=== PATIENT | male | born 1970 | race Caucasian/White ===

== ENCOUNTER 2021-01-24 10:33 | Inpatient (IN) ==
[2021-01-24] MEDS ORDERED: methylPREDNISolone SOD SUCC 125 MG/2 ML VIAL IV ONE (12:00)
[2021-01-24] MEDS ORDERED: 0.9 % SODIUM CHLORIDE 1,000 ML IV ONE (12:00)
[2021-01-24] MEDS ORDERED: cefTRIAXone 1 GM in DEXTROSE 5% IN WATER 50 ML IV SCH ×3 (12:00→17:30)
[2021-01-24] MEDS ORDERED: ALBUTEROL SULFATE 2.5 MG/3 ML NEBULIZER NEB ONE (12:00)
[2021-01-24] MEDS ORDERED: IPRATROPIUM/ALBUTEROL 3 ML AMPUL.NEB NEB ONE ×2 (12:00→18:42)
[2021-01-24] MEDS ORDERED: DOXYCYCLINE HYCLATE 100 MG TABLET.ORL PO ONE (12:02)
--- NOTE | 2021-01-24 12:23 | XRay Report ---
INDICATION: dyspnea TECHNIQUE: AP portable chest x-ray COMPARISON: Previous chest x-ray dated 01/18/2021 performed at [facility]. Prior examinations dated 12/24/2020, 12/23/2020, 04/12/2020, 04/06/2020, 03/07/2020, 12/11/2019. Previous CT scan dated 01/07/2020 FINDINGS: Lungs:Lungs are abnormal bilaterally. There are parenchymal infiltrates with bibasilar predominance, left worse than right. These infiltrates. Stable consistent with chronic scarring. There is tenting of left hemidiaphragm. No new focal pulmonary parenchymal infiltrate or mass Heart, vascular:No significant cardiomegaly. Pulmonary vascularity is normal. No pulmonary edema or pulmonary congestion Mediastinum, eduarda:No mediastinal widening. No hilar mass Pleura:There is blunting of the left and right costophrenic angles. Findings are chronic Skeletal:Negative. IMPRESSION: 1. Bilateral pulmonary parenchymal infiltrates consistent with chronic scarring 2. Blunting of both costophrenic angles, chronic 3. No acute abnormality Interpreted and Authenticated by: Kamron Dorado 01/24/21
[2021-01-24 12:57] LABS: Basophils # (Auto) 0.06 K/mcL (0.00-0.30); Basophils % (Auto) 0.5 % (0.0-2.0); Eosinophils # (Auto) 0.24 K/mcL (0.00-0.70); Eosinophils % (Auto) 1.9 % (0.0-7.0); Hemoglobin 15.1 g/dL (13.7-17.5); Lymphocytes # (Auto) 3.38 K/mcL (1.50-4.80); Lymphocytes % (Auto) 26.2 % (15.5-49.0); Mean Cell Volume 91.3 fL (80.0-100.0); Mean Corpuscular HGB Conc 35.1 g/dL (31.0-36.0); Mean Platelet Volume 8.8 fL (7.4-10.4); Monocytes # (Auto) 1.46 K/mcL (0.10-0.90); Monocytes % (Auto) 11.3 % (1.0-12.0); Neutrophils % (Auto) 60.1 % (38.0-78.0); Platelet Count 322 K/mcL (140-440); RBC 4.71 M/mcL (4.63-6.08); Red Cell Distribution Width 13.2 % (11.5-14.5); WBC 12.9 K/mcL (4.5-11.0)
[2021-01-24 13:16] LABS: ALT/SGPT 16 U/L (<40); AST/SGOT 23 U/L (<40); Albumin 3.8 gm/dL (3.2-5.2); Albumin/Globulin Ratio 1.4 (1.0-2.3); Alkaline Phosphatase 54 U/L (39-117); Bilirubin,Total 0.3 mg/dL (0.1-1.0); Blood Urea Nitrogen 11 mg/dL (6-20); Calcium 8.6 mg/dL (8.6-10.4); Carbon Dioxide 30 mmol/L (22-30); Chloride 86 mmol/L (96-108); Globulin 2.8 gm/dL (2.2-3.7); Glomerular Filtration Rate 105; Glucose 101 mg/dL (70-105)
--- NOTE | 2021-01-24 16:02 | Internal Med History&Physical ---
HPI History of Present Illness Patient information: Note initiated : 01/24/21 at 3:53 pm Service Date, if different from initiated Date: [] Patient: Tae Esquivel a 50 y/o M admitted on for PNA is worse & LLE swollen/red. Chief Complaint: [shortness of breath] History of present illness: Mr. Esquivel is a 50 year old M history of COPD, current smoker, seizure disorder, presenting with 1 and half week history of shortness of breath, productive cough, wheezing, chest pain/tightness, and chills. Over the 1/2-week, he is presenting of acute onset, gradually worsening shortness of breath, productive cough, wheezing, chest pain and chest tightness, and chills. He denies any fever or diaphoresis. He is producing brown sputum. He ran out of his medication for the past few days including inhalers. He is vaccinated against Covid pneumonia. He also have a history of left scherer wound secondary to a fall 2 weeks ago for which he is on and still taking oral antibiotics clindamycin. Today he presented to our ED due to worsening of his respiratory symptoms. He was initially placed on BiPAP and currently is on 2 L of oxygen's. He is saturating in the mid to high 90s with the current oxygen therapy. Rest of the vital signs within normal limits. Labs significant for leukocytosis with WBC 12.9. Serum lactic acid 0.5. Serum sodium level 125 with baseline 131. Chest x-ray showing bilateral lung parenchymal chronic scarring without any acute abnormalities. Covid screening test negative. Constitutional Constitutional: Present chills and weakness; Absent excessive sweating, fatigue and fever(s) EENT Eyes: Absent blurry vision, change in vision, loss of vision and other visual disturbances Ears: Absent decreased hearing and tinnitus Nose, mouth and throat: Absent abnormal hearing, dry mouth, headache(s), nasal congestion and sore throat Cardiovascular Cardiovascular: Present chest pain; Absent chest pain at rest, edema, irregular heart rhythm and palpatations Respiratory Respiratory: Present cough, dyspnea, wheezing and excessive phlegm production Gastrointestinal Gastrointestinal: Absent abdominal pain, constipation, diarrhea, nausea and vomiting Musculoskeletal Musculoskeletal: Absent back pain, deformity, limited range of motion, muscle cramps, muscle weakness and numbness Integumentary Integumentary: Present lesions and wounds; Absent rash Neurological Neurological: Absent focal weakness, headache(s) and numbness Psychiatric Psychiatric: Absent anxiety, depression and hallucinations PFSH PFSH All Active Problems (Updated 01/24/21 @ 15:58 by Severo Harrington MD) Hyponatremia (Acute) Current smoker (Acute) Acute and chronic respiratory failure with hypoxia (Acute) COPD exacerbation (Acute) Left leg cellulitis (Acute) Cellulitis (Acute) Laceration (Acute) Pneumonia (Acute) MEDS/ALLERGIES Home Medications and Allergies Home Medications Medication Instructions Recorded Confirmed Type ibuprofen 800 mg PO Q8H PRN #20 tab 01/11/21 Rx albuterol sulfate 2 puff INHALATION QID PRN #8.5 g 01/18/21 Rx amoxicillin-pot clavulanate 1 tab PO BID #20 tab 01/18/21 Rx [Augmentin] prednisone 40 mg PO QDAY #10 tab 01/18/21 Rx Allergies Allergy/AdvReac Type Severity Reaction Status Date / Time vancomycin Allergy Severe Anaphylaxis Verified 01/24/21 10:36 Sulfa (Sulfonamide Allergy Unknown Unknown Verified 01/24/21 10:36 Antibiotics) EXAM Constitutional Vitals: Temp Pulse Resp BP Pulse Ox 36.8 C 88 19 124/96 97 01/24/21 10:36 01/24/21 15:40 01/24/21 15:40 01/24/21 15:01 01/24/21 15:40 DATA Data Completed and Pending Labs: Labs from last 24 hours 01/24/21 01/24/21 01/24/21 12:30 12:07 12:07 WBC RBC Hgb Hct MCV MCH MCHC RDW Plt Count MPV Neut % (Auto) Lymph % (Auto) [place] % (Auto) Eos % (Auto) Baso % (Auto) Lymph # (Auto) [place] # (Auto) Eos # (Auto) Baso # (Auto) Absolute Neutrophils VBG Lactic Acid 0.5 Sodium 125 L Potassium 4.5 Chloride 86 L Carbon Dioxide 30 Anion Gap 9.0 BUN 11 Creatinine 0.8 GFR Calculation 105 Glucose 101 Calcium 8.6 Total Bilirubin 0.3 AST 23 ALT 16 Alkaline Phosphatase 54 Troponin T < 0.01 Total Protein 6.6 Albumin 3.8 Globulin 2.8 Albumin/Globulin Ratio 1.4 01/24/21 12:07 WBC 12.9 H RBC 4.71 Hgb 15.1 Hct 43.0 MCV 91.3 MCH 32.1 MCHC 35.1 RDW 13.2 Plt Count 322 MPV 8.8 Neut % (Auto) 60.1 Lymph % (Auto) 26.2 [place] % (Auto) 11.3 Eos % (Auto) 1.9 Baso % (Auto) 0.5 Lymph # (Auto) 3.38 [place] # (Auto) 1.46 H Eos # (Auto) 0.24 Baso # (Auto) 0.06 Absolute Neutrophils 7.74 VBG Lactic Acid Sodium Potassium Chloride Carbon Dioxide Anion Gap BUN Creatinine GFR Calculation Glucose Calcium Total Bilirubin AST ALT Alkaline Phosphatase Troponin T Total Protein Albumin Globulin Albumin/Globulin Ratio A/P Assessment and plan (1) Left leg cellulitis: Status: Acute (2) COPD exacerbation: Status: Acute (3) Acute and chronic respiratory failure with hypoxia: Status: Acute (4) Current smoker: Status: Acute (5) Hyponatremia: Status: Acute Narrative A/P Narrative: Assessment plan: 1. Acute on chronic respiratory failure with hypoxia secondary to COPD exacerbations: Inpatient MedSurg Supplemental oxygen therapy titrate to achieve SPO2 above or equal to 88% given COPD Covid PCR to rule out Covid infections DuoNeb nebulizer scheduled Prednisone Antibiotics therapy including Rocephin 2. Left leg cellulitis: MRSA screening Blood culture Wound culture Patient is allergic to vancomycin so we will do linezolid until MRSA screen is negative Rocephin Oxycodone as needed moderate pain Morphine IV as needed severe pain Tylenol as needed fever CBC with auto differential in the morning to trend WBC level 3. Hyponatremia: Differential diagnosis: Medication side effect suggest steroid prednisone versus endocrine etiology suggest SIADH Serum osmolality Urine osmolality and random urine sodium to rule out endocrine causes such as SIADH IV NS at 75 cc/h with BMP every 8 hours to trend serum sodium level with goal of correction 8-10 points in the first 24 hours to avoid neurologic consequences such as central pontine myelinolysis 4. Current cigarette smoker: Nicotine replacement therapy GI prophylaxis: Not currently indicated DVT prophylaxis: Lovenox CODE STATUS: Full code Process: Guarded Dispositions: Inpatient MedSurg Time Spent With Patient Time: Total time spent is greater than 50% in coordination of care (as documented) at patient's floor/unit and/or counseling patient: Total time spent with greater than 50% in coordination of care (as documented) at patient's floor/unit and/or counseling patient:: Greater than 35 minutes
--- NOTE | 2021-01-24 16:44 | Emergency Department Note ---
HPI General Chief complaint: Cold/Flu Symptoms Stated complaint: PNA is worse & LLE swollen/red Time Seen by Provider: 01/24/21 11:48 Source: patient and EMS Mode of arrival: ambulatory Limitations: no limitations History of Present Illness HPI Narrative: Narrative: 50-year-old male with history of COPD, currently smoking, multiple recent visits for left lower extremity wound with subsequent purulent infection and cellulitis, then subsequently COPD exacerbation and pneumonia presents for evaluation of significant shortness of breath, not responding well to every 4 nebulizer treatments. He denies definite fever or chills. He denies nausea or vomiting. He does have productive sputum. He is currently on p.o. steroids. He is also currently taking Augmentin. He reports that the leg is improved and no longer as drainage but there is significant redness around it. This is not been expanding for the past couple of days Related Data Home Medications Medication Instructions Recorded Confirmed albuterol sulfate 2 puff INHALATION PRN PRN 01/24/21 01/24/21 benzonatate 200 mg PO TID 01/24/21 01/24/21 budesonide-formoterol 2 puff INHALATION BID 01/24/21 01/24/21 citalopram 20 mg PO QDAY 01/24/21 01/24/21 cyclobenzaprine 10 mg PO PRN PRN 01/24/21 01/24/21 divalproex 2,000 mg PO QDAY 01/24/21 01/24/21 furosemide 40 mg PO QAM 01/24/21 01/24/21 gabapentin 300 mg PO TID 01/24/21 01/24/21 ipratropium-albuterol 3 ml INHALATION Q4H PRN 01/24/21 01/24/21 lisinopril 20 mg PO QDAY 01/24/21 01/24/21 lorazepam 1 mg PO TID PRN 01/24/21 01/24/21 mupirocin 1 applic TOPICAL TID 01/24/21 01/24/21 naltrexone 50 mg PO QDAY 01/24/21 01/24/21 prednisone 40 mg PO DAILY 01/24/21 01/24/21 quetiapine 50 mg PO PRN PRN 01/24/21 01/24/21 quetiapine 200 mg PO QHS 01/24/21 01/24/21 tramadol 50 mg PO Q6H PRN 01/24/21 01/24/21 trazodone 100 mg PO QHS 01/24/21 01/24/21 ziprasidone HCl 160 mg PO BID 01/24/21 01/24/21 Previous Rx's Medication Instructions Recorded ibuprofen 800 mg PO Q8H PRN #20 tab 01/11/21 amoxicillin-pot clavulanate 1 tab PO BID #20 tab 01/18/21 [Augmentin] Allergies Allergy/AdvReac Type Severity Reaction Status Date / Time vancomycin Allergy Severe Anaphylaxis Verified 01/24/21 10:36 Sulfa (Sulfonamide Allergy Unknown Unknown Verified 01/24/21 10:36 Antibiotics) Review of Systems ROS ROS Narrative: Narrative: All systems ED: reviewed and negative except as stated. PFSH Narrative Patient History Narrative: Narrative: Medical/Surgical/Family History All Active Problems (Updated 01/24/21 @ 16:47 by Kade Cutler DO) COPD exacerbation (Acute) Cellulitis (Acute) Pneumonia (Acute) Acute hyponatremia (Acute) Failure of outpatient treatment (Acute) Hyponatremia (Acute) Current smoker (Acute) Acute and chronic respiratory failure with hypoxia (Acute) COPD exacerbation (Acute) Left leg cellulitis (Acute) Cellulitis (Acute) Laceration (Acute) Pneumonia (Acute) Social History Smoking Status: Heavy tobacco smoker Exam Narrative Narrative: Narrative: General Limitations: no limitations General appearance: Present alert, anxious and in distress (Moderate to severe respiratory distress) Head Head: Present atraumatic and normocephalic Eye Eye: Present normal appearance and EOMI ENT ENT: Present normal exam and mucous membranes moist Neck Neck: Present normal inspection and full ROM Chest Chest: Present normal inspection and symmetric chest wall rise Respiratory Respiratory: Present respiratory distress, wheezes, accessory muscle use, prolonged expiratory phase, decreased breath sounds and other (Moderate severe respiratory distress with conversational dyspnea, supraclavicular muscle use, diffuse wheeze with scattered rhonchi) Cardiovascular Cardiovascular: Present regular rate and normal rhythm Adbominal Abdominal: Present soft; Absent tenderness Extremities Extremities: Present normal inspection and full ROM Neurological Neurological: Present alert, oriented X3 and normal gait Psychiatric Psychiatric: Present normal affect and normal mood Skin Skin: Present warm (WNL) and dry Course Vital Signs Vital signs: Vital Signs Temperature 98.2 F 01/24/21 10:36 Pulse Rate 90 01/24/21 10:36 Respiratory Rate 20 01/24/21 10:36 Blood Pressure 100/83 01/24/21 10:36 Pulse Oximetry (%) 94 01/24/21 10:36 Temperature 98.2 F 01/24/21 10:36 Pulse Rate 73 01/24/21 16:22 Respiratory Rate 20 01/24/21 16:22 Blood Pressure 123/87 01/24/21 16:16 Pulse Oximetry (%) 94 01/24/21 16:22 MDM MDM Narrative Medical decision making narrative: Narrative: Patient with moderate/severe respiratory distress on arrival. Placed on BiPAP, given continuous nebulizer, IV steroids. He had significant improvement with this, was trialed off BiPAP and did well. He was found to have significant hy ponatremia. He has been on oral Augmentin for pneumonia/cellulitis. With worsening symptoms, will broaden coverage to Rocephin/doxycycline. He will be admitted for further treatment. Area of cellulitis on the leg was outlined with slow progression I have low suspicion for necrotizing infection. Lab Data Result diagrams: 01/24/21 12:07 01/24/21 12:07 Labs: Lab Results 01/24/21 01/24/21 01/24/21 Range/Units 12:07 12:07 12:07 WBC 12.9 H (4.5-11.0) K/mcL RBC 4.71 (4.63-6.08) M/mcL Hgb 15.1 (13.7-17.5) g/dL Hct 43.0 (40.1-51.0) % MCV 91.3 (80.0-100.0) fL MCH 32.1 (26.0-34.0) pg MCHC 35.1 (31.0-36.0) g/dL RDW 13.2 (11.5-14.5) % Plt Count 322 (140-440) K/mcL MPV 8.8 (7.4-10.4) fL Neut % (Auto) 60.1 (38.0-78.0) % Lymph % (Auto) 26.2 (15.5-49.0) % [place] % (Auto) 11.3 (1.0-12.0) % Eos % (Auto) 1.9 (0.0-7.0) % Baso % (Auto) 0.5 (0.0-2.0) % Lymph # (Auto) 3.38 (1.50-4.80) K/mcL [place] # (Auto) 1.46 H (0.10-0.90) K/mcL Eos # (Auto) 0.24 (0.00-0.70) K/mcL Baso # (Auto) 0.06 (0.00-0.30) K/mcL Absolute Neutrophils 7.74 (1.80-8.00) K/mcL VBG Lactic Acid (0.5-2.0) mmol/L Sodium 125 L (133-145) mmol/L Potassium 4.5 (3.3-5.1) mmol/L Chloride 86 L (96-108) mmol/L Carbon Dioxide 30 (22-30) mmol/L Anion Gap 9.0 (8.0-16.0) BUN 11 (6-20) mg/dL Creatinine 0.8 (0.7-1.2) mg/dL GFR Calculation 105 Glucose 101 (70-105) mg/dL Calcium 8.6 (8.6-10.4) mg/dL Total Bilirubin 0.3 (0.1-1.0) mg/dL AST 23 (<40) U/L ALT 16 (<40) U/L Alkaline Phosphatase 54 (39-117) U/L Troponin T < 0.01 (<0.03) ng/mL Total Protein 6.6 (5.9-8.4) gm/dL Albumin 3.8 (3.2-5.2) gm/dL Globulin 2.8 (2.2-3.7) gm/dL Albumin/Globulin Ratio 1.4 (1.0-2.3) 01/24/21 Range/Units 12:30 WBC (4.5-11.0) K/mcL RBC (4.63-6.08) M/mcL Hgb (13.7-17.5) g/dL Hct (40.1-51.0) % MCV (80.0-100.0) fL MCH (26.0-34.0) pg MCHC (31.0-36.0) g/dL RDW (11.5-14.5) % Plt Count (140-440) K/mcL MPV (7.4-10.4) fL Neut % (Auto) (38.0-78.0) % Lymph % (Auto) (15.5-49.0) % [place] % (Auto) (1.0-12.0) % Eos % (Auto) (0.0-7.0) % Baso % (Auto) (0.0-2.0) % Lymph # (Auto) (1.50-4.80) K/mcL [place] # (Auto) (0.10-0.90) K/mcL Eos # (Auto) (0.00-0.70) K/mcL Baso # (Auto) (0.00-0.30) K/mcL Absolute Neutrophils (1.80-8.00) K/mcL VBG Lactic Acid 0.5 (0.5-2.0) mmol/L Sodium (133-145) mmol/L Potassium (3.3-5.1) mmol/L Chloride (96-108) mmol/L Carbon Dioxide (22-30) mmol/L Anion Gap (8.0-16.0) BUN (6-20) mg/dL Creatinine (0.7-1.2) mg/dL GFR Calculation Glucose (70-105) mg/dL Calcium (8.6-10.4) mg/dL Total Bilirubin (0.1-1.0) mg/dL AST (<40) U/L ALT (<40) U/L Alkaline Phosphatase (39-117) U/L Troponin T (<0.03) ng/mL Total Protein (5.9-8.4) gm/dL Albumin (3.2-5.2) gm/dL Globulin (2.2-3.7) gm/dL Albumin/Globulin Ratio (1.0-2.3) ED POC Tests ED POC Tests: TIESHA - Influenza A Negative TIESHA - Influenza B Negative TIESHA - SARS Antigen Negative EKG Data EKG #1: EKG attestation: Yes I reviewed and interpreted this EKG. EKG results narrative: Sinus rhythm at a rate of 96. Normal axis. QTC 460. Ventricular bigeminy. No acute appearing ST-T changes. Abnormal EKG. CC TIME Critical Care Time Critical Care Time: Yes Attestation: Approximately 30 minutes of critical care time was used in order to assess and manage the high probability of imminent or life threatening deterioration to COPD exacerbation with pneumonia requiring respiratory support with BiPAP and continuous nebulizer for reversal which required my highest level of preparedness and interventions with frequent patient assessments. This time is excluding time spent on separately billable procedures. Discharge Plan Patient/Caregiver Discharge Instructions Pt seen by SALES DEVELOPMENT CONSULTANT/PA only: No Clinical Impression: COPD exacerbation, Cellulitis, Pneumonia, Acute hyponatremia, Failure of outpatient treatment Patient Disposition: Xfer As Inpt ([facility]) Follow up with: No,PCP [Primary Care Provider] - Prescriptions: No Action ibuprofen 800 mg tablet 800 mg PO Q8H PRN (Reason: pain) Qty: 20 RF: 0 amoxicillin-pot clavulanate [Augmentin] 875-125 mg tablet 1 tab PO BID Qty: 20 RF: 0 cyclobenzaprine 10 mg Tablet 10 mg PO PRN PRN (Reason: Muscle Pain) RF: 0 ziprasidone HCl 80 mg Capsule 160 mg PO BID RF: 0 furosemide 40 mg Tablet 40 mg PO QAM RF: 0 ipratropium-albuterol 0.5 mg-3 mg(2.5 mg base)/3 mL Solution For Nebulization 3 ml INHALATION Q4H PRN (Reason: Shortness Of Breath Or Wheezing) RF: 0 benzonatate 200 mg Capsule 200 mg PO TID RF: 0 naltrexone 50 mg Tablet 50 mg PO QDAY RF: 0 lisinopril 20 mg Tablet 20 mg PO QDAY RF: 0 prednisone 20 mg Tablet 40 mg PO DAILY RF: 0 quetiapine 200 mg Tablet 200 mg PO QHS RF: 0 tramadol 50 mg Tablet 50 mg PO Q6H PRN (Reason: Pain) RF: 0 citalopram 20 mg Tablet 20 mg PO QDAY RF: 0 trazodone 100 mg Tablet 100 mg PO QHS RF: 0 divalproex 500 mg Tablet Extended Release 24 Hr 2,000 mg PO QDAY RF: 0 gabapentin 300 mg Capsule 300 mg PO TID RF: 0 mupirocin 2 % Ointment 1 applic TOPICAL TID RF: 0 lorazepam 1 mg Tablet 1 mg PO TID PRN (Reason: Anxiety) RF: 0 quetiapine 50 mg Tablet 50 mg PO PRN PRN (Reason: Anxiety) RF: 0 budesonide-formoterol 80-4.5 mcg/actuation Hfa Aerosol Inhaler 2 puff INHALATION BID RF: 0 albuterol sulfate 90 mcg/actuation HFA aerosol inhaler 2 puff inhalation PRN PRN (Reason: shortness of breath or wheezing) RF: 0
[2021-01-24] MEDS ORDERED: LINEZOLID 600 MG/300 ML BAG IV SCH (17:30)
[2021-01-24] MEDS ORDERED: ZOLPIDEM 5 MG TABLET PO PRN (17:30)
[2021-01-24] MEDS ORDERED: ONDANSETRON 4 MG/2 ML VIAL IV PRN (17:30)
[2021-01-24] MEDS ORDERED: morphine 4 MG/ML VIAL IV PRN (17:30)
[2021-01-24] MEDS ORDERED: ALBUTEROL SULFATE 200 PUFF INHALER INH PRN (17:30)
[2021-01-24] MEDS: 0.9 % SODIUM CHLORIDE 1,000 ML IV SCH (17:37)
[2021-01-24] MEDS ORDERED: FUROSEMIDE 40 MG/4 ML VIAL IV ONE ×2 (17:39→17:45)
[2021-01-24] MEDS: IPRATROPIUM/ALBUTEROL 3 ML AMPUL.NEB NEB SCH ×2 (18:42→22:40)
[2021-01-24 20:45] LABS: Blood Urea Nitrogen 14 mg/dL (6-20); Calcium 8.7 mg/dL (8.6-10.4); Carbon Dioxide 30 mmol/L (22-30); Chloride 88 mmol/L (96-108); Glomerular Filtration Rate 105; Glucose 135 mg/dL (70-105); Thyroid Stimulating Hormone 0.35 uIU/mL (0.27-5.01)
[2021-01-24] MEDS ORDERED: LINEZOLID 600 MG TABLET PO SCH (21:00)
[2021-01-24] MEDS ORDERED: NICOTINE 21 MG PATCH ONE (21:07)
[2021-01-24] MEDS ORDERED: NICOTINE 14 MG PATCH ONE (21:07)
[2021-01-24] MEDS: NICOTINE 21 MG PATCH TOPICAL SCH (21:08)
[2021-01-24] MEDS: BENZONATATE 100 MG CAPSULE PO PRN (21:25)
[2021-01-24] MEDS: SENNOSIDES 1 TABLET PO SCH (21:26)
[2021-01-24] MEDS: QUEtiapine 100 MG TABLET PO SCH (21:26)
[2021-01-24] MEDS: DOCUSATE SODIUM 100 MG CAPSULE PO SCH (21:26)
[2021-01-24] MEDS: traZODone HCL 100 MG TABLET PO SCH (21:27)
[2021-01-24] MEDS: GABAPENTIN 300 MG CAPSULE PO SCH (21:27)
[2021-01-24] MEDS: MUPIROCIN OINT 2% 22GM TOPICAL SCH ×2 (21:57→22:48)
[2021-01-24] MEDS: BUDESONIDE FORMOTEROL INH SCH (22:49)
[2021-01-24] MEDS: 0.9 % SODIUM CHLORIDE 10 ML SYRINGE IV SCH (22:52)
[2021-01-24] MEDS: LINEZOLID 600 MG TABLET PO SCH (22:52)
[2021-01-25] MEDS: LORazepam 1 MG TABLET PO PRN ×3 (02:00→18:11)
[2021-01-25] MEDS: IPRATROPIUM/ALBUTEROL 3 ML AMPUL.NEB NEB SCH ×6 (02:54→22:57)
[2021-01-25] MEDS: oxyCODONE HCL 5 MG TABLET PO PRN ×2 (02:56→10:13)
[2021-01-25 03:07] LABS: Sodium, Urine Random 48 mmol/L
[2021-01-25 03:10] LABS: Osmolality,Urine 295 mOSM/kg (80-1000)
[2021-01-25] MEDS: 0.9 % SODIUM CHLORIDE 10 ML SYRINGE IV SCH ×3 (05:55→22:34)
[2021-01-25] MEDS ORDERED: ALBUTEROL SULFATE 200 PUFF INHALER INH PRN (06:36)
[2021-01-25] MEDS: 0.9 % SODIUM CHLORIDE 1,000 ML IV SCH ×3 (06:57→22:33)
[2021-01-25] MEDS: BENZONATATE 100 MG CAPSULE PO PRN ×2 (06:58→21:32)
[2021-01-25] MEDS: IBUPROFEN 800 MG TABLET PO PRN ×2 (06:58→15:00)
[2021-01-25 07:16] LABS: Basophils # (Auto) 0.02 K/mcL (0.00-0.30); Basophils % (Auto) 0.2 % (0.0-2.0); Eosinophils # (Auto) 0.01 K/mcL (0.00-0.70); Eosinophils % (Auto) 0.1 % (0.0-7.0); Hematocrit 41.9 % (40.1-51.0); Hemoglobin 14.3 g/dL (13.7-17.5); Lymphocytes # (Auto) 1.92 K/mcL (1.50-4.80); Lymphocytes % (Auto) 16.6 % (15.5-49.0); Mean Cell Volume 92.1 fL (80.0-100.0); Mean Corpuscular HGB Conc 34.1 g/dL (31.0-36.0); Mean Platelet Volume 8.7 fL (7.4-10.4); Monocytes # (Auto) 1.35 K/mcL (0.10-0.90); Monocytes % (Auto) 11.6 % (1.0-12.0); Neutrophils % (Auto) 71.5 % (38.0-78.0); Platelet Count 320 K/mcL (140-440); RBC 4.55 M/mcL (4.63-6.08); Red Cell Distribution Width 12.9 % (11.5-14.5); WBC 11.6 K/mcL (4.5-11.0)
[2021-01-25 07:45] LABS: ALT/SGPT 13 U/L (<40); AST/SGOT 18 U/L (<40); Albumin 3.5 gm/dL (3.2-5.2); Albumin/Globulin Ratio 1.2 (1.0-2.3); Alkaline Phosphatase 49 U/L (39-117); Bilirubin,Total 0.3 mg/dL (0.1-1.0); Blood Urea Nitrogen 13 mg/dL (6-20); Calcium 8.5 mg/dL (8.6-10.4); Carbon Dioxide 26 mmol/L (22-30); Chloride 93 mmol/L (96-108); Glomerular Filtration Rate 118; Glucose 90 mg/dL (70-105)
[2021-01-25] MEDS ORDERED: MUPIROCIN OINT 2% 22GM TOPICAL SCH (09:00)
--- NOTE | 2021-01-25 09:09 | EKG ---
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
[2021-01-25] MEDS: predniSONE 20 MG TABLET PO SCH (10:13)
[2021-01-25] MEDS: CITALOPRAM 20 MG TABLET PO SCH (10:14)
[2021-01-25] MEDS: LISINOPRIL 20 MG TABLET PO SCH (10:14)
[2021-01-25] MEDS: GABAPENTIN 300 MG CAPSULE PO SCH ×3 (10:14→21:33)
[2021-01-25] MEDS: LINEZOLID 600 MG TABLET PO SCH ×2 (10:14→22:33)
[2021-01-25] MEDS: cefTRIAXone 1 GM VIAL IV SCH (10:15)
[2021-01-25] MEDS: NICOTINE 21 MG PATCH TOPICAL SCH (10:15)
[2021-01-25] MEDS: DOCUSATE SODIUM 100 MG CAPSULE PO SCH ×2 (10:16→21:32)
[2021-01-25] MEDS: ENOXAPARIN 40 MG/0.4 ML SYRINGE SQ SCH (10:17)
[2021-01-25] MEDS ORDERED: CYCLOBENZAPRINE 10 MG TABLET PO PRN (10:37)
[2021-01-25] MEDS ORDERED: QUEtiapine 25 MG TABLET PO PRN (10:38)
--- NOTE | 2021-01-25 11:39 | Internal Med Progress Note ---
SUBJECTIVE Subjective Patient information: Note initiated : 01/25/21 at 11:37 am Service Date, if different from initiated Date: [] Patient: Tae Esquivel 50 y/o M admitted on 01/24/21 for PNA is worse & LLE swollen/red. Chief Complaint: [COPD exacerbation] Interval history: History of present illness: Mr. Esquivel is a 50 year old M history of COPD, current smoker, seizure disorder, presenting with 1 and half week history of shortness of breath, productive cough, wheezing, chest pain/tightness, and chills. Over the 1/2-week, he is presenting of acute onset, gradually worsening shortness of breath, productive cough, wheezing, chest pain and chest tightness, and chills. He denies any fever or diaphoresis. He is producing brown sputum. He ran out of his medication for the past few days including inhalers. He is vaccinated against Covid pneumonia. He also have a history of left scherer wound secondary to a fall 2 weeks ago for which he is on and still taking oral antibiotics clindamycin. Today he presented to our ED due to worsening of his respiratory symptoms. He was initially placed on BiPAP and currently is on 2 L of oxygen's. He is saturating in the mid to high 90s with the current oxygen therapy. Rest of the vital signs within normal limits. Labs significant for leukocytosis with WBC 12.9. Serum lactic acid 0.5. Serum s odium level 125 with baseline 131. Chest x-ray showing bilateral lung parenchymal chronic scarring without any acute abnormalities. Covid screening test negative. 01/25: Been on supplemental oxygen 3L/min overnight and this morning. CoVID negative. Blood and urine cultures no growth to date. Serum sodium level 125-->128. c/o SOB. c/o productive cough with white sputum production. c/o wheezing. c/o chest pain. c/o moderate left leg burning and shooting pain. Denies fever, chills, or sweating. Constitutional Vitals: Vital Signs Temp Pulse Resp BP Pulse Ox 37.1 C 81 16 130/77 95 01/25/21 08:00 01/25/21 11:23 01/25/21 11:23 01/25/21 08:00 01/25/21 11:23 Period Temp Pulse Resp BP Sys/Banks Pulse Ox Last 24 Hr 36.4 C-37.1 C 43-93 16-32 122-170/59-96 89-99 Intake and Output 01/24/21 01/25/21 01/25/21 21:59 05:59 13:59 Intake Total 1000 2394 Output Total 1000 1500 400 Balance 0 894 -400 Weight 98.43 kg Intake & Output: Intake & Output 01/24/21 01/25/21 01/25/21 21:59 05:59 13:59 Intake Total 1000 2394 Output Total 1000 1500 400 Balance 0 894 -400 Weight 98.43 kg Intake: IV 1000 Sodium Chloride 0.9% 1,000 ml @ 1000 Wide Open IV .Q0M ONE Rx#: [id number] Oral 2394 Output: Void Amount 1000 1500 400 Other: Urine Appearance Clear Clear Urine Color Pale Pale Bright Yellow Urine Odor Normal Normal # Voids 1 General appearance: cooperative and moderate distress Head Head exam: Present atraumatic and normocephalic Eye Eye exam: Present EOMI and PERRL ENT ENT exam: Present mucous membranes moist, normal exam and normal external ear exam Additional comments: Nasal cannula in place Neck Neck exam: Present normal inspection; Absent lymphadenopathy, tenderness and thyromegaly Respiratory Respiratory exam: Present rhonchi and wheezes; Absent accessory muscle use and respiratory distress Additional comments: cough during examination Cardiovascular Cardiovascular exam: Present normal rate and rhythm; Absent JVD GI/Abdominal GI/Abdominal exam: Present normal bowel sounds and soft; Absent organomegaly and tenderness Rectal Rectal exam: Present deferred Extremities Exam Extremities exam: Present full ROM, normal capillary refill and normal i nspection; Absent tenderness Neurological Exam Neurological exam: Present alert, CN II-XII intact and oriented X3; Absent motor sensory deficit Psychiatric Psychiatric exam: Present normal affect and normal mood; Absent anxious and depressed Skin Skin exam: Present dry, erythema, rash and warm; Absent intact Additional comments: Left scherer covered with wound dressing OBJ DATA Labs CBC & Chem 7: 01/25/21 05:35 01/25/21 05:34 Labs: Abnormal Lab Results 01/25/21 01/25/21 01/24/21 05:35 05:34 19:40 WBC 11.6 H RBC 4.55 L [place] # (Auto) 1.35 H Absolute Neutrophils 8.30 H Sodium 128 L 127 L Chloride 93 L 88 L Creatinine 0.6 L Glucose 135 H Calcium 8.5 L 01/24/21 01/24/21 12:07 12:07 WBC 12.9 H RBC [place] # (Auto) 1.46 H Absolute Neutrophils Sodium 125 L Chloride 86 L Creatinine Glucose Calcium Meds: Medications Acetaminophen (Acetaminophen 325 Mg Tablet) 650 mg PO Q6HP PRN; Protocol PRN Reason: Per Pain Protocol/Fever > 101 Albuterol Sulfate (Albuterol Sulfate 200 Puff Inhaler) 2 puff INH Q6HP PRN PRN Reason: shortness of breath or wheezing Last Admin: 01/25/21 06:43 Dose: 2 puff Documented by: Albuterol/Ipratropium (Ipratropium/Albuterol 3 Ml Ampul.Neb) 3 ml NEB Q4HRT [facility] Last Admin: 01/25/21 11:13 Dose: 3 ml Documented by: Benzonatate (Benzonatate 100 Mg Capsule) 200 mg PO TIDP PRN PRN Reason: Cough Last Admin: 01/25/21 06:58 Dose: 200 mg Documented by: Ceftriaxone Sodium (Ceftriaxone 1 Gm Vial) 1 gm IV Q24H [facility] Last Admin: 01/25/21 10:15 Dose: 1 gm Documented by: Citalopram Hydrobromide (Citalopram 20 Mg Tablet) 20 mg PO QDAY [facility] Last Admin: 01/25/21 10:14 Dose: 20 mg Documented by: Cyclobenzaprine HCl (Cyclobenzaprine 10 Mg Tablet) 10 mg PO BIDP PRN PRN Reason: Muscle Spasm Divalproex Sodium (Divalproex Sodium 250 Mg Tablet) 2,000 mg PO HS [facility] Docusate Sodium (Docusate Sodium 100 Mg Capsule) 100 mg PO BID [facility] Last Admin: 01/25/21 10:16 Dose: Not Given Documented by: Enoxaparin Sodium (Enoxaparin 40 Mg/0.4 Ml Syringe) 40 mg SQ DAILY [facility] Last Admin: 01/25/21 10:17 Dose: 40 mg Documented by: Gabapentin (Gabapentin 300 Mg Capsule) 300 mg PO TID [facility] Last Admin: 01/25/21 10:14 Dose: 300 mg Documented by: Sodium Chloride (Sodium Chloride 0.9%) 1,000 mls @ 75 mls/hr IV .[id number] [facility] Last Admin: 01/25/21 06:57 Dose: Not Given Documented by: Ibuprofen (Ibuprofen 800 Mg Tablet) 800 mg PO Q8H PRN; Protocol PRN Reason: pain Last Admin: 01/25/21 06:58 Dose: 800 mg Documented by: Linezolid (Linezolid 600 Mg Tablet) 600 mg PO Q12 [facility]; Protocol Last Admin: 01/25/21 10:14 Dose: 600 mg Documented by: Lisinopril (Lisinopril 20 Mg Tablet) 20 mg PO QDAY [facility] Last Admin: 01/25/21 10:14 Dose: 20 mg Documented by: Lorazepam (Lorazepam 1 Mg Tablet) 1 mg PO TIDP PRN PRN Reason: Anxiety Last Admin: 01/25/21 10:28 Dose: 1 mg Documented by: Morphine Sulfate (Morphine 4 Mg/Ml Vial) 2 mg IV Q4HP PRN; Protocol PRN Reason: Per Pain Protocol Mupirocin (Mupirocin Oint 2% 22gm) 1 dose TOPICAL TID [facility] Last Admin: 01/25/21 10:16 Dose: Not Given Documented by: Naltrexone HCl (Naltrexone Hcl 50 Mg Tablet) 50 mg PO QDAY [facility] Nicotine (Nicotine 21 Mg Patch) 21 mg TOPICAL DAILY@1000 [facility] Last Admin: 01/25/21 10:15 Dose: 21 mg Documented by: Ondansetron HCl (Ondansetron 4 Mg/2 Ml Vial) 4 mg IV Q6HP PRN PRN Reason: Nausea And Vomiting Oxycodone HCl (Oxycodone Hcl 5 Mg Tablet) 5 mg PO Q4HP PRN; Protocol PRN Reason: Per Pain Protocol Last Admin: 01/25/21 10:13 Dose: 5 mg Documented by: Budesonide- Formoterol 80-4.5 Mcg/Actuation Inhaler 2 dose INH BID [facility] Last Admin: 01/24/21 22:49 Dose: Not Given Documented by: Ziprasidone Hcl 80 (Mg Capsule) 2 dose PO BID [facility] Last Admin: 01/25/21 10:15 Dose: Not Given Documented by: Prednisone (Prednisone 20 Mg Tablet) 40 mg PO DAILY [facility] Last Admin: 01/25/21 10:13 Dose: 40 mg Documented by: Quetiapine Fumarate (Quetiapine 100 Mg Tablet) 200 mg PO HS [facility] Last Admin: 01/24/21 21:26 Dose: 200 mg Documented by: Quetiapine Fumarate (Quetiapine 25 Mg Tablet) 50 mg PO TIDP PRN PRN Reason: Anxiety Senna (Sennosides 1 Tablet) 2 tab PO HS [facility] Last Admin: 01/24/21 21:26 Dose: 2 tab Documented by: Sodium Chloride (0.9 % Sodium Chloride 10 Ml Syringe) 10 ml IV Q8 [facility] Last Admin: 01/25/21 05:55 Dose: 10 ml Documented by: Tramadol HCl (Tramadol 50 Mg Tablet) 50 mg PO Q6H PRN; Protocol PRN Reason: Pain Trazodone HCl (Trazodone Hcl 100 Mg Tablet) 100 mg PO QHS [facility] Last Admin: 01/24/21 21:27 Dose: 100 mg Documented by: Zolpidem Tartrate (Zolpidem 5 Mg Tablet) 5 mg PO HSP PRN PRN Reason: Insomnia A/P Assessment and plan (1) Left leg cellulitis: Status: Acute (2) COPD exacerbation: Status: Acute (3) Acute and chronic respiratory failure with hypoxia: Status: Acute (4) Current smoker: Status: Acute (5) Hyponatremia: Status: Acute Narrative A/P Narrative: Assessment plan: 1. Acute on chronic respiratory failure with hypoxia secondary to COPD exacerbations: Inpatient MedSurg Supplemental oxygen therapy titrate to achieve SPO2 above or equal to 88% given COPD Covid PCR to rule out Covid infections DuoNeb nebulizer scheduled Prednisone Antibiotics therapy including Rocephin 2. Left leg cellulitis: MRSA screening Blood culture, no growth to date Wound culture, no growth to date Patient is allergic to vancomycin so we will do linezolid until MRSA screen is negative Rocephin Oxycodone as needed moderate pain Morphine IV as needed severe pain Tylenol as needed fever CBC with auto differential in the morning to trend WBC level 3. Hyponatremia: Differential diagnosis: Medication side effect suggest steroid prednisone versus endocrine etiology suggest SIADH Serum osmolality-->282, normal. Assess for hyperproteinuria or hperlipidemia by ordering urine protein and serum lipid panel Urine osmolality and random urine sodium to rule out endocrine causes such as SIADH IV NS at 75 cc/h with BMP every 8 hours to trend serum sodium level with goal of correction 8-10 points in the first 24 hours to avoid neurologic consequences such as central pontine myelinolysis 4. Current cigarette smoker: Nicotine replacement therapy GI prophylaxis: Not currently indicated DVT prophylaxis: Lovenox CODE STATUS: Full code Process: Guarded Dispositions: Inpatient MedSurg Time Spent With Patient Time: Total time spent is greater than 50% in coordination of care (as documented) at patient's floor/unit and/or counseling patient: QUALITY Stroke Symptom Onset Unknown: No VTE Deep Vein Thrombosis/Pulmonary Embolism Present on Admission: No
[2021-01-25 11:53] LABS: HDL Cholesterol 62 mg/dL (>40); LDL Cholesterol,Calculated 96 mg/dL (<100); Non-HDL Cholesterol 110 mg/dL (<130); Triglycerides 75 mg/dL (<150)
[2021-01-25] MEDS: NALTREXONE HCL 50 MG TABLET PO SCH (12:00)
[2021-01-25] MEDS: BUDESONIDE FORMOTEROL INH SCH ×2 (12:03→22:29)
[2021-01-25] MEDS: ACETAMINOPHEN 325 MG TABLET PO PRN ×2 (12:08→21:33)
[2021-01-25] MEDS ORDERED: guaiFENesin/DEXTROMETHORPHAN ORAL SOL PO PRN (14:21)
[2021-01-25 17:38] LABS: Blood Urea Nitrogen 14 mg/dL (6-20); Calcium 8.9 mg/dL (8.6-10.4); Carbon Dioxide 28 mmol/L (22-30); Chloride 91 mmol/L (96-108); Glomerular Filtration Rate 105; Glucose 114 mg/dL (70-105)
[2021-01-25] MEDS ORDERED: DIVALPROEX SODIUM 250 MG TABLET PO SCH (21:00)
[2021-01-25 21:02] LABS: Blood Urea Nitrogen 19 mg/dL (6-20); Calcium 8.6 mg/dL (8.6-10.4); Carbon Dioxide 25 mmol/L (22-30); Chloride 92 mmol/L (96-108); Glomerular Filtration Rate 111; Glucose 107 mg/dL (70-105)
[2021-01-25] MEDS: QUEtiapine 100 MG TABLET PO SCH (21:31)
[2021-01-25] MEDS: traZODone HCL 100 MG TABLET PO SCH (21:33)
[2021-01-25] MEDS: SENNOSIDES 1 TABLET PO SCH (21:33)
[2021-01-25] MEDS: traMADol 50 MG TABLET PO PRN (21:44)
[2021-01-25] MEDS ORDERED: DIVALPROEX SODIUM 250 MG TABLET PO ONE (21:59)
[2021-01-26] MEDS: LORazepam 1 MG TABLET PO PRN ×2 (01:10→09:17)
[2021-01-26] MEDS: IPRATROPIUM/ALBUTEROL 3 ML AMPUL.NEB NEB SCH ×3 (02:56→10:53)
[2021-01-26] MEDS: 0.9 % SODIUM CHLORIDE 10 ML SYRINGE IV SCH (06:08)
[2021-01-26 07:45] LABS: Basophils # (Auto) 0.04 K/mcL (0.00-0.30); Basophils % (Auto) 0.4 % (0.0-2.0); Eosinophils # (Auto) 0.12 K/mcL (0.00-0.70); Eosinophils % (Auto) 1.1 % (0.0-7.0); Hematocrit 40.1 % (40.1-51.0); Hemoglobin 13.2 g/dL (13.7-17.5); Lymphocytes # (Auto) 2.89 K/mcL (1.50-4.80); Lymphocytes % (Auto) 27.6 % (15.5-49.0); Mean Cell Volume 94.4 fL (80.0-100.0); Mean Corpuscular HGB Conc 32.9 g/dL (31.0-36.0); Mean Platelet Volume 8.9 fL (7.4-10.4); Monocytes # (Auto) 1.15 K/mcL (0.10-0.90); Neutrophils % (Auto) 59.9 % (38.0-78.0); Platelet Count 290 K/mcL (140-440); RBC 4.25 M/mcL (4.63-6.08); Red Cell Distribution Width 13.1 % (11.5-14.5); WBC 10.5 K/mcL (4.5-11.0)
[2021-01-26 08:17] LABS: ALT/SGPT 14 U/L (<40); AST/SGOT 16 U/L (<40); Albumin 3.1 gm/dL (3.2-5.2); Albumin/Globulin Ratio 1.1 (1.0-2.3); Alkaline Phosphatase 46 U/L (39-117); Bilirubin,Total < 0.2 mg/dL (0.1-1.0); Blood Urea Nitrogen 11 mg/dL (6-20); Calcium 8.2 mg/dL (8.6-10.4); Carbon Dioxide 24 mmol/L (22-30); Chloride 94 mmol/L (96-108); Globulin 2.7 gm/dL (2.2-3.7); Glomerular Filtration Rate 118; Glucose 90 mg/dL (70-105)
[2021-01-26] MEDS: CITALOPRAM 20 MG TABLET PO SCH (08:51)
[2021-01-26] MEDS: predniSONE 20 MG TABLET PO SCH (08:51)
[2021-01-26] MEDS: GABAPENTIN 300 MG CAPSULE PO SCH (08:52)
[2021-01-26] MEDS: LINEZOLID 600 MG TABLET PO SCH (08:52)
[2021-01-26] MEDS: LISINOPRIL 20 MG TABLET PO SCH (08:52)
[2021-01-26] MEDS: ENOXAPARIN 40 MG/0.4 ML SYRINGE SQ SCH (08:53)
[2021-01-26] MEDS: DOCUSATE SODIUM 100 MG CAPSULE PO SCH (08:53)
[2021-01-26] MEDS: NALTREXONE HCL 50 MG TABLET PO SCH (09:13)
[2021-01-26] MEDS: traMADol 50 MG TABLET PO PRN (09:15)
[2021-01-26] MEDS: NICOTINE 21 MG PATCH TOPICAL SCH (09:18)
[2021-01-26] MEDS: BUDESONIDE FORMOTEROL INH SCH (09:30)
[2021-01-26] MEDS: cefTRIAXone 1 GM VIAL IV SCH (10:39)
[2021-01-26] MEDS: 0.9 % SODIUM CHLORIDE 1,000 ML IV SCH (10:39)
--- NOTE | 2021-01-26 11:11 | Discharge Summary ---
Discharge Provider Provider Patient information: Note initiated : 01/26/21 at 11:03 am Service Date, if different from initiated Date: [] Patient: Tae Esquivel 50 y/o M admitted on 01/24/21 for PNA is worse & LLE swollen/red. Chief Complaint: [COPD exacerbation] History of present illness: Mr. Esquivel is a 50 year old M history of COPD, current smoker, seizure disorder, presenting with 1 and half week history of shortness of breath, productive cough, wheezing, chest pain/tightness, and chills. Over the 1/2-week, he is presenting of acute onset, gradually worsening shortness of breath, productive cough, wheezing, chest pain and chest tightness, and chills. He denies any fever or diaphoresis. He is producing brown sputum. He ran out of his medication for the past few days including inhalers. He is vaccinated against Covid pneumonia. He also have a history of left scherer wound secondary to a fall 2 weeks ago for which he is on and still taking oral antibiotics clindamycin. Today he presented to our ED due to worsening of his respiratory symptoms. He was initially placed on BiPAP and currently is on 2 L of oxygen's. He is saturating in the mid to high 90s with the current oxygen therapy. Rest of the vital signs within normal limits. Labs significant for leukocytosis with WBC 12.9. Serum lactic acid 0.5. Serum sodium level 125 with baseline 131. Chest x-ray showing bilateral lung parenchymal chronic scarring without any acute abnormalities. Covid screening test negative. Date of admission: 01/24/21 17:11 Discharge date: 01/26/21 Primary care physician: PCP No Consults: 01/24/21 Consult to Physician [CONS] Stat Comment: Consulting Provider: Severo Harrington Reason For Exam: Physician to Consult Discharge Meds Discharge Medications Home Medications ibuprofen 800 mg PO Q8H PRN #20 tab 01/11/21 [Rx Confirmed 01/24/21 Last Taken Unknown] amoxicillin-pot clavulanate [Augmentin] 1 tab PO BID #20 tab 01/18/21 [Rx Confirmed 01/24/21 Last Taken Unknown] albuterol sulfate 2 puff INHALATION PRN PRN 01/24/21 [History Confirmed 01/24/21 Last Taken Unknown] benzonatate 200 mg PO TID 01/24/21 [History Confirmed 01/24/21 Last Taken Unknown] budesonide-formoterol 2 puff INHALATION BID 01/24/21 [History Confirmed 01/24/21 Last Taken Unknown] cyclobenzaprine 10 mg PO BIDP PRN 01/24/21 [History Confirmed 01/25/21 Last Taken Unknown] divalproex 2,000 mg PO QDAY 01/24/21 [History Confirmed 01/24/21 Last Taken Unknown] gabapentin 300 mg PO TID 01/24/21 [History Confirmed 01/24/21 Last Taken Unknown] ipratropium-albuterol 3 ml INHALATION Q4H PRN 01/24/21 [History Confirmed 01/24/21 Last Taken Unknown] lisinopril 20 mg PO QDAY 01/24/21 [History Confirmed 01/24/21 Last Taken Unknown] lorazepam 1 mg PO TID PRN 01/24/21 [History Confirmed 01/24/21 Last Taken Unknown] mupirocin 1 applic TOPICAL TID 01/24/21 [History Confirmed 01/24/21 Last Taken Unknown] naltrexone 50 mg PO QDAY 01/24/21 [History Confirmed 01/24/21 Last Taken Unknown] prednisone 40 mg PO DAILY 01/24/21 [History Confirmed 01/24/21 Last Taken Unknown] quetiapine 50 mg PO TIDP PRN 01/24/21 [History Confirmed 01/25/21 Last Taken Unknown] quetiapine 200 mg PO QHS 01/24/21 [History Confirmed 01/24/21 Last Taken Unknown] tramadol 50 mg PO Q6H PRN 01/24/21 [History Confirmed 01/24/21 Last Taken Unknown] trazodone 100 mg PO QHS 01/24/21 [History Confirmed 01/24/21 Last Taken Unknown] ziprasidone HCl 160 mg PO BID 01/24/21 [History Confirmed 01/24/21 Last Taken Unknown] COURSE Hospital Course Hospital course: Patient was admitted on January 24, 2021 for COPD exacerbations as well as hyponatremia. For his COPD exacerbations, supplemental oxygen therapy, bronchodilators in terms of DuoNeb nebulizer, prednisone, and antibiotics in terms of Rocephin's were all provided. By day 3 hospitalizations, patient was able to tolerate room air. For hyponatremia, any diuretics suggest Lasix ssri such as Citalopram will being held. IV fluid replacement with normal saline will also provided together with closed monitoring of serum sodium level with BMP to make sure the rate of corrections of hyponatremia did not exceed 10 points in the first 24 hours. By day 3 hospitalizations, patient's sodium level normalized. Antibiotics with Zyvox and Rocephin were provided for cellulitis of the left leg. Wound and blood culture no growth to date. Patient's reached clinical stability on day 3 hospitalization and the decision was made to discharge the patient back to his nursing home. 2 weeks with PCP follow-up appointment made for the patient. All questions were answered prior to patient being physically discharged. Discharge diagnosis: COPD exacerbation Time Spent with Patient Time attestation: Total time spent providing and/or coordinating discharge services: Patient was admitted on January 24, 2021 for COPD exacerbations as well as hyponatremia. For his COPD exacerbations, supplemental oxygen therapy, bronchodilators in terms of DuoNeb nebulizer, prednisone, and antibiotics in terms of Rocephin's were all provided. By day 3 hospitalizations, patient was able to tolerate room air. For hyponatremia, any diuretics suggest Lasix ssri such as Citalopram will being held. IV fluid replacement with normal saline will also provided together with closed monitoring of serum sodium level with BMP to make sure the rate of corrections of hyponatremia did not exceed 10 points in the first 24 hours. By day 3 hospitalizations, patient's sodium level normalized. Antibiotics with Zyvox and Rocephin were provided for cellulitis of the left leg. Wound and blood culture no growth to date. Patient's reached clinical stability on day 3 hospitalization and the decision was made to discharge the patient back to his nursing home. 2 weeks with PCP follow-up appointment made for the patient. All questions were answered prior to patient being physically discharged. EXAM Constitutional Vitals: Temp Pulse Resp BP Pulse Ox 36.3 C 87 16 132/78 91 01/26/21 08:00 01/26/21 11:00 01/26/21 11:00 01/26/21 08:00 01/26/21 08:00 General appearance: cooperative and no acute distress Head Head exam: Present atraumatic and normocephalic Eye Eye exam: Present EOMI and PERRL ENT ENT exam: Present mucous membranes moist, normal exam and normal external ear exam Neck Neck exam: Present normal inspection; Absent lymphadenopathy, tenderness and thy romegaly Respiratory Respiratory exam: Absent accessory muscle use, respiratory distress and wheezes Cardiovascular Cardiovascular exam: Present normal rate and rhythm; Absent JVD GI/Abdominal GI/Abdominal exam: Present normal bowel sounds and soft; Absent organomegaly and tenderness Rectal Rectal exam: Present deferred Extremities Exam Extremities exam: Present full ROM, normal capillary refill and normal inspection; Absent tenderness Neurological Exam Neurological exam: Present alert, CN II-XII intact and oriented X3; Absent motor sensory deficit Psychiatric Psychiatric exam: Present normal affect and normal mood; Absent anxious and depressed Skin Skin exam: Present dry, erythema, rash and warm; Absent intact Discharge Data Data Completed and Pending Labs on day of discharge: Labs from last 24 hours 01/26/21 01/26/21 01/26/21 09:50 05:26 05:26 WBC 10.5 RBC 4.25 L Hgb 13.2 L Hct 40.1 MCV 94.4 MCH 31.1 MCHC 32.9 RDW 13.1 Plt Count 290 MPV 8.9 Neut % (Auto) 59.9 Lymph % (Auto) 27.6 [place] % (Auto) 11.0 Eos % (Auto) 1.1 Baso % (Auto) 0.4 Lymph # (Auto) 2.89 [place] # (Auto) 1.15 H Eos # (Auto) 0.12 Baso # (Auto) 0.04 Absolute Neutrophils 6.29 Sodium Pending 130 L Potassium Pending 4.1 Chloride Pending 94 L Carbon Dioxide Pending 24 Anion Gap Pending 12.0 BUN Pending 11 Creatinine Pending 0.6 L GFR Calculation Pending 118 BUN/Creatinine Ratio Glucose Pending 90 Calcium Pending 8.2 L Magnesium 2.0 Total Bilirubin < 0.2 AST 16 ALT 14 Alkaline Phosphatase 46 Total Protein 5.8 L Albumin 3.1 L Globulin 2.7 Albumin/Globulin Ratio 1.1 Triglycerides Cholesterol LDL Cholesterol, Calc Non-HDL Cholesterol HDL Cholesterol 01/26/21 01/25/21 01/25/21 05:26 19:12 10:00 WBC RBC Hgb Hct MCV MCH MCHC RDW Plt Count MPV Neut % (Auto) Lymph % (Auto) [place] % (Auto) Eos % (Auto) Baso % (Auto) Lymph # (Auto) [place] # (Auto) Eos # (Auto) Baso # (Auto) Absolute Neutrophils Sodium Cancelled 128 L Potassium Cancelled 4.8 Chloride Cancelled 92 L Carbon Dioxide Cancelled 25 Anion Gap Cancelled 11.0 BUN Cancelled 19 Creatinine Cancelled 0.7 GFR Calculation Cancelled 111 BUN/Creatinine Ratio Cancelled Glucose Cancelled 107 H Calcium Cancelled 8.6 Magnesium Total Bilirubin AST ALT Alkaline Phosphatase Total Protein Albumin Globulin Albumin/Globulin Ratio Triglycerides 75 Cholesterol 172 LDL Cholesterol, Calc 96 Non-HDL Cholesterol 110 HDL Cholesterol 62 01/25/21 09:50 WBC RBC Hgb Hct MCV MCH MCHC RDW Plt Count MPV Neut % (Auto) Lymph % (Auto) [place] % (Auto) Eos % (Auto) Baso % (Auto) Lymph # (Auto) [place] # (Auto) Eos # (Auto) Baso # (Auto) Absolute Neutrophils Sodium 130 L Potassium 4.0 Chloride 91 L Carbon Dioxide 28 Anion Gap 11.0 BUN 14 Creatinine 0.8 GFR Calculation 105 BUN/Creatinine Ratio Glucose 114 H Calcium 8.9 Magnesium Total Bilirubin AST ALT Alkaline Phosphatase Total Protein Albumin Globulin Albumin/Globulin Ratio Triglycerides Cholesterol LDL Cholesterol, Calc Non-HDL Cholesterol HDL Cholesterol Preliminary micro results at discharge 01/24/21 16:17 Gram Stain - Preliminary Leg - Lower Left Wound Culture - Preliminary 01/24/21 12:30 Blood Culture - Preliminary Blood 01/24/21 12:07 Blood Culture - Preliminary Blood Discharge Plan Patient/Caregiver Discharge Instructions Activity: increase activity as tolerated Diet: Regular Diet Prescriptions: Continued ibuprofen 800 mg tablet 800 mg PO Q8H PRN (Reason: pain) Qty: 20 RF: 0 amoxicillin-pot clavulanate [Augmentin] 875-125 mg tablet 1 tab PO BID Qty: 20 RF: 0 cyclobenzaprine 10 mg Tablet 10 mg PO BIDP PRN (Reason: Muscle Pain) RF: 0 ziprasidone HCl 80 mg Capsule 160 mg PO BID RF: 0 ipratropium-albuterol 0.5 mg-3 mg(2.5 mg base)/3 mL Solution For Nebulization 3 ml INHALATION Q4H PRN (Reason: Shortness Of Breath Or Wheezing) RF: 0 benzonatate 200 mg Capsule 200 mg PO TID RF: 0 naltrexone 50 mg Tablet 50 mg PO QDAY RF: 0 lisinopril 20 mg Tablet 20 mg PO QDAY RF: 0 prednisone 20 mg Tablet 40 mg PO DAILY RF: 0 quetiapine 200 mg Tablet 200 mg PO QHS RF: 0 tramadol 50 mg Tablet 50 mg PO Q6H PRN (Reason: Pain) RF: 0 trazodone 100 mg Tablet 100 mg PO QHS RF: 0 divalproex 500 mg Tablet Extended Release 24 Hr 2,000 mg PO QDAY RF: 0 gabapentin 300 mg Capsule 300 mg PO TID RF: 0 mupirocin 2 % Ointment 1 applic TOPICAL TID RF: 0 lorazepam 1 mg Tablet 1 mg PO TID PRN (Reason: Anxiety) RF: 0 quetiapine 50 mg Tablet 50 mg PO TIDP PRN (Reason: Anxiety) RF: 0 budesonide-formoterol 80-4.5 mcg/actuation Hfa Aerosol Inhaler 2 puff INHALATION BID RF: 0 albuterol sulfate 90 mcg/actuation HFA aerosol inhaler 2 puff inhalation PRN PRN (Reason: shortness of breath or wheezing) RF: 0 Discontinued furosemide 40 mg Tablet 40 mg PO QAM RF: 0 citalopram 20 mg Tablet 20 mg PO QDAY RF: 0 Follow Up Plan Follow up with: No,PCP [Primary Care Provider] - (Please make him a 2 week PCP follow up appointment ) Patient Disposition: Xfer Other Rehab Potential: Good I certify that the patient requires SNF services: No Overall status at discharge: patient is back to baseline Discharge Orders: Discharge Order (Routine); Ordered 01/26/21 Ordered By: Severo GALLARDO VTE Deep Vein Thrombosis/Pulmonary Embolism Present on Admission: No
[2021-01-26 12:32] LABS: Blood Urea Nitrogen 11 mg/dL (6-20); Calcium 8.4 mg/dL (8.6-10.4); Carbon Dioxide 28 mmol/L (22-30); Chloride 95 mmol/L (96-108); Glomerular Filtration Rate 111; Glucose 108 mg/dL (70-105)
== END 2021-01-26 12:05 | disposition other institution (70) | DRG 190 ==
LOC: ED 10:33 → MEDSUR 17:11
PROVIDERS: ADMIT Internal Medicine; ATTEND Internal Medicine

== ENCOUNTER 2021-07-22 21:46 | Observation (INO) ==
--- NOTE | 2021-07-22 23:12 | Emergency Department Note ---
HPI General Chief complaint: Cold/Flu Symptoms Stated complaint: cold/flu Time Seen by Provider: 07/22/21 23:12 Source: patient Mode of arrival: ambulatory Limitations: no limitations and other (Mental health may impair his ability to provide complete and accurate history.) History of Present Illness HPI Narrative: Narrative: 50-year-old male presents emergency department with a chief complaint that his lungs are full of stuff. States his symptoms been going on for 3 days. States he has a fever which has been as high as 103. He has been coughing with this. States he feels short of breath. States that he has tried to use his MDI as well as his nebulizer and they have helped a little but he has maxed out his allowed 24-hour therapy. Symptoms are constant. No radiation. Associated with other people in his care facility that he lives at who have also become ill. Patient has past medical history of severe COPD and asthma for which she takes multiple medicines. He uses a nebulizer as well as an MDI. He has maximized therapy on both of those today. Patient also has a history of seizures and men patel health. Review of his medications reveals that he is on an antischizophrenic medicine ziprasidone. Pt. states he has Schizoafffective disorder. Related Data Home Medications Medication Instructions Recorded Confirmed albuterol sulfate 90 mcg/actuation 2 puff INHALATION PRN PRN 01/24/21 07/23/21 aerosol inhaler budesonide-formoterol HFA 80 2 puff INHALATION BID 01/24/21 07/23/21 mcg-4.5 mcg/actuation aerosol inhaler cyclobenzaprine 10 mg tablet 10 mg PO BIDP PRN 01/24/21 07/23/21 divalproex 500 mg tablet,extended 2,000 mg PO QDAY 01/24/21 07/23/21 release 24 hr gabapentin 300 mg capsule 300 mg PO TID 01/24/21 07/23/21 ipratropium 0.5 mg-albuterol 3 mg 3 ml INHALATION Q4H PRN 01/24/21 07/23/21 (2.5 mg base)/3 mL nebulization soln lisinopril 20 mg tablet 20 mg PO QDAY 01/24/21 07/23/21 lorazepam 1 mg tablet 1 mg PO TID PRN 01/24/21 07/23/21 naltrexone 50 mg tablet 50 mg PO QDAY 01/24/21 07/23/21 trazodone 100 mg tablet 100 mg PO QHS 01/24/21 07/23/21 ziprasidone HCl 80 mg capsule 160 mg PO BID 01/24/21 07/23/21 citalopram 20 mg tablet 1 tab PO QDAY 07/23/21 07/23/21 furosemide 40 mg tablet 1 tab PO QDAY 07/23/21 07/23/21 zolpidem 10 mg tablet 1 tab PO HSP PRN 07/23/21 07/23/21 Previous Rx's Medication Instructions Recorded Aspirin Low Dose 81 mg 81 mg PO QDAY #14 tab NS 06/28/21 tablet,delayed release (aspirin) Allergies Allergy/AdvReac Type Severity Reaction Status Date / Time bee venom protein (honey bee) Allergy Severe Anaphylaxis Verified 07/23/21 10:18 beeswax Allergy Severe Anaphylaxis Verified 07/23/21 10:18 Sulfa (Sulfonamide Allergy Severe Wheezing Verified 07/23/21 10:18 Antibiotics) vancomycin Allergy Severe Anaphylaxis Verified 07/23/21 10:18 Review of Systems ROS ROS Narrative: Narrative: Constitutional: Reports fever Eyes: Denies eye discharge ENT ED: Denies throat pain Cardiovascular: Reports other (Dyspnea) Respiratory: Reports cough and wheezes Gastrointestinal: Denies abdominal pain, nausea or vomiting Genitourinary: Denies dysuria Musculoskeletal: Denies back pain Integumentary: Denies rash Neurological: Denies headache Psychiatric: Reports auditory hallucinations Hematological/Lymphatic: Denies easy bleeding Allergic/Immunologic: Denies facial swelling PFSH Narrative Patient History Narrative: Narrative: Medical/Surgical/Family History All Active Problems (Updated 07/23/21 @ 10:19 by Jaquan Byrd MD) COPD exacerbation (Acute) Cellulitis (Acute) Pneumonia (Acute) Acute hyponatremia (Acute) Failure of outpatient treatment (Acute) Claudication in peripheral vascular disease (Acute) Peripheral artery disease (Acute) Bilateral pneumonia (Acute) Acute hyponatremia (Acute) Acute bronchospasm (Acute) Schizoaffective disorder (Acute) Hyponatremia (Acute) Current smoker (Acute) Acute and chronic respiratory failure with hypoxia (Acute) COPD exacerbation (Acute) Left leg cellulitis (Acute) Cellulitis (Acute) Laceration (Acute) Pneumonia (Acute) Social History Smoking Status: Former smoker Exam Narrative Narrative: Narrative: General Limitations: no limitations and other (Mental health may impair his ability to provide complete and accurate history.) General appearance: Present alert and in distress Head Head: Present atraumatic and normocephalic Eye Eye: Present normal appearance and EOMI ENT ENT: Present mucous membranes moist Neck Neck: Present normal inspection, full ROM and trachea midline Respiratory Respiratory: Present respiratory distress and wheezes (diffuse left and right, ant. and post.); Absent normal lung sounds bilaterally Cardiovascular Cardiovascular: Present regular rate and normal rhythm Adbominal Abdominal: Present soft; Absent tenderness Extremities Extremities: Present normal inspection; Absent tenderness Back Back: Present normal inspection; Absent CVA tenderness (R) Neurological Neurological: Present alert and oriented X3 Psychiatric Psychiatric: Present serious, polite and pleasant; Absent flat affect, manic or tearful Skin Skin: Present warm (WNL) and dry Course Vital Signs Vital signs: Vital Signs Temperature 100.3 F H 07/22/21 21:47 Pulse Rate 63 07/22/21 21:47 Respiratory Rate 18 07/22/21 21:47 Blood Pressure 139/70 07/22/21 21:47 Pulse Oximetry (%) 91 07/22/21 21:47 Temperature 98.7 F 07/23/21 08:02 Pulse Rate 69 07/23/21 09:22 Respiratory Rate 16 07/23/21 09:22 Blood Pressure 133/78 07/23/21 10:01 Pulse Oximetry (%) 95 07/23/21 10:02 [facility] MDM Narrative Medical decision making narrative: Narrative: Middle-age male presents emergency department with difficulty breathing and high fever and concern that he has a lung infection. Differential diagnosis includes pneumonia, Covid infection, viral versus bacterial lung infection, congestive heart failure, empyema, other White count was elevated at 14.2. His hemoglobin was normal at 14.4 and platelets were normal at 171,000. Electrolytes revealed a low sodium although he has had this before. Sodium was 126. BUN and creatinine were normal and glucose was 116. Only minimally elevated. Chest x-ray is pending radiologist review. To my interpretation, there is bilateral pneumonia. COVID And Influensa A & B all negative. Patient's oxygenation level was 88% on room air. It went into the low 90s on 2 L. Patient will need to be hospitalized because of his pneumonia and hypoxia. In the emerge department patient was given 500 mg of azithromycin p.o. Patient was given ceftriaxone 1 g IV. Blood cultures were obtained. Lactic acid level is normal at 0.6. At 0050 I requested to speak with the housekeeping laundry worker regarding admission of this patient. The patient is on an antischizophrenic medicine. He lives in a care or living [facility]. Patient states he has mental illness. I discussed with Dr. Jackson the Hospitalist who accepted the pt. for admission. Lab Data Result diagrams: 07/23/21 08:04 07/23/21 08:04 Labs: Lab Results 07/22/21 07/22/21 07/22/21 Range/Units 23:40 23:40 23:40 WBC 14.2 H (4.5-11.0) K/mcL RBC 4.61 L (4.63-6.08) M/mcL Hgb 14.4 (13.7-17.5) g/dL Hct 41.4 (40.1-51.0) % MCV 89.8 (80.0-100.0) fL MCH 31.2 (26.0-34.0) pg MCHC 34.8 (31.0-36.0) g/dL RDW 13.8 (11.5-14.5) % Plt Count 171 (140-440) K/mcL MPV 9.8 (7.4-10.4) fL Neut % (Auto) 75.7 (38.0-78.0) % Lymph % (Auto) 9.9 L (15.5-49.0) % Imperial % (Auto) 13.7 H (1.0-12.0) % Eos % (Auto) 0.3 (0.0-7.0) % Baso % (Auto) 0.4 (0.0-2.0) % Lymph # (Auto) 1.41 L (1.50-4.80) K/mcL Imperial # (Auto) 1.95 H (0.10-0.90) K/mcL Eos # (Auto) 0.04 (0.00-0.70) K/mcL Baso # (Auto) 0.06 (0.00-0.30) K/mcL Absolute Neutrophils 10.77 H (1.80-8.00) K/mcL VBG Lactic Acid 0.6 (0.5-2.0) mmol/L Sodium 126 L (133-145) mmol/L Potassium 4.1 (3.3-5.1) mmol/L Chloride 92 L (96-108) mmol/L Carbon Dioxide 24 (22-30) mmol/L Anion Gap 10.0 (8.0-16.0) BUN 14 (6-20) mg/dL Creatinine 0.8 (0.7-1.2) mg/dL GFR Calculation 105 Glucose 116 H (70-105) mg/dL Calcium 8.2 L (8.6-10.4) mg/dL Total Bilirubin 0.4 (0.1-1.0) mg/dL AST 21 (<40) U/L ALT 11 (<40) U/L Alkaline Phosphatase 69 (39-117) U/L Total Protein 7.0 (5.9-8.4) gm/dL Albumin 4.0 (3.2-5.2) gm/dL Globulin 3.0 (2.2-3.7) gm/dL Albumin/Globulin Ratio 1.3 (1.0-2.3) ED POC Tests ED POC Tests: TIESHA - Influenza A Negative TIESHA - Influenza B Negative TIESHA - SARS Antigen Negative Discharge Plan Patient/Caregiver Discharge Instructions Pt seen by TILE SHADER/PA only: No Clinical Impression: Acute hyponatremia, Acute bronchospasm Bilateral pneumonia Qualifiers: Pneumonia type: due to unspecified organism Lung location: unspecified part of lung Qualified Code(s): J18.9 - Pneumonia, unspecified organism Schizoaffective disorder Qualifiers: Schizoaffective disorder type: unspecified Qualified Code(s): F25.9 - Schizoaffective disorder, unspecified Patient Disposition: Xfer As Inpt ([facility]) Condition: Fair Discharge Date/Time: 07/23/21 02:10
[2021-07-22] MEDS ORDERED: AZITHROMYCIN 250 MG TABLET PO ONE (23:20)
[2021-07-22] MEDS ORDERED: ALBUTEROL SULFATE 5 MG/ML NEB SOLUTION BOTTLE NEB ONE (23:20)
[2021-07-22] MEDS ORDERED: cefTRIAXone 1 GM VIAL IV ONE (23:20)
[2021-07-23 00:26] LABS: Basophils # (Auto) 0.06 K/mcL (0.00-0.30); Basophils % (Auto) 0.4 % (0.0-2.0); Eosinophils # (Auto) 0.04 K/mcL (0.00-0.70); Eosinophils % (Auto) 0.3 % (0.0-7.0); Hematocrit 41.4 % (40.1-51.0); Hemoglobin 14.4 g/dL (13.7-17.5); Lymphocytes # (Auto) 1.41 K/mcL (1.50-4.80); Lymphocytes % (Auto) 9.9 % (15.5-49.0); Mean Cell Volume 89.8 fL (80.0-100.0); Mean Corpuscular HGB Conc 34.8 g/dL (31.0-36.0); Mean Platelet Volume 9.8 fL (7.4-10.4); Monocytes # (Auto) 1.95 K/mcL (0.10-0.90); Monocytes % (Auto) 13.7 % (1.0-12.0); Neutrophils % (Auto) 75.7 % (38.0-78.0); Platelet Count 171 K/mcL (140-440); RBC 4.61 M/mcL (4.63-6.08); Red Cell Distribution Width 13.8 % (11.5-14.5); WBC 14.2 K/mcL (4.5-11.0)
[2021-07-23 00:43] LABS: ALT/SGPT 11 U/L (<40); AST/SGOT 21 U/L (<40); Albumin/Globulin Ratio 1.3 (1.0-2.3); Alkaline Phosphatase 69 U/L (39-117); Bilirubin,Total 0.4 mg/dL (0.1-1.0); Blood Urea Nitrogen 14 mg/dL (6-20); Calcium 8.2 mg/dL (8.6-10.4); Carbon Dioxide 24 mmol/L (22-30); Chloride 92 mmol/L (96-108); Glomerular Filtration Rate 105; Glucose 116 mg/dL (70-105)
[2021-07-23] MEDS ORDERED: ACETAMINOPHEN 325 MG TABLET PO PRN (01:48)
[2021-07-23] MEDS ORDERED: 0.9 % SODIUM CHLORIDE 1,000 ML IV SCH (02:00)
[2021-07-23] MEDS ORDERED: IPRATROPIUM/ALBUTEROL 3 ML AMPUL.NEB NEB ONE (02:49)
[2021-07-23] MEDS: BENZONATATE 100 MG CAPSULE PO PRN ×2 (04:15→16:46)
--- NOTE | 2021-07-23 06:36 | XRay Report ---
INDICATION: shortness of breath TECHNIQUE: PA and lateral upright chest x-ray COMPARISON: Previous chest x-rays dated 02/14/2021, 01/24/2021, 01/18/2021. Previous chest CT scan dated 01/07/2020 FINDINGS: Lungs: Parenchymal scarring at both lung bases, left worse than right. There are bilateral pulmonary parenchymal infiltrates. These are predominantly interstitial. No focal consolidation or mass. Findings are consistent with pneumonia. Atypical pneumonia including covid are possible. Interstitial edema is considered less likely. Clinical correlation and follow-up radiographs recommended. Heart, vascular: No significant cardiomegaly. Pulmonary vascularity is normal. No pulmonary edema or pulmonary congestion Mediastinum, eduarda: No mediastinal widening. No hilar mass Pleura:Blunting of the left costophrenic angle appears chronic. Small effusion is possible Thoracic spine, ribs: No thoracic compression fracture. Ribs are negative. No fracture. No lytic lesion IMPRESSION: 1. Chronic pulmonary parenchymal abnormality with bibasilar predominance 2. Diffuse infiltrates are new since 02/14/2021. Findings are consistent with pneumonia. Atypical pneumonias including covid should be considered. Follow-up radiographs recommended Interpreted and Authenticated by: Kamron Dorado 07/23/21
[2021-07-23] MEDS: guaiFENesin/CODEINE 10 ML UDC PO PRN ×3 (08:54→21:12)
[2021-07-23] MEDS ORDERED: ALBUTEROL SULFATE 2.5 MG/3 ML NEBULIZER NEB PRN (09:05)
[2021-07-23] MEDS ORDERED: IPRATROPIUM/ALBUTEROL 3 ML AMPUL.NEB NEB SCH ×2 (09:10→09:15)
[2021-07-23 09:45] LABS: Basophils # (Auto) 0.04 K/mcL (0.00-0.30); Basophils % (Auto) 0.3 % (0.0-2.0); Eosinophils # (Auto) 0.05 K/mcL (0.00-0.70); Eosinophils % (Auto) 0.4 % (0.0-7.0); Hematocrit 40.8 % (40.1-51.0); Hemoglobin 13.8 g/dL (13.7-17.5); Lymphocytes # (Auto) 1.03 K/mcL (1.50-4.80); Lymphocytes % (Auto) 8.2 % (15.5-49.0); Mean Cell Volume 91.1 fL (80.0-100.0); Mean Corpuscular HGB Conc 33.8 g/dL (31.0-36.0); Mean Platelet Volume 9.8 fL (7.4-10.4); Monocytes # (Auto) 1.87 K/mcL (0.10-0.90); Neutrophils % (Auto) 76.1 % (38.0-78.0); Platelet Count 151 K/mcL (140-440); RBC 4.48 M/mcL (4.63-6.08); Red Cell Distribution Width 13.6 % (11.5-14.5); WBC 12.5 K/mcL (4.5-11.0)
[2021-07-23] MEDS: methylPREDNISolone SOD SUCC 40 MG/ML VIAL IV SCH ×2 (09:45→21:13)
[2021-07-23 10:00] LABS: ALT/SGPT 10 U/L (<40); AST/SGOT 20 U/L (<40); Albumin 3.6 gm/dL (3.2-5.2); Albumin/Globulin Ratio 1.2 (1.0-2.3); Alkaline Phosphatase 104 U/L (39-117); Bilirubin,Direct < 0.2 mg/dL (0-0.3); Bilirubin,Total 0.4 mg/dL (0.1-1.0); Blood Urea Nitrogen 10 mg/dL (6-20); Calcium 8.2 mg/dL (8.6-10.4); Carbon Dioxide 23 mmol/L (22-30); Chloride 88 mmol/L (96-108); Globulin 3.1 gm/dL (2.2-3.7); Glomerular Filtration Rate 118; Glucose 136 mg/dL (70-105); Lactate Dehydrogenase 237 U/L (135-225); Phosphorous 2.8 mg/dL (2.5-4.5); Triglycerides 50 mg/dL (<150)
[2021-07-23] MEDS ORDERED: DILTIAZEM 25 MG/5 ML VIAL IV ONE (10:57)
[2021-07-23] MEDS ORDERED: DILTIAZEM 125 MG in DEXTROSE 5% IN WATER 100 ML IV SCH (11:00)
[2021-07-23] MEDS: DILTIAZEM 125 MG in DEXTROSE 5% IN WATER 100 ML IV SCH (11:22)
[2021-07-23] MEDS: 0.9 % SODIUM CHLORIDE 250 ML IV SCH ×2 (11:45→23:18)
--- NOTE | 2021-07-23 11:55 | Internal Med History&Physical ---
HPI History of Present Illness Patient information: Note initiated : 07/23/21 at 11:47 am Service Date, if different from initiated Date: [] Patient: Tae Esquivel 50 y/o M admitted on 07/23/21 for cold/flu. Chief Complaint: [] History of present illness: Mr. Esquivel is a 50-year-old male with a history of asthma and COPD, schizophrenia who presented to the emergency department with a chief complaint of shortness of breath. The patient symptoms began approximately 3 days prior to admission, he said that he had a fever as high as 103. The patient has been having a mostly nonproductive cough and wheezing. He has not been able to get over his illness with his albuterol inhaler and nebulizer treatments. In the emergency department, the patient was found to have leukocytosis and a chest x- ray showing bilateral pneumonia. The patient was admitted for a COPD/asthma exacerbation and community-acquired pneumonia. Soon after admission the patient developed atrial flutter with rapid ventricular response. Review of systems Constitutional: Positive for fever, fatigue Eyes: no vision changes or pain Cardiovascular: no chest pain, no palpitations Respiratory: Positive for cough and dyspnea Gastrointestinal: no abdominal pain, no nausea, vomiting, or diarrhea Genitourinary: no dysuria or difficulty voiding Musculoskeletal: no arthralgia or myalgia Integumentary: no skin lesion or wound Neurological: no focal weakness or numbness Psychiatric: no anxiety or depression Physical exam Head: Atraumatic, normal inspection. Eyes: normal appearance, no scleral icterus. Neck: full ROM Respiratory: Tachypnea, diffuse bilateral wheezing. Cardiovascular: Regular tachycardia. GI/Abdominal: soft, nontender, no guarding. Extremities: full range of motion, nontender. Neurological: CN II-XII intact, intact motor, intact sensation. Psychiatric: normal mood. Skin: warm, normal color PFSH PFSH All Active Problems (Updated 07/23/21 @ 10:19 by Jaquan Byrd MD) COPD exacerbation (Acute) Cellulitis (Acute) Pneumonia (Acute) Acute hyponatremia (Acute) Failure of outpatient treatment (Acute) Claudication in peripheral vascular disease (Acute) Peripheral artery disease (Acute) Bilateral pneumonia (Acute) Acute hyponatremia (Acute) Acute bronchospasm (Acute) Schizoaffective disorder (Acute) Hyponatremia (Acute) Current smoker (Acute) Acute and chronic respiratory failure with hypoxia (Acute) COPD exacerbation (Acute) Left leg cellulitis (Acute) Cellulitis (Acute) Laceration (Acute) Pneumonia (Acute) MEDS/ALLERGIES Home Medications and Allergies Home Medications Medication Instructions Recorded Confirmed Type albuterol sulfate 90 mcg/actuation 2 puff INHALATION PRN PRN 01/24/21 07/23/21 History aerosol inhaler budesonide-formoterol HFA 80 2 puff INHALATION BID 01/24/21 07/23/21 History mcg-4.5 mcg/actuation aerosol inhaler cyclobenzaprine 10 mg tablet 10 mg PO BIDP PRN 01/24/21 07/23/21 History divalproex 500 mg tablet,extended 2,000 mg PO QDAY 01/24/21 07/23/21 History release 24 hr gabapentin 300 mg capsule 300 mg PO TID 01/24/21 07/23/21 History ipratropium 0.5 mg-albuterol 3 mg 3 ml INHALATION Q4H PRN 01/24/21 07/23/21 History (2.5 mg base)/3 mL nebulization soln lisinopril 20 mg tablet 20 mg PO QDAY 01/24/21 07/23/21 History lorazepam 1 mg tablet 1 mg PO TID PRN 01/24/21 07/23/21 History naltrexone 50 mg tablet 50 mg PO QDAY 01/24/21 07/23/21 History trazodone 100 mg tablet 100 mg PO QHS 01/24/21 07/23/21 History ziprasidone HCl 80 mg capsule 160 mg PO BID 01/24/21 07/23/21 History Aspirin Low Dose 81 mg 81 mg PO QDAY #14 tab NS 06/28/21 07/23/21 Rx tablet,delayed release (aspirin) citalopram 20 mg tablet 1 tab PO QDAY 07/23/21 07/23/21 History furosemide 40 mg tablet 1 tab PO QDAY 07/23/21 07/23/21 History zolpidem 10 mg tablet 1 tab PO HSP PRN 07/23/21 07/23/21 History Allergies Allergy/AdvReac Type Severity Reaction Status Date / Time bee venom protein (honey bee) Allergy Severe Anaphylaxis Verified 07/23/21 10:54 beeswax Allergy Severe Anaphylaxis Verified 07/23/21 10:18 vancomycin Allergy Severe Anaphylaxis Verified 07/23/21 10:18 Sulfa (Sulfonamide AdvReac Intermediate Wheezing Verified 07/23/21 10:54 Antibiotics) EXAM Constitutional Vitals: Temp Pulse Resp BP Pulse Ox 98.7 F 69 16 133/78 95 07/23/21 08:02 07/23/21 09:22 07/23/21 09:22 07/23/21 10:01 07/23/21 10:02 DATA Data Completed and Pending Labs: Labs from last 24 hours 07/23/21 07/23/21 07/22/21 08:04 08:04 23:40 WBC 12.5 H RBC 4.48 L Hgb 13.8 Hct 40.8 MCV 91.1 MCH 30.8 MCHC 33.8 RDW 13.6 Plt Count 151 MPV 9.8 Neut % (Auto) 76.1 Lymph % (Auto) 8.2 L Murray % (Auto) 15.0 H Eos % (Auto) 0.4 Baso % (Auto) 0.3 Lymph # (Auto) 1.03 L Murray # (Auto) 1.87 H Eos # (Auto) 0.05 Baso # (Auto) 0.04 Absolute Neutrophils 9.50 H VBG Lactic Acid 0.6 Sodium 123 L Potassium 4.0 Chloride 88 L Carbon Dioxide 23 Anion Gap 12.0 BUN 10 Creatinine 0.6 L GFR Calculation 118 Glucose 136 H Uric Acid 6.0 Calcium 8.2 L Phosphorus 2.8 Magnesium 1.9 Total Bilirubin 0.4 Direct Bilirubin < 0.2 GGT 10 AST 20 ALT 10 Alkaline Phosphatase 104 Lactate Dehydrogenase 237 H Total Protein 6.7 Albumin 3.6 Globulin 3.1 Albumin/Globulin Ratio 1.2 Triglycerides 50 07/22/21 07/22/21 23:40 23:40 WBC 14.2 H RBC 4.61 L Hgb 14.4 Hct 41.4 MCV 89.8 MCH 31.2 MCHC 34.8 RDW 13.8 Plt Count 171 MPV 9.8 Neut % (Auto) 75.7 Lymph % (Auto) 9.9 L Murray % (Auto) 13.7 H Eos % (Auto) 0.3 Baso % (Auto) 0.4 Lymph # (Auto) 1.41 L Murray # (Auto) 1.95 H Eos # (Auto) 0.04 Baso # (Auto) 0.06 Absolute Neutrophils 10.77 H VBG Lactic Acid Sodium 126 L Potassium 4.1 Chloride 92 L Carbon Dioxide 24 Anion Gap 10.0 BUN 14 Creatinine 0.8 GFR Calculation 105 Glucose 116 H Uric Acid Calcium 8.2 L Phosphorus Magnesium Total Bilirubin 0.4 Direct Bilirubin GGT AST 21 ALT 11 Alkaline Phosphatase 69 Lactate Dehydrogenase Total Protein 7.0 Albumin 4.0 Globulin 3.0 Albumin/Globulin Ratio 1.3 Triglycerides A/P Narrative A/P Narrative: Assessment: 50-year-old male with a history of asthma and COPD, schizophrenia admitted for a COPD/asthma exacerbation and community-acquired pneumonia. Soon after admission the patient developed atrial flutter with rapid ventricular response. #Community-acquired pneumonia, atypical #COPD/asthma exacerbation #Atrial flutter with RVR #Schizophrenia #Essential hypertension #Peripheral artery disease #Insomnia #Tobacco use disorder Plan -Solu-Medrol IV twice daily. -Scheduled Xopenex and ipratropium nebs. -Ceftriaxone and azithromycin for CAP. -Monitor respiratory status. -Cardizem infusion for a flutter with RVR rate control. -Waterproof PCR pending. -If panther PCR negative then expand work-up with respiratory panel, mycoplasma, Legionella work-up. -Consider CT chest with the patient does not begin to clinically improve soon. -Resume home aspirin, divalproex, Lasix, gabapentin, ziprasidone,, Ativan as needed. -Trazodone at bedtime as needed, holding home zolpidem for now. -Holding home lisinopril due to Cardizem infusion. -Regular diet. -pvc monitor. -DVT prophylaxis: Lovenox SQ -CODE STATUS: Full -Disposition: Home when stable. Time Spent With Patient Time: Total time spent is greater than 50% in coordination of care (as documented) at patient's floor/unit and/or counseling patient:
[2021-07-23] MEDS: IPRATROPIUM 2.5 ML AMPUL.NEB NEB SCH ×4 (12:04→22:33)
[2021-07-23] MEDS ORDERED: METOPROLOL TARTRATE 5 MG/5 ML VIAL IV ONE (12:24)
[2021-07-23] MEDS ORDERED: LEVALBUTEROL 1.25 MG/3 ML AMPUL.NEB NEB SCH (13:00)
[2021-07-23] MEDS: CITALOPRAM 20 MG TABLET PO SCH (13:31)
[2021-07-23] MEDS: ENOXAPARIN 40 MG/0.4 ML SYRINGE SQ SCH (13:31)
[2021-07-23] MEDS: FUROSEMIDE 40 MG TABLET PO SCH ×2 (13:32→15:45)
[2021-07-23] MEDS: LORazepam 1 MG TABLET PO PRN ×2 (13:32→22:55)
[2021-07-23] MEDS: GABAPENTIN 300 MG CAPSULE PO SCH ×2 (13:33→21:13)
[2021-07-23] MEDS: NICOTINE 21 MG PATCH TOPICAL SCH (13:34)
[2021-07-23] MEDS: LEVALBUTEROL 1.25 MG/3 ML AMPUL.NEB NEB SCH ×3 (15:35→22:34)
[2021-07-23] MEDS ORDERED: cefTRIAXone 1 GM VIAL IV SCH (16:00)
[2021-07-23] MEDS ORDERED: AZITHROMYCIN 500 MG in DEXTROSE 5% IN WATER 250 ML IV SCH (16:00)
[2021-07-23] MEDS: GEODON 80 MG PO SCH (21:04)
[2021-07-23] MEDS: DIVALPROEX SODIUM 250 MG TABLET PO SCH (21:13)
[2021-07-23] MEDS: traZODone HCL 100 MG TABLET PO SCH (21:13)
[2021-07-23] MEDS: ZOLPIDEM 5 MG TABLET PO PRN (22:57)
[2021-07-23] MEDS ORDERED: ZOLPIDEM 5 MG TABLET ONE (23:00)
[2021-07-24] MEDS: IPRATROPIUM 2.5 ML AMPUL.NEB NEB SCH ×6 (03:02→22:37)
[2021-07-24] MEDS: LEVALBUTEROL 1.25 MG/3 ML AMPUL.NEB NEB SCH ×6 (03:03→22:37)
[2021-07-24] MEDS: BENZONATATE 100 MG CAPSULE PO PRN (06:58)
[2021-07-24] MEDS: guaiFENesin/CODEINE 10 ML UDC PO PRN (06:58)
[2021-07-24] MEDS: GABAPENTIN 300 MG CAPSULE PO SCH ×3 (08:38→21:38)
[2021-07-24] MEDS: LORazepam 1 MG TABLET PO PRN ×3 (08:38→21:37)
[2021-07-24] MEDS: CITALOPRAM 20 MG TABLET PO SCH (08:38)
[2021-07-24] MEDS: ASPIRIN 81 MG TAB.CHEW PO SCH (08:38)
[2021-07-24] MEDS: FUROSEMIDE 40 MG TABLET PO SCH (08:38)
[2021-07-24] MEDS: methylPREDNISolone SOD SUCC 40 MG/ML VIAL IV SCH ×2 (08:39→21:37)
[2021-07-24] MEDS: ENOXAPARIN 40 MG/0.4 ML SYRINGE SQ SCH (08:39)
[2021-07-24] MEDS: cefTRIAXone 1 GM VIAL IV SCH (08:39)
[2021-07-24] MEDS: GEODON 80 MG PO SCH (08:39)
[2021-07-24] MEDS ORDERED: AZITHROMYCIN 500 MG in DEXTROSE 5% IN WATER 250 ML IV SCH (09:00)
[2021-07-24] MEDS: NICOTINE 21 MG PATCH TOPICAL SCH (10:29)
[2021-07-24] MEDS: DILTIAZEM 125 MG in DEXTROSE 5% IN WATER 100 ML IV SCH (11:07)
[2021-07-24] MEDS: 0.9 % SODIUM CHLORIDE 250 ML IV SCH (11:08)
--- NOTE | 2021-07-24 13:32 | Internal Med Progress Note ---
SUBJECTIVE Subjective Patient information: Note initiated : 07/24/21 at 1:32 pm Service Date, if different from initiated Date: [] Patient: Tae Esquivel 50 y/o M admitted on 07/23/21 for cold/flu. Chief Complaint: [] Interval history: Mr. Esquivel is a 50-year-old male with a history of asthma and COPD, schizophrenia who presented to the emergency department with a chief complaint of shortness of breath. The patient symptoms began approximately 3 days prior to admission, he said that he had a fever as high as 103. The patient has been having a mostly nonproductive cough and wheezing. He has not been able to get over his illness with his albuterol inhaler and nebulizer treatments. In the emergency department, the patient was found to have leukocytosis and a chest x- ray showing bilateral pneumonia. The patient was admitted for a COPD/asthma exacerbation and community-acquired pneumonia. Soon after admission the patient developed atrial flutter with rapid ventricular response. 07/24 Feels better today, converted back to normal sinus rhythm. Discontinued Cardizem infusion. ECHO ordered for atrial flutter workup. PANTHER PCR and respiratory viral panel PCR were negative. Sodium 123 this morning, started fluid restricted diet, recheck sodium this afternoon. Continues on antibiotics, Solumedrol IV, scheduled Xopenex and ipratropium. Physical exam Head: Atraumatic, normal inspection. Eyes: normal appearance, no scleral icterus. Neck: full ROM Respiratory: Tachypnea, diffuse bilateral wheezing. Cardiovascular: normal rate and rhythm. . GI/Abdominal: soft, nontender, no guarding. Extremities: full range of motion, nontender. Neurological: CN II-XII intact, intact motor, intact sensation. Psychiatric: normal mood. Skin: warm, normal color Constitutional Vitals: Vital Signs Temp Pulse Resp BP Pulse Ox 98.2 F 69 20 130/81 93 07/24/21 12:00 07/24/21 11:08 07/24/21 12:00 07/24/21 12:00 07/24/21 12:00 Period Temp Pulse Resp BP Sys/Banks Pulse Ox Last 24 Hr 97.2 F-98.5 F 56-75 16-20 114-154/53-81 90-98 Intake and Output 04/08/22 04/09/22 04/09/22 21:59 05:59 13:59 Intake Total 319 850 Output Total 100 375 Balance 219 475 Weight 100.561 kg Intake & Output: Intake & Output 07/23/21 07/24/21 07/24/21 21:59 05:59 13:59 Intake Total 319 850 Output Total 100 375 Balance 219 475 Weight 100.561 kg Intake: IV 319 250 Sodium Chloride 0.9% 1,000 ml @ 0 75 mls/hr IV .[id number] [facility] Rx#: [id number] Sodium Chloride 0.9% 250 ml @ 62 0 20 mls/hr IV .[id number] [facility] Rx#: [id number] Zithromax 500 mg In Dextrose 5% 250 250 in Water 250 ml @ 250 mls/hr IV Q24H [facility] Rx#:[id number] Cardizem 125 mg In Dextrose 5% 7 0 in Water 100 ml @ 5 MG/HR 5 mls /hr IV Q24H [facility] Rx#:[id number] Oral 600 Output: Void Amount 100 375 Other: Urine Appearance Clear Clear Urine Color Light Belinda Bright Yellow Urine Odor Normal # Voids 1 OBJ DATA Labs CBC & Chem 7: 07/23/21 08:04 07/23/21 08:04 Labs: Abnormal Lab Results 07/23/21 07/23/21 07/22/21 08:04 08:04 23:40 WBC 12.5 H RBC 4.48 L Lymph % (Auto) 8.2 L Phelps % (Auto) 15.0 H Lymph # (Auto) 1.03 L [place] # (Auto) 1.87 H Absolute Neutrophils 9.50 H Sodium 123 L 126 L Chloride 88 L 92 L Creatinine 0.6 L Glucose 136 H 116 H Calcium 8.2 L 8.2 L Lactate Dehydrogenase 237 H 07/22/21 23:40 WBC 14.2 H RBC 4.61 L Lymph % (Auto) 9.9 L Phelps % (Auto) 13.7 H Lymph # (Auto) 1.41 L [place]helps # (Auto) 1.95 H Absolute Neutrophils 10.77 H Sodium Chloride Creatinine Glucose Calcium Lactate Dehydrogenase Meds: Medications Acetaminophen (Acetaminophen 325 Mg Tablet) 650 mg PO Q6HP PRN; Protocol PRN Reason: Per Pain Protocol/Fever > 101 Aspirin (Aspirin 81 Mg Tab.Chew) 81 mg PO QDAY [facility] Last Admin: 07/24/21 08:38 Dose: 81 mg Documented by: Benzonatate (Benzonatate 100 Mg Capsule) 200 mg PO TIDP PRN PRN Reason: Cough Last Admin: 07/24/21 06:58 Dose: 200 mg Documented by: Ceftriaxone Sodium (Ceftriaxone 1 Gm Vial) 1 gm IV Q24H [facility] Last Admin: 07/24/21 08:39 Dose: 1 gm Documented by: Citalopram Hydrobromide (Citalopram 20 Mg Tablet) 20 mg PO QDAY [facility] Last Admin: 07/24/21 08:38 Dose: 20 mg Documented by: Divalproex Sodium (Divalproex Sodium 250 Mg Tablet) 2,000 mg PO HS [facility] Last Admin: 07/23/21 21:13 Dose: 2,000 mg Documented by: Enoxaparin Sodium (Enoxaparin 40 Mg/0.4 Ml Syringe) 40 mg SQ DAILY [facility] Last Admin: 07/24/21 08:39 Dose: 40 mg Documented by: Furosemide (Furosemide 40 Mg Tablet) 40 mg PO QDAY [facility] Last Admin: 07/24/21 08:38 Dose: 40 mg Documented by: Gabapentin (Gabapentin 300 Mg Capsule) 300 mg PO TID [facility] Last Admin: 07/24/21 08:38 Dose: 300 mg Documented by: Guaifenesin/Codeine Phosphate (Guaifenesin/Codeine 10 Ml Udc) 10 ml PO Q4HP PRN PRN Reason: Cough Last Admin: 07/24/21 06:58 Dose: 10 ml Documented by: Diltiazem HCl 125 mg/ Dextrose 125 mls @ 5 mls/hr IV Q24H [facility]; Protocol Last Titration: 07/24/21 12:08 Dose: Infused Documented by: Azithromycin 500 mg/ Dextrose 250 mls @ 250 mls/hr IV Q24H [facility] Stop: 07/24/21 14:00 Last Infusion: 07/24/21 12:08 Dose: Infused Documented by: Sodium Chloride (Sodium Chloride 0.9%) 250 mls @ 20 mls/hr IV .[id number] [facility] Last Infusion: 07/24/21 12:09 Dose: Infused Documented by: Ipratropium [place] (Ipratropium 2.5 Ml Ampul.Neb) 2.5 ml NEB Q4HRT [facility] Last Admin: 07/24/21 11:07 Dose: 2.5 ml Documented by: Levalbuterol HCl (Levalbuterol 1.25 Mg/3 Ml Ampul.Neb) 1.25 mg NEB Q4HRT [facility] Last Admin: 07/24/21 11:07 Dose: 1.25 mg Documented by: Lorazepam (Lorazepam 1 Mg Tablet) 1 mg PO TIDP PRN PRN Reason: Anxiety Last Admin: 07/24/21 08:38 Dose: 1 mg Documented by: Methylprednisolone Sodium Succinate (Methylprednisolone Sod Succ 40 Mg/Ml Vial) 40 mg IV BID [facility] Last Admin: 07/24/21 08:39 Dose: 40 mg Documented by: Nicotine (Nicotine 21 Mg Patch) 21 mg TOPICAL DAILY@1000 [facility] Last Admin: 07/24/21 10:29 Dose: 21 mg Documented by: Geodon 80mg 160 dose PO BID [facility] Last Admin: 07/24/21 08:39 Dose: Not Given Documented by: Trazodone HCl (Trazodone Hcl 100 Mg Tablet) 100 mg PO QHS [facility] Last Admin: 07/23/21 21:13 Dose: 100 mg Documented by: Zolpidem Tartrate (Zolpidem 5 Mg Tablet) 5 mg PO HSP PRN PRN Reason: Insomnia Last Admin: 07/23/21 22:57 Dose: 5 mg Documented by: A/P Narrative A/P Narrative: Assessment: 50-year-old male with a history of asthma and COPD, schizophrenia admitted for a COPD/asthma exacerbation and community-acquired pneumonia. Soon after admission the patient developed atrial flutter with rapid ventricular r esponse. #Community-acquired pneumonia, atypical #COPD/asthma exacerbation #Hyponatremia #Resolved atrial flutter #Schizophrenia #Essential hypertension #Peripheral artery disease #Insomnia #Tobacco use disorder Plan -Transfer to med/surg. -Solu-Medrol IV twice daily. -Scheduled Xopenex and ipratropium nebs. -Ceftriaxone and azithromycin for CAP. -Monitor respiratory status. -TTE ordered. -Discontinue Cardizem drip. -Follow up pending mycoplasma IgM and IgG -Monitor sodium level. -Continue home aspirin, divalproex, Lasix, gabapentin, ziprasidone, Ativan as needed. -Home Trazodone HS, reduced dose Ambien prn. -Holding home lisinopril due to normal BP off meds. -Regular diet, fluid restriction. 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 -DVT prophylaxis: Lovenox SQ -CODE STATUS: Full -Disposition: Home when stable, possibly tomorrow. Time Spent With Patient Time: Total time spent is greater than 50% in coordination of care (as documented) at patient's floor/unit and/or counseling patient:
[2021-07-24] MEDS ORDERED: GEODON 80 MG PO SCH (18:00)
[2021-07-24] MEDS: ZOLPIDEM 5 MG TABLET PO PRN (21:37)
[2021-07-24] MEDS: DIVALPROEX SODIUM 250 MG TABLET PO SCH (21:37)
[2021-07-24] MEDS: traZODone HCL 100 MG TABLET PO SCH (21:50)
[2021-07-25] MEDS: 0.9 % SODIUM CHLORIDE 250 ML IV SCH ×2 (01:09→13:23)
[2021-07-25] MEDS: IPRATROPIUM 2.5 ML AMPUL.NEB NEB SCH ×3 (03:22→11:27)
[2021-07-25] MEDS: LEVALBUTEROL 1.25 MG/3 ML AMPUL.NEB NEB SCH ×3 (03:23→11:27)
[2021-07-25] MEDS: guaiFENesin/CODEINE 10 ML UDC PO PRN ×2 (05:18→08:34)
--- NOTE | 2021-07-25 07:26 | Discharge Summary ---
Discharge Provider Provider Patient information: Note initiated : 07/25/21 at 7:25 am Service Date, if different from initiated Date: [] Patient: Tae Esquivel 50 y/o M admitted on 07/23/21 for cold/flu. Chief Complaint: [] Date of admission: 07/23/21 02:08 Discharge date: 07/25/21 Primary care physician: PCP No Consults: 07/23/21 Consult to Physician [CONS] Stat Comment: Consulting Provider: Ty Contreras Reason For Exam: Physician to Consult Discharge Meds Discharge Medications Home Medications albuterol sulfate 90 mcg/actuation aerosol inhaler 2 puff INHALATION PRN PRN 01/24/21 [History Confirmed 07/23/21 Last Taken 02/07/21] budesonide-formoterol HFA 80 mcg-4.5 mcg/actuation aerosol inhaler 2 puff INHALATION BID 01/24/21 [History Confirmed 07/23/21 Last Taken 02/13/21] cyclobenzaprine 10 mg tablet 10 mg PO BIDP PRN 01/24/21 [History Confirmed 07/23/21 Last Taken 02/13/21] divalproex 500 mg tablet,extended release 24 hr 2,000 mg PO QDAY 01/24/21 [History Confirmed 07/23/21 Last Taken 02/13/21] gabapentin 300 mg capsule 300 mg PO TID 01/24/21 [History Confirmed 07/23/21 Last Taken 02/13/21] ipratropium 0.5 mg-albuterol 3 mg (2.5 mg base)/3 mL nebulization soln 3 ml INHALATION Q4H PRN 01/24/21 [History Confirmed 07/23/21 Last Taken 02/13/21] lisinopril 20 mg tablet 20 mg PO QDAY 01/24/21 [History Confirmed 07/23/21 Last Taken 02/13/21] lorazepam 1 mg tablet 1 mg PO TID PRN 01/24/21 [History Confirmed 07/23/21 Last Taken 02/13/21] naltrexone 50 mg tablet 50 mg PO QDAY 01/24/21 [History Confirmed 07/23/21 Last Taken 02/13/21] trazodone 100 mg tablet 100 mg PO QHS 01/24/21 [History Confirmed 07/23/21 Last Taken 02/13/21] ziprasidone HCl 80 mg capsule 160 mg PO HS 01/24/21 [History Confirmed 07/24/21 Last Taken 02/13/21] Aspirin Low Dose 81 mg tablet,delayed release (aspirin) 81 mg PO QDAY #14 tab NS 06/28/21 [Rx Confirmed 07/23/21 Last Taken Unknown] citalopram 20 mg tablet 1 tab PO QDAY 07/23/21 [History Confirmed 07/23/21 Last Taken Unknown] furosemide 40 mg tablet 1 tab PO QDAY 07/23/21 [History Confirmed 07/23/21 Last Taken Unknown] zolpidem 10 mg tablet 1 tab PO HSP PRN 07/23/21 [History Confirmed 07/23/21 Last Taken Unknown] cefuroxime axetil 500 mg tablet 500 mg PO BID 3 Days #6 tab 07/25/21 [Rx Last Taken Unknown] hfckqrrhveiil-BP-yrfywhtbnmw 2.5 mg-5 mg-50 mg/5 mL oral liquid (Robitussin Cough and Cold CF) 15 ml PO Q4H PRN #118 ml 07/25/21 [Rx Last Taken Unknown] prednisone 20 mg tablet 40 mg PO QDAY 3 Days #6 tab 07/25/21 [Rx Last Taken Unknown] COURSE Hospital Course Hospital course: Mr. Esquivel is a 50-year-old male with a history of asthma and COPD, schizophrenia who presented to the emergency department with a chief complaint of shortness of breath. The patient symptoms began approximately 3 days prior to admission, he said that he had a fever as high as 103. The patient has been having a mostly nonproductive cough and wheezing. He has not been able to get over his illness with his albuterol inhaler and nebulizer treatments. In the emergency department, the patient was found to have leukocytosis and a chest x- ray showing bilateral pneumonia. The patient was admitted for a COPD/asthma exacerbation and community-acquired pneumonia. Soon after admission the patient developed atrial flutter with rapid ventricular response. 07/24 Feels better today, converted back to normal sinus rhythm. Discontinued Cardizem infusion. ECHO ordered for atrial flutter workup. PANTHER PCR and respiratory viral panel PCR were negative. Sodium 123 this morning, started fluid restricted diet, recheck sodium this afternoon. Continues on antibiotics, Solumedrol IV, scheduled Xopenex and ipratropium. 4/10 Wants to go home, discharged to home to complete treatment with prednisone, cefuroxime, robitussin prn. Physical exam Head: Atraumatic, normal inspection. Eyes: normal appearance, no scleral icterus. Neck: full ROM Respiratory: Mild bilateral wheezing. Cardiovascular: normal rate and rhythm. . GI/Abdominal: soft, nontender, no guarding. Extremities: full range of motion, nontender. Neurological: CN II-XII intact, intact motor, intact sensation. Psychiatric: normal mood. Skin: warm, normal color Discharge diagnosis: Community acquired pneumonia Secondary discharge diagnosis: COPD exacerbation Time Spent with Patient Time attestation: Total time spent providing and/or coordinating discharge services: EXAM Constitutional Vitals: Temp Pulse Resp BP Pulse Ox 98.2 F 67 20 133/80 95 07/25/21 04:01 07/25/21 07:09 07/25/21 07:09 07/25/21 04:01 07/25/21 07:09 Discharge Data Data Completed and Pending Labs on day of discharge: Labs from last 24 hours 07/24/21 14:05 Sodium 131 L Preliminary micro results at discharge 07/22/21 23:45 Blood Culture - Preliminary Blood 07/22/21 23:40 Blood Culture - Preliminary Blood 07/23/21 09:35 Gram Stain - Preliminary Sputum source - Induced Sputum Culture - Preliminary Discharge Plan Patient/Caregiver Discharge Instructions Activity: increase activity as tolerated Diet: Regular Diet Prescriptions: New cefuroxime axetil 500 mg tablet 500 mg PO BID 3 Days Qty: 6 0RF prednisone 20 mg tablet 40 mg PO QDAY 3 Days Qty: 6 0RF Robitussin Cough and Cold CF 2.5-5-50 mg/5 mL liquid 15 ml PO Q4H PRN (Reason: cough) Qty: 118 0RF Continued cyclobenzaprine 10 mg Tablet 10 mg PO BIDP PRN (Reason: Muscle Pain) 0RF ziprasidone HCl 80 mg Capsule 160 mg PO HS 0RF ipratropium-albuterol 0.5 mg-3 mg(2.5 mg base)/3 mL Solution For Nebulization 3 ml INHALATION Q4H PRN (Reason: Shortness Of Breath Or Wheezing) 0RF naltrexone 50 mg Tablet 50 mg PO QDAY 0RF lisinopril 20 mg Tablet 20 mg PO QDAY 0RF trazodone 100 mg Tablet 100 mg PO QHS 0RF divalproex 500 mg Tablet Extended Release 24 Hr 2,000 mg PO QDAY 0RF gabapentin 300 mg Capsule 300 mg PO TID 0RF lorazepam 1 mg Tablet 1 mg PO TID PRN (Reason: Anxiety) 0RF budesonide-formoterol 80-4.5 mcg/actuation Hfa Aerosol Inhaler 2 puff INHALATION BID 0RF albuterol sulfate 90 mcg/actuation HFA aerosol inhaler 2 puff inhalation PRN PRN (Reason: shortness of breath or wheezing) 0RF aspirin [Aspirin Low Dose] 81 mg tablet,delayed release (DR/EC) 81 mg PO QDAY Qty: 14 0RF citalopram 20 mg tablet 1 tab PO QDAY 0RF zolpidem 10 mg tablet 1 tab PO HSP PRN (Reason: Insomnia) 0RF furosemide 40 mg tablet 1 tab PO QDAY 0RF Follow Up Plan Follow up with: No,PCP [Primary Care Provider] - Patient Disposition: Home, Self-Care Prognosis: Fair Overall status at discharge: patient is progressing back to baseline Discharge Orders: Discharge Order (Routine); Ordered 07/25/21 Ordered By: Ty Contreras
[2021-07-25] MEDS: ASPIRIN 81 MG TAB.CHEW PO SCH (08:24)
[2021-07-25] MEDS: ENOXAPARIN 40 MG/0.4 ML SYRINGE SQ SCH (08:24)
[2021-07-25] MEDS: FUROSEMIDE 40 MG TABLET PO SCH (08:24)
[2021-07-25] MEDS: CITALOPRAM 20 MG TABLET PO SCH (08:24)
[2021-07-25] MEDS: GABAPENTIN 300 MG CAPSULE PO SCH (08:24)
[2021-07-25] MEDS: cefTRIAXone 1 GM VIAL IV SCH (08:24)
[2021-07-25] MEDS: methylPREDNISolone SOD SUCC 40 MG/ML VIAL IV SCH (08:25)
[2021-07-25] MEDS: BENZONATATE 100 MG CAPSULE PO PRN (11:24)
[2021-07-25] MEDS: NICOTINE 21 MG PATCH TOPICAL SCH (13:23)
--- NOTE | 2021-07-26 13:35 | EKG ---
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
--- NOTE | 2021-07-26 13:37 | EKG ---
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
[2021-07-28 20:02] LABS: M. Pneumoniae IGG 2.73
== END 2021-07-25 14:00 | disposition home or self-care (01) ==
LOC: ED 21:46 → INTOOBSV 07-23 02:08 → MEDSUR 07-23 02:10
PROVIDERS: ADMIT Internal Medicine; ATTEND Internal Medicine

== ENCOUNTER 2021-08-19 14:11 | Inpatient (IN) ==
[2021-08-19 14:41] LABS: POC Calcium, Ionized 1.1 (1.16-1.32); POC Creatinine 0.9 (0.6-1.2); POC Potassium 4.3 (3.3-5.1)
--- NOTE | 2021-08-19 15:06 | XRay Report ---
CLINICAL INFORMATION: Dyspnea COMPARISON: None. TECHNIQUE: Portable FINDINGS: The heart size, mediastinum and pulmonary vessels are unremarkable. COPD with bibasilar airspace disease in the mid and lower lungs has progressed. This may represent edema or infiltrate. Small bilateral pleural effusions noted.. The bones and soft tissues are within normal limits. IMPRESSION: COPD with vague airspace disease in both lungs showing slight progression. This may represent edema or infiltrate. Interpreted and Authenticated by: Kamron Carrillo 08/19/21
[2021-08-19 15:29] LABS: Hematocrit 48.2 % (40.1-51.0); Hemoglobin 16.5 g/dL (13.7-17.5); Mean Cell Volume 90.8 fL (80.0-100.0); Mean Corpuscular HGB Conc 34.2 g/dL (31.0-36.0); Mean Platelet Volume 8.7 fL (7.4-10.4); Platelet Count 321 K/mcL (140-440); RBC 5.31 M/mcL (4.63-6.08); Red Cell Distribution Width 14.3 % (11.5-14.5); WBC 8.1 K/mcL (4.5-11.0)
[2021-08-19] MEDS ORDERED: methylPREDNISolone SOD SUCC 125 MG/2 ML VIAL IV ONE (16:16)
--- NOTE | 2021-08-19 16:20 | Emergency Department Note ---
SOB HPI General Chief Complaint: Shortness of Breath/Dyspnea Stated Complaint: SOB Time Seen by Provider: 08/19/21 14:22 Source: patient Mode of arrival: EMS Limitations: no limitations History of Present Illness HPI Narrative: 51-year-old male with schizophrenia and chronic COPD with recent admission for community-acquired pneumonia and acute COPD exacerbation in early July presents for shortness of breath and oxygen saturations in the mid 80s on room air. During his admission in early July he was started on a steroid taper and finished his last dose today. He continues to have significant paroxysmal cough that is keeping him up at night. He continues to smoke marijuana and cigarettes. He denies chest pain. Denies F/C/S. Related Data Home Medications Medication Instructions Recorded Confirmed albuterol sulfate 90 mcg/actuation 2 puff INHALATION PRN PRN 01/24/21 08/19/21 aerosol inhaler budesonide-formoterol HFA 80 2 puff INHALATION BID 01/24/21 08/19/21 mcg-4.5 mcg/actuation aerosol inhaler cyclobenzaprine 10 mg tablet 10 mg PO BIDP PRN 01/24/21 08/19/21 divalproex 500 mg tablet,extended 2,000 mg PO QDAY 01/24/21 08/19/21 release 24 hr gabapentin 300 mg capsule 300 mg PO TID 01/24/21 08/19/21 ipratropium 0.5 mg-albuterol 3 mg 3 ml INHALATION Q4H PRN 01/24/21 08/19/21 (2.5 mg base)/3 mL nebulization soln lisinopril 20 mg tablet 20 mg PO QDAY 01/24/21 08/19/21 lorazepam 1 mg tablet 1 mg PO TID PRN 01/24/21 08/19/21 naltrexone 50 mg tablet 50 mg PO QDAY 01/24/21 08/19/21 trazodone 100 mg tablet 100 mg PO QHS 01/24/21 08/19/21 ziprasidone HCl 80 mg capsule 160 mg PO HS 01/24/21 08/19/21 citalopram 20 mg tablet 1 tab PO QDAY 07/23/21 08/19/21 furosemide 40 mg tablet 1 tab PO QDAY 07/23/21 08/19/21 zolpidem 10 mg tablet 1 tab PO HSP PRN 07/23/21 08/19/21 epinephrine 0.3 mg/0.3 mL 0.3 ml IM PRN 08/19/21 injection, auto-injector (EpiPen) folic acid 1 mg tablet 1 tab PO QDAY 08/19/21 08/19/21 hydrocodone 5 mg-acetaminophen 325 1 tab PO TIDP PRN 08/19/21 08/19/21 mg tablet Previous Rx's Medication Instructions Recorded Aspirin Low Dose 81 mg 81 mg PO QDAY #14 tab NS 06/28/21 tablet,delayed release (aspirin) [id number] 2.5 15 ml PO Q4H PRN #118 ml 07/25/21 mg-5 mg-50 mg/5 mL oral liquid (Robitussin Cough and Cold CF) albuterol sulfate 2.5 mg (3 mL) INHALATION Q4H PRN 08/06/21 #75 ml Allergies Allergy/AdvReac Type Severity Reaction Status Date / Time bee venom protein (honey bee) Allergy Severe Anaphylaxis Verified 08/03/21 19:51 beeswax Allergy Severe Anaphylaxis Verified 08/03/21 19:51 vancomycin Allergy Severe Anaphylaxis Verified 08/03/21 19:51 albuterol AdvReac Intermediate Other Verified 08/03/21 19:51 Sulfa (Sulfonamide AdvReac Intermediate Wheezing Verified 08/03/21 19:51 Antibiotics) Review of Systems ROS ROS Narrative: Narrative: All systems ED: reviewed and negative except as stated. [facility] Narrative Patient History Narrative: Narrative: Medical/Surgical/Family History All Active Problems (Updated 08/19/21 @ 19:42 by Cathryn Owen PA-C) COPD exacerbation (Acute) Cellulitis (Acute) Pneumonia (Acute) Acute hyponatremia (Acute) Failure of outpatient treatment (Acute) Claudication in peripheral vascular disease (Acute) Peripheral artery disease (Acute) Bilateral pneumonia (Acute) Acute hyponatremia (Acute) Acute bronchospasm (Acute) Schizoaffective disorder (Acute) Peripheral neuropathy (Acute) Acute dyspnea (Acute) Acute exacerbation of chronic obstructive pulmonary disease (Acute) Hypoxia (Acute) Hyponatremia (Acute) Current smoker (Acute) Acute and chronic respiratory failure with hypoxia (Acute) COPD exacerbation (Acute) Left leg cellulitis (Acute) Cellulitis (Acute) Laceration (Acute) Pneumonia (Acute) Social History Smoking Status: Current every day smoker Exam Narrative Narrative: General: AOx3, NAD, ill appearing. Somnolent, but following commands and answering questions appropriately HEENT: PERRL, EOMI, normocephalic. Moist mucous membranes. Normal facies and normal dentition. Chest: Symmetric, no pain to palpation Respiratory: Bilateral expiratory wheezes with significant rhonchi throughout all lung elaine. He is in mild respiratory distress. Labored breathing. Heart: Tachycardic rate 111 bpm and rhythm, no murmurs/clicks/rubs. Abdomen: Non-tender, Non distended Extremities: Warm and well perfused. No edema. DP 2+ bilaterally. Chronic venous stasis. Neuro: No focal deficits. Cranial nerves II-XII grossly normal. Moves all 4 sp ontaneously. Skin: Warm dry, no rashes or lesions, no cyanosis. Psych: Normal mood and affect Heme/Lymph: No abnormal bruising General Limitations: no limitations Course Course Course Narrative: 51-year-old male with history of chronic COPD and ongoing tobacco use with recent admission for COPD exacerbation and community-acquired pneumonia presents for hypoxia Reevaluation(s) Reevaluation #1: Obtain labs, chest x-ray Establish IV give IV fluids DuoNebs for wheezing Recheck oxygen requirements Reevaluation #2: Patient's oxygen requirements are 2 to 3 L nasal cannula. He is 86% on room air. Chest x-ray shows small bilateral pleural effusions and bibasilar infiltrates versus edema Patient's lab work is essentially unremarkable with a normal white blood cell count. I have obtained a procalcitonin to query for true bacterial infection. Patient is empirically started on azithromycin and ceftriaxone for community-acquired pneumonia. He has been given a DuoNeb treatment to see if his expiratory wheezes improved. He will need to be admitted given his ongoing oxygen requirement and I've reached out to the hospitalist for admission. Vital Signs Vital signs: Vital Signs Temperature 98.6 F 08/19/21 14:11 Pulse Rate 111 H 08/19/21 14:11 Respiratory Rate 22 08/19/21 14:11 Blood Pressure 136/79 08/19/21 14:11 Pulse Oximetry (%) 86 L 08/19/21 14:11 Temperature 99.3 F H 08/19/21 19:06 Pulse Rate 87 08/19/21 19:06 Respiratory Rate 17 08/19/21 19:06 Blood Pressure 150/94 08/19/21 19:06 Pulse Oximetry (%) 93 08/19/21 19:06 MDM MDM Narrative Medical decision making narrative: Hypoxia Acute COPD exacerbation Possible pneumonia Mild hyponatremia Patient has findings of bilateral pleural effusions on his chest x-ray with bibasilar infiltrates. Unclear if this is ongoing from his infection in July. I did give him 62.5 mg of IV methylprednisolone and a DuoNeb treatment. I started IV ceftriaxone and oral azithromycin for commune acquired pneumonia empirically; however, procalcitonin was not elevated. The patient has been accepted for admission by Dr. Contreras. Lab Data Result diagrams: 08/19/21 14:37 08/19/21 16:00 Labs: Lab Results 08/19/21 08/19/21 08/19/21 Range/Units 14:37 14:37 14:37 WBC 8.1 (4.5-11.0) K/mcL RBC 5.31 (4.63-6.08) M/mcL Hgb 16.5 (13.7-17.5) g/dL Hct 48.2 (40.1-51.0) % POC Hct (41-55) MCV 90.8 (80.0-100.0) fL MCH 31.1 (26.0-34.0) pg MCHC 34.2 (31.0-36.0) g/dL RDW 14.3 (11.5-14.5) % Plt Count 321 (140-440) K/mcL MPV 8.7 (7.4-10.4) fL Seg Neutrophils % 83 H (38-78) % Band Neutrophils % 5 (0-10) % Lymphocytes % 11 L (15-49) % Monocytes % (Manual) 1 (1-12) % Platelet Estimate Normal (Normal) RBC Morphology Normal (Normal) D-Dimer < 0.27 L (0.27-0.5) ug/mL POC Sodium (133-145) POC Potassium (3.3-5.1) POC Chloride (96-108) POC Total CO2 (22-30) POC BUN (6-20) POC Creatinine (0.6-1.2) POC Glucose (70-105) POC WB Ioniz Calcium (1.16-1.32) Troponin T < 0.01 (<0.03) ng/mL Procalcitonin (<0.10) ng/mL 08/19/21 08/19/21 Range/Units 14:37 14:38 WBC (4.5-11.0) K/mcL RBC (4.63-6.08) M/mcL Hgb (13.7-17.5) g/dL Hct (40.1-51.0) % POC Hct 48.0 (41-55) MCV (80.0-100.0) fL MCH (26.0-34.0) pg MCHC (31.0-36.0) g/dL RDW (11.5-14.5) % Plt Count (140-440) K/mcL MPV (7.4-10.4) fL Seg Neutrophils % (38-78) % Band Neutrophils % (0-10) % Lymphocytes % (15-49) % Monocytes % (Manual) (1-12) % Platelet Estimate (Normal) RBC Morphology (Normal) D-Dimer (0.27-0.5) ug/mL POC Sodium 131 L (133-145) POC Potassium 4.3 (3.3-5.1) POC Chloride 87 L (96-108) POC Total CO2 36.0 H (22-30) POC BUN 10 (6-20) POC Creatinine 0.9 (0.6-1.2) POC Glucose 127 H (70-105) POC WB Ioniz Calcium 1.10 L (1.16-1.32) Troponin T (<0.03) ng/mL Procalcitonin 0.03 (<0.10) ng/mL ED POC Tests ED POC Tests: TIESHA - SARS Antigen Negative Discharge Plan Patient/Caregiver Discharge Instructions Pt seen by RN NEONATAL/PA only: Yes Clinical Impression: Pneumonia, Acute exacerbation of chronic obstructive pulmonary disease, Hypoxia Patient Disposition: Xfer As Inpt ([facility]) Discharge Date/Time: 08/19/21 18:59
[2021-08-19 16:27] LABS: Band Neutrophils % 5 % (0-10); Lymphocytes % 11 % (15-49); Monocytes % (Manual) 1 % (1-12); Platelet Estimate NORMAL (Normal); RBC Morphology NORMAL (Normal); Segmented Neutrophils % 83 % (38-78)
[2021-08-19] MEDS ORDERED: cefTRIAXone 1 GM VIAL IV ONE (17:11)
[2021-08-19] MEDS ORDERED: AZITHROMYCIN 250 MG TABLET PO ONE (17:16)
[2021-08-19] MEDS ORDERED: IPRATROPIUM/ALBUTEROL 3 ML AMPUL.NEB NEB ONE (17:17)
--- NOTE | 2021-08-19 18:23 | Internal Med History&Physical ---
HPI History of Present Illness Patient information: Note initiated : 08/19/21 at 6:19 pm Service Date, if different from initiated Date: [] Patient: Tae Esquivel 51 y/o M admitted on for Shortness of breath. Chief Complaint: [] History of present illness: Mr. Esquivel is a 51 year old male with a history of COPD, hypertension, peripheral artery disease, schizoaffective disorder, insomnia, tobacco use disorder who presented for shortness of breath and was found to be hypoxic in the ED. Patient was placed on 2 L nasal cannula in the emergency department. Work-up included routine lab work with CBC and chemistry panel which was remarkable for mild hyponatremia, notably there was no leukocytosis or anemia. Procalcitonin and D-dimer were in the normal ranges. A chest x-ray showed vague airspace disease bilaterally, slightly progressed since the prior chest x-ray on 08/07/2021. Due to hypoxia and multiple recent ED visits for shortness of breath, hospital medicine was consulted for admission. Review of the patient's recent medical records indicate that he was hospitalized in July 2021 for pneumonia felt to be atypical and a COPD exacerbation. The patient was discharged home on antibiotics and a prednisone taper on 07/25/2021. According to the patient, his coughing and respiratory symptoms never completely resolved. The patient was seen in the ED on 08/06/2021 and 08/07/2021 for chief complaints of shortness of breath. He was discharged to home on both occasions. The patient continues to smoke cigarettes as well as marijuana. Review of systems Constitutional: no fever, fatigue, or weight loss Eyes: no vision changes or pain Cardiovascular: no chest pain, no palpitations Respiratory: positive for cough and shortness of breath Gastrointestinal: no abdominal pain, no nausea, vomiting, or diarrhea Genitourinary: no dysuria or difficulty voiding Musculoskeletal: no arthralgia or myalgia Integumentary: no skin lesion or wound Neurological: no focal weakness or numbness Psychiatric: no anxiety or depression Physical exam Head: Atraumatic, normal inspection. Eyes: normal appearance, no scleral icterus. Neck: full ROM Respiratory: Bilateral diffuse wheezing, no respiratory distress. Cardiovascular: normal rate and rhythm, S1, S2. GI/Abdominal: soft, nontender, no guarding. Extremities: full range of motion, nontender. Neurological: CN II-XII intact, intact motor, intact sensation. Psychiatric: normal mood. Skin: warm, normal color PFSH PFSH All Active Problems (Updated 08/19/21 @ 19:42 by Cathryn Owen PA-C) COPD exacerbation (Acute) Cellulitis (Acute) Pneumonia (Acute) Acute hyponatremia (Acute) Failure of outpatient treatment (Acute) Claudication in peripheral vascular disease (Acute) Peripheral artery disease (Acute) Bilateral pneumonia (Acute) Acute hyponatremia (Acute) Acute bronchospasm (Acute) Schizoaffective disorder (Acute) Peripheral neuropathy (Acute) Acute dyspnea (Acute) Acute exacerbation of chronic obstructive pulmonary disease (Acute) Hypoxia (Acute) Hyponatremia (Acute) Current smoker (Acute) Acute and chronic respiratory failure with hypoxia (Acute) COPD exacerbation (Acute) Left leg cellulitis (Acute) Cellulitis (Acute) Laceration (Acute) Pneumonia (Acute) MEDS/ALLERGIES Home Medications and Allergies Home Medications Medication Instructions Recorded Confirmed Type albuterol sulfate 90 mcg/actuation 2 puff INHALATION PRN PRN 01/24/21 08/19/21 History aerosol inhaler budesonide-formoterol HFA 80 2 puff INHALATION BID 01/24/21 08/19/21 History mcg-4.5 mcg/actuation aerosol inhaler cyclobenzaprine 10 mg tablet 10 mg PO BIDP PRN 01/24/21 08/19/21 History divalproex 500 mg tablet,extended 2,000 mg PO QDAY 01/24/21 08/19/21 History release 24 hr gabapentin 300 mg capsule 300 mg PO TID 01/24/21 08/19/21 History ipratropium 0.5 mg-albuterol 3 mg 3 ml INHALATION Q4H PRN 01/24/21 08/19/21 History (2.5 mg base)/3 mL nebulization soln lisinopril 20 mg tablet 20 mg PO QDAY 01/24/21 08/19/21 History lorazepam 1 mg tablet 1 mg PO TID PRN 01/24/21 08/19/21 History naltrexone 50 mg tablet 50 mg PO QDAY 01/24/21 08/19/21 History trazodone 100 mg tablet 100 mg PO QHS 01/24/21 08/19/21 History ziprasidone HCl 80 mg capsule 160 mg PO HS 01/24/21 08/19/21 History Aspirin Low Dose 81 mg 81 mg PO QDAY #14 tab NS 06/28/21 08/19/21 Rx tablet,delayed release (aspirin) citalopram 20 mg tablet 1 tab PO QDAY 07/23/21 08/19/21 History furosemide 40 mg tablet 1 tab PO QDAY 07/23/21 08/19/21 History zolpidem 10 mg tablet 1 tab PO HSP PRN 07/23/21 08/19/21 History euwkqltilahfv-SM-eylmlzkkpdf 2.5 15 ml PO Q4H PRN #118 ml 07/25/21 08/19/21 Rx mg-5 mg-50 mg/5 mL oral liquid (Robitussin Cough and Cold CF) albuterol sulfate 2.5 mg (3 mL) INHALATION Q4H PRN 08/06/21 08/19/21 Rx #75 ml epinephrine 0.3 mg/0.3 mL 0.3 ml IM PRN PRN 08/19/21 08/20/21 History injection, auto-injector (EpiPen) folic acid 1 mg tablet 1 tab PO QDAY 08/19/21 08/19/21 History hydrocodone 5 mg-acetaminophen 325 1 tab PO TIDP PRN 08/19/21 08/19/21 History mg tablet Allergies Allergy/AdvReac Type Severity Reaction Status Date / Time bee venom protein (honey bee) Allergy Severe Anaphylaxis Verified 08/03/21 19:51 beeswax Allergy Severe Anaphylaxis Verified 08/03/21 19:51 vancomycin Allergy Severe Anaphylaxis Verified 08/03/21 19:51 albuterol AdvReac Intermediate Other Verified 08/03/21 19:51 Sulfa (Sulfonamide AdvReac Intermediate Wheezing Verified 08/03/21 19:51 Antibiotics) EXAM Constitutional Vitals: Temp Pulse Resp BP Pulse Ox 98.6 F 84 25 H 142/91 94 08/19/21 14:11 08/19/21 18:00 08/19/21 18:00 08/19/21 18:00 08/19/21 18:00 DATA Data Completed and Pending Labs: Labs from last 24 hours 08/19/21 08/19/21 08/19/21 14:38 14:37 14:37 WBC RBC Hgb Hct POC Hct 48.0 MCV MCH MCHC RDW Plt Count MPV Seg Neutrophils % Band Neutrophils % Lymphocytes % Monocytes % (Manual) Platelet Estimate RBC Morphology D-Dimer POC Sodium 131 L POC Potassium 4.3 POC Chloride 87 L POC Total CO2 36.0 H POC BUN 10 POC Creatinine 0.9 POC Glucose 127 H POC WB Ioniz Calcium 1.10 L Troponin T < 0.01 Procalcitonin 0.03 08/19/21 08/19/21 14:37 14:37 WBC 8.1 RBC 5.31 Hgb 16.5 Hct 48.2 POC Hct MCV 90.8 MCH 31.1 MCHC 34.2 RDW 14.3 Plt Count 321 MPV 8.7 Seg Neutrophils % 83 H Band Neutrophils % 5 Lymphocytes % 11 L Monocytes % (Manual) 1 Platelet Estimate Normal RBC Morphology Normal D-Dimer < 0.27 L POC Sodium POC Potassium POC Chloride POC Total CO2 POC BUN POC Creatinine POC Glucose POC WB Ioniz Calcium Troponin T Procalcitonin A/P Narrative A/P Narrative: Assessment: 51 year old male with a history of Schizoaffective disorder, COPD, tobacco use disorder admitted for acute hypoxic respiratory failure and a COPD exacerbation. D-dimer was not elevated, procalcitonin was normal. The patient was hospitalized for community acquired pneumonia and a COPD exacerbation about one month ago. #Acute hypoxic respiratory failure #COPD exacerbation #Mild hyponatremia #Hypertension #Peripheral artery disease #Insomnia #Tobacco use disorder #Schizoaffective disorder #Insomnia Plan -Oxygen supplementation, wean as able. -Solumedrol IV BID. -Scheduled Duonebs and prn Albuterol nebs. -Consider antibiotics depending on CT chest results. -CT chest without contrast. -Check VBG, BNP, respiratory panel, follow TIESHA, if negative consider PANTHER. -Urine drug screen. -Home medication reconciliation, resume important meds. -If on LANI-I consider switching to ARB. -Consider pulmonary medicine consult. -Regular diet. 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 -DVT ppx: Lovenox -Code status: Full -Disposition: Home when stable, pulmonology clinic referral. Time Spent With Patient Time: Total time spent is greater than 50% in coordination of care (as documented) at patient's floor/unit and/or counseling patient:
[2021-08-19] MEDS ORDERED: NICOTINE POLACRILEX 2 MG GUM CHEW/PARK PRN (19:01)
[2021-08-19] MEDS ORDERED: SENNOSIDES 1 TABLET PO PRN (19:01)
[2021-08-19] MEDS ORDERED: LACTULOSE 20 GM/30 ML ORAL.SOL PO PRN (19:01)
[2021-08-19] MEDS ORDERED: ONDANSETRON 4 MG/2 ML VIAL IV PRN (19:01)
[2021-08-19] MEDS ORDERED: ALBUTEROL SULFATE 2.5 MG/3 ML NEBULIZER NEB PRN (19:01)
[2021-08-19] MEDS: IPRATROPIUM/ALBUTEROL 3 ML AMPUL.NEB NEB SCH ×2 (19:09→22:01)
[2021-08-19 19:45] LABS: proBNP 173.7 pg/mL (<125.0)
[2021-08-19 19:49] LABS: ALT/SGPT 16 U/L (<40); AST/SGOT 26 U/L (<40); Albumin 4.1 gm/dL (3.2-5.2); Albumin/Globulin Ratio 1.7 (1.0-2.3); Alkaline Phosphatase 53 U/L (39-117); Bilirubin,Direct < 0.2 mg/dL (0-0.3); Bilirubin,Total 0.3 mg/dL (0.1-1.0); Blood Urea Nitrogen 9 mg/dL (6-20); Calcium 8.9 mg/dL (8.6-10.4); Carbon Dioxide 34 mmol/L (22-30); Chloride 88 mmol/L (96-108); Globulin 2.4 gm/dL (2.2-3.7); Glomerular Filtration Rate 118; Glucose 115 mg/dL (70-105); Lactate Dehydrogenase 262 U/L (135-225); Phosphorous 4.8 mg/dL (2.5-4.5); Triglycerides 79 mg/dL (<150); Uric Acid 5.7 mg/dL (2.5-8.0)
[2021-08-19 21:07] LABS: ABG Methemoglobin 0.3 % (0.4-1.5); Total Hemoglobin 17.7 gm/Dl (13.5-16.5); VBG Base Excess 10 (-2-3); VBG HCO3 36.8 mmol/L (24.0-28.0); VBG Oxygen Saturation 86.2 % (40.0-70.0); VBG PCO2 58.3 mmHg (41.0-51.0); VBG PH 7.42 U (7.32-7.42); VBG Total CO2 38.6 mmol/L (25.0-29.0)
[2021-08-19] MEDS: methylPREDNISolone SOD SUCC 125 MG/2 ML VIAL IV SCH (21:37)
[2021-08-20 00:49] LABS: ABG Methemoglobin 0.3 % (0.4-1.5); Total Hemoglobin 17.9 gm/Dl (13.5-16.5); VBG Base Excess 5 (-2-3); VBG HCO3 30.5 mmol/L (24.0-28.0); VBG Oxygen Saturation 90.2 % (40.0-70.0); VBG PCO2 48.3 mmHg (41.0-51.0); VBG PH 7.42 U (7.32-7.42); VBG PO2 142.5 mmHg (25.0-40.0)
[2021-08-20] MEDS: DOCUSATE SODIUM 100 MG CAPSULE PO SCH ×3 (00:59→21:18)
[2021-08-20] MEDS: 0.9 % SODIUM CHLORIDE 10 ML SYRINGE IV SCH ×4 (01:17→21:22)
[2021-08-20] MEDS: guaiFENesin/CODEINE 10 ML UDC PO PRN ×3 (01:17→11:57)
[2021-08-20] MEDS: IPRATROPIUM/ALBUTEROL 3 ML AMPUL.NEB NEB SCH ×6 (03:53→22:25)
[2021-08-20] MEDS: NICOTINE 21 MG PATCH TOPICAL SCH ×3 (04:24→14:59)
[2021-08-20 06:40] LABS: Hematocrit 47.1 % (40.1-51.0); Hemoglobin 15.4 g/dL (13.7-17.5); Mean Cell Volume 91.3 fL (80.0-100.0); Mean Corpuscular HGB Conc 32.7 g/dL (31.0-36.0); Mean Platelet Volume 8.9 fL (7.4-10.4); Platelet Count 294 K/mcL (140-440); RBC 5.16 M/mcL (4.63-6.08); Red Cell Distribution Width 14.2 % (11.5-14.5); WBC 8.6 K/mcL (4.5-11.0)
[2021-08-20 07:08] LABS: ALT/SGPT 14 U/L (<40); AST/SGOT 21 U/L (<40); Albumin 3.5 gm/dL (3.2-5.2); Albumin/Globulin Ratio 1.3 (1.0-2.3); Alkaline Phosphatase 44 U/L (39-117); Bilirubin,Direct < 0.2 mg/dL (0-0.3); Bilirubin,Total 0.2 mg/dL (0.1-1.0); Blood Urea Nitrogen 13 mg/dL (6-20); Calcium 8.9 mg/dL (8.6-10.4); Carbon Dioxide 29 mmol/L (22-30); Chloride 93 mmol/L (96-108); Globulin 2.8 gm/dL (2.2-3.7); Glomerular Filtration Rate 118; Glucose 104 mg/dL (70-105); Lactate Dehydrogenase 217 U/L (135-225); Phosphorous 4.2 mg/dL (2.5-4.5); Triglycerides 60 mg/dL (<150); Uric Acid 5.6 mg/dL (2.5-8.0)
[2021-08-20] MEDS ORDERED: CYCLOBENZAPRINE 10 MG TABLET PO PRN (07:52)
[2021-08-20] MEDS: ASPIRIN 81 MG TAB.CHEW PO SCH (08:02)
[2021-08-20] MEDS: GABAPENTIN 300 MG CAPSULE PO SCH ×4 (08:02→21:20)
[2021-08-20] MEDS: FOLIC ACID 1 MG TABLET PO SCH (08:02)
[2021-08-20] MEDS: methylPREDNISolone SOD SUCC 125 MG/2 ML VIAL IV SCH ×2 (08:02→21:17)
[2021-08-20] MEDS: LORazepam 1 MG TABLET PO PRN ×3 (08:02→21:18)
[2021-08-20] MEDS: ENOXAPARIN 40 MG/0.4 ML SYRINGE SQ SCH (08:02)
[2021-08-20] MEDS: HYDROcodone/APAP 5/325MG TABLET PO PRN ×2 (08:06→21:18)
[2021-08-20] MEDS: FUROSEMIDE 40 MG TABLET PO SCH (08:07)
[2021-08-20] MEDS: DIVALPROEX SODIUM 250 MG TABLET PO SCH (08:10)
[2021-08-20] MEDS: NALTREXONE HCL 50 MG TABLET PO SCH (10:22)
[2021-08-20] MEDS: BENZONATATE 100 MG CAPSULE PO PRN (10:24)
[2021-08-20 10:34] LABS: Lymphocytes % 19 % (15-49); Monocytes % (Manual) 13 % (1-12); Platelet Estimate NORMAL (Normal); RBC Morphology NORMAL (Normal); Reactive Lymphocytes 2 % (0-2); Segmented Neutrophils % 66 % (38-78)
[2021-08-20 12:46] LABS: Amphetamine Screen,Urine None detected; Barbiturate Screen,Urine None detected; Benzodiazepines Screen,Urine None detected; Cannabinoid Screen,Urine Suspect Positive; Cocaine Screen,Urine None detected; Opiate Screen,Urine Suspect Positive; Oxycodone, Urine Screen None detected; Phencyclidine Screen,Urine None detected
--- NOTE | 2021-08-20 13:57 | Cat Scan Report ---
CLINICAL INFORMATION: Hypoxia. History of COPD. COMPARISON: Compared most recently with chest radiograph [address] chest to December 2019. TECHNIQUE: Axial CT chest. No contrast. Reformatted imaging included. FINDINGS: There is chronic subpleural thickening in the left lower lobe with atelectasis/parenchymal scarring dating back to at least December 2019. Disseminated reticulonodular infiltrates are seen throughout the pulmonary parenchyma bilaterally these are predominantly peripheral in location. Within the limitations of a lack of contrast media there appears to be bilateral perihilar adenopathy. Asymmetric enlargement right lobe of the thyroid with an ill-defined nodule in the upper pole the borders blend in with the adjacent vascular structures. A dedicated thyroid ultrasound would be helpful. The upper abdominal viscera is unchanged. Osseous structures benign IMPRESSION: Abnormal appearance of the pulmonary parenchyma with some chronic features dating back to December 2019. Disseminated reticulonodular infiltrates are seen throughout both lungs in a peripheral distribution with what I suspect to be perihilar adenopathy. Pulmonology consultation is recommended. Interpreted and Authenticated by: Adelso Mcguire M.D. 08/20/21
[2021-08-20] MEDS: LEVOFLOXACIN 750 MG/150 ML BAG IV SCH (14:50)
--- NOTE | 2021-08-20 15:42 | Internal Med Progress Note ---
SUBJECTIVE Subjective Patient information: Note initiated : 08/20/21 at 3:42 pm Service Date, if different from initiated Date: [] Patient: Tae Esquivel 51 y/o M admitted on 08/19/21 for Shortness of breath. Chief Complaint: [] Interval history: Mr. Esquivel is a 51 year old male with a history of COPD, hypertension, peripheral artery disease, schizoaffective disorder, insomnia, tobacco use disorder who presented for shortness of breath and was found to be hypoxic in the ED. Patient was placed on 2 L nasal cannula in the emergency department. Work-up included routine lab work with CBC and chemistry panel which was remarkable for mild hyponatremia, notably there was no leukocytosis or anemia. Procalcitonin and D-dimer were in the normal ranges. A chest x-ray showed vague airspace disease bilaterally, slightly progressed since the prior chest x-ray on 08/07/2021. Due to hypoxia and multiple recent ED visits for shortness of breath, hospital medicine was consulted for admission. Review of the patient's recent medical records indicate that he was hospitalized in July 2021 for pneumonia felt to be atypical and a COPD exacerbation. The patient was discharged home on antibiotics and a prednisone taper on 07/25/2021. According to the patient, his coughing and respiratory symptoms never completely resolved. The patient was seen in the ED on 08/06/2021 and 08/07/2021 for chief complaints of shortness of breath. He was discharged to home on both occasions. The patient continues to smoke cigarettes as well as marijuana. 5/6 Afebrile overnight, continues on 2 L/min nasal canula oxygen. CT chest showed disseminated reticulonodular infiltrates throughout both lungs and perihilar adenopathy. On levofloxacin and solumedrol IV, consulted pulmonology. Physical exam Head: Atraumatic, normal inspection. Eyes: normal appearance, no scleral icterus. Neck: full ROM Respiratory: Bilateral diffuse wheezing, no respiratory distress. Cardiovascular: normal rate and rhythm, S1, S2. GI/Abdominal: soft, nontender, no guarding. Extremities: full range of motion, nontender. Neurological: CN II-XII intact, intact motor, intact sensation. Psychiatric: normal mood. Skin: warm, normal color Constitutional Vitals: Vital Signs Temp Pulse Resp BP Pulse Ox 97.8 F 91 H 22 123/76 96 08/20/21 14:28 08/20/21 15:29 08/20/21 15:29 08/20/21 14:00 08/20/21 15:29 Period Temp Pulse Resp BP Sys/Banks Pulse Ox Last 24 Hr 97.5 F-99.3 F 64-98 17-29 115-162/61-100 89-99 Intake and Output 08/20/21 08/20/21 08/20/21 05:59 13:59 21:59 Intake Total 1000 1440 360 Output Total 600 125 Balance 1000 840 235 Intake & Output: Intake & Output 08/20/21 08/20/21 08/20/21 05:59 13:59 21:59 Intake Total 1000 1440 360 Output Total 600 125 Balance 1000 840 235 Intake: Oral 1000 1440 360 Output: Void Amount 600 125 Other: Meal Breakfast Percent of Meal Consumed 75% Feeding Ability Independent Independent Nourishment/Supplement name 2 sandwiches Urine Appearance Clear Urine Color Bright Yellow Urine Odor Normal # Voids 2 OBJ DATA Labs CBC & Chem 7: 08/20/21 05:40 08/20/21 05:40 Labs: Abnormal Lab Results 08/20/21 08/20/21 08/20/21 05:40 05:40 00:25 Seg Neutrophils % Lymphocytes % Monocytes % (Manual) 13 H D-Dimer ABG Methemoglobin 0.3 L VBG pCO2 VBG pO2 142.5 H VBG HCO3 30.5 H VBG Total CO2 32.0 H VBG O2 Saturation 90.2 H VBG Base Excess 5 H Carboxyhemoglobin 8.3 H Total Hemoglobin 17.9 H POC Sodium Sodium 132 L POC Chloride Chloride 93 L Carbon Dioxide POC Total CO2 Creatinine 0.6 L Glucose POC Glucose POC WB Ioniz Calcium Phosphorus GGT Lactate Dehydrogenase NT-Pro-B Natriuret Pep Urine Opiates Screen U Marijuana (THC) Screen 08/19/21 08/19/21 08/19/21 20:45 20:26 16:00 Seg Neutrophils % Lymphocytes % Monocytes % (Manual) D-Dimer ABG Methemoglobin 0.3 L VBG pCO2 58.3 H VBG pO2 84.0 H VBG HCO3 36.8 H VBG Total CO2 38.6 H VBG O2 Saturation 86.2 H VBG Base Excess 10 H Carboxyhemoglobin 10.6 H Total Hemoglobin 17.7 H POC Sodium Sodium 132 L POC Chloride Chloride 88 L Carbon Dioxide 34 H POC Total CO2 Creatinine 0.6 L Glucose 115 H POC Glucose POC WB Ioniz Calcium Phosphorus 4.8 H GGT 7 L Lactate Dehydrogenase 262 H NT-Pro-B Natriuret Pep 173.7 H Urine Opiates Screen Suspect positive A U Marijuana (THC) Screen Suspect positive A 08/19/21 08/19/21 08/19/21 14:38 14:37 14:37 Seg Neutrophils % 83 H Lymphocytes % 11 L Monocytes % (Manual) D-Dimer < 0.27 L ABG Methemoglobin VBG pCO2 VBG pO2 VBG HCO3 VBG Total CO2 VBG O2 Saturation VBG Base Excess Carboxyhemoglobin Total Hemoglobin POC Sodium 131 L Sodium POC Chloride 87 L Chloride Carbon Dioxide POC Total CO2 36.0 H Creatinine Glucose POC Glucose 127 H POC WB Ioniz Calcium 1.10 L Phosphorus GGT Lactate Dehydrogenase NT-Pro-B Natriuret Pep Urine Opiates Screen U Marijuana (THC) Screen Meds: Medications Acetaminophen (Acetaminophen 325 Mg Tablet) 650 mg PO Q6HP PRN; Protocol PRN Reason: Per Pain Protocol/Fever > 101 Hydrocodone Bitart/Acetaminophen (Hydrocodone/Apap 5/325mg Tablet) 1 tab PO TIDP PRN PRN Reason: pain Last Admin: 08/20/21 08:06 Dose: 1 tab Documented by: Albuterol Sulfate (Albuterol Sulfate 2.5 Mg/3 Ml Nebulizer) 2.5 mg NEB Q2HP PRN PRN Reason: Shortness Of Breath Last Admin: 08/20/21 09:11 Dose: 2.5 mg Documented by: Albuterol/Ipratropium (Ipratropium/Albuterol 3 Ml Ampul.Neb) 3 ml NEB Q4HRT [facility] Last Admin: 08/20/21 15:28 Dose: 3 ml Documented by: Aspirin (Aspirin 81 Mg Tab.Chew) 81 mg PO QDAY [facility] Last Admin: 08/20/21 08:02 Dose: 81 mg Documented by: Benzonatate (Benzonatate 100 Mg Capsule) 200 mg PO TIDP PRN PRN Reason: Cough Last Admin: 08/20/21 10:24 Dose: 200 mg Documented by: Cyclobenzaprine HCl (Cyclobenzaprine 10 Mg Tablet) 10 mg PO BIDP PRN PRN Reason: Muscle Pain Divalproex Sodium (Divalproex Sodium 250 Mg Tablet) 2,000 mg PO QDAY [facility] Last Admin: 08/20/21 08:10 Dose: 2,000 mg Documented by: Docusate Sodium (Docusate Sodium 100 Mg Capsule) 100 mg PO BID [facility] Last Admin: 08/20/21 08:02 Dose: Not Given Documented by: Enoxaparin Sodium (Enoxaparin 40 Mg/0.4 Ml Syringe) 40 mg SQ DAILY [facility] Last Admin: 08/20/21 08:02 Dose: 40 mg Documented by: Folic Acid (Folic Acid 1 Mg Tablet) 1 mg PO QDAY [facility] Last Admin: 08/20/21 08:02 Dose: 1 mg Documented by: Furosemide (Furosemide 40 Mg Tablet) 40 mg PO QDAY [facility] Last Admin: 08/20/21 08:07 Dose: 40 mg Documented by: Gabapentin (Gabapentin 300 Mg Capsule) 300 mg PO TID [facility] Last Admin: 08/20/21 15:00 Dose: Not Given Documented by: Guaifenesin/Codeine Phosphate (Guaifenesin/Codeine 10 Ml Udc) 10 ml PO Q4HP PRN PRN Reason: Cough Last Admin: 08/20/21 11:57 Dose: 10 ml Documented by: Levofloxacin (Levaquin) 750 mg in 150 mls @ 100 mls/hr IV Q24H [facility] Last Admin: 08/20/21 14:50 Dose: 100 mls/hr Documented by: Lactulose (Lactulose 20 Gm/30 Ml Oral.Erika) 10 gm PO DAILYP PRN PRN Reason: Constipation Lorazepam (Lorazepam 1 Mg Tablet) 1 mg PO TIDP PRN PRN Reason: Anxiety Last Admin: 08/20/21 12:19 Dose: 1 mg Documented by: Methylprednisolone Sodium Succinate (Methylprednisolone Sod Succ 125 Mg/2 Ml Vial) 62.5 mg IV Q12 [facility] Last Admin: 08/20/21 08:02 Dose: 62.5 mg Documented by: Naltrexone HCl (Naltrexone Hcl 50 Mg Tablet) 50 mg PO QDAY [facility] Last Admin: 08/20/21 10:22 Dose: 50 mg Documented by: Nicotine (Nicotine 21 Mg Patch) 21 mg TOPICAL DAILY@1000 [facility] Last Admin: 08/20/21 14:59 Dose: 21 mg Documented by: Nicotine Polacrilex (Nicotine Polacrilex 2 Mg Gum) 2 mg CHEW/PARK Q4HP PRN PRN Reason: nicotine withdrawal Ondansetron HCl (Ondansetron 4 Mg/2 Ml Vial) 4 mg IV Q4HP PRN; Protocol PRN Reason: Nausea And Vomiting Ziprasidone Hcl 80 (Mg Capsule) 2 dose PO HS [facility] Senna (Sennosides 1 Tablet) 2 tab PO HSP PRN PRN Reason: Constipation Sodium Chloride (0.9 % Sodium Chloride 10 Ml Syringe) 10 ml IV Q8 [facility] Last Admin: 08/20/21 14:59 Dose: 10 ml Documented by: Trazodone HCl (Trazodone Hcl 100 Mg Tablet) 100 mg PO QHS [facility] ABG Interpretation ABG results: 08/19/21 08/20/21 20:45 00:25 ABG Methemoglobin 0.3 L 0.3 L VBG pH 7.42 7.42 VBG pCO2 58.3 H 48.3 VBG pO2 84.0 H 142.5 H VBG HCO3 36.8 H 30.5 H VBG Total CO2 38.6 H 32.0 H VBG O2 Saturation 86.2 H 90.2 H VBG Base Excess 10 H 5 H A/P Narrative A/P Narrative: Assessment: 51 year old male with a history of Schizoaffective disorder, COPD, tobacco use disorder admitted for acute hypoxic respiratory failure and a COPD exacerbation. D-dimer was not elevated, procalcitonin was normal. The patient was hospitalized for community acquired pneumonia and a COPD exacerbation about one month ago. #Acute hypoxic respiratory failure #Disseminated bilateral reticulonodular infiltrates of uncertain etiology #Possible atypical pneumonia #COPD exacerbation #right thyroid nodule #Mild hyponatremia #Essential hypertension #Peripheral artery disease #Insomnia #Tobacco use disorder #Schizoaffective disorder #Insomnia Plan -Oxygen supplementation, wean as able. -Solumedrol IV BID. -Scheduled Duonebs and prn Albuterol nebs. -Empiric levofloxacin. -Pulmonology consult. -Thyroid ultrasound and TSH. -Home Aspirin, Citalopram, Flexeril, Depakote, Lasix, Lorazepam, Naltrexone, Trazodone, Ziprasidone. -Regular diet. -monitoring specialist. . -Speech therapy consult -DVT ppx: Lovenox -Code status: Full -Disposition: Home when stable, pulmonology follow up. Time Spent With Patient Time: Total time spent is greater than 50% in coordination of care (as documented) at patient's floor/unit and/or counseling patient: QUALITY VTE Deep Vein Thrombosis/Pulmonary Embolism Present on Admission: No
[2021-08-20] MEDS: traZODone HCL 100 MG TABLET PO SCH (21:24)
[2021-08-21] MEDS: IPRATROPIUM/ALBUTEROL 3 ML AMPUL.NEB NEB SCH ×7 (02:05→23:01)
[2021-08-21] MEDS: LORazepam 1 MG TABLET PO PRN ×3 (05:34→20:17)
[2021-08-21] MEDS: HYDROcodone/APAP 5/325MG TABLET PO PRN ×3 (05:34→20:17)
[2021-08-21] MEDS: guaiFENesin/CODEINE 10 ML UDC PO PRN ×4 (05:35→20:16)
[2021-08-21 06:10] LABS: Hematocrit 49.9 % (40.1-51.0); Hemoglobin 16.4 g/dL (13.7-17.5); Mean Cell Volume 91.9 fL (80.0-100.0); Mean Corpuscular HGB Conc 32.9 g/dL (31.0-36.0); Mean Platelet Volume 8.8 fL (7.4-10.4); Platelet Count 299 K/mcL (140-440); RBC 5.43 M/mcL (4.63-6.08); Red Cell Distribution Width 14.1 % (11.5-14.5)
--- NOTE | 2021-08-21 06:23 | Ultrasound Report ---
CLINICAL INFORMATION: Right lobe thyroid nodule seen on CT COMPARISON: Chest CT 01/07/2020 and 08/19/2021. FINDINGS: The thyroid is normal in size: The right lobe is 5.3 x 3 cm and the left lobe is 5 x 1.8 cm. There is a 3.6 cm mixed solid/ cystic, hyperechoic nodule in the mid and lower right thyroid lobe. It demonstrates moderate vascularity on color Doppler. The nodule borders are smooth, no calcifications and it is wider than tall: TR 2 benign IMPRESSION: 3.6 cm solid nodule in the mid inferior right thyroid lobe. Note: This nodule was very carefully compared to a chest CT approximately 1.5 years ago 01/07/2020. On the prior CT, coronal images, the nodule measured 3.6 x 2 cm. Using identical points for measurement, the most recent CT dimensions were 4.6 x 2.5 cm. Although the sonographic features are predominantly benign, given the interval growth, suggest percutaneous ultrasound-guided biopsy Interpreted and Authenticated by: Kamron Carrillo 08/21/21
[2021-08-21] MEDS: BENZONATATE 100 MG CAPSULE PO PRN ×2 (06:25→12:29)
[2021-08-21 06:37] LABS: ALT/SGPT 13 U/L (<40); AST/SGOT 18 U/L (<40); Albumin 3.6 gm/dL (3.2-5.2); Albumin/Globulin Ratio 1.2 (1.0-2.3); Alkaline Phosphatase 44 U/L (39-117); Bilirubin,Direct < 0.2 mg/dL (0-0.3); Bilirubin,Total 0.2 mg/dL (0.1-1.0); Blood Urea Nitrogen 14 mg/dL (6-20); Calcium 8.7 mg/dL (8.6-10.4); Carbon Dioxide 29 mmol/L (22-30); Chloride 95 mmol/L (96-108); Globulin 2.9 gm/dL (2.2-3.7); Glomerular Filtration Rate 111; Glucose 117 mg/dL (70-105); Lactate Dehydrogenase 171 U/L (135-225); Phosphorous 4.5 mg/dL (2.5-4.5); Triglycerides 101 mg/dL (<150); Uric Acid 5.9 mg/dL (2.5-8.0)
[2021-08-21 07:03] LABS: Lymphocytes % 8 % (15-49); Monocytes % (Manual) 7 % (1-12); Platelet Estimate NORMAL (Normal); RBC Morphology NORMAL (Normal); Reactive Lymphocytes 3 % (0-2); Segmented Neutrophils % 82 % (38-78)
[2021-08-21] MEDS: ASPIRIN 81 MG TAB.CHEW PO SCH (09:47)
[2021-08-21] MEDS: DOCUSATE SODIUM 100 MG CAPSULE PO SCH ×2 (09:47→20:17)
[2021-08-21] MEDS: 0.9 % SODIUM CHLORIDE 10 ML SYRINGE IV SCH ×3 (09:47→20:20)
[2021-08-21] MEDS: GABAPENTIN 300 MG CAPSULE PO SCH ×3 (09:48→20:17)
[2021-08-21] MEDS: FOLIC ACID 1 MG TABLET PO SCH (09:48)
[2021-08-21] MEDS: FUROSEMIDE 40 MG TABLET PO SCH (09:48)
[2021-08-21] MEDS: ENOXAPARIN 40 MG/0.4 ML SYRINGE SQ SCH (09:48)
[2021-08-21] MEDS: methylPREDNISolone SOD SUCC 125 MG/2 ML VIAL IV SCH ×2 (09:49→20:17)
[2021-08-21] MEDS: NICOTINE 21 MG PATCH TOPICAL SCH (09:49)
[2021-08-21] MEDS: ACETAMINOPHEN 325 MG TABLET PO PRN ×2 (09:50→17:58)
[2021-08-21] MEDS: DIVALPROEX SODIUM 250 MG TABLET PO SCH (10:19)
[2021-08-21] MEDS: NALTREXONE HCL 50 MG TABLET PO SCH (10:19)
[2021-08-21] MEDS: buPROPion 150 MG TAB.SR.12H PO SCH (10:20)
[2021-08-21] MEDS: LEVOFLOXACIN 750 MG/150 ML BAG IV SCH (10:44)
[2021-08-21] MEDS: NICOTINE POLACRILEX 2 MG GUM CHEW/PARK PRN (12:33)
--- NOTE | 2021-08-21 15:34 | Internal Med Progress Note ---
SUBJECTIVE Subjective Patient information: Note initiated : 08/21/21 at 3:30 pm Service Date, if different from initiated Date: [] Patient: Tae Esquivel 51 y/o M admitted on 08/19/21 for Shortness of breath. Chief Complaint: [] Interval history: Mr. Esquivel is a 51 year old male with a history of COPD, hypertension, peripheral artery disease, schizoaffective disorder, insomnia, tobacco use disorder who presented for shortness of breath and was found to be hypoxic in the ED. Patient was placed on 2 L nasal cannula in the emergency department. Work-up included routine lab work with CBC and chemistry panel which was remarkable for mild hyponatremia, notably there was no leukocytosis or anemia. Procalcitonin and D-dimer were in the normal ranges. A chest x-ray showed vague airspace disease bilaterally, slightly progressed since the prior chest x-ray on 08/07/2021. Due to hypoxia and multiple recent ED visits for shortness of breath, hospital medicine was consulted for admission. Review of the patient's recent medical records indicate that he was hospitalized in July 2021 for pneumonia felt to be atypical and a COPD exacerbation. The patient was discharged home on antibiotics and a prednisone taper on 07/25/2021. According to the patient, his coughing and respiratory symptoms never completely resolved. The patient was seen in the ED on 08/06/2021 and 08/07/2021 for chief complaints of shortness of breath. He was discharged to home on both occasions. The patient continues to smoke cigarettes as well as marijuana. 08/20 Afebrile overnight, continues on 2 L/min nasal canula oxygen. CT chest showed disseminated reticulonodular infiltrates throughout both lungs and perihilar adenopathy. On levofloxacin and solumedrol IV, consulted pulmonology. 08/21 ESR and CRP normal for age, discontinued levofloxacin. Started Bupropion for tobacco use disorder. The patient is feeling better overall. Pulmonology feels the patient's presentation is probably due to cigarette smoking. Physical exam Head: Atraumatic, normal inspection. Eyes: normal appearance, no scleral icterus. Neck: full ROM Respiratory: Bilateral diffuse wheezing, no respiratory distress. Cardiovascular: normal rate and rhythm, S1, S2. GI/Abdominal: soft, nontender, no guarding. Extremities: full range of motion, nontender. Neurological: CN II-XII intact, intact motor, intact sensation. Psychiatric: normal mood. Skin: warm, normal color Constitutional Vitals: Vital Signs Temp Pulse Resp BP Pulse Ox 97.4 F 88 20 130/79 94 08/21/21 12:43 08/21/21 15:05 08/21/21 15:05 08/21/21 12:43 08/21/21 15:05 Period Temp Pulse Resp BP Sys/Banks Pulse Ox Last 24 Hr 97.2 F-97.8 F 54-96 16-24 116-144/63-85 92-98 Intake and Output 08/21/21 08/21/21 08/21/21 05:59 13:59 21:59 Intake Total 700 1480 480 Output Total 500 Balance 200 1480 480 Intake & Output: Intake & Output 08/21/21 08/21/21 08/21/21 05:59 13:59 21:59 Intake Total 700 1480 480 Output Total 500 Balance 200 1480 480 Intake: Oral 700 1480 480 Output: Void Amount 500 Other: Meal Lunch Percent of Meal Consumed 100% 100% Feeding Ability Independent Independent Nourishment/Supplement name sandwich and ice cream # Voids 2 OBJ DATA Labs CBC & Chem 7: 08/21/21 05:34 08/21/21 05:34 Labs: Abnormal Lab Results 08/21/21 08/21/21 08/20/21 05:34 05:34 17:26 Seg Neutrophils % 82 H Lymphocytes % 8 L Monocytes % (Manual) Reactive Lymphocytes 3 H ESR 21 H D-Dimer ABG Methemoglobin VBG pCO2 VBG pO2 VBG HCO3 VBG Total CO2 VBG O2 Saturation VBG Base Excess Carboxyhemoglobin Total Hemoglobin POC Sodium Sodium 131 L POC Chloride Chloride 95 L Carbon Dioxide POC Total CO2 Anion Gap 7.0 L Creatinine Glucose 117 H POC Glucose POC WB Ioniz Calcium Phosphorus GGT 7 L Lactate Dehydrogenase NT-Pro-B Natriuret Pep Urine Opiates Screen U Marijuana (THC) Screen 08/20/21 08/20/21 08/20/21 05:40 05:40 00:25 Seg Neutrophils % Lymphocytes % Monocytes % (Manual) 13 H Reactive Lymphocytes ESR D-Dimer ABG Methemoglobin 0.3 L VBG pCO2 VBG pO2 142.5 H VBG HCO3 30.5 H VBG Total CO2 32.0 H VBG O2 Saturation 90.2 H VBG Base Excess 5 H Carboxyhemoglobin 8.3 H Total Hemoglobin 17.9 H POC Sodium Sodium 132 L POC Chloride Chloride 93 L Carbon Dioxide POC Total CO2 Anion Gap Creatinine 0.6 L Glucose POC Glucose POC WB Ioniz Calcium Phosphorus GGT Lactate Dehydrogenase NT-Pro-B Natriuret Pep Urine Opiates Screen U Marijuana (THC) Screen 08/19/21 08/19/21 08/19/21 20:45 20:26 16:00 Seg Neutrophils % Lymphocytes % Monocytes % (Manual) Reactive Lymphocytes ESR D-Dimer ABG Methemoglobin 0.3 L VBG pCO2 58.3 H VBG pO2 84.0 H VBG HCO3 36.8 H VBG Total CO2 38.6 H VBG O2 Saturation 86.2 H VBG Base Excess 10 H Carboxyhemoglobin 10.6 H Total Hemoglobin 17.7 H POC Sodium Sodium 132 L POC Chloride Chloride 88 L Carbon Dioxide 34 H POC Total CO2 Anion Gap Creatinine 0.6 L Glucose 115 H POC Glucose POC WB Ioniz Calcium Phosphorus 4.8 H GGT 7 L Lactate Dehydrogenase 262 H NT-Pro-B Natriuret Pep 173.7 H Urine Opiates Screen Suspect positive A U Marijuana (THC) Screen Suspect positive A 08/19/21 08/19/21 08/19/21 14:38 14:37 14:37 Seg Neutrophils % 83 H Lymphocytes % 11 L Monocytes % (Manual) Reactive Lymphocytes ESR D-Dimer < 0.27 L ABG Methemoglobin VBG pCO2 VBG pO2 VBG HCO3 VBG Total CO2 VBG O2 Saturation VBG Base Excess Carboxyhemoglobin Total Hemoglobin POC Sodium 131 L Sodium POC Chloride 87 L Chloride Carbon Dioxide POC Total CO2 36.0 H Anion Gap Creatinine Glucose POC Glucose 127 H POC WB Ioniz Calcium 1.10 L Phosphorus GGT Lactate Dehydrogenase NT-Pro-B Natriuret Pep Urine Opiates Screen U Marijuana (THC) Screen Meds: Medications Acetaminophen (Acetaminophen 325 Mg Tablet) 650 mg PO Q6HP PRN; Protocol PRN Reason: Per Pain Protocol/Fever > 101 Last Admin: 08/21/21 09:50 Dose: 650 mg Documented by: Hydrocodone Bitart/Acetaminophen (Hydrocodone/Apap 5/325mg Tablet) 1 tab PO TIDP PRN PRN Reason: pain Last Admin: 08/21/21 15:01 Dose: 1 tab Documented by: Albuterol Sulfate (Albuterol Sulfate 2.5 Mg/3 Ml Nebulizer) 2.5 mg NEB Q2HP PRN PRN Reason: Shortness Of Breath Last Admin: 08/20/21 09:11 Dose: 2.5 mg Documented by: Albuterol/Ipratropium (Ipratropium/Albuterol 3 Ml Ampul.Neb) 3 ml NEB Q4HRT [facility] Last Admin: 08/21/21 15:06 Dose: 3 ml Documented by: Aspirin (Aspirin 81 Mg Tab.Chew) 81 mg PO QDAY [facility] Last Admin: 08/21/21 09:47 Dose: 81 mg Documented by: Benzonatate (Benzonatate 100 Mg Capsule) 200 mg PO TIDP PRN PRN Reason: Cough Last Admin: 08/21/21 12:29 Dose: 200 mg Documented by: Bupropion HCl (Bupropion 150 Mg Tab.Sr.12h) 150 mg PO DAILY [facility] Last Admin: 08/21/21 10:20 Dose: 150 mg Documented by: Cyclobenzaprine HCl (Cyclobenzaprine 10 Mg Tablet) 10 mg PO BIDP PRN PRN Reason: Muscle Pain Divalproex Sodium (Divalproex Sodium 250 Mg Tablet) 2,000 mg PO QDAY [facility] Last Admin: 08/21/21 10:19 Dose: 2,000 mg Documented by: Docusate Sodium (Docusate Sodium 100 Mg Capsule) 100 mg PO BID [facility] Last Admin: 08/21/21 09:47 Dose: 100 mg Documented by: Enoxaparin Sodium (Enoxaparin 40 Mg/0.4 Ml Syringe) 40 mg SQ DAILY [facility] Last Admin: 08/21/21 09:48 Dose: 40 mg Documented by: Folic Acid (Folic Acid 1 Mg Tablet) 1 mg PO QDAY [facility] Last Admin: 08/21/21 09:48 Dose: 1 mg Documented by: Furosemide (Furosemide 40 Mg Tablet) 40 mg PO QDAY [facility] Last Admin: 08/21/21 09:48 Dose: 40 mg Documented by: Gabapentin (Gabapentin 300 Mg Capsule) 300 mg PO TID [facility] Last Admin: 08/21/21 14:35 Dose: 300 mg Documented by: Guaifenesin/Codeine Phosphate (Guaifenesin/Codeine 10 Ml Udc) 10 ml PO Q4HP PRN PRN Reason: Cough Last Admin: 08/21/21 14:35 Dose: 10 ml Documented by: Lactulose (Lactulose 20 Gm/30 Ml Oral.Erika) 10 gm PO DAILYP PRN PRN Reason: Constipation Lorazepam (Lorazepam 1 Mg Tablet) 1 mg PO TIDP PRN PRN Reason: Anxiety Last Admin: 08/21/21 12:29 Dose: 1 mg Documented by: Methylprednisolone Sodium Succinate (Methylprednisolone Sod Succ 125 Mg/2 Ml Vial) 62.5 mg IV Q12 [facility] Last Admin: 08/21/21 09:49 Dose: 62.5 mg Documented by: Naltrexone HCl (Naltrexone Hcl 50 Mg Tablet) 50 mg PO QDAY [facility] Last Admin: 08/21/21 10:19 Dose: 50 mg Documented by: Nicotine (Nicotine 21 Mg Patch) 21 mg TOPICAL DAILY@1000 [facility] Last Admin: 08/21/21 09:49 Dose: 21 mg Documented by: Nicotine Polacrilex (Nicotine Polacrilex 2 Mg Gum) 2 mg CHEW/PARK Q4HP PRN PRN Reason: Withdrawl Symptoms Last Admin: 08/21/21 12:33 Dose: 2 mg Documented by: Ondansetron HCl (Ondansetron 4 Mg/2 Ml Vial) 4 mg IV Q4HP PRN; Protocol PRN Reason: Nausea And Vomiting Ziprasidone Hcl 80 (Mg Capsule) 2 dose PO HS [facility] Last Admin: 08/20/21 21:18 Dose: 2 dose Documented by: Senna (Sennosides 1 Tablet) 2 tab PO HSP PRN PRN Reason: Constipation Last Admin: 08/21/21 06:28 Dose: 2 tab Documented by: Sodium Chloride (0.9 % Sodium Chloride 10 Ml Syringe) 10 ml IV Q8 [facility] Last Admin: 08/21/21 14:35 Dose: 10 ml Documented by: Trazodone HCl (Trazodone Hcl 100 Mg Tablet) 100 mg PO QHS [facility] Last Admin: 08/20/21 21:24 Dose: 100 mg Documented by: ABG Interpretation ABG results: 08/19/21 08/20/21 20:45 00:25 ABG Methemoglobin 0.3 L 0.3 L VBG pH 7.42 7.42 VBG pCO2 58.3 H 48.3 VBG pO2 84.0 H 142.5 H VBG HCO3 36.8 H 30.5 H VBG Total CO2 38.6 H 32.0 H VBG O2 Saturation 86.2 H 90.2 H VBG Base Excess 10 H 5 H A/P Narrative A/P Narrative: Assessment: 51 year old male with a history of Schizoaffective disorder, COPD, t obacco use disorder admitted for acute hypoxic respiratory failure and a COPD exacerbation. D-dimer was not elevated, procalcitonin was normal. The patient was hospitalized for community acquired pneumonia and a COPD exacerbation about one month ago. #Acute hypoxic respiratory failure #Disseminated bilateral reticulonodular infiltrates of uncertain etiology #COPD exacerbation #Right thyroid nodule #Mild hyponatremia #Essential hypertension #Peripheral artery disease #Insomnia #Tobacco use disorder #Schizoaffective disorder #Insomnia Plan -Oxygen supplementation, wean as able. -Solumedrol IV BID. -Scheduled Duonebs and prn Albuterol nebs. -Discontinue Levofloxacin. -Start Bupropion for tobacco use disorder. -Continue Nicotine patch and gum. -Pulmonology was consulted. -Home Aspirin, Citalopram, Flexeril, Depakote, Lasix, Lorazepam, Naltrexone, Trazodone, Ziprasidone. -Regular diet. -patient monitor. . -Speech therapy consult. -DVT ppx: Lovenox -Code status: Full -Disposition: Home when stable, pulmonology follow up. Outpatient thyroid biopsy. Time Spent With Patient Time: Total time spent is greater than 50% in coordination of care (as documented) at patient's floor/unit and/or counseling patient: QUALITY VTE Deep Vein Thrombosis/Pulmonary Embolism Present on Admission: No
[2021-08-21] MEDS: traZODone HCL 100 MG TABLET PO SCH (20:17)
[2021-08-22] MEDS: IPRATROPIUM/ALBUTEROL 3 ML AMPUL.NEB NEB SCH ×4 (02:37→15:23)
[2021-08-22] MEDS: guaiFENesin/CODEINE 10 ML UDC PO PRN ×3 (02:45→11:00)
[2021-08-22] MEDS: HYDROcodone/APAP 5/325MG TABLET PO PRN ×2 (06:23→15:03)
[2021-08-22] MEDS: LORazepam 1 MG TABLET PO PRN ×2 (06:24→11:54)
[2021-08-22 07:22] LABS: Hematocrit 46.6 % (40.1-51.0); Hemoglobin 15.7 g/dL (13.7-17.5); Mean Cell Volume 90.7 fL (80.0-100.0); Mean Corpuscular HGB Conc 33.7 g/dL (31.0-36.0); Platelet Count 290 K/mcL (140-440); RBC 5.14 M/mcL (4.63-6.08); WBC 8.5 K/mcL (4.5-11.0)
[2021-08-22 07:29] LABS: ALT/SGPT 12 U/L (<40); AST/SGOT 14 U/L (<40); Albumin 3.6 gm/dL (3.2-5.2); Albumin/Globulin Ratio 1.6 (1.0-2.3); Alkaline Phosphatase 40 U/L (39-117); Bilirubin,Direct < 0.2 mg/dL (0-0.3); Bilirubin,Total 0.3 mg/dL (0.1-1.0); Blood Urea Nitrogen 11 mg/dL (6-20); Calcium 8.3 mg/dL (8.6-10.4); Carbon Dioxide 29 mmol/L (22-30); Chloride 95 mmol/L (96-108); Globulin 2.2 gm/dL (2.2-3.7); Glomerular Filtration Rate 127; Glucose 113 mg/dL (70-105); Lactate Dehydrogenase 153 U/L (135-225); Phosphorous 3.3 mg/dL (2.5-4.5); Triglycerides 76 mg/dL (<150); Uric Acid 5.3 mg/dL (2.5-8.0)
[2021-08-22 08:03] LABS: Lymphocytes % 17 % (15-49); Monocytes % (Manual) 9 % (1-12); Platelet Estimate NORMAL (Normal); RBC Morphology NORMAL (Normal); Segmented Neutrophils % 74 % (38-78)
[2021-08-22] MEDS: BENZONATATE 100 MG CAPSULE PO PRN (09:15)
[2021-08-22] MEDS: GABAPENTIN 300 MG CAPSULE PO SCH ×2 (09:16→15:10)
[2021-08-22] MEDS: ENOXAPARIN 40 MG/0.4 ML SYRINGE SQ SCH (09:16)
[2021-08-22] MEDS: DIVALPROEX SODIUM 250 MG TABLET PO SCH (09:16)
[2021-08-22] MEDS: DOCUSATE SODIUM 100 MG CAPSULE PO SCH (09:16)
[2021-08-22] MEDS: ASPIRIN 81 MG TAB.CHEW PO SCH (09:16)
[2021-08-22] MEDS: FOLIC ACID 1 MG TABLET PO SCH (09:16)
[2021-08-22] MEDS: buPROPion 150 MG TAB.SR.12H PO SCH (09:16)
[2021-08-22] MEDS: FUROSEMIDE 40 MG TABLET PO SCH (09:16)
[2021-08-22] MEDS: methylPREDNISolone SOD SUCC 125 MG/2 ML VIAL IV SCH (09:17)
[2021-08-22] MEDS: NICOTINE 21 MG PATCH TOPICAL SCH (09:17)
[2021-08-22] MEDS: 0.9 % SODIUM CHLORIDE 10 ML SYRINGE IV SCH (09:17)
[2021-08-22] MEDS: NALTREXONE HCL 50 MG TABLET PO SCH (09:20)
[2021-08-22] MEDS: NICOTINE POLACRILEX 2 MG GUM CHEW/PARK PRN ×2 (09:21→15:46)
[2021-08-22 12:51] LABS: Hematocrit 46.7 % (40.1-51.0); Hemoglobin 15.8 g/dL (13.7-17.5)
--- NOTE | 2021-08-22 14:55 | Discharge Summary ---
Discharge Provider Provider Patient information: Note initiated : 08/22/21 at 2:51 pm Service Date, if different from initiated Date: [] Patient: Tae Esquivel 51 y/o M admitted on 08/19/21 for Shortness of breath. Chief Complaint: [] Date of admission: 08/19/21 18:59 Discharge date: 08/22/21 Primary care physician: Rachel Stark PA-C Consults: 08/19/21 Consult to Physician [CONS] Stat Comment: Consulting Provider: Ty Contreras Reason For Exam: Physician to Consult 08/20/21 13:21 Consult to Physician [CONS] Routine Comment: Consulting Provider: Claudio Owens Reason For Exam: Physician to Consult Discharge Meds Discharge Medications Home Medications albuterol sulfate 90 mcg/actuation aerosol inhaler 2 puff INHALATION PRN PRN 01/24/21 [History Confirmed 08/19/21 Last Taken 02/07/21] budesonide-formoterol HFA 80 mcg-4.5 mcg/actuation aerosol inhaler 2 puff INHALATION BID 01/24/21 [History Confirmed 08/19/21 Last Taken 02/13/21] cyclobenzaprine 10 mg tablet 10 mg PO BIDP PRN 01/24/21 [History Confirmed 08/19/21 Last Taken 02/13/21] divalproex 500 mg tablet,extended release 24 hr 2,000 mg PO QDAY 01/24/21 [History Confirmed 08/19/21 Last Taken 02/13/21] gabapentin 300 mg capsule 300 mg PO TID 01/24/21 [History Confirmed 08/19/21 Last Taken 02/13/21] ipratropium 0.5 mg-albuterol 3 mg (2.5 mg base)/3 mL nebulization soln 3 ml INHALATION Q4H PRN 01/24/21 [History Confirmed 08/19/21 Last Taken 02/13/21] lisinopril 20 mg tablet 20 mg PO QDAY 01/24/21 [History Confirmed 08/19/21 Last Taken 02/13/21] lorazepam 1 mg tablet 1 mg PO TID PRN 01/24/21 [History Confirmed 08/19/21 Last Taken 02/13/21] naltrexone 50 mg tablet 50 mg PO QDAY 01/24/21 [History Confirmed 08/19/21 Last Taken 02/13/21] trazodone 100 mg tablet 100 mg PO QHS 01/24/21 [History Confirmed 08/19/21 Last Taken 02/13/21] ziprasidone HCl 80 mg capsule 160 mg PO HS 01/24/21 [History Confirmed 08/19/21 Last Taken 02/13/21] Aspirin Low Dose 81 mg tablet,delayed release (aspirin) 81 mg PO QDAY #14 tab NS 06/28/21 [Rx Confirmed 08/19/21 Last Taken Unknown] citalopram 20 mg tablet 1 tab PO QDAY 07/23/21 [History Confirmed 08/19/21 Last Taken Unknown] furosemide 40 mg tablet 1 tab PO QDAY 07/23/21 [History Confirmed 08/19/21 Last Taken Unknown] zolpidem 10 mg tablet 1 tab PO HSP PRN 07/23/21 [History Confirmed 08/19/21 Last Taken Unknown] bvyrvzaarpbeo-ZB-sqiqirltbkh 2.5 mg-5 mg-50 mg/5 mL oral liquid (Robitussin C ough and Cold CF) 15 ml PO Q4H PRN #118 ml 07/25/21 [Rx Confirmed 08/19/21 Last Taken Unknown] albuterol sulfate 2.5 mg (3 mL) INHALATION Q4H PRN #75 ml 08/06/21 [Rx Confirmed 08/19/21 Last Taken Unknown] epinephrine 0.3 mg/0.3 mL injection, auto-injector (EpiPen) 0.3 ml IM PRN PRN 08/19/21 [History Confirmed 08/20/21 Last Taken Unknown] folic acid 1 mg tablet 1 tab PO QDAY 08/19/21 [History Confirmed 08/19/21 Last Taken Unknown] hydrocodone 5 mg-acetaminophen 325 mg tablet 1 tab PO TIDP PRN 08/19/21 [History Confirmed 08/19/21 Last Taken Unknown] benzonatate 100 mg capsule 100 mg PO TIDP PRN #30 cap 08/22/21 [Rx Last Taken Unknown] bupropion HCl 150 mg tablet,12 hr sustained-release 150 mg PO DAILY #30 ea 08/22/21 [Rx Last Taken Unknown] nicotine (polacrilex) 2 mg gum 2 mg BUCCAL Q4HP PRN #100 ea 08/22/21 [Rx Last Taken Unknown] nicotine 21 mg/24 hr daily transdermal patch 21 mg TOPICAL DAILY@1000 #28 ea 08/22/21 [Rx Last Taken Unknown] prednisone 20 mg tablet 40 mg PO QDAY 4 Days #8 tab 08/22/21 [Rx Last Taken Unknown] COURSE Hospital Course Hospital course: Mr. Esquivel is a 51 year old male with a history of COPD, hypertension, peripheral artery disease, schizoaffective disorder, insomnia, tobacco use disorder who presented for shortness of breath and was found to be hypoxic in the ED. Aaron mendez was placed on 2 L nasal cannula in the emergency department. Work-up included routine lab work with CBC and chemistry panel which was remarkable for mild hyponatremia, notably there was no leukocytosis or anemia. Procalcitonin and D-dimer were in the normal ranges. A chest x-ray showed vague airspace disease bilaterally, slightly progressed since the prior chest x-ray on 08/07/2021. Due to hypoxia and multiple recent ED visits for shortness of breath, hospital medicine was consulted for admission. Review of the patient's recent medical records indicate that he was hospitalized in July 2021 for pneumonia felt to be atypical and a COPD exacerbation. The patient was discharged home on antibiotics and a prednisone taper on 07/25/2021. According to the patient, his coughing and respiratory symptoms never completely resolved. The patient was seen in the ED on 08/06/2021 and 08/07/2021 for chief complaints of shortness of breath. He was discharged to home on both occasions. The patient continues to smoke cigarettes as well as marijuana. 08/20 Afebrile overnight, continues on 2 L/min nasal canula oxygen. CT chest showed disseminated reticulonodular infiltrates throughout both lungs and perihilar adenopathy. On levofloxacin and solumedrol IV, consulted pulmonology. 08/21 ESR and CRP normal for age, discontinued levofloxacin. Started Bupropion for tobacco use disorder. The patient is feeling better overall. Pulmonology feels the patient's presentation is probably due to cigarette smoking. 08/22 Weaned off oxygen, wants to go home. Discharged to home with 4 more days of pred nisone 40 mg daily for COPD exacerbation. Also discharged on Bupropion for smoking cessation, Nicotine patch, and Nicotine gum as needed for smoking cessation therapy. The dose of Bupropion may be increased in 7 days if it is well tolerated. Physical exam Head: Atraumatic, normal inspection. Eyes: normal appearance, no scleral icterus. Neck: full ROM Respiratory: Bilateral diffuse wheezing, no respiratory distress. Cardiovascular: normal rate and rhythm, S1, S2. GI/Abdominal: soft, nontender, no guarding. Extremities: full range of motion, nontender. Neurological: CN II-XII intact, intact motor, intact sensation. Psychiatric: normal mood. Skin: warm, normal color Discharge diagnosis: COPD exacerbation Time Spent with Patient Time attestation: Total time spent providing and/or coordinating discharge services: EXAM Constitutional Vitals: Temp Pulse Resp BP Pulse Ox 97.8 F 88 20 122/81 93 08/22/21 11:51 08/22/21 11:19 08/22/21 11:51 08/22/21 11:51 08/22/21 11:51 Discharge Data Data Completed and Pending Labs on day of discharge: Labs from last 24 hours 08/22/21 08/22/21 08/22/21 19:01 12:01 06:14 WBC 8.5 RBC 5.14 Hgb 15.8 15.7 Hct 46.7 46.6 MCV 90.7 MCH 30.5 MCHC 33.7 RDW 14.0 Plt Count 290 MPV 9.0 Seg Neutrophils % 74 Lymphocytes % 17 Monocytes % (Manual) 9 Platelet Estimate Normal RBC Morphology Normal Sodium 132 L Potassium 4.2 Chloride 95 L Carbon Dioxide 29 Anion Gap 8.0 BUN 11 Creatinine 0.5 L GFR Calculation 127 Glucose 113 H Uric Acid 5.3 Calcium 8.3 L Phosphorus 3.3 Magnesium 2.0 Total Bilirubin 0.3 Direct Bilirubin < 0.2 GGT 9 AST 14 ALT 12 Alkaline Phosphatase 40 Lactate Dehydrogenase 153 Total Protein 5.8 L Albumin 3.6 Globulin 2.2 Albumin/Globulin Ratio 1.6 Triglycerides 76 Discharge Plan Patient/Caregiver Discharge Instructions Activity: increase activity as tolerated Diet: Regular Diet Prescriptions: New benzonatate 100 mg Capsule 100 mg PO TIDP PRN (Reason: Cough) Qty: 30 0RF bupropion HCl 150 mg Tablet Sustained-Release 12 Hr 150 mg PO DAILY Qty: 30 3RF nicotine 21 mg/24 hr Patch 24 Hour 21 mg topical DAILY@1000 Qty: 28 3RF nicotine (polacrilex) 2 mg Gum 2 mg buccal Q4HP PRN (Reason: Withdrawl Symptoms) Qty: 100 6RF prednisone 20 mg tablet 40 mg PO QDAY 4 Days Qty: 8 0RF Continued cyclobenzaprine 10 mg Tablet 10 mg PO BIDP PRN (Reason: Muscle Pain) 0RF ziprasidone HCl 80 mg Capsule 160 mg PO HS 0RF ipratropium-albuterol 0.5 mg-3 mg(2.5 mg base)/3 mL Solution For Nebulization 3 ml INHALATION Q4H PRN (Reason: Shortness Of Breath Or Wheezing) 0RF naltrexone 50 mg Tablet 50 mg PO QDAY 0RF lisinopril 20 mg Tablet 20 mg PO QDAY 0RF trazodone 100 mg Tablet 100 mg PO QHS 0RF divalproex 500 mg Tablet Extended Release 24 Hr 2,000 mg PO QDAY 0RF gabapentin 300 mg Capsule 300 mg PO TID 0RF lorazepam 1 mg Tablet 1 mg PO TID PRN (Reason: Anxiety) 0RF budesonide-formoterol 80-4.5 mcg/actuation Hfa Aerosol Inhaler 2 puff INHALATION BID 0RF albuterol sulfate 90 mcg/actuation HFA aerosol inhaler 2 puff inhalation PRN PRN (Reason: shortness of breath or wheezing) 0RF aspirin [Aspirin Low Dose] 81 mg tablet,delayed release (DR/EC) 81 mg PO QDAY Qty: 14 0RF citalopram 20 mg tablet 1 tab PO QDAY 0RF zolpidem 10 mg tablet 1 tab PO HSP PRN (Reason: Insomnia) 0RF furosemide 40 mg tablet 1 tab PO QDAY 0RF Robitussin Cough and Cold CF 2.5-5-50 mg/5 mL liquid 15 ml PO Q4H PRN (Reason: cough) Qty: 118 0RF albuterol sulfate 2.5 mg /3 mL (0.083 %) solution for nebulization 2.5 mg inhalation Q4H PRN (Reason: shortness of breath or wheezing) Qty: 75 0RF hydrocodone-acetaminophen 5-325 mg tablet 1 tab PO TIDP PRN (Reason: pain) 0RF folic acid 1 mg tablet 1 tab PO QDAY 0RF epinephrine [EpiPen] 0.3 mg/0.3 mL auto-injector 0.3 ml IM PRN PRN (Reason: Allergic Reaction) 0RF Follow Up Plan Follow up with: Rachel Stark PA-C [Primary Care Provider] - Patient Disposition: Home, Self-Care Overall status at discharge: patient is progressing back to baseline Discharge Orders: Discharge Order (Routine); Ordered 08/22/21 Ordered By: Ty GALLARDO VTE Deep Vein Thrombosis/Pulmonary Embolism Present on Admission: No
--- NOTE | 2021-08-23 08:33 | Consultation ---
DATE OF CONSULTATION: 08/20/2021 HISTORY OF PRESENT ILLNESS: The patient is a pleasant 51-year-old gentleman admitted to the hospital on 08/19/2021. He presented to the Emergency Room with increased radiographic infiltrates, hypoxemia and distress. The patient had been admitted 07/22/2021 with a similar presentation. The patient had an elevated mycoplasma IgG at that time and was treated with antibiotics and a prednisone burst and taper. At presentation there was no elevation of white blood count on 08/19/2021; he did not have an eosinophil count, but he was on steroids recently. An echocardiogram had been performed at his previous hospitalization showing an ejection fraction at 60% and severe left atrial dysfunction/dilation indicating more left ventricular issues that might have been made immediately apparent. The patient did have pulmonary hypertension with a right ventricular systolic pressure estimated to be 36 mmHg. The patient has been living in an assisted living facility due to his mental health issues. He reports he got better with his previous hospitalization, but did not fully recover. Unfortunately, the patient reports smoking 2 packs of cigarettes a day as well as marijuana continuously. He states he does smoke outside. His carboxyhemoglobin level at the time of presentation was noted to be 10.3% down to 8% today. The patient is in a controlled environment without unusual exposures otherwise. He denies fevers, sweats or chills. Given his white blood cell count of essentially 8, infection seems less probable. His procalcitonin was normal and ESR and CRP are pending at this time. He does not provide a history of arthritic syndrome or collagen vascular disease. He denies a history of atherosclerotic heart disease. He denies symptomatic gastroesophageal reflux disease and has had a speech evaluation without apparent difficulties identified. Reviewing of his radiography going back 2 years suggest waxing and waning pulmonary infiltrates as well as a dense left lower lateral pleural density and pulmonary infiltrate of a more chronic nature. There are other diffuse interstitial thickened airways and infiltrates. Some of these changes go back 2 years. There is enough airway thickening to suggest more bronchiectasis. The pattern of infiltration would suggest more of a posterolateral insult consistent with the possibility of intermittent reflux and aspiration and chemical pneumonitis. The patient is encouraged to consider elevation of head of bed and empty stomach at bedtime and through the night to avoid issues related to possible reflux and aspiration. He verbalizes understanding and hopefully, that can be accomplished with his care setting. Again, the patient apparently has mental health issues since an early age and has not had dust or industrial occupations or exposures. He indicates he was screened for tuberculosis on entry into the facility, which was negative. He indicates that he did have substance abuse issues to approximately 4 years ago and has been dry/recovering since that time with the exception of marijuana. Urine sample from his 040 admission suggests something with opiates, but I am not aware of his medical regimen at that time. Given the patient's carboxyhemoglobin level, he is hypoxemic on the basis of carbon monoxide poisoning on presentation. The patient is counseled to consider trying to reduce his inhalation of products of combustion. Examination of his oxygenation at his home altitude with blood testing in light of his carbon monoxide level as well as oximetry and sleep oximetry would appear to be prudent in light of his pulmonary hypertension. The patient's lungs are significantly impaired and likely requiring 24/7 oxygen at this time. That would help avoid hypoxemic stress and possibly worsening pulmonary hypertension secondary to pulmonary hypoxemia. REVIEW OF SYSTEMS: Negative to elucidate any additional findings. PHYSICAL EXAMINATION: GENERAL: Conversational gentleman, coughing through the course of the history and physical examination, sounding to be minimally productive. He is in no acute distress. HEAD: Atraumatic and normocephalic. NECK: Supple. Carotids are equal without bruits. LUNGS: Moderately decreased breath sounds in all lung elaine with breath sounds shallow and tight sounding with sonorous airway rhonchi and some scattered wheeze throughout. There are a few interstitial crackles in the bases. HEART: Regular, S1, S2. There appears to be accentuated S2, possibly pulmonary hypertension. There is no jugular venous distention or dependent edema at this time. The patient did indicate that he was on chronic diuretic therapy, suggesting perhaps more right heart failure than manifest today. ABDOMEN: Soft. Bowel sounds are present. Liver and spleen are not palpable, although there is some vague right upper quadrant tenderness without focal tenderness or rebound tenderness. BONES, JOINTS AND EXTREMITIES: Intact. There is a scar on the top of the right foot, old. NEUROLOGIC: Exam is nonfocal. LABORATORY DATA: Essentially discussed above. IMPRESSION: Pulmonary infiltrates, not precisely defined. I would be concerned about reflux and aspiration, dysphagia and aspiration. We did not find clear evidence for more a specific other pulmonary syndrome at this time. RECOMMENDATIONS/PLAN: I would recommend expectant watching in that regard to lung function and repeat studies with pulmonary function study test or CT scans at appropriate interval would be appropriate. I would be happy to see the patient back in the clinic in that regard. Showing adequate oxygenation, especially in light of carboxyhemoglobinemia will be important in the patient's long-term health and wellbeing; careful care regarding fire hazard, of course. Thank you for the opportunity to participate in the care of this seriously ill gentleman. KJP:[id number] Job ID: [id number] Doc ID: [id number] Claudio Owens MD
== END 2021-08-22 16:25 | disposition home or self-care (01) | DRG 190 ==
LOC: ED 14:11 → ICU 18:59
PROVIDERS: ADMIT Internal Medicine; ATTEND Internal Medicine

== ENCOUNTER 2021-08-30 10:38 | Inpatient (IN) ==
[2021-08-30] MEDS ORDERED: IOPAMIDOL 100 ML BOTTLE IV ONE (10:39)
[2021-08-30] MEDS ORDERED: IPRATROPIUM/ALBUTEROL 3 ML AMPUL.NEB NEB ONE (11:07)
[2021-08-30] MEDS ORDERED: FUROSEMIDE 40 MG/4 ML VIAL IV ONE (11:34)
[2021-08-30] MEDS ORDERED: ALBUTEROL SULFATE 5 MG/ML NEB SOLUTION BOTTLE NEB ONE (11:34)
--- NOTE | 2021-08-30 11:45 | Emergency Department Note ---
HPI General Chief complaint: Cold/Flu Symptoms Stated complaint: swelling, hypoxia Time Seen by Provider: 08/30/21 10:47 Source: patient and EMS Mode of arrival: EMS Limitations: no limitations History of Present Illness HPI Narrative: 51yo M with PMH of COPD, CHF, HTN, and schizoaffective disorder p/w SOB and leg swelling. He was admitted to the hospital 1-1/2 weeks ago for presumed pneumonia/CHF and COPD exacerbation. Not currently on antibiotics. States he has been compliant with his furosemide but his bilateral leg swelling has worsened. Not on home O2. He has been checking his O2 saturations at home and they have been as low as 84%. Not on anticoagulation. Denies sick contacts. Related Data Home Medications Medication Instructions Recorded Confirmed albuterol sulfate 90 mcg/actuation 2 puff INHALATION PRN PRN 01/24/21 08/30/21 aerosol inhaler budesonide-formoterol HFA 80 2 puff INHALATION BID 01/24/21 08/30/21 mcg-4.5 mcg/actuation aerosol inhaler cyclobenzaprine 10 mg tablet 10 mg PO BIDP PRN 01/24/21 08/30/21 divalproex 500 mg tablet,extended 2,000 mg PO QDAY 01/24/21 08/30/21 release 24 hr gabapentin 300 mg capsule 300 mg PO TID 01/24/21 08/30/21 ipratropium 0.5 mg-albuterol 3 mg 3 ml INHALATION Q4H PRN 01/24/21 08/30/21 (2.5 mg base)/3 mL nebulization soln lisinopril 20 mg tablet 20 mg PO QDAY 01/24/21 08/30/21 lorazepam 1 mg tablet 1 mg PO TID PRN 01/24/21 08/30/21 trazodone 100 mg tablet 100 mg PO QHS 01/24/21 08/30/21 ziprasidone HCl 80 mg capsule 160 mg PO HS 01/24/21 08/30/21 citalopram 20 mg tablet 1 tab PO QDAY 07/23/21 08/30/21 furosemide 40 mg tablet 1 tab PO QDAY 07/23/21 08/30/21 zolpidem 10 mg tablet 1 tab PO HS 07/23/21 08/30/21 epinephrine 0.3 mg/0.3 mL 0.3 ml IM PRN PRN 08/19/21 08/30/21 injection, auto-injector (EpiPen) folic acid 1 mg tablet 1 tab PO QDAY 08/19/21 08/30/21 budesonide-formoterol HFA 80 2 puff INHALATION BID 08/30/21 08/30/21 mcg-4.5 mcg/actuation aerosol inhaler (Symbicort) buprenorphine 8 mg-naloxone 2 mg 2 tab SUBLINGUAL QDAY 08/30/21 08/30/21 sublingual tablet bupropion HCl 150 mg tablet,12 hr 150 mg PO QDAY 08/30/21 08/30/21 sustained-release cilostazol 100 mg tablet 100 mg PO BID 08/30/21 08/30/21 ibuprofen 800 mg tablet 800 mg PO Q8H PRN 08/30/21 08/30/21 olanzapine 5 mg tablet 5 mg PO QHS 08/30/21 08/30/21 tiotropium bromide 18 mcg capsule 1 cap INHALATION QDAY 08/30/21 08/30/21 with inhalation device (Spiriva with HandiHaler) Previous Rx's Medication Instructions Recorded albuterol sulfate 2.5 mg (3 mL) INHALATION Q4H PRN 08/06/21 #75 ml benzonatate 100 mg capsule 100 mg PO TIDP PRN #30 cap 08/22/21 nicotine 21 mg/24 hr daily 21 mg TOPICAL DAILY@1000 #28 ea 08/22/21 transdermal patch Allergies Allergy/AdvReac Type Severity Reaction Status Date / Time bee venom protein (honey bee) Allergy Severe Anaphylaxis Verified 08/03/21 19:51 beeswax Allergy Severe Anaphylaxis Verified 08/03/21 19:51 vancomycin Allergy Severe Anaphylaxis Verified 08/03/21 19:51 Sulfa (Sulfonamide AdvReac Intermediate Wheezing Verified 08/03/21 19:51 Antibiotics) Review of Systems ROS ROS Narrative: Narrative: Constitutional: Denies fever or chills Eyes: Denies vision change ENT ED: Reports ear pain; Denies throat pain Cardiovascular: Denies chest pain or palpitations Respiratory: Reports shortness of breath and cough Gastrointestinal: Denies abdominal pain, nausea or vomiting Genitourinary: Denies dysuria or frequency Musculoskeletal: Denies back pain Integumentary: Denies rash Neurological: Denies headache or weakness Psychiatric: Denies anxiety Endocrine: Denies fatigue Hematological/Lymphatic: Denies easy bruising PFSH Narrative Patient History Narrative: Narrative: Medical/Surgical/Family History All Active Problems (Updated 08/30/21 @ 14:59 by Levi Granado MD) COPD exacerbation (Acute) Cellulitis (Acute) Pneumonia (Acute) Acute hyponatremia (Acute) Failure of outpatient treatment (Acute) Claudication in peripheral vascular disease (Acute) Peripheral artery disease (Acute) Bilateral pneumonia (Acute) Acute hyponatremia (Acute) Acute bronchospasm (Acute) Schizoaffective disorder (Acute) Peripheral neuropathy (Acute) Acute dyspnea (Acute) Acute exacerbation of chronic obstructive pulmonary disease (Acute) Hypoxia (Acute) Pneumonia (Acute) CHF exacerbation (Acute) Hyponatremia (Acute) Current smoker (Acute) Acute and chronic respiratory failure with hypoxia (Acute) COPD exacerbation (Acute) Left leg cellulitis (Acute) Cellulitis (Acute) Laceration (Acute) Pneumonia (Acute) Social History Smoking Status: Former smoker Exam Narrative Narrative: Narrative: General Limitations: no limitations General appearance: Present alert and in no apparent distress Eye Eye: Present normal appearance, PERRL and EOMI; Absent scleral icterus or conjunctival injection ENT ENT: Present normal oropharynx and mucous membranes moist Neck Neck: Present normal inspection, full ROM and trachea midline; Absent tenderness or meningismus Chest Chest: Present symmetric chest wall rise Respiratory Respiratory: Present other (coarse BS bilaterally); Absent respiratory distress, wheezes, stridor, accessory muscle use or prolonged expiratory phase Cardiovascular Cardiovascular: Present regular rate and normal rhythm; Absent systolic murmur or diastolic murmur Adbominal Abdominal: Present soft; Absent distention, tenderness, guarding, rebound, rigidity, organomegaly or mass Extremities Extremities: Present other (2+ bilateral LE edema to the knees) Back Back: Present normal inspection; Absent CVA tenderness (R), CVA tenderness (L) or spinous process tenderness Neurological Neurological: Present alert, oriented X3 and CN II-XII intact; Absent motor sensory deficit Psychiatric Psychiatric: Present normal affect and normal mood Skin Skin: Present warm (WNL) and dry Course Vital Signs Vital signs: Vital Signs Temperature 98.6 F 08/30/21 10:43 Pulse Rate 88 08/30/21 10:43 Respiratory Rate 18 08/30/21 10:43 Blood Pressure 128/73 08/30/21 10:43 Pulse Oximetry (%) 86 L 08/30/21 10:43 Temperature 97.3 F 08/30/21 16:55 Pulse Rate 70 08/30/21 20:19 Respiratory Rate 20 08/30/21 20:19 Blood Pressure 120/76 08/30/21 16:55 Pulse Oximetry (%) 92 08/30/21 20:19 MDM MDM Narrative Medical decision making narrative: 51yo M p/w dyspnea and increased leg swelling. Hypoxic to 87% on RA in the ED, p laced on NC. Labs notable for a BnP of 931, hyponatremia to 130 (appears to be baseline), and a bicarb of 35. 40mg IV lasix given. EKG with no ischemic changes, initial troponin is normal. CXR shows bilateral infiltrates with a small R effusion. IV zosyn given, patient reports and allergy to vancomycin. COVID and influenza swabs are negative. CT chest shows no evidence of PE. Given his hypoxia and imaging findings, will admit for likely PNA and CHF exacerbation. Patient endorsed to Dr. Jeong for admission. Lab Data Lab results reviewed: Yes I reviewed the patient's lab results. Result diagrams: 08/30/21 11:51 08/30/21 11:51 Labs: Lab Results 08/30/21 08/30/21 08/30/21 Range/Units 11:51 11:51 11:51 WBC 11.1 H (4.5-11.0) K/mcL RBC 4.53 L (4.63-6.08) M/mcL Hgb 14.1 (13.7-17.5) g/dL Hct 41.2 (40.1-51.0) % MCV 90.9 (80.0-100.0) fL MCH 31.1 (26.0-34.0) pg MCHC 34.2 (31.0-36.0) g/dL RDW 14.5 (11.5-14.5) % Plt Count 228 (140-440) K/mcL MPV 8.4 (7.4-10.4) fL Neut % (Auto) 65.8 (38.0-78.0) % Lymph % (Auto) 24.1 (15.5-49.0) % Dickinson % (Auto) 9.4 (1.0-12.0) % Eos % (Auto) 0.1 (0.0-7.0) % Baso % (Auto) 0.6 (0.0-2.0) % Lymph # (Auto) 2.68 (1.50-4.80) K/mcL Dickinson # (Auto) 1.04 H (0.10-0.90) K/mcL Eos # (Auto) 0.01 (0.00-0.70) K/mcL Baso # (Auto) 0.07 (0.00-0.30) K/mcL Absolute Neutrophils 7.32 (1.80-8.00) K/mcL Sodium 130 L (133-145) mmol/L Potassium 4.0 (3.3-5.1) mmol/L Chloride 87 L (96-108) mmol/L Carbon Dioxide 35 H (22-30) mmol/L Anion Gap 8.0 (8.0-16.0) BUN 11 (6-20) mg/dL Creatinine 0.7 (0.7-1.2) mg/dL GFR Calculation 111 Glucose 100 (70-105) mg/dL Calcium 8.2 L (8.6-10.4) mg/dL Total Bilirubin 0.3 (0.1-1.0) mg/dL AST 53 H (<40) U/L ALT 32 (<40) U/L Alkaline Phosphatase 43 (39-117) U/L Troponin T 0.02 (<0.03) ng/mL NT-Pro-B Natriuret Pep 931.3 H (<125.0) pg/mL Total Protein 5.8 L (5.9-8.4) gm/dL Albumin 3.3 (3.2-5.2) gm/dL Globulin 2.5 (2.2-3.7) gm/dL Albumin/Globulin Ratio 1.3 (1.0-2.3) ED POC Tests ED POC Tests: TIESHA - Influenza A Negative TIESHA - Influenza B Negative TIESHA - SARS Antigen Negative Radiology Data Radiology results reviewed: Yes I reviewed the patient's radiology results. Radiology results narrative: Ordering Physician:Levi Granado M.D. Date of Service:08/30/21 Procedure(s):XR chest 1V portable CLINICAL INFORMATION: Hypoxia COMPARISON: 08/19/2021 TECHNIQUE: Portable FINDINGS: The heart size, mediastinum and pulmonary vessels are unremarkable. Elevated lung volumes are compatible with bronchitis. Moderate patchy infiltrate in the left mid lung and base with smaller patchy infiltrate in the right base shows slight progression versus small bilateral pleural effusions noted. IMPRESSION: Moderate left mid lung/base and smaller right base infiltrate with small effusion progressing. Interpreted and Authenticated by: Kamron Carrillo 08/30/21 EKG Data EKG #1: EKG attestation: Yes I reviewed and interpreted this EKG. and Yes There are no EKG findings of acute coronary syndrome EKG results narrative: Sinus rhythm at [address] elevation or depression. PVC noted. Interpretation: no acute changes Discharge Plan Patient/Caregiver Discharge Instructions Pt seen by [employer]/PA only: No Clinical Impression: Pneumonia, CHF exacerbation Patient Disposition: Xfer As Inpt ([facility]) Condition: Fair Discharge Date/Time: 08/30/21 16:53
--- NOTE | 2021-08-30 12:06 | XRay Report ---
CLINICAL INFORMATION: Hypoxia COMPARISON: 08/19/2021 TECHNIQUE: Portable FINDINGS: The heart size, mediastinum and pulmonary vessels are unremarkable. Elevated lung volumes are compatible with bronchitis. Moderate patchy infiltrate in the left mid lung and base with smaller patchy infiltrate in the right base shows slight progression versus small bilateral pleural effusions noted. IMPRESSION: Moderate left mid lung/base and smaller right base infiltrate with small effusion progressing. Interpreted and Authenticated by: Kamron aCrrillo 08/30/21
[2021-08-30] MEDS ORDERED: PIPERACILLIN SODIUM/TAZOBACTAM 3.375 GM in DEXTROSE 5% IN WATER 50 ML IV ONE (12:30)
[2021-08-30] MEDS ORDERED: HYDROcodone/APAP 5/325MG TABLET PO ONE (12:34)
[2021-08-30 12:38] LABS: Basophils # (Auto) 0.07 K/mcL (0.00-0.30); Basophils % (Auto) 0.6 % (0.0-2.0); Eosinophils # (Auto) 0.01 K/mcL (0.00-0.70); Eosinophils % (Auto) 0.1 % (0.0-7.0); Hematocrit 41.2 % (40.1-51.0); Hemoglobin 14.1 g/dL (13.7-17.5); Lymphocytes # (Auto) 2.68 K/mcL (1.50-4.80); Lymphocytes % (Auto) 24.1 % (15.5-49.0); Mean Cell Volume 90.9 fL (80.0-100.0); Mean Corpuscular HGB Conc 34.2 g/dL (31.0-36.0); Mean Platelet Volume 8.4 fL (7.4-10.4); Monocytes # (Auto) 1.04 K/mcL (0.10-0.90); Monocytes % (Auto) 9.4 % (1.0-12.0); Neutrophils % (Auto) 65.8 % (38.0-78.0); Platelet Count 228 K/mcL (140-440); RBC 4.53 M/mcL (4.63-6.08); Red Cell Distribution Width 14.5 % (11.5-14.5); WBC 11.1 K/mcL (4.5-11.0)
[2021-08-30 12:58] LABS: proBNP 931.3 pg/mL (<125.0)
[2021-08-30 13:01] LABS: ALT/SGPT 32 U/L (<40); AST/SGOT 53 U/L (<40); Albumin 3.3 gm/dL (3.2-5.2); Albumin/Globulin Ratio 1.3 (1.0-2.3); Alkaline Phosphatase 43 U/L (39-117); Bilirubin,Total 0.3 mg/dL (0.1-1.0); Blood Urea Nitrogen 11 mg/dL (6-20); Calcium 8.2 mg/dL (8.6-10.4); Carbon Dioxide 35 mmol/L (22-30); Chloride 87 mmol/L (96-108); Globulin 2.5 gm/dL (2.2-3.7); Glomerular Filtration Rate 111; Glucose 100 mg/dL (70-105)
--- NOTE | 2021-08-30 15:28 | Internal Med History&Physical ---
HPI History of Present Illness Patient information: Note initiated : 08/30/21 at 3:21 pm Service Date, if different from initiated Date: [as above] Patient: Tae Esquivel a 51 y/o M admitted on for swelling, hypoxia. Chief Complaint: [SOB] Chief complaint: Shortness of breath, wheezing History of present illness: Mr. Esquivel is a 51 year old M with a past medical history significant for chronic hypoxemic respiratory failure due to COPD, current smoker, schizoaffective disorder, and suspected congestive heart failure on Lasix who presents to the hospital with progressive dyspnea and malaise. The patient was recently dis charged from the hospital and was treated for acute exacerbation of COPD and community-acquired pneumonia. He has a similar presentation today. The patient was discharged with Wellbutrin, nicotine gum and nicotine patch in hopes of smoking cessation however he continues to smoke and is down to 6 cigarettes a day. He thought that he was doing well however I emphasized that he is unable to smoke as he is severely damaging and scarring in his lungs. He was resting comfortably in bed and able to speak in full sentences however did have a productive cough. He states that he has been in and out of the hospital for the last year and is sick and tired of being sick and tired. He understands that smoking is the root cause of his issues and he is hopeful to stop altogether. The hospital service will admit the patient for acute on chronic hypoxemic respiratory failure in the setting of COPD exacerbation Review of Systems All systems: reviewed and no additional remarkable complaints except as stated Constitutional Constitutional: Present as per HPI EENT Eyes: Present as per HPI; Absent blurry vision Cardiovascular Cardiovascular: Present as per HPI; Absent chest pain, dyspnea, dyspnea on exertion, leg edema or palpatations Respiratory Respiratory: Present as per HPI, cough, dyspnea, dyspnea on exertion and wheezing; Absent stridor Gastrointestinal Gastrointestinal: Present as per HPI; Absent abdominal pain, diarrhea, dysphagia, hematemesis, melena, nausea or vomiting Musculoskeletal Musculoskeletal: Present as per HPI; Absent joint swelling, limited range of motion, muscle cramps, muscle weakness or myalgias Integumentary Integumentary: Present as per HPI; Absent erythema, new lesions, rash or wounds Neurological Neurological: Present as per HPI; Absent abnormal gait, behavioral changes, focal weakness, headache(s), loss of vision, numbness, sensory deficit or syncope Endocrine Endocrine: Absent change in body appearance, fatigue or heat intolerance Hematologic/Lymphatic Hematologic/Lymphatic: Present as per HPI PFSH PFSH All Active Problems (Updated 08/30/21 @ 14:59 by Levi Granado MD) COPD exacerbation (Acute) Cellulitis (Acute) Pneumonia (Acute) Acute hyponatremia (Acute) Failure of outpatient treatment (Acute) Claudication in peripheral vascular disease (Acute) Peripheral artery disease (Acute) Bilateral pneumonia (Acute) Acute hyponatremia (Acute) Acute bronchospasm (Acute) Schizoaffective disorder (Acute) Peripheral neuropathy (Acute) Acute dyspnea (Acute) Acute exacerbation of chronic obstructive pulmonary disease (Acute) Hypoxia (Acute) Pneumonia (Acute) CHF exacerbation (Acute) Hyponatremia (Acute) Current smoker (Acute) Acute and chronic respiratory failure with hypoxia (Acute) COPD exacerbation (Acute) Left leg cellulitis (Acute) Cellulitis (Acute) Laceration (Acute) Pneumonia (Acute) MEDS/ALLERGIES Home Medications and Allergies Home Medications Medication Instructions Recorded Confirmed Type albuterol sulfate 90 mcg/actuation 2 puff INHALATION PRN PRN 01/24/21 08/30/21 History aerosol inhaler budesonide-formoterol HFA 80 2 puff INHALATION BID 01/24/21 08/19/21 History mcg-4.5 mcg/actuation aerosol inhaler cyclobenzaprine 10 mg tablet 10 mg PO BIDP PRN 01/24/21 08/30/21 History divalproex 500 mg tablet,extended 2,000 mg PO QDAY 01/24/21 08/30/21 History release 24 hr gabapentin 300 mg capsule 300 mg PO TID 01/24/21 08/30/21 History ipratropium 0.5 mg-albuterol 3 mg 3 ml INHALATION Q4H PRN 01/24/21 08/19/21 History (2.5 mg base)/3 mL nebulization soln lisinopril 20 mg tablet 20 mg PO QDAY 01/24/21 08/30/21 History lorazepam 1 mg tablet 1 mg PO TID PRN 01/24/21 08/30/21 History naltrexone 50 mg tablet 50 mg PO QDAY 01/24/21 08/19/21 History trazodone 100 mg tablet 100 mg PO QHS 01/24/21 08/30/21 History ziprasidone HCl 80 mg capsule 160 mg PO HS 01/24/21 08/30/21 History Aspirin Low Dose 81 mg 81 mg PO QDAY #14 tab NS 06/28/21 08/19/21 Rx tablet,delayed release (aspirin) citalopram 20 mg tablet 1 tab PO QDAY 07/23/21 08/30/21 History furosemide 40 mg tablet 1 tab PO QDAY 07/23/21 08/30/21 History zolpidem 10 mg tablet 1 tab PO HSP PRN 07/23/21 08/30/21 History hhirmjeojndyc-OR-fwoapqzbvas 2.5 15 ml PO Q4H PRN #118 ml 07/25/21 08/19/21 Rx mg-5 mg-50 mg/5 mL oral liquid (Robitussin Cough and Cold CF) albuterol sulfate 2.5 mg (3 mL) INHALATION Q4H PRN 08/06/21 08/30/21 Rx #75 ml epinephrine 0.3 mg/0.3 mL 0.3 ml IM PRN PRN 08/19/21 08/30/21 History injection, auto-injector (EpiPen) folic acid 1 mg tablet 1 tab PO QDAY 08/19/21 08/30/21 History hydrocodone 5 mg-acetaminophen 325 1 tab PO TIDP PRN 08/19/21 08/19/21 History mg tablet benzonatate 100 mg capsule 100 mg PO TIDP PRN #30 cap 08/22/21 08/30/21 Rx bupropion HCl 150 mg tablet,12 hr 150 mg PO DAILY #30 ea 08/22/21 08/30/21 Rx sustained-release nicotine (polacrilex) 2 mg gum 2 mg BUCCAL Q4HP PRN #100 ea 08/22/21 Rx nicotine 21 mg/24 hr daily 21 mg TOPICAL DAILY@1000 #28 ea 08/22/21 08/30/21 Rx transdermal patch budesonide-formoterol HFA 80 2 puff INHALATION BID 08/30/21 08/30/21 History mcg-4.5 mcg/actuation aerosol inhaler (Symbicort) cilostazol 100 mg tablet 100 mg PO BID 08/30/21 08/30/21 History olanzapine 5 mg tablet 5 mg PO QHS 08/30/21 08/30/21 History prednisone 20 mg tablet 40 mg PO QDAY 08/30/21 08/30/21 History tiotropium bromide 18 mcg capsule 1 cap INHALATION QDAY 08/30/21 08/30/21 History with inhalation device (Spiriva with HandiHaler) Allergies Allergy/AdvReac Type Severity Reaction Status Date / Time bee venom protein (honey bee) Allergy Severe Anaphylaxis Verified 08/03/21 19:51 beeswax Allergy Severe Anaphylaxis Verified 08/03/21 19:51 vancomycin Allergy Severe Anaphylaxis Verified 08/03/21 19:51 albuterol AdvReac Intermediate Other Verified 08/03/21 19:51 Sulfa (Sulfonamide AdvReac Intermediate Wheezing Verified 08/03/21 19:51 Antibiotics) EXAM Constitutional Vitals: Temp Pulse Resp BP Pulse Ox 98.6 F 74 7 L 159/142 95 08/30/21 10:43 08/30/21 15:09 08/30/21 15:16 08/30/21 15:16 08/30/21 15:09 General appearance: average body habitus Head Head exam: Present atraumatic, normal inspection and normocephalic Eye Eye exam: Present EOMI, normal appearance and PERRL; Absent conjunctival injection ENT ENT exam: Present normal exam; Absent mucous membranes dry Neck Neck exam: Present full ROM; Absent lymphadenopathy Respiratory Respiratory exam: Present decreased breath sounds, prolonged expiratory phase, rhonchi and wheezes; Absent respiratory distress Cardiovascular Cardiovascular exam: Present normal rate and rhythm and RRR; Absent JVD GI/Abdominal GI/Abdominal exam: Present normal bowel sounds and soft; Absent diminished bowel sounds, distended, guarding, mass, rebound or tenderness Neurological Exam Neurological exam: Present alert, CN II-XII intact and oriented X3 Psychiatric Psychiatric exam: Present normal affect and normal mood Skin Skin exam: Present intact and warm; Absent erythema, pallor, petechiae or rash DATA Data Completed and Pending Labs: Labs from last 24 hours 08/30/21 08/30/21 08/30/21 11:51 11:51 11:51 WBC 11.1 H RBC 4.53 L Hgb 14.1 Hct 41.2 MCV 90.9 MCH 31.1 MCHC 34.2 RDW 14.5 Plt Count 228 MPV 8.4 Neut % (Auto) 65.8 Lymph % (Auto) 24.1 Mccormick % (Auto) 9.4 Eos % (Auto) 0.1 Baso % (Auto) 0.6 Lymph # (Auto) 2.68 Mccormick # (Auto) 1.04 H Eos # (Auto) 0.01 Baso # (Auto) 0.07 Absolute Neutrophils 7.32 Sodium 130 L Potassium 4.0 Chloride 87 L Carbon Dioxide 35 H Anion Gap 8.0 BUN 11 Creatinine 0.7 GFR Calculation 111 Glucose 100 Calcium 8.2 L Total Bilirubin 0.3 AST 53 H ALT 32 Alkaline Phosphatase 43 Troponin T 0.02 NT-Pro-B Natriuret Pep 931.3 H Total Protein 5.8 L Albumin 3.3 Globulin 2.5 Albumin/Globulin Ratio 1.3 A/P Assessment and plan (1) Pneumonia: Status: Acute (2) Failure of outpatient treatment: Status: Acute (3) Schizoaffective disorder: Status: Acute Qualifiers: Schizoaffective disorder type: unspecified Qualified Code(s): F25.9 - Schizoaffective disorder, unspecified (4) Acute exacerbation of chronic obstructive pulmonary disease: Status: Acute (5) Current smoker: Status: Acute Narrative A/P Narrative: The patient continues to be rehospitalized as he has not quit smoking cigarettes or marijuana. He has severe underlying parenchymal lung disease. He was found to be hypoxemic on presentation and his chest x-ray is concerning for bilateral patchy infiltrates. CTA pulmonary is pending to better visualize anatomy and rule out PE. He will be started on duo nebs, Pulmicort, Solu-Medrol 125 mg IV x1, ceftriaxone/Zithromax and pulmonary toileting. We will wean supplemental O2 for sat goal greater than 92%. Smoking cessation counseling was provided. Of note, the patient's lower extremities are quite edematous. He would benefit from a cardiology follow-up to better work-up the nature of his heart failure. It is unclear if he has nonischemic cardiomyopathy. Medication reconciliation is pending, and the patient's neuropsychiatric medications will be resumed. In terms of disposition he will likely be in the hospital 2 to 3 days. Time Spent With Patient Time: Total time spent is greater than 50% in coordination of care (as documented) at patient's floor/unit and/or counseling patient: Total time spent with greater than 50% in coordination of care (as documented) at patient's floor/unit and/or counseling patient:: 50 - 70 minutes
--- NOTE | 2021-08-30 15:46 | Cat Scan Report ---
CLINICAL INFORMATION: Dyspnea COMPARISON: CT pulmonary angiogram 04/17/2017, 12/11/2019 and 08/19/2021 TECHNIQUE: 80ml of Isovue-370 were injected intravenously. Using SmartPrep to maximize pulmonary artery opacification, .625mm helical slices were obtained from the lung apices through the lung bases. Following reconstruction, 2.5 mm sagittal, coronal, and axial reformations were processed. The exam was reviewed at mediastinal, lung, and bone windows. The exam was performed using radiation dose optimization techniques including, but not limited to, automated exposure control, adjustment of the mA and/or kV according to patient size and use of iterative reconstruction technique. FINDINGS: Pulmonary parenchymal windows show underlying chronic bronchitis featuring elevated lung volumes and wall thickening/dilatation of the bronchi. Moderate chronic fibrosis within the right middle lobe and the peripheral left lower lobe again seen. Thin band of linear fibrosis along the periphery of the right lower lobe and right middle lobe also noted. Moderate tree-in-bud infiltrates throughout the periphery of the right upper, mid and lower lobes are unchanged from the most recent CT less than two weeks ago. Similar, yet more extensive, infiltrates were noted on the remote CT 2018 CT. Small left pleural effusion noted. Mediastinal windows show the central pulmonary arteries are mildly enlarged diameters: The main pulmonary artery diameter is 3.1 cm. The pulmonary arteries are [id number] evidence of embolus. Thoracic aorta is normal. The heart is normal in size with scattered calcific plaque in the coronary arteries. Mildly enlarged lymph nodes in the hilum and lower mediastinum are chronic. A 3.3 cm nodule in the mid right thyroid lobe is stable since 2018 should be considered a benign adenoma. Bone windows show no osseous abnormality. IMPRESSION: 1. No evidence of pulmonary embolus. 2. Scattered tree-in-bud infiltrates in the periphery of the right upper, middle and lower lobes with relative sparing of the left lung. This is a chronic or recurrent finding which is unchanged from the most recent CT 11 days prior.. Similar, although more extensive tree-in-bud infiltrates, were noted on the 2018 CT. Typically, tree-in-bud infiltrates indicates atypical infection such as mycobacterium avium, atypical bacteria and fungal disease. It may also indicate allergic bronchopulmonary aspergillosis. Consider pulmonary consultation. 3. Small left pleural effusion. 4. Underlying chronic bronchitis with mild pulmonary hypertension Interpreted and Authenticated by: Kamron Carrillo 08/30/21
[2021-08-30] MEDS ORDERED: cefTRIAXone 1 GM in DEXTROSE 5% IN WATER 50 ML IV SCH (17:15)
[2021-08-30] MEDS ORDERED: methylPREDNISolone SOD SUCC 125 MG/2 ML VIAL IV ONE (17:15)
[2021-08-30] MEDS ORDERED: ONDANSETRON 4 MG/2 ML VIAL IV PRN (17:15)
[2021-08-30] MEDS: cefTRIAXone 1 GM VIAL IV SCH (17:40)
[2021-08-30] MEDS: AZITHROMYCIN 500 MG in DEXTROSE 5% IN WATER 250 ML IV SCH (17:41)
[2021-08-30] MEDS: BUDESONIDE 0.5 MG/2 ML AMPUL.NEB NEB SCH (18:49)
[2021-08-30] MEDS: IPRATROPIUM/ALBUTEROL 3 ML AMPUL.NEB NEB SCH (18:49)
[2021-08-30] MEDS: traZODone HCL 100 MG TABLET PO SCH (21:30)
[2021-08-30] MEDS: DOCUSATE SODIUM 100 MG CAPSULE PO SCH (21:30)
[2021-08-30] MEDS: ACETAMINOPHEN 325 MG TABLET PO PRN (21:31)
[2021-08-30] MEDS: SENNOSIDES 1 TABLET PO SCH (21:31)
[2021-08-30] MEDS: OLANZapine 5 MG TABLET PO SCH (21:31)
[2021-08-30] MEDS: 0.9 % SODIUM CHLORIDE 10 ML SYRINGE IV SCH (22:00)
[2021-08-31] MEDS: IPRATROPIUM/ALBUTEROL 3 ML AMPUL.NEB NEB SCH ×5 (00:15→19:57)
[2021-08-31] MEDS: NICOTINE POLACRILEX 2 MG GUM CHEW/PARK PRN (02:21)
[2021-08-31] MEDS: 0.9 % SODIUM CHLORIDE 10 ML SYRINGE IV SCH ×3 (06:11→22:00)
[2021-08-31 06:36] LABS: Basophils # (Auto) 0 K/mcL (0.00-0.30); Basophils % (Auto) 0 % (0.0-2.0); Eosinophils # (Auto) 0 K/mcL (0.00-0.70); Eosinophils % (Auto) 0 % (0.0-7.0); Hematocrit 43.8 % (40.1-51.0); Hemoglobin 14.9 g/dL (13.7-17.5); Lymphocytes % (Auto) 10.3 % (15.5-49.0); Mean Cell Volume 89.6 fL (80.0-100.0); Mean Platelet Volume 8.7 fL (7.4-10.4); Monocytes # (Auto) 0.18 K/mcL (0.10-0.90); Monocytes % (Auto) 3.7 % (1.0-12.0); Platelet Count 243 K/mcL (140-440); RBC 4.89 M/mcL (4.63-6.08); WBC 4.9 K/mcL (4.5-11.0)
--- NOTE | 2021-08-31 06:36 | Internal Med Progress Note ---
SUBJECTIVE Subjective Patient information: Note initiated : 08/31/21 at 6:34 am Service Date, if different from initiated Date: [as above] Patient: Tae Esquivel 51 y/o M admitted on 08/30/21 for swelling, hypoxia. Chief Complaint: [SOB, wheezing] Principal diagnosis: Acute hypoxemia, wheezing Interval history: The patient is resting comfortably in bed. His breathing has improved, however his convalescence will be slow. Constitutional Vitals: Vital Signs Temp Pulse Resp BP Pulse Ox 97.8 F 66 14 123/76 96 08/31/21 04:32 08/31/21 04:32 08/31/21 04:32 08/31/21 04:32 08/31/21 04:32 Period Temp Pulse Resp BP Sys/Banks Pulse Ox Last 24 Hr 96.4 F-98.6 F 54-92 7-24 100-160/60-142 86-97 Intake and Output 08/30/21 08/31/21 08/31/21 21:59 05:59 13:59 Intake Total 250 2790 Balance 250 2790 Weight 100.108 kg Intake & Output: Intake & Output 08/30/21 08/31/21 08/31/21 21:59 05:59 13:59 Intake Total 250 2790 Balance 250 2790 Weight 100.108 kg Intake: IV 250 Zithromax 500 mg In Dextrose 5% 250 in Water 250 ml @ 250 mls/hr IV DAILY@1100 [facility] Rx#:[id number] Oral 2790 Other: # Voids 1 1 Head Head exam: Present atraumatic and normal inspection Eye Eye exam: Present normal appearance ENT ENT exam: Present mucous membranes moist, normal exam and normal external ear exam Neck Neck exam: Present normal inspection Respiratory Respiratory exam: Present decreased breath sounds, rhonchi and wheezes; Absent respiratory distress Cardiovascular Cardiovascular exam: Present normal rate and rhythm GI/Abdominal GI/Abdominal exam: Present normal bowel sounds Back Exam Back exam: Present normal inspection Neurological Exam Neurological exam: Present alert and oriented X3 Skin Skin exam: Present intact and warm OBJ DATA Labs CBC & Chem 7: 08/30/21 11:51 08/30/21 11:51 Labs: Abnormal Lab Results 08/30/21 08/30/21 11:51 11:51 WBC 11.1 H RBC 4.53 L [place] # (Auto) 1.04 H Sodium 130 L Chloride 87 L Carbon Dioxide 35 H Calcium 8.2 L AST 53 H NT-Pro-B Natriuret Pep 931.3 H Total Protein 5.8 L Meds: Medications Acetaminophen (Acetaminophen 325 Mg Tablet) 650 mg PO Q6HP PRN; Protocol PRN Reason: Per Pain Protocol/Fever > 101 Last Admin: 08/30/21 21:31 Dose: 650 mg Documented by: Albuterol/Ipratropium (Ipratropium/Albuterol 3 Ml Ampul.Neb) 3 ml NEB Q6HRT [facility] Last Admin: 08/31/21 00:15 Dose: 3 ml Documented by: Budesonide (Budesonide 0.5 Mg/2 Ml Ampul.Neb) 0.5 mg NEB Q12 [facility] Last Admin: 08/30/21 18:49 Dose: 0.5 mg Documented by: Ceftriaxone Sodium (Ceftriaxone 1 Gm Vial) 1 gm IV Q24H [facility] Last Admin: 08/30/21 17:40 Dose: 1 gm Documented by: Citalopram Hydrobromide (Citalopram 20 Mg Tablet) 20 mg PO QDAY [facility] Divalproex Sodium (Divalproex Sodium 250 Mg Tablet) 2,000 mg PO QDAY [facility] Docusate Sodium (Docusate Sodium 100 Mg Capsule) 100 mg PO BID [facility] Last Admin: 08/30/21 21:30 Dose: 100 mg Documented by: Enoxaparin Sodium (Enoxaparin 40 Mg/0.4 Ml Syringe) 40 mg SQ DAILY [facility] Azithromycin 500 mg/ Dextrose 250 mls @ 250 mls/hr IV DAILY@1100 [facility]; Protocol Stop: 09/01/21 11:59 Last Infusion: 08/30/21 18:41 Dose: Infused Documented by: Nicotine Polacrilex (Nicotine Polacrilex 2 Mg Gum) 2 mg CHEW/PARK Q4HP PRN PRN Reason: Nicotine withdrawal Last Admin: 08/31/21 02:21 Dose: 2 mg Documented by: Olanzapine (Olanzapine 5 Mg Tablet) 5 mg PO QHS [facility] Last Admin: 08/30/21 21:31 Dose: 5 mg Documented by: Ondansetron HCl (Ondansetron 4 Mg/2 Ml Vial) 4 mg IV Q6HP PRN PRN Reason: Nausea And Vomiting Buprenorphine- Naloxone 8-2 Mg Tablet, Sublingual 1 dose SL QDAY [facility] Ziprasidone Hcl 80 (Mg Capsule) [address] [facility] Last Admin: 08/30/21 21:30 Dose: Not Given Documented by: Senna (Sennosides 1 Tablet) [address] [facility] Last Admin: 08/30/21 21:31 Dose: 2 tab Documented by: Sodium Chloride (0.9 % Sodium Chloride 10 Ml Syringe) 10 ml IV Q8 [facility] Last Admin: 08/31/21 06:11 Dose: 10 ml Documented by: Trazodone HCl (Trazodone Hcl 100 Mg Tablet) 100 mg PO QHS [facility] Last Admin: 08/30/21 21:30 Dose: 100 mg Documented by: A/P Assessment and plan (1) Pneumonia: Status: Acute (2) Failure of outpatient treatment: Status: Acute (3) Schizoaffective disorder: Status: Acute Qualifiers: Schizoaffective disorder type: unspecified Qualified Code(s): F25.9 - Schizoaffective disorder, unspecified (4) Acute exacerbation of chronic obstructive pulmonary disease: Status: Acute (5) Current smoker: Status: Acute Narrative A/P Narrative: The patient continues to be rehospitalized as he has not quit smoking cigarettes or marijuana. He has severe underlying parenchymal lung disease. He was found to be hypoxemic on presentation and his chest x-ray is concerning for bilateral patchy infiltrates. CTA pulmonary is pending to better visualize anatomy and rule out PE. He will be started on duo nebs, Pulmicort, Solu-Medrol 125 mg IV x1, ceftriaxone/Zithromax and pulmonary toileting. We will wean supplemental O2 for sat goal greater than 92%. Smoking cessation counseling was provided. Of note, the patient's lower extremities are quite edematous. He would benefit from a cardiology follow-up to better work-up the nature of his heart failure. It is unclear if he has nonischemic cardiomyopathy. Medication reconciliation is pending, and the patient's neuropsychiatric medications will be resumed. 08/31: Continue management as above. Will switch solu-medrol to prednisone 40mg/d today. In terms of disposition he will likely be in the hospital 1-2 further days. Time Spent With Patient Time: Total time spent is greater than 50% in coordination of care (as documented) at patient's floor/unit and/or counseling patient: Total time spent with greater than 50% in coordination of care (as documented) at patient's floor/unit and/or counseling patient:: 25 - 35 minutes QUALITY VTE Deep Vein Thrombosis/Pulmonary Embolism Present on Admission: No
[2021-08-31 07:01] LABS: Blood Urea Nitrogen 10 mg/dL (6-20); Calcium 8.5 mg/dL (8.6-10.4); Carbon Dioxide 33 mmol/L (22-30); Chloride 86 mmol/L (96-108); Glomerular Filtration Rate 127; Glucose 154 mg/dL (70-105)
[2021-08-31] MEDS: BUDESONIDE 0.5 MG/2 ML AMPUL.NEB NEB SCH ×2 (07:33→19:57)
[2021-08-31] MEDS: ENOXAPARIN 40 MG/0.4 ML SYRINGE SQ SCH (08:02)
[2021-08-31] MEDS: CITALOPRAM 20 MG TABLET PO SCH (08:02)
[2021-08-31] MEDS: predniSONE 20 MG TABLET PO SCH (08:02)
[2021-08-31] MEDS: DOCUSATE SODIUM 100 MG CAPSULE PO SCH ×2 (08:02→22:31)
[2021-08-31] MEDS: DIVALPROEX SODIUM 250 MG TABLET PO SCH (08:02)
[2021-08-31] MEDS ORDERED: BUPRENORPHINE NALOXONE SL SCH ×2 (09:00→21:00)
[2021-08-31] MEDS: cefTRIAXone 1 GM VIAL IV SCH (09:50)
[2021-08-31] MEDS: AZITHROMYCIN 500 MG in DEXTROSE 5% IN WATER 250 ML IV SCH (11:05)
[2021-08-31] MEDS ORDERED: NICOTINE 14 MG PATCH TOPICAL SCH (11:30)
[2021-08-31] MEDS ORDERED: FUROSEMIDE 40 MG TABLET PO SCH (13:45)
[2021-08-31] MEDS ORDERED: acetaZOLAMIDE SOD 500 MG VIAL IV SCH (13:45)
--- NOTE | 2021-08-31 13:47 | Internal Med Progress Note ---
SUBJECTIVE Subjective Patient information: Note initiated : 08/31/21 at 1:38 pm Service Date, if different from initiated Date: [] Patient: Tae Esquivel a 51 y/o M admitted on 08/30/21 for swelling, hypoxia. Chief Complaint: [] Principal diagnosis: Acute hypoxemia, wheezing Interval history: History of present illness: Mr. Esquivel is a 51 year old M with a past medical history significant for chronic hypoxemic respiratory failure due to COPD, current smoker, schizoaffective disorder, and suspected congestive heart failure on Lasix who presents to the hospital with progressive dyspnea and malaise. The patient was recently discharged from the hospital and was treated for acute exacerbation of COPD and community-acquired pneumonia. He has a similar presentation today. The patient was discharged with Wellbutrin, nicotine gum and nicotine patch in hopes of smoking cessation however he continues to smoke and is down to 6 cigarettes a day. He thought that he was doing well however I emphasized that he is unable to smoke as he is severely damaging and scarring in his lungs. He was resting comfortably in bed and able to speak in full sentences however did have a productive cough. He states that he has been in and out of the hospital for the last year and is sick and tired of being sick and tired. He understands that smoking is the root cause of his issues and he is hopeful to stop altogether. The hospital service will admit the patient for acute on chronic hypoxemic respiratory failure in the setting of COPD exacerbation 08/31 The patient is resting comfortably in bed. His breathing has improved, however his convalescence will be slow. 09/01 Constitutional Vitals: Vital Signs Temp Pulse Resp BP Pulse Ox 98.3 F 70 15 130/75 96 08/31/21 11:41 08/31/21 11:41 08/31/21 11:41 08/31/21 11:41 08/31/21 11:41 Period Temp Pulse Resp BP Sys/Banks Pulse Ox Last 24 Hr 96.4 F-98.3 F 54-84 7-24 100-159/60-142 88-97 Intake and Output 08/30/21 08/31/21 08/31/21 21:59 05:59 13:59 Intake Total 250 2790 Balance 250 2790 Weight 100.108 kg Intake & Output: Intake & Output 08/30/21 08/31/21 08/31/21 21:59 05:59 13:59 Intake Total 250 2790 Balance 250 2790 Weight 100.108 kg Intake: IV 250 Zithromax 500 mg In Dextrose 5% 250 in Water 250 ml @ 250 mls/hr IV DAILY@1100 [facility] Rx#:[id number] Oral 2790 Other: # Voids 1 1 Exam: General: Alert, Awake, No acute Distress Eyes/N/T: EOMI, Head/Neck: neck supple, CV: RRR, No murmurs, Pulm: Clear b/l, no wheezing/rhonchi/rales Abd: soft, nontender, +BS x4 Ext: no clubbing/cyanosis/edema Neuro: Alert, no focal deficits, moves all extremities, Skin: warm/dry OBJ DATA Labs CBC & Chem 7: 08/31/21 05:21 08/31/21 05:21 Labs: Abnormal Lab Results 08/31/21 08/31/21 08/30/21 05:21 05:21 11:51 WBC RBC Neut % (Auto) 86.0 H Lymph % (Auto) 10.3 L Lymph # (Auto) 0.50 L [place] # (Auto) Sodium 127 L 130 L Chloride 86 L 87 L Carbon Dioxide 33 H 35 H Creatinine 0.5 L Glucose 154 H Calcium 8.5 L 8.2 L AST 53 H NT-Pro-B Natriuret Pep 931.3 H Total Protein 5.8 L 08/30/21 11:51 WBC 11.1 H RBC 4.53 L Neut % (Auto) Lymph % (Auto) Lymph # (Auto) [place] # (Auto) 1.04 H Sodium Chloride Carbon Dioxide Creatinine Glucose Calcium AST NT-Pro-B Natriuret Pep Total Protein Meds: Medications Acetaminophen (Acetaminophen 325 Mg Tablet) 650 mg PO Q6HP PRN; Protocol PRN Reason: Per Pain Protocol/Fever > 101 Last Admin: 08/30/21 21:31 Dose: 650 mg Documented by: Albuterol/Ipratropium (Ipratropium/Albuterol 3 Ml Ampul.Neb) 3 ml NEB Q6HRT [facility] Last Admin: 08/31/21 13:30 Dose: 3 ml Documented by: Budesonide (Budesonide 0.5 Mg/2 Ml Ampul.Neb) 0.5 mg NEB Q12 [facility] Last Admin: 08/31/21 07:33 Dose: 0.5 mg Documented by: Ceftriaxone Sodium (Ceftriaxone 1 Gm Vial) 1 gm IV Q24H [facility] Last Admin: 08/31/21 09:50 Dose: 1 gm Documented by: Citalopram Hydrobromide (Citalopram 20 Mg Tablet) 20 mg PO QDAY [facility] Last Admin: 08/31/21 08:02 Dose: 20 mg Documented by: Clonazepam (Clonazepam 1 Mg Tablet) 1 mg PO TID [facility] Divalproex Sodium (Divalproex Sodium 250 Mg Tablet) 2,000 mg PO QDAY [facility] Last Admin: 08/31/21 08:02 Dose: 2,000 mg Documented by: Docusate Sodium (Docusate Sodium 100 Mg Capsule) 100 mg PO BID [facility] Last Admin: 08/31/21 08:02 Dose: 100 mg Documented by: Enoxaparin Sodium (Enoxaparin 40 Mg/0.4 Ml Syringe) 40 mg SQ DAILY [facility] Last Admin: 08/31/21 08:02 Dose: 40 mg Documented by: Azithromycin 500 mg/ Dextrose 250 mls @ 250 mls/hr IV DAILY@1100 [facility]; Protocol Stop: 09/01/21 11:59 Last Admin: 08/31/21 11:05 Dose: 250 mls/hr Documented by: Nicotine (Nicotine 14 Mg Patch) 14 mg TOPICAL 1130 [facility] Stop: 08/31/21 15:00 Nicotine Polacrilex (Nicotine Polacrilex 2 Mg Gum) 2 mg CHEW/PARK Q4HP PRN PRN Reason: Nicotine withdrawal Last Admin: 08/31/21 02:21 Dose: 2 mg Documented by: Olanzapine (Olanzapine 5 Mg Tablet) 5 mg PO QHS [facility] Last Admin: 08/30/21 21:31 Dose: 5 mg Documented by: Ondansetron HCl (Ondansetron 4 Mg/2 Ml Vial) 4 mg IV Q6HP PRN PRN Reason: Nausea And Vomiting Ziprasidone Hcl 80 (Mg Capsule) 2 dose PO [facility] Last Admin: 08/30/21 21:30 Dose: Not Given Documented by: Buprenorphine- (Naloxone 2-0.5mg) 1 dose SL BID [facility] Buprenorphine- Naloxone 2-0.5 Mg Tablet, Sublingual 1 dose SL BID [facility] Prednisone (Prednisone 20 Mg Tablet) 40 mg PO [facility] Last Admin: 08/31/21 08:02 Dose: 40 mg Documented by: Senna (Sennosides 1 Tablet) 2 tab PO HS [facility] Last Admin: 08/30/21 21:31 Dose: 2 tab Documented by: Sodium Chloride (0.9 % Sodium Chloride 10 Ml Syringe) 10 ml IV Q8 [facility] Last Admin: 08/31/21 06:11 Dose: 10 ml Documented by: Trazodone HCl (Trazodone Hcl 100 Mg Tablet) 100 mg PO QHS [facility] Last Admin: 08/30/21 21:30 Dose: 100 mg Documented by: A/P Narrative A/P Narrative: A: *PNA: *AECOPD: *Acute on chronic hypoxic respiratory failure: *Disseminated bilateral reticulonodular infiltrates of uncertain etiology *Tobacco abuse: *Schizoaffective d/o" *Hyponatremia, chronic: *HTN: *Peripheral artery disease: *Insomnia *Peripheral edema *Depression/anxiety: P: -Rocephin/azithromycin -DuoNebs, Steroids (wean) -O2 as needed -Continue ACEI -Continue cilostazol -psych meds -cont home lasix - -cont outpt Follow-up with pulmonology -Smoking cessation > 3 minutes -ppx: Lovenox Time Spent With Patient Time: Total time spent is greater than 50% in coordination of care (as documented) at patient's floor/unit and/or counseling patient: QUALITY VTE Deep Vein Thrombosis/Pulmonary Embolism Present on Admission: No
[2021-08-31] MEDS: clonazePAM 1 MG TABLET PO SCH ×2 (14:47→22:32)
[2021-08-31] MEDS: SENNOSIDES 1 TABLET PO SCH (22:31)
[2021-08-31] MEDS: traZODone HCL 100 MG TABLET PO SCH (22:32)
[2021-08-31] MEDS: OLANZapine 5 MG TABLET PO SCH (22:32)
[2021-08-31] MEDS: BUPRENORPHINE NALOXONE SL SCH (22:36)
[2021-09-01] MEDS: IPRATROPIUM/ALBUTEROL 3 ML AMPUL.NEB NEB SCH ×4 (03:00→19:15)
[2021-09-01] MEDS: ACETAMINOPHEN 325 MG TABLET PO PRN (03:43)
[2021-09-01] MEDS: 0.9 % SODIUM CHLORIDE 10 ML SYRINGE IV SCH ×3 (05:41→20:52)
[2021-09-01 07:16] LABS: ALT/SGPT 23 U/L (<40); AST/SGOT 22 U/L (<40); Albumin 3.1 gm/dL (3.2-5.2); Albumin/Globulin Ratio 1.5 (1.0-2.3); Alkaline Phosphatase 35 U/L (39-117); Bilirubin,Direct < 0.2 mg/dL (0-0.3); Bilirubin,Total 0.2 mg/dL (0.1-1.0); Blood Urea Nitrogen 10 mg/dL (6-20); Calcium 8.3 mg/dL (8.6-10.4); Carbon Dioxide 36 mmol/L (22-30); Chloride 89 mmol/L (96-108); Glomerular Filtration Rate 118; Glucose 117 mg/dL (70-105); Lactate Dehydrogenase 292 U/L (135-225); Phosphorous 3.8 mg/dL (2.5-4.5); Triglycerides 78 mg/dL (<150); Uric Acid 6.9 mg/dL (2.5-8.0)
[2021-09-01] MEDS: BUDESONIDE 0.5 MG/2 ML AMPUL.NEB NEB SCH ×2 (07:35→19:15)
[2021-09-01] MEDS: cefTRIAXone 1 GM VIAL IV SCH (07:57)
[2021-09-01] MEDS: predniSONE 20 MG TABLET PO SCH ×2 (07:59→20:49)
[2021-09-01] MEDS: FUROSEMIDE 40 MG TABLET PO SCH (07:59)
[2021-09-01] MEDS: DOCUSATE SODIUM 100 MG CAPSULE PO SCH ×2 (07:59→20:49)
[2021-09-01] MEDS: DIVALPROEX SODIUM 250 MG TABLET PO SCH (07:59)
[2021-09-01] MEDS: ENOXAPARIN 40 MG/0.4 ML SYRINGE SQ SCH (08:00)
[2021-09-01] MEDS: CITALOPRAM 20 MG TABLET PO SCH (08:00)
[2021-09-01] MEDS: clonazePAM 1 MG TABLET PO SCH ×3 (08:00→20:49)
--- NOTE | 2021-09-01 08:40 | Internal Med Progress Note ---
SUBJECTIVE Subjective Patient information: Note initiated : 09/01/21 at 8:37 am Service Date, if different from initiated Date: [] Patient: Tae Esquivel a 51 y/o M admitted on 08/30/21 for swelling, hypoxia. Chief Complaint: [] Principal diagnosis: Acute hypoxemia, wheezing Interval history: History of present illness: Mr. Esquivel is a 51 year old M with a past medical history significant for chronic hypoxemic respiratory failure due to COPD, current smoker, schizoaffective disorder, and suspected congestive heart failure on Lasix who presents to the hospital with progressive dyspnea and malaise. The patient was recently discharged from the hospital and was treated for acute exacerbation of COPD and community-acquired pneumonia. He has a similar presentation today. The patient was discharged with Wellbutrin, nicotine gum and nicotine patch in hopes of smoking cessation however he continues to smoke and is down to 6 cigarettes a day. He thought that he was doing well however I emphasized that he is unable to smoke as he is severely damaging and scarring in his lungs. He was resting comfortably in bed and able to speak in full sentences however did have a productive cough. He states that he has been in and out of the hospital for the last year and is sick and tired of being sick and tired. He understands that smoking is the root cause of his issues and he is hopeful to stop altogether. The hospital service will admit the patient for acute on chronic hypoxemic respiratory failure in the setting of COPD exacerbation 08/31 The patient is resting comfortably in bed. His breathing has improved, however his convalescence will be slow. 09/01 Patient has cough and shortness of breath that wax and wane. Attempt to wean down oxygen. Review of Systems: denies headache/fever/chills/nausea/vomiting/chest or abdominal pain/diarrhea. Otherwise see above. Constitutional Vitals: Vital Signs Temp Pulse Resp BP Pulse Ox 97.3 F 78 14 124/74 96 09/01/21 07:19 09/01/21 07:36 09/01/21 07:36 09/01/21 07:19 09/01/21 07:36 Period Temp Pulse Resp BP Sys/Banks Pulse Ox Last 24 Hr 97.2 F-98.3 F 59-78 14-20 114-130/74-87 91-97 Intake and Output 08/31/21 09/01/2122 21:59 05:59 13:59 Intake Total 360 Balance 360 Weight 99.155 kg Intake & Output: Intake & Output 08/31/21 09/01/21 09/01/21 21:59 05:59 13:59 Intake Total 360 Balance 360 Weight 99.155 kg Intake: Oral 360 Other: Meal Dinner Percent of Meal Consumed 100% Feeding Ability Independent # Voids 1 1 Exam: General: Alert, Awake, No acute Distress, obese Eyes/N/T: EOMI, Head/Neck: neck supple, CV: RRR, No murmurs, Pulm: minimal rales/wheezing, Abd: soft, nontender, +BS x4 Ext: no clubbing/cyanosis/edema Neuro: Alert, no focal deficits, moves all extremities, Skin: warm/dry OBJ DATA Labs CBC & Chem 7: 08/31/21 05:21 09/01/21 05:07 Labs: Abnormal Lab Results 09/01/21 08/31/21 08/31/21 05:07 05:21 05:21 WBC RBC Neut % (Auto) 86.0 H Lymph % (Auto) 10.3 L Lymph # (Auto) 0.50 L [place] # (Auto) Sodium 131 L 127 L Chloride 89 L 86 L Carbon Dioxide 36 H 33 H Anion Gap 6.0 L Creatinine 0.6 L 0.5 L Glucose 117 H 154 H Calcium 8.3 L 8.5 L AST Alkaline Phosphatase 35 L Lactate Dehydrogenase 292 H NT-Pro-B Natriuret Pep Total Protein 5.1 L Albumin 3.1 L Globulin 2.0 L 08/30/21 08/30/21 11:51 11:51 WBC 11.1 H RBC 4.53 L Neut % (Auto) Lymph % (Auto) Lymph # (Auto) [place] # (Auto) 1.04 H Sodium 130 L Chloride 87 L Carbon Dioxide 35 H Anion Gap Creatinine Glucose Calcium 8.2 L AST 53 H Alkaline Phosphatase Lactate Dehydrogenase NT-Pro-B Natriuret Pep 931.3 H Total Protein 5.8 L Albumin Globulin Meds: Medications Acetaminophen (Acetaminophen 325 Mg Tablet) 650 mg PO Q6HP PRN; Protocol PRN Reason: Per Pain Protocol/Fever > 101 Last Admin: 09/01/21 03:43 Dose: 650 mg Documented by: Albuterol/Ipratropium (Ipratropium/Albuterol 3 Ml Ampul.Neb) 3 ml NEB Q6HRT [facility] Last Admin: 09/01/21 07:35 Dose: 3 ml Documented by: Budesonide (Budesonide 0.5 Mg/2 Ml Ampul.Neb) 0.5 mg NEB Q12 [facility] Last Admin: 09/01/21 07:35 Dose: 0.5 mg Documented by: Ceftriaxone Sodium (Ceftriaxone 1 Gm Vial) 1 gm IV Q24H [facility] Last Admin: 09/01/21 07:57 Dose: 1 gm Documented by: Citalopram Hydrobromide (Citalopram 20 Mg Tablet) 20 mg PO QDAY [facility] Last Admin: 09/01/21 08:00 Dose: 20 mg Documented by: Clonazepam (Clonazepam 1 Mg Tablet) 1 mg PO TID [facility] Last Admin: 09/01/21 08:00 Dose: 1 mg Documented by: Divalproex Sodium (Divalproex Sodium 250 Mg Tablet) 2,000 mg PO QDAY [facility] Last Admin: 09/01/21 07:59 Dose: 2,000 mg Documented by: Docusate Sodium (Docusate Sodium 100 Mg Capsule) 100 mg PO BID [facility] Last Admin: 09/01/21 07:59 Dose: 100 mg Documented by: Enoxaparin Sodium (Enoxaparin 40 Mg/0.4 Ml Syringe) 40 mg SQ DAILY [facility] Last Admin: 09/01/21 08:00 Dose: 40 mg Documented by: Furosemide (Furosemide 40 Mg Tablet) 40 mg PO QAM [facility] Last Admin: 09/01/21 07:59 Dose: 40 mg Documented by: Azithromycin 500 mg/ Dextrose 250 mls @ 250 mls/hr IV DAILY@1100 [facility]; Protocol Stop: 09/01/21 11:59 Last Infusion: 08/31/21 12:05 Dose: Infused Documented by: Nicotine Polacrilex (Nicotine Polacrilex 2 Mg Gum) 2 mg CHEW/PARK Q4HP PRN PRN Reason: Nicotine withdrawal Last Admin: 08/31/21 02:21 Dose: 2 mg Documented by: Olanzapine (Olanzapine 5 Mg Tablet) 5 mg PO QHS [facility] Last Admin: 08/31/21 22:32 Dose: 5 mg Documented by: Ondansetron HCl (Ondansetron 4 Mg/2 Ml Vial) 4 mg IV Q6HP PRN PRN Reason: Nausea And Vomiting Ziprasidone Hcl 80 (Mg Capsule) 2 dose PO [facility] Last Admin: 08/31/21 22:32 Dose: Not Given Documented by: Buprenorphine- Naloxone 2-0.5 Mg Tablet, Sublingual 1 dose SL BID [facility] Last Admin: 08/31/21 22:36 Dose: 1 dose Documented by: [facility]nisone ([facility] 20 Mg Tablet) [facility] Last Admin: 09/01/21 07:59 Dose: 40 mg Documented by: Senna (Sennosides 1 Tablet) 2 tab PO [facility] Last Admin: 08/31/21 22:31 Dose: 2 tab Documented by: Sodium Chloride (0.9 % Sodium Chloride 10 Ml Syringe) 10 ml IV Q8 [facility] Last Admin: 09/01/21 05:41 Dose: 10 ml Documented by: Trazodone HCl (Trazodone Hcl 100 Mg Tablet) 100 mg PO QHS [facility] Last Admin: 08/31/21 22:32 Dose: 100 mg Documented by: A/P Narrative A/P Narrative: A: *PNA: -covid neg *AECOPD (not previously on home O2): *Acute on chronic hypoxic respiratory failure: -2L NC *Disseminated bilateral reticulonodular infiltrates of uncertain etiology *Tobacco abuse: *Schizoaffective d/o: *Hyponatremia, chronic: *HTN: *Peripheral artery disease: *Insomnia *Peripheral edema *Depression/anxiety: *obese: bmi 30.5 P: -Rocephin/azithromycin -DuoNebs, Steroids (wean) -O2 as needed -Continue ACEI -Continue cilostazol -psych meds -cont home lasix -cont outpt Follow-up with pulmonology -Smoking cessation > 3 minutes -ppx: Lovenox Time Spent With Patient Time: Total time spent is greater than 50% in coordination of care (as documented) at patient's floor/unit and/or counseling patient: Total time spent with greater than 50% in coordination of care (as documented) at patient's floor/unit and/or counseling patient:: 25 - 35 minutes QUALITY VTE Deep Vein Thrombosis/Pulmonary Embolism Present on Admission: No
[2021-09-01] MEDS: BUPRENORPHINE NALOXONE SL SCH ×3 (09:13→20:53)
[2021-09-01] MEDS: AZITHROMYCIN 500 MG in DEXTROSE 5% IN WATER 250 ML IV SCH (11:09)
--- NOTE | 2021-09-01 12:31 | Discharge Summary ---
Discharge Provider Provider Patient information: Note initiated : 09/01/21 at 12:29 pm Service Date, if different from initiated Date: [] Patient: Tae Esquivel 51 y/o M admitted on 08/30/21 for swelling, hypoxia. Chief Complaint: [] Date of admission: 08/30/21 16:53 Discharge date: 09/02/21 Primary care physician: Rachel Stark PA-C Consults: 08/30/21 Consult to Physician [CONS] Stat Comment: Consulting Provider: Santhosh Jeong Reason For Exam: Physician to Consult Discharge Meds Discharge Medications Home Medications albuterol sulfate 90 mcg/actuation aerosol inhaler 2 puff INHALATION PRN PRN 02/04 [History Confirmed 08/30/21 Last Taken 02/07/21] budesonide-formoterol HFA 80 mcg-4.5 mcg/actuation aerosol inhaler 2 puff INHALATION BID 01/24/21 [History Confirmed 08/30/21 Last Taken 02/13/21] cyclobenzaprine 10 mg tablet 10 mg PO BIDP PRN 01/24/21 [History Confirmed 08/30/21 Last Taken 02/13/21] divalproex 500 mg tablet,extended release 24 hr 2,000 mg PO QDAY 01/24/21 [History Confirmed 08/30/21 Last Taken 02/13/21] gabapentin 300 mg capsule 300 mg PO TID 01/24/21 [History Confirmed 08/30/21 Last Taken 02/13/21] ipratropium 0.5 mg-albuterol 3 mg (2.5 mg base)/3 mL nebulization soln 3 ml INHALATION Q4H PRN 01/24/21 [History Confirmed 08/30/21 Last Taken 02/13/21] lisinopril 20 mg tablet 20 mg PO QDAY 01/24/21 [History Confirmed 08/30/21 Last Taken 02/13/21] lorazepam 1 mg tablet 1 mg PO TID PRN 01/24/21 [History Confirmed 08/30/21 Last Taken 02/13/21] trazodone 100 mg tablet 100 mg PO QHS 01/24/21 [History Confirmed 08/30/21 Last Taken 08/29/21] ziprasidone HCl 80 mg capsule 160 mg PO HS 01/24/21 [History Confirmed 08/30/21 Last Taken 08/29/21] citalopram 20 mg tablet 1 tab PO QDAY 07/23/21 [History Confirmed 08/30/21 Last Taken 08/30/21] furosemide 40 mg tablet 1 tab PO QDAY 07/23/21 [History Confirmed 08/30/21 Last Taken Unknown] zolpidem 10 mg tablet 1 tab PO HS 07/23/21 [History Confirmed 08/30/21 Last Taken 08/29/21] albuterol sulfate 2.5 mg (3 mL) INHALATION Q4H PRN #75 ml 08/06/21 [Rx Confirmed 08/30/21 Last Taken Unknown] epinephrine 0.3 mg/0.3 mL injection, auto-injector (EpiPen) 0.3 ml IM PRN PRN 08/19/21 [History Confirmed 08/30/21 Last Taken Unknown] folic acid 1 mg tablet 1 tab PO QDAY 08/19/21 [History Confirmed 08/30/21 Last Taken Unknown] benzonatate 100 mg capsule 100 mg PO TIDP PRN #30 cap 08/22/21 [Rx Confirmed 08/30/21 Last Taken Unknown] nicotine 21 mg/24 hr daily transdermal patch 21 mg TOPICAL DAILY@1000 #28 ea 08/22/21 [Rx Confirmed 08/30/21 Last Taken Unknown] budesonide-formoterol HFA 80 mcg-4.5 mcg/actuation aerosol inhaler (Symbicort) 2 puff INHALATION BID 08/30/21 [History Confirmed 08/30/21 Last Taken Unknown] bupropion HCl 150 mg tablet,12 hr sustained-release 150 mg PO QDAY 08/30/21 [History Confirmed 08/30/21 Last Taken 08/30/21] cilostazol 100 mg tablet 100 mg PO BID 08/30/21 [History Confirmed 08/30/21 Last Taken 08/30/21] ibuprofen 800 mg tablet 800 mg PO Q8H PRN 08/30/21 [History Confirmed 08/30/21 Last Taken Unknown] olanzapine 5 mg tablet 5 mg PO QHS 08/30/21 [History Confirmed 08/30/21 Last Taken Unknown] tiotropium bromide 18 mcg capsule with inhalation device (Spiriva with HandiHaler) 1 cap INHALATION QDAY 08/30/21 [History Confirmed 08/30/21 Last Taken 08/30/21] buprenorphine 2 mg-naloxone 0.5 mg sublingual tablet 1 tab SUBLINGUAL BID 08/31/21 [History Confirmed 08/31/21 Last Taken Unknown] clonazepam 1 mg tablet 1 mg PO TID 08/31/21 [History Confirmed 08/31/21 Last Taken 08/30/21 1 mg] amoxicillin 875 mg-potassium clavulanate 125 mg tablet 1 tab PO BID #5 tab 09/01/21 [Rx Last Taken Unknown] prednisone 10 mg tablet 40 mg PO QDAY #1 tab 09/01/21 [Rx Last Taken Unknown] COURSE Hospital Course Hospital course: History of present illness: Mr. Esquivel is a 51 year old M with a past medical history significant for chronic hypoxemic respiratory failure due to COPD, current smoker, schizoaffective disorder, and suspected congestive heart failure on Lasix who presents to the hospital with progressive dyspnea and malaise. The patient was recently discharged from the hospital and was treated for acute exacerbation of COPD and community-acquired pneumonia. He has a similar presentation today. The patient was discharged with Wellbutrin, nicotine gum and nicotine patch in hopes of smoking cessation however he continues to smoke and is down to 6 cigarettes a day. He thought that he was doing well however I emphasized that he is unable to smoke as he is severely damaging and scarring in his lungs. He was resting comfortably in bed and able to speak in full sentences however did have a productive cough. He states that he has been in and out of the hospital for the last year and is sick and tired of being sick and tired. He understands that smoking is the root cause of his issues and he is hopeful to stop altogether. The hospital service will admit the patient for acute on chronic hypoxemic respiratory failure in the setting of COPD exacerbation 08/31 The patient is resting comfortably in bed. His breathing has improved, however his convalescence will be slow. 09/01 Patient has cough and shortness of breath that wax and wane. Attempt to wean down oxygen. 09/02 Patient doing well. Was evaluated by respiratory therapy and did not need home oxygen. A: *PNA: *AECOPD (not previously on home O2): *Acute on chronic hypoxic respiratory failure: *Disseminated bilateral reticulonodular infiltrates of uncertain etiology *Tobacco abuse: *Schizoaffective d/o: *Hyponatremia, chronic: *HTN: *Peripheral artery disease: *Insomnia *Peripheral edema *Depression/anxiety: *obese: bmi 30.5 P: -Abx -cont outpt Follow-up with pulmonology Discharge diagnosis: Pneumonia COPD acute on chronic hypoxic respite failure Secondary discharge diagnosis: Chronic bilateral infiltrates tobacco abuse schizoaffective sorter hyponatremia hypertension peripheral arterial disease insomnia peripheral edema depression anxiety obesity Time Spent with Patient Time attestation: Total time spent providing and/or coordinating discharge services: Time spent: Greater than 30 minutes EXAM Constitutional Vitals: Temp Pulse Resp BP Pulse Ox 97.8 F 60 15 95/57 91 09/01/21 11:51 09/01/21 11:51 09/01/21 11:51 09/01/21 11:51 09/01/21 11:51 Discharge Data Data Completed and Pending Labs on day of discharge: Labs from last 24 hours 09/01/21 05:07 Sodium 131 L Potassium 4.5 Chloride 89 L Carbon Dioxide 36 H Anion Gap 6.0 L BUN 10 Creatinine 0.6 L GFR Calculation 118 Glucose 117 H Uric Acid 6.9 Calcium 8.3 L Phosphorus 3.8 Magnesium 1.9 Total Bilirubin 0.2 Direct Bilirubin < 0.2 GGT 9 AST 22 ALT 23 Alkaline Phosphatase 35 L Lactate Dehydrogenase 292 H Total Protein 5.1 L Albumin 3.1 L Globulin 2.0 L Albumin/Globulin Ratio 1.5 Triglycerides 78 Preliminary micro results at discharge 08/30/21 12:47 Blood Culture - Preliminary Blood 08/30/21 12:44 Blood Culture - Preliminary Blood Discharge Plan Patient/Caregiver Discharge Instructions Activity: increase activity as tolerated Diet: Regular Diet Activity Restrictions/Additional Instructions: Evaluation for home oxygen. Prescriptions: New amoxicillin-pot clavulanate 875-125 mg tablet 1 tab PO BID Qty: 5 0RF prednisone 10 mg tablet 40 mg PO QDAY Qty: 1 0RF Rx Instructions: Take 40mg once daily for 3 days then 20mg once daily x3 days then 10mg daily x3 days then 5mg daily x2 days then stop Continued cyclobenzaprine 10 mg Tablet 10 mg PO BIDP PRN (Reason: Muscle Pain) 0RF ziprasidone HCl 80 mg Capsule 160 mg PO HS 0RF ipratropium-albuterol 0.5 mg-3 mg(2.5 mg base)/3 mL Solution For Nebulization 3 ml INHALATION Q4H PRN (Reason: Shortness Of Breath Or Wheezing) 0RF lisinopril 20 mg Tablet 20 mg PO QDAY 0RF trazodone 100 mg Tablet 100 mg PO QHS 0RF divalproex 500 mg Tablet Extended Release 24 Hr 2,000 mg PO QDAY 0RF gabapentin 300 mg Capsule 300 mg PO TID 0RF lorazepam 1 mg Tablet 1 mg PO TID PRN (Reason: Anxiety) 0RF budesonide-formoterol 80-4.5 mcg/actuation Hfa Aerosol Inhaler 2 puff INHALATION BID 0RF albuterol sulfate 90 mcg/actuation HFA aerosol inhaler 2 puff inhalation PRN PRN (Reason: shortness of breath or wheezing) 0RF citalopram 20 mg tablet 1 tab PO QDAY 0RF zolpidem 10 mg tablet 1 tab PO HS 0RF furosemide 40 mg tablet 1 tab PO QDAY 0RF albuterol sulfate 2.5 mg /3 mL (0.083 %) solution for nebulization 2.5 mg inhalation Q4H PRN (Reason: shortness of breath or wheezing) Qty: 75 0RF folic acid 1 mg tablet 1 tab PO QDAY 0RF epinephrine [EpiPen] 0.3 mg/0.3 mL auto-injector 0.3 ml IM PRN PRN (Reason: Allergic Reaction) 0RF benzonatate 100 mg Capsule 100 mg PO TIDP PRN (Reason: Cough) Qty: 30 0RF nicotine 21 mg/24 hr Patch 24 Hour 21 mg topical DAILY@1000 Qty: 28 3RF cilostazol 100 mg Tablet 100 mg PO BID 0RF olanzapine 5 mg Tablet 5 mg PO QHS 0RF Spiriva with HandiHaler 18 mcg Capsule, W/Inhalation Device 1 cap INHALATION QDAY 0RF budesonide-formoterol [Symbicort] 80-4.5 mcg/actuation Hfa Aerosol Inhaler 2 puff INHALATION BID 0RF ibuprofen 800 mg Tablet 800 mg PO Q8H PRN (Reason: Pain) 0RF bupropion HCl 150 mg tablet sustained-release 12 hr 150 mg PO QDAY 0RF clonazepam 1 mg Tablet 1 mg PO TID 0RF buprenorphine-naloxone 2-0.5 mg Tablet, Sublingual 1 tab SUBLINGUAL BID 0RF Follow Up Plan Follow up with: Rachel Stark PA-C [Primary Care Provider] - Claudio Owens MD [Physician] - Patient Disposition: Home, Self-Care Prognosis: Fair Overall status at discharge: patient is progressing back to baseline Discharge Orders: Discharge Order (Routine); Ordered 09/02/21 Ordered By: Nadir Hopkins [facility] VTE Deep Vein Thrombosis/Pulmonary Embolism Present on Admission: No
[2021-09-01] MEDS ORDERED: diphenhydrAMINE 50 MG/ML VIAL IV PRN (14:39)
[2021-09-01] MEDS ORDERED: diphenhydrAMINE 50 MG/ML VIAL IV SCH (14:45)
[2021-09-01] MEDS: guaiFENesin/CODEINE 10 ML UDC PO PRN ×2 (19:34→23:51)
[2021-09-01] MEDS: traZODone HCL 100 MG TABLET PO SCH (20:48)
[2021-09-01] MEDS: SENNOSIDES 1 TABLET PO SCH ×2 (20:48→20:55)
[2021-09-01] MEDS: OLANZapine 5 MG TABLET PO SCH (20:49)
[2021-09-01] MEDS: NICOTINE POLACRILEX 2 MG GUM CHEW/PARK PRN (23:51)
[2021-09-02] MEDS: diphenhydrAMINE 25 MG CAPSULE PO PRN ×2 (00:06→10:55)
[2021-09-02] MEDS: IPRATROPIUM/ALBUTEROL 3 ML AMPUL.NEB NEB SCH ×2 (00:12→07:25)
[2021-09-02] MEDS: guaiFENesin/CODEINE 10 ML UDC PO PRN (04:45)
[2021-09-02] MEDS: 0.9 % SODIUM CHLORIDE 10 ML SYRINGE IV SCH (04:45)
[2021-09-02] MEDS: BUDESONIDE 0.5 MG/2 ML AMPUL.NEB NEB SCH (07:25)
[2021-09-02 07:37] LABS: Blood Urea Nitrogen 13 mg/dL (6-20); Calcium 8.4 mg/dL (8.6-10.4); Carbon Dioxide 33 mmol/L (22-30); Chloride 91 mmol/L (96-108); Glomerular Filtration Rate 127; Glucose 106 mg/dL (70-105)
[2021-09-02] MEDS: FUROSEMIDE 40 MG TABLET PO SCH (08:38)
[2021-09-02] MEDS: CITALOPRAM 20 MG TABLET PO SCH (08:38)
[2021-09-02] MEDS: clonazePAM 1 MG TABLET PO SCH (08:39)
[2021-09-02] MEDS: DIVALPROEX SODIUM 250 MG TABLET PO SCH (08:39)
[2021-09-02] MEDS: predniSONE 20 MG TABLET PO SCH (08:40)
[2021-09-02] MEDS: NICOTINE POLACRILEX 2 MG GUM CHEW/PARK PRN (08:40)
[2021-09-02] MEDS: DOCUSATE SODIUM 100 MG CAPSULE PO SCH (08:43)
[2021-09-02] MEDS: ENOXAPARIN 40 MG/0.4 ML SYRINGE SQ SCH (08:44)
[2021-09-02] MEDS: BUPRENORPHINE NALOXONE SL SCH (09:00)
[2021-09-02] MEDS: cefTRIAXone 1 GM VIAL IV SCH (09:01)
[2021-09-02] MEDS: NICOTINE 21 MG PATCH TOPICAL SCH ×2 (09:59→10:02)
--- NOTE | 2021-09-02 11:32 | EKG ---
[facility] Test Date: 2021-08-30 Pat Name: Tae Esquivel Department: ED Room: Gender: Male [employer]: : 1970 Requested By: Levi Granado Order Number: [id number] Reading MD: Kamron Pendleton M.D. Measurements Intervals [place] Rate: 82 P: 83 [place]: 115 QRS: 85 QRSD: 103 T: 45 QT: 395 QTc: 462 Interpretive Statements Sinus rhythm MULTIPLE ATRIAL PREMATURE COMPLEXES Borderline short [place] interval Electronically Signed On 09-02-2021 11:32:41 PDT by Kamron Pendleton M.D. /[id number]
== END 2021-09-02 12:05 | disposition home or self-care (01) | DRG 190 ==
LOC: ED 10:38 → MEDSUR 16:53
PROVIDERS: ADMIT Student in an Organized Health Care Education/Training Program; ATTEND Internal Medicine

== ENCOUNTER 2021-09-05 22:01 | Inpatient (IN) ==
--- NOTE | 2021-09-05 22:10 | Emergency Department Note ---
HPI General Chief complaint: Shortness of Breath/Dyspnea Stated complaint: low o2 sats pt. is very drowzy Time Seen by Provider: 09/05/21 22:09 Source: EMS Mode of arrival: EMS Limitations: physical limitation (Obtunded) History of Present Illness HPI Narrative: Narrative: 51-year-old male brought in by ambulance from the [facility] care facility where he lives because of depressed mental status. According to EMS the patient has a history of CHF, COPD, schizoaffective disorder. He was admitted to our hospital last week and was discharged a couple days ago. Today he finished his last antibiotic for his pneumonia. Ambulance was called because of his drowsiness. On arrival they found him to have a pulse ox in the 60s. When stimulated he hattie up into the 80s. With stimulation of the patient I was unable to arouse him I could not obtain any history. Related Data Home Medications Medication Instructions Recorded Confirmed albuterol sulfate 90 mcg/actuation 2 puff INHALATION PRN PRN 01/24/21 08/30/21 aerosol inhaler budesonide-formoterol HFA 80 2 puff INHALATION BID 01/24/21 08/30/21 mcg-4.5 mcg/actuation aerosol inhaler cyclobenzaprine 10 mg tablet 10 mg PO BIDP PRN 01/24/21 08/30/21 divalproex 500 mg tablet,extended 2,000 mg PO QDAY 01/24/21 08/30/21 release 24 hr gabapentin 300 mg capsule 300 mg PO TID 01/24/21 08/30/21 ipratropium 0.5 mg-albuterol 3 mg 3 ml INHALATION Q4H PRN 01/24/21 08/30/21 (2.5 mg base)/3 mL nebulization soln lisinopril 20 mg tablet 20 mg PO QDAY 01/24/21 08/30/21 lorazepam 1 mg tablet 1 mg PO TID PRN 01/24/21 08/30/21 trazodone 100 mg tablet 100 mg PO QHS 01/24/21 08/30/21 ziprasidone HCl 80 mg capsule 160 mg PO HS 01/24/21 08/30/21 citalopram 20 mg tablet 1 tab PO QDAY 07/23/21 08/30/21 furosemide 40 mg tablet 1 tab PO QDAY 07/23/21 08/30/21 zolpidem 10 mg tablet 1 tab PO HS 07/23/21 08/30/21 epinephrine 0.3 mg/0.3 mL 0.3 ml IM PRN PRN 08/19/21 08/30/21 injection, auto-injector (EpiPen) folic acid 1 mg tablet 1 tab PO QDAY 08/19/21 08/30/21 budesonide-formoterol HFA 80 2 puff INHALATION BID 08/30/21 08/30/21 mcg-4.5 mcg/actuation aerosol inhaler (Symbicort) bupropion HCl 150 mg tablet,12 hr 150 mg PO QDAY 08/30/21 08/30/21 sustained-release cilostazol 100 mg tablet 100 mg PO BID 08/30/21 08/30/21 ibuprofen 800 mg tablet 800 mg PO Q8H PRN 08/30/21 08/30/21 olanzapine 5 mg tablet 5 mg PO QHS 08/30/21 08/30/21 tiotropium bromide 18 mcg capsule 1 cap INHALATION QDAY 08/30/21 08/30/21 with inhalation device (Spiriva with HandiHaler) buprenorphine 2 mg-naloxone 0.5 mg 1 tab SUBLINGUAL BID 08/31/21 08/31/21 sublingual tablet clonazepam 1 mg tablet 1 mg PO TID 08/31/21 08/31/21 Previous Rx's Medication Instructions Recorded albuterol sulfate 2.5 mg (3 mL) INHALATION Q4H PRN 08/06/21 #75 ml benzonatate 100 mg capsule 100 mg PO TIDP PRN #30 cap 08/22/21 nicotine 21 mg/24 hr daily 21 mg TOPICAL DAILY@1000 #28 ea 08/22/21 transdermal patch amoxicillin 875 mg-potassium 1 tab PO BID #5 tab 09/01/21 clavulanate 125 mg tablet prednisone 10 mg tablet 40 mg PO QDAY #1 tab 09/01/21 Allergies Allergy/AdvReac Type Severity Reaction Status Date / Time bee venom protein (honey bee) Allergy Severe Anaphylaxis Verified 08/03/21 19:51 beeswax Allergy Severe Anaphylaxis Verified 08/03/21 19:51 vancomycin Allergy Severe Anaphylaxis Verified 08/03/21 19:51 Sulfa (Sulfonamide AdvReac Intermediate Wheezing Verified 08/03/21 19:51 Antibiotics) Review of Systems ROS ROS Narrative: Narrative: Limitations: ROS unobtainable due to patients medical condition (Patient obtun ded.) [facility] Narrative Patient History Narrative: Narrative: Medical/Surgical/Family History All Active Problems (Updated 09/06/21 @ 07:46 by Jaquan Byrd MD) Benzodiazepine overdose (Acute) Acute exacerbation of CHF (congestive heart failure) (Acute) Acute exacerbation of chronic obstructive pulmonary disease (Acute) COPD exacerbation (Acute) Cellulitis (Acute) Pneumonia (Acute) Acute hyponatremia (Acute) Failure of outpatient treatment (Acute) Claudication in peripheral vascular disease (Acute) Peripheral artery disease (Acute) Bilateral pneumonia (Acute) Acute hyponatremia (Acute) Acute bronchospasm (Acute) Schizoaffective disorder (Acute) Peripheral neuropathy (Acute) Acute dyspnea (Acute) Acute exacerbation of chronic obstructive pulmonary disease (Acute) Hypoxia (Acute) Pneumonia (Acute) CHF exacerbation (Acute) Hyponatremia (Acute) Current smoker (Acute) Acute and chronic respiratory failure with hypoxia (Acute) COPD exacerbation (Acute) Left leg cellulitis (Acute) Cellulitis (Acute) Laceration (Acute) Pneumonia (Acute) Social History Smoking Status: Current every day smoker Exam Narrative Narrative: Narrative: General Limitations: physical limitation (Obtunded) General appearance: Present obtunded Head Head: Present atraumatic and normocephalic Eye Eye: Present conjunctival injection (Bilaterally); Absent nystagmus ENT ENT: Present mucous membranes moist Neck Neck: Absent meningismus Respiratory Respiratory: Present rales/crackles and wheezes; Absent respiratory distress (Patient oxygen level 80s without oxygen but 97 with oxygen.) Cardiovascular Cardiovascular: Present regular rate and normal rhythm Adbominal Abdominal: Present soft; Absent distention Extremities Extremities: Present pedal edema (3+ bilateral lower extremity edema.) and pretibial edema Back Back: Absent tenderness Neurological Neurological: Present other (Unresponsive to verbal stimuli.) Psychiatric Psychiatric: Present other (Cannot assess when the patient is obtunded. 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 Stated he used marijuana as needed.) Skin Skin: Present warm (WNL) and dry Course Course Course Narrative: Patient was breathing spontaneously but unresponsive to painful stimuli. Patient seemed to be in an overdose state. Review of his medications did not reveal any opiates but did reveal benzodiazepines. Patient was initially given 0.2 mg of Narcan followed by a second dose of 0.2 more milligrams of Narcan. The patient had no response to this. Patient was then given flumazenil. He was given 0.1 mg IV q. 1 minute for 5 minutes. After the fifth dose (total of 0.5 mg) the patient woke up and began speaking. He answered questions he was a ppropriate and cooperative. By report the patient had already been drowsy when he received additional benzodiazepines as his nightly medications. When asked the patient readily acknowledged that he used marijuana but denied using other recreational drugs. Patient had the odor of marijuana about him. Patient requested albuterol nebulized treatment to help his breathing and this was given. A short time after the flumazenil the patient once again became very drowsy/obtunded. Based on his clarity after the flumazenil I do not believe the patient requires a CT scan of the head. I believe this is a benzodiazepine overdose. Patient also has significant peripheral edema and Rales compatible with congestive heart failure. Chest x-ray obtained confirmed CHF and later a BNP came back markedly elevated. Patient was given 40 mg of Lasix IV. Reevaluation(s) Reevaluation #1: Patient given 0.4 mg of Narcan IV push. No response. We will move onto [place] Time: 22:31 Consultations Consultation #1: Patient becomes hypoxic when taken off oxygen with PO2 going down into the 80s. Patient remains quite sleepy from the benzodiazepines. Discussed the case with Dr. Mills the hospitalist. He excepted the patient for further care. Patient had initially received 40 mg of Lasix IV but only had 300 mL of output. Patient was then given 60 mg of Lasix IV. Results pending. Time: 06:58 Vital Signs Vital signs: Vital Signs Pulse Rate 90 09/05/21 22:03 Respiratory Rate 11 L 09/05/21 22:03 Pulse Rate 76 09/06/21 08:01 Respiratory Rate 14 09/06/21 08:01 Blood Pressure 138/79 09/06/21 08:01 Pulse Oximetry (%) 95 09/06/21 08:01 [facility] MDM Narrative Medical decision making narrative: Narrative: Middle-age male brought in by ambulance from assisted living facility (where he lives in part because of his schizoaffective disorder and inability to care for himself) because of altered mental status and low oxygenation. Paramedics report PO2 of 60 at the time of the first encounter though it did come up to 80 with some stimulation. Patient transferred to our facility. Patient also recently admitted to our hospital and discharged 48 hours prior because of shortness of breath. Differential diagnosis includes opiate overdose, benzodiazepine overdose, pneumonia, congestive heart failure, other. Chest x-ray showed congestive heart failure. BNP result was 1396 which is quite high. Patient was administered 40 mg of Lasix IV and had a 300 mL urinary output. Patient was given a 60 mg of Lasix subsequently. Pt received a duo neb tx that helped his breathing. later he had wheezing to received an albuterol Neb tx. Patient is obtunded condition was initially treated with Narcan 0.2 mg which had no effect. He was in right away given a second 0.2 mg but that had no effect either. No patient is not on any benzodiazepines though he is on Suboxone. Patient was noted to be on multiple benzodiazepines so he was given flumazenil. There was little response with the first 0.1 dose or when it was repeated x2. However after the fifth dose so that he had a total of 0.5 in his body he woke up became conversant alert interactive until the medicine wore off and he became obtunded once again. I do not believe there is an intracranial process causing this because of his acute mental alertness after the flumazenil. Patient was observed in the emergency department all night. He did not require additional flumazenil. He maintained pulse ox 97% on nonrebreather. When taken off the nonrebreather to stand his pulse ox would drop rapidly to the low 80s. Case was discussed with Dr. Mills the hospitalist on duty who will admit him to the hospital for further care. ABG was obtained because of concern that he might be a CO2 retainer pH was 7.24. oxygen level was greater than 100. Patient will be admitted for further care Lab Data Result diagrams: 09/05/21 22:39 09/05/21 22:39 Labs: Lab Results 09/05/21 09/05/21 09/06/21 Range/Units 22:39 22:39 07:09 WBC 10.6 (4.5-11.0) K/mcL RBC 4.65 (4.63-6.08) M/mcL Hgb 14.4 (13.7-17.5) g/dL Hct 43.6 (40.1-51.0) % MCV 93.8 (80.0-100.0) fL MCH 31.0 (26.0-34.0) pg MCHC 33.0 (31.0-36.0) g/dL RDW 15.1 H (11.5-14.5) % Plt Count 211 (140-440) K/mcL MPV 8.9 (7.4-10.4) fL Neut % (Auto) 65.3 (38.0-78.0) % Lymph % (Auto) 24.3 (15.5-49.0) % [place] % (Auto) 9.7 (1.0-12.0) % Eos % (Auto) 0.4 (0.0-7.0) % Baso % (Auto) 0.3 (0.0-2.0) % Lymph # (Auto) 2.57 (1.50-4.80) K/mcL [place] # (Auto) 1.03 H (0.10-0.90) K/mcL Eos # (Auto) 0.04 (0.00-0.70) K/mcL Baso # (Auto) 0.03 (0.00-0.30) K/mcL Absolute Neutrophils 6.92 (1.80-8.00) K/mcL POC pH 7.24 L (7.35-7.45) POC pCO2 103.2 H* (35-45) mmHg POC pO2 138 H (80-100) mmHg POC HCO3 44.1 H (22-26) mmHg POC Total CO2 47.0 H* (23-27) mmHg POC ABG Base Excess 17.0 H (-2-3) Hgb O2 Saturation 98.0 H (94-97) Sodium 131 L (133-145) mmol/L Potassium 4.6 (3.3-5.1) mmol/L Chloride 90 L (96-108) mmol/L Carbon Dioxide 35 H (22-30) mmol/L Anion Gap 6.0 L (8.0-16.0) BUN 18 (6-20) mg/dL Creatinine 0.7 (0.7-1.2) mg/dL GFR Calculation 111 Glucose 105 (70-105) mg/dL POC Arterial Lactate 0.3 L (0.5-2) Calcium 8.3 L (8.6-10.4) mg/dL Total Bilirubin 0.2 (0.1-1.0) mg/dL AST 25 (<40) U/L ALT 25 (<40) U/L Alkaline Phosphatase 39 (39-117) U/L NT-Pro-B Natriuret Pep 1389.0 H (<125.0) pg/mL Total Protein 5.8 L (5.9-8.4) gm/dL Albumin 3.3 (3.2-5.2) gm/dL Globulin 2.5 (2.2-3.7) gm/dL Albumin/Globulin Ratio 1.3 (1.0-2.3) ED POC Tests ED POC Tests: TIESHA - SARS Antigen Negative Discharge Plan Patient/Caregiver Discharge Instructions 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 by 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/PA only: No Clinical Impression: Acute exacerbation of chronic obstructive pulmonary disease Benzodiazepine overdose Qualifiers: Encounter type: initial encounter Injury intent: accidental or unintentional Qualified Code(s): T42.4X1A - Poisoning by benzodiazepines, accidental (unintentional), initial encounter Acute exacerbation of CHF (congestive heart failure) Qualifiers: Heart failure type: unspecified Qualified Code(s): I50.9 - Heart failure, unspecified Patient Disposition: Still a Patient Condition: Undetermined Follow up with: Rachel Stark PA-C [Primary Care Provider] - Prescriptions: No Action cyclobenzaprine 10 mg Tablet 10 mg PO BIDP PRN (Reason: Muscle Pain) 0RF ziprasidone HCl 80 mg Capsule 160 mg PO HS 0RF ipratropium-albuterol 0.5 mg-3 mg(2.5 mg base)/3 mL Solution For Nebulization 3 ml INHALATION Q4H PRN (Reason: Shortness Of Breath Or Wheezing) 0RF lisinopril 20 mg Tablet 20 mg PO QDAY 0RF trazodone 100 mg Tablet 100 mg PO QHS 0RF divalproex 500 mg Tablet Extended Release 24 Hr 2,000 mg PO QDAY 0RF gabapentin 300 mg Capsule 300 mg PO TID 0RF lorazepam 1 mg Tablet 1 mg PO TID PRN (Reason: Anxiety) 0RF budesonide-formoterol 80-4.5 mcg/actuation Hfa Aerosol Inhaler 2 puff INHALATION BID 0RF albuterol sulfate 90 mcg/actuation HFA aerosol inhaler 2 puff inhalation PRN PRN (Reason: shortness of breath or wheezing) 0RF citalopram 20 mg tablet 1 tab PO QDAY 0RF zolpidem 10 mg tablet 1 tab PO HS 0RF furosemide 40 mg tablet 1 tab PO QDAY 0RF albuterol sulfate 2.5 mg /3 mL (0.083 %) solution for nebulization 2.5 mg inhalation Q4H PRN (Reason: shortness of breath or wheezing) Qty: 75 0RF folic acid 1 mg tablet 1 tab PO QDAY 0RF epinephrine [EpiPen] 0.3 mg/0.3 mL auto-injector 0.3 ml IM PRN PRN (Reason: Allergic Reaction) 0RF benzonatate 100 mg Capsule 100 mg PO TIDP PRN (Reason: Cough) Qty: 30 0RF nicotine 21 mg/24 hr Patch 24 Hour 21 mg topical DAILY@1000 Qty: 28 3RF cilostazol 100 mg Tablet 100 mg PO BID 0RF olanzapine 5 mg Tablet 5 mg PO QHS 0RF Spiriva with HandiHaler 18 mcg Capsule, W/Inhalation Device 1 cap INHALATION QDAY 0RF budesonide-formoterol [Symbicort] 80-4.5 mcg/actuation Hfa Aerosol Inhaler 2 puff INHALATION BID 0RF ibuprofen 800 mg Tablet 800 mg PO Q8H PRN (Reason: Pain) 0RF bupropion HCl 150 mg tablet sustained-release 12 hr 150 mg PO QDAY 0RF clonazepam 1 mg Tablet 1 mg PO TID 0RF buprenorphine-naloxone 2-0.5 mg Tablet, Sublingual 1 tab SUBLINGUAL BID 0RF amoxicillin-pot clavulanate 875-125 mg tablet 1 tab PO BID Qty: 5 0RF prednisone 10 mg tablet 40 mg PO QDAY Qty: 1 0RF Rx Instructions: Take 40mg once daily for 3 days then 20mg once daily x3 days then 10mg daily x3 days then 5mg daily x2 days then stop
[2021-09-05] MEDS ORDERED: NALOXONE HCL 0.4 MG/ML VIAL IV ONE ×2 (22:20→22:38)
[2021-09-05] MEDS ORDERED: FLUMAZENIL 0.1 MG/ML ML IV PRN ×2 (22:33→22:49)
[2021-09-05 23:03] LABS: Basophils # (Auto) 0.03 K/mcL (0.00-0.30); Basophils % (Auto) 0.3 % (0.0-2.0); Eosinophils # (Auto) 0.04 K/mcL (0.00-0.70); Eosinophils % (Auto) 0.4 % (0.0-7.0); Hematocrit 43.6 % (40.1-51.0); Hemoglobin 14.4 g/dL (13.7-17.5); Lymphocytes # (Auto) 2.57 K/mcL (1.50-4.80); Lymphocytes % (Auto) 24.3 % (15.5-49.0); Mean Cell Volume 93.8 fL (80.0-100.0); Mean Platelet Volume 8.9 fL (7.4-10.4); Monocytes # (Auto) 1.03 K/mcL (0.10-0.90); Monocytes % (Auto) 9.7 % (1.0-12.0); Neutrophils % (Auto) 65.3 % (38.0-78.0); Platelet Count 211 K/mcL (140-440); RBC 4.65 M/mcL (4.63-6.08); Red Cell Distribution Width 15.1 % (11.5-14.5); WBC 10.6 K/mcL (4.5-11.0)
[2021-09-05] MEDS ORDERED: IPRATROPIUM/ALBUTEROL 3 ML AMPUL.NEB NEB ONE (23:03)
[2021-09-05] MEDS ORDERED: FUROSEMIDE 40 MG/4 ML VIAL IV ONE (23:17)
[2021-09-05 23:21] LABS: ALT/SGPT 25 U/L (<40); AST/SGOT 25 U/L (<40); Albumin 3.3 gm/dL (3.2-5.2); Albumin/Globulin Ratio 1.3 (1.0-2.3); Alkaline Phosphatase 39 U/L (39-117); Bilirubin,Total 0.2 mg/dL (0.1-1.0); Blood Urea Nitrogen 18 mg/dL (6-20); Calcium 8.3 mg/dL (8.6-10.4); Carbon Dioxide 35 mmol/L (22-30); Chloride 90 mmol/L (96-108); Globulin 2.5 gm/dL (2.2-3.7); Glomerular Filtration Rate 111; Glucose 105 mg/dL (70-105)
[2021-09-06] MEDS ORDERED: FUROSEMIDE 100 MG/10 ML VIAL IV ONE (03:38)
[2021-09-06] MEDS ORDERED: ONDANSETRON 4 MG/2 ML VIAL IV PRN (07:29)
[2021-09-06] MEDS ORDERED: MAG HYDROX/AL HYDROX/SIMETH 30 ML ORAL.SUSP PO PRN (07:29)
[2021-09-06] MEDS ORDERED: ACETAMINOPHEN 650 MG SUPP.RECT PR PRN (07:29)
[2021-09-06] MEDS ORDERED: ACETAMINOPHEN 325 MG TABLET PO PRN (07:29)
[2021-09-06] MEDS: PANTOPRAZOLE 40 MG TABLET PO SCH (07:39)
[2021-09-06 08:39] LABS: ALT/SGPT 25 U/L (<40); AST/SGOT 22 U/L (<40); Albumin 3.8 gm/dL (3.2-5.2); Albumin/Globulin Ratio 1.5 (1.0-2.3); Alkaline Phosphatase 44 U/L (39-117); Bilirubin,Total 0.3 mg/dL (0.1-1.0); Blood Urea Nitrogen 16 mg/dL (6-20); Calcium 8.4 mg/dL (8.6-10.4); Carbon Dioxide 37 mmol/L (22-30); Chloride 88 mmol/L (96-108); Globulin 2.5 gm/dL (2.2-3.7); Glomerular Filtration Rate 111; Glucose 117 mg/dL (70-105)
--- NOTE | 2021-09-06 08:51 | XRay Report ---
. CLINICAL INFORMATION: Shortness of breath COMPARISON: 02/05/2020 and 08/30/2021 TECHNIQUE: PA and Lateral views FINDINGS: The heart size and pulmonary vasculature is accentuated by lordotic positioning, rightward rotation, suboptimal inspiratory result and portable technique. The mediastinum is unremarkable. Mild patchy airspace disease present in both mid and lower lungs with small right pleural effusion. IMPRESSION: Moderate vague patchy airspace disease developing in both mid and lower lungs. This likely represents infection or aspiration. Pulmonary edema from CHF is possible. Suggest patient return for two-view upright chest x-ray to better assess the heart size and pulmonary vessels. Interpreted and Authenticated by: Kamron Carrillo 09/06/21
[2021-09-06] MEDS ORDERED: FLUMAZENIL 0.1 MG/ML ML IV ONE ×2 (08:59→09:03)
[2021-09-06] MEDS: 0.9 % SODIUM CHLORIDE 10 ML SYRINGE IV SCH ×3 (09:16→23:12)
[2021-09-06] MEDS: ENOXAPARIN 40 MG/0.4 ML SYRINGE SQ SCH (09:28)
[2021-09-06] MEDS: IPRATROPIUM/ALBUTEROL 3 ML AMPUL.NEB NEB SCH ×4 (10:17→22:26)
--- NOTE | 2021-09-06 11:49 | Internal Med History&Physical ---
HPI History of Present Illness Patient information: Note initiated : 09/06/21 at 11:45 am Service Date, if different from initiated Date: [] Patient: Tae Esquivel 51 y/o M admitted on 09/06/21 for low o2 sats pt. is very drowzy. Chief Complaint: [] Chief complaint: obtundation History of present illness: This is a 51-year-old gentleman with a history of's psychiatric illness ? Schizoaffective disorder and bipolar disorder. History of COPD recent episode of pneumonia and COPD exacerbation continued smoking on multiple antipsychotics and benzodiazepines lives in a intermediate was brought to the emergency room because of hypoxia patient appears to be obtunded in the emergency room given Narcan which did not improve his mentation but given flumazenil and patient was able to respond to verbal commands. His PCO2 in the emergency room showed more than 100 and patient was put on BiPAP for COPD exacerbation and possible drug- induced hypercapnia. Patient will be admitted to the ICU for hypercapnic respiratory failure acute encephalopathy Review of Systems ROS unobtainable: due to mental status PFSH PFSH All Active Problems (Updated 09/06/21 @ 07:46 by Jaquan Byrd MD) Benzodiazepine overdose (Acute) Acute exacerbation of CHF (congestive heart failure) (Acute) Acute exacerbation of chronic obstructive pulmonary disease (Acute) COPD exacerbation (Acute) Cellulitis (Acute) Pneumonia (Acute) Acute hyponatremia (Acute) Failure of outpatient treatment (Acute) Claudication in peripheral vascular disease (Acute) Peripheral artery disease (Acute) Bilateral pneumonia (Acute) Acute hyponatremia (Acute) Acute bronchospasm (Acute) Schizoaffective disorder (Acute) Peripheral neuropathy (Acute) Acute dyspnea (Acute) Acute exacerbation of chronic obstructive pulmonary disease (Acute) Hypoxia (Acute) Pneumonia (Acute) CHF exacerbation (Acute) Hyponatremia (Acute) Current smoker (Acute) Acute and chronic respiratory failure with hypoxia (Acute) COPD exacerbation (Acute) Left leg cellulitis (Acute) Cellulitis (Acute) Laceration (Acute) Pneumonia (Acute) MEDS/ALLERGIES Home Medications and Allergies Home Medications Medication Instructions Recorded Confirmed Type albuterol sulfate 90 mcg/actuation 2 puff INHALATION PRN PRN 01/24/21 08/30/21 History aerosol inhaler budesonide-formoterol HFA 80 2 puff INHALATION BID 01/24/21 08/30/21 History mcg-4.5 mcg/actuation aerosol inhaler cyclobenzaprine 10 mg tablet 10 mg PO BIDP PRN 01/24/21 08/30/21 History divalproex 500 mg tablet,extended 2,000 mg PO QDAY 01/24/21 08/30/21 History release 24 hr gabapentin 300 mg capsule 300 mg PO TID 01/24/21 08/30/21 History ipratropium 0.5 mg-albuterol 3 mg 3 ml INHALATION Q4H PRN 01/24/21 08/30/21 History (2.5 mg base)/3 mL nebulization soln lisinopril 20 mg tablet 20 mg PO QDAY 01/24/21 08/30/21 History lorazepam 1 mg tablet 1 mg PO TID PRN 01/24/21 08/30/21 History trazodone 100 mg tablet 100 mg PO QHS 01/24/21 08/30/21 History ziprasidone HCl 80 mg capsule 160 mg PO HS 01/24/21 08/30/21 History citalopram 20 mg tablet 1 tab PO QDAY 07/23/21 08/30/21 History furosemide 40 mg tablet 1 tab PO QDAY 07/23/21 08/30/21 History zolpidem 10 mg tablet 1 tab PO HS 07/23/21 08/30/21 History albuterol sulfate 2.5 mg (3 mL) INHALATION Q4H PRN 08/06/21 08/30/21 Rx #75 ml epinephrine 0.3 mg/0.3 mL 0.3 ml IM PRN PRN 08/19/21 08/30/21 History injection, auto-injector (EpiPen) folic acid 1 mg tablet 1 tab PO QDAY 08/19/21 08/30/21 History benzonatate 100 mg capsule 100 mg PO TIDP PRN #30 cap 08/22/21 08/30/21 Rx nicotine 21 mg/24 hr daily 21 mg TOPICAL DAILY@1000 #28 ea 08/22/21 08/30/21 Rx transdermal patch budesonide-formoterol HFA 80 2 puff INHALATION BID 08/30/21 08/30/21 History mcg-4.5 mcg/actuation aerosol inhaler (Symbicort) bupropion HCl 150 mg tablet,12 hr 150 mg PO QDAY 08/30/21 08/30/21 History sustained-release cilostazol 100 mg tablet 100 mg PO BID 08/30/21 08/30/21 History ibuprofen 800 mg tablet 800 mg PO Q8H PRN 08/30/21 08/30/21 History olanzapine 5 mg tablet 5 mg PO QHS 08/30/21 08/30/21 History tiotropium bromide 18 mcg capsule 1 cap INHALATION QDAY 08/30/21 08/30/21 History with inhalation device (Spiriva with HandiHaler) buprenorphine 2 mg-naloxone 0.5 mg 1 tab SUBLINGUAL BID 08/31/21 08/31/21 History sublingual tablet clonazepam 1 mg tablet 1 mg PO TID 08/31/21 08/31/21 History amoxicillin 875 mg-potassium 1 tab PO BID #5 tab 09/01/21 Rx clavulanate 125 mg tablet prednisone 10 mg tablet 40 mg PO QDAY #1 tab 09/01/21 Rx Allergies Allergy/AdvReac Type Severity Reaction Status Date / Time bee venom protein (honey bee) Allergy Severe Anaphylaxis Verified 08/03/21 19:51 beeswax Allergy Severe Anaphylaxis Verified 08/03/21 19:51 vancomycin Allergy Severe Anaphylaxis Verified 08/03/21 19:51 Sulfa (Sulfonamide AdvReac Intermediate Wheezing Verified 08/03/21 19:51 Antibiotics) EXAM Constitutional Vitals: Pulse Resp BP Pulse Ox 87 13 148/82 96 09/06/21 11:29 09/06/21 11:29 09/06/21 10:01 09/06/21 11:29 Exam: obtunded , respond to pain Head Head exam: Present atraumatic, normal inspection and normocephalic Expanded Head Exam Head exam: Absent abrasion, Loyd's sign, contusion, CSF rhinorrhea, general tenderness or occipital foramen tenderness Eye Eye exam: Present normal appearance; Absent conjunctival injection or scleral icterus ENT ENT exam: Present mucous membranes dry and normal oropharynx Expanded ENT Exam Ear exam: Absent auricular hematoma or auricular trauma Neck Neck exam: Present normal inspection; Absent meningismus or tenderness Respiratory Respiratory exam: Present decreased breath sounds, rhonchi and wheezes; Absent accessory muscle use or chest wall tenderness Cardiovascular Cardiovascular exam: Present normal rate and rhythm; Absent bradycardia or irregular rhythm GI/Abdominal GI/Abdominal exam: Present normal bowel sounds and soft; Absent distended Expanded Upper Extremity Exam General: Present abrasion; Absent laceration Back Exam Back exam: Present normal inspection; Absent CVA tenderness (L) or CVA tenderness (R) Expanded Neurological Exam Patient oriented to: Absent person, place or time Psychiatric Psychiatric exam: Absent agitated or anxious DATA Data Completed and Pending Labs: Labs from last 24 hours 09/06/21 09/06/21 09/06/21 10:45 07:47 07:47 WBC RBC Hgb Hct MCV MCH MCHC RDW Plt Count MPV Neut % (Auto) Lymph % (Auto) [place] % (Auto) Eos % (Auto) Baso % (Auto) Lymph # (Auto) [place] # (Auto) Eos # (Auto) Baso # (Auto) Absolute Neutrophils POC pH 7.23 L POC pCO2 107.6 H* POC pO2 65 L POC HCO3 44.9 H POC Total CO2 48.0 H* POC ABG Base Excess 17.0 H Hgb O2 Saturation 85.0 L Sodium 131 L Potassium 4.3 Chloride 88 L Carbon Dioxide 37 H Anion Gap 6.0 L BUN 16 Creatinine 0.7 GFR Calculation 111 Glucose 117 H POC Arterial Lactate 0.3 L Calcium 8.4 L Total Bilirubin 0.3 AST 22 ALT 25 Alkaline Phosphatase 44 Troponin T < 0.01 NT-Pro-B Natriuret Pep Total Protein 6.3 Albumin 3.8 Globulin 2.5 Albumin/Globulin Ratio 1.5 09/06/21 09/05/21 09/05/21 07:09 22:39 22:39 WBC 10.6 RBC 4.65 Hgb 14.4 Hct 43.6 MCV 93.8 MCH 31.0 MCHC 33.0 RDW 15.1 H Plt Count 211 MPV 8.9 Neut % (Auto) 65.3 Lymph % (Auto) 24.3 [place] % (Auto) 9.7 Eos % (Auto) 0.4 Baso % (Auto) 0.3 Lymph # (Auto) 2.57 [place] # (Auto) 1.03 H Eos # (Auto) 0.04 Baso # (Auto) 0.03 Absolute Neutrophils 6.92 POC pH 7.24 L POC pCO2 103.2 H* POC pO2 138 H POC HCO3 44.1 H POC Total CO2 47.0 H* POC ABG Base Excess 17.0 H Hgb O2 Saturation 98.0 H Sodium 131 L Potassium 4.6 Chloride 90 L Carbon Dioxide 35 H Anion Gap 6.0 L BUN 18 Creatinine 0.7 GFR Calculation 111 Glucose 105 POC Arterial Lactate 0.3 L Calcium 8.3 L Total Bilirubin 0.2 AST 25 ALT 25 Alkaline Phosphatase 39 Troponin T NT-Pro-B Natriuret Pep 1389.0 H Total Protein 5.8 L Albumin 3.3 Globulin 2.5 Albumin/Globulin Ratio 1.3 A/P Narrative A/P Narrative: Acute hypercapnic respiratory failure Possible drug-induced and COPD exacerbation Patient has history of multiple psychiatric illness lives in a intermediate and takes lorazepam Ambien and other antipsychotics Patient obtunded in the emergency room, did not respond to Narcan but responded to flumazenil which indicated possible underlying benzodiazepine sedation Continue flumazenil 1 more dose Continue BiPAP Continue monitoring PCO2 If his PCO2 continues to climb up the needs to consider mechanical ventilation Continue COPD protocol Acute encephalopathy Possibly drug-induced and or hypercapnia Monitor closely frequent ABG Monitor neuro status No evidence of any focal deficit COPD exacerbation We will start the patient on COPD protocol with a medical prednisone DuoNebs every 4 hours Zosyn every 8 hourly Continued smoking history and recurrent hospital admissions Underlying psychotic disorders and bipolar disorder No clear diagnosis Patient unable to provide any history We will hold all his medications for now because of the respiratory failure Time Spent With Patient Time: Total time spent is greater than 50% in coordination of care (as documented) at patient's floor/unit and/or counseling patient: Critical Care Time: Yes Total Critical Care Time: 60 Attestation: Total critical care time spent 60 minutes CPT code 81001 QUALITY VTE Deep Vein Thrombosis/Pulmonary Embolism Present on Admission: No
[2021-09-06] MEDS: PIPERACILLIN SODIUM/TAZOBACTAM 3.375 GM in DEXTROSE 5% IN WATER 50 ML IV SCH ×2 (12:08→20:39)
[2021-09-06] MEDS: methylPREDNISolone SOD SUCC 125 MG/2 ML VIAL IV SCH ×3 (12:13→23:25)
[2021-09-06] MEDS ORDERED: ALBUTEROL SULFATE 2.5 MG/3 ML NEBULIZER ONE ×2 (13:18→14:33)
[2021-09-06] MEDS ORDERED: ALBUTEROL SULFATE 5 MG/ML NEB SOLUTION BOTTLE NEB ONE ×2 (13:30→14:20)
[2021-09-06] MEDS ORDERED: ROCURONIUM 10 MG/ML ML IV ONE ×2 (13:33→14:36)
[2021-09-06] MEDS ORDERED: fentaNYL 100 MCG/2 ML VIAL IV ONE (13:33)
[2021-09-06] MEDS ORDERED: LIDOCAINE HCL/PF 100 MG/5 ML SYRINGE IV ONE (13:33)
[2021-09-06] MEDS ORDERED: PROPOFOL 200 MG/20 ML VIAL IV ONE (13:33)
[2021-09-06] MEDS ORDERED: KETAMINE 50 MG/ML Syringe (ANEST) IV ONE (13:33)
[2021-09-06] MEDS: PROPOFOL 1,000 MG in PREMIX 1 BAG IV SCH ×2 (13:58→20:38)
[2021-09-06] MEDS ORDERED: fentaNYL 2,500 MCG in 0.9 % SODIUM CHLORIDE 200 ML IV SCH (14:00)
[2021-09-06] MEDS ORDERED: ETOMIDATE 20 MG/10 ML VIAL IV ONE (14:36)
--- NOTE | 2021-09-06 14:54 | XRay Report ---
CLINICAL INFORMATION: Endotracheal tube placement COMPARISON: 09/05/2021 TECHNIQUE: PA and Lateral views FINDINGS: Endotracheal tip is 5.5 cm above the johnny. OG tube extends off the film at lease to the gastric body. The heart size, mediastinum and pulmonary vessels are unremarkable. Moderate patchy infiltrates in the left mid and both lower lungs noted. Small bilateral pleural effusions are present. IMPRESSION: Moderate patchy infiltrates left mid and both lower lungs. Consider infection or aspiration. Endotracheal tip 5.5 centers above the johnny. OG tube optimize the film Coreen gastric body Interpreted and Authenticated by: Kamron Carrillo 09/06/21
[2021-09-06 17:30] LABS: Amphetamine Screen,Urine None detected; Barbiturate Screen,Urine None detected; Benzodiazepines Screen,Urine Suspect positive; Cannabinoid Screen,Urine Suspect Positive; Cocaine Screen,Urine None detected; Opiate Screen,Urine None detected; Oxycodone, Urine Screen None detected; Phencyclidine Screen,Urine None detected
[2021-09-06] MEDS: CHLORHEXIDINE GLUCONATE 1 ML ORAL.SOL SWABMOUTH SCH (21:34)
[2021-09-07] MEDS: PROPOFOL 1,000 MG in PREMIX 1 BAG IV SCH ×3 (00:55→08:22)
[2021-09-07] MEDS: IPRATROPIUM/ALBUTEROL 3 ML AMPUL.NEB NEB SCH ×6 (02:55→22:52)
[2021-09-07] MEDS: methylPREDNISolone SOD SUCC 125 MG/2 ML VIAL IV SCH ×4 (05:16→23:36)
[2021-09-07] MEDS: 0.9 % SODIUM CHLORIDE 10 ML SYRINGE IV SCH ×4 (05:17→23:36)
[2021-09-07] MEDS: PIPERACILLIN SODIUM/TAZOBACTAM 3.375 GM in DEXTROSE 5% IN WATER 50 ML IV SCH ×3 (05:17→21:20)
[2021-09-07] MEDS: PANTOPRAZOLE 40 MG TABLET PO SCH (07:02)
[2021-09-07] MEDS ORDERED: PANTOPRAZOLE 40 MG PACKET PT SCH (07:30)
[2021-09-07] MEDS: ENOXAPARIN 40 MG/0.4 ML SYRINGE SQ SCH (08:19)
[2021-09-07] MEDS: CHLORHEXIDINE GLUCONATE 1 ML ORAL.SOL SWABMOUTH SCH ×2 (08:20→20:56)
--- NOTE | 2021-09-07 09:10 | XRay Report ---
CLINICAL INFORMATION: Hypoxia COMPARISON: 09/06/2021 TECHNIQUE: PA and Lateral views FINDINGS: Endotracheal tube is 6 cm above the johnny. OG tube extends off the edge of the film-at least in the gastric body. Cardiomediastinal silhouette and pulmonary vessels are normal. Moderate, yet vague, mixed interstitial/alveolar airspace disease in both mid and lower lungs again noted. Progression on the right with slight improvement on the left. Small right pleural effusion. IMPRESSION: Moderate, yet vague, mixed interstitial/alveolar airspace disease in both mid and lower lungs. There has been slight progression on the right yet slight improvement on the left since yesterday's exam. Consider infection, aspiration or atypical ARDS Interpreted and Authenticated by: Kamron Carrillo 09/07/21
[2021-09-07 10:37] LABS: Basophils # (Auto) 0.01 K/mcL (0.00-0.30); Basophils % (Auto) 0.1 % (0.0-2.0); Eosinophils # (Auto) 0 K/mcL (0.00-0.70); Eosinophils % (Auto) 0 % (0.0-7.0); Hematocrit 41.5 % (40.1-51.0); Hemoglobin 13.7 g/dL (13.7-17.5); Mean Cell Volume 92.6 fL (80.0-100.0); Mean Platelet Volume 9.2 fL (7.4-10.4); Monocytes # (Auto) 0.41 K/mcL (0.10-0.90); Neutrophils % (Auto) 88.9 % (38.0-78.0); Platelet Count 223 K/mcL (140-440); RBC 4.48 M/mcL (4.63-6.08); Red Cell Distribution Width 14.6 % (11.5-14.5); WBC 8.3 K/mcL (4.5-11.0)
[2021-09-07 11:17] LABS: ALT/SGPT 18 U/L (<40); AST/SGOT 20 U/L (<40); Albumin 3.1 gm/dL (3.2-5.2); Albumin/Globulin Ratio 1.3 (1.0-2.3); Alkaline Phosphatase 34 U/L (39-117); Bilirubin,Direct < 0.2 mg/dL (0-0.3); Bilirubin,Total 0.4 mg/dL (0.1-1.0); Blood Urea Nitrogen 15 mg/dL (6-20); Calcium 8.7 mg/dL (8.6-10.4); Carbon Dioxide 37 mmol/L (22-30); Chloride 91 mmol/L (96-108); Globulin 2.4 gm/dL (2.2-3.7); Glomerular Filtration Rate 118; Glucose 131 mg/dL (70-105); Lactate Dehydrogenase 223 U/L (135-225); Phosphorous 4.2 mg/dL (2.5-4.5); Triglycerides 77 mg/dL (<150); Uric Acid 4.8 mg/dL (2.5-8.0)
[2021-09-07] MEDS ORDERED: OLANZapine 5 MG TABLET PO PRN (12:26)
[2021-09-07] MEDS ORDERED: NICOTINE 21 MG PATCH TOPICAL ONE (13:21)
[2021-09-07] MEDS: GABAPENTIN 300 MG CAPSULE PO SCH ×2 (14:22→20:48)
[2021-09-07] MEDS: QUEtiapine 25 MG TABLET PO PRN ×2 (14:22→20:48)
[2021-09-07] MEDS: BUPRENORPHINE NALOXONE SL SCH (20:47)
[2021-09-07] MEDS: BUDESONIDE FORMOTEROL INH SCH (20:48)
[2021-09-07] MEDS ORDERED: DIVALPROEX SODIUM 250 MG TABLET PO SCH (21:00)
--- NOTE | 2021-09-07 21:28 | Internal Med Progress Note ---
SUBJECTIVE Subjective Patient information: Note initiated : 09/07/21 at 9:26 pm Service Date, if different from initiated Date: [] Patient: Tae Esquivel 51 y/o M admitted on 09/06/21 for low o2 sats pt. is very drowzy. Chief Complaint: [] Interval history: 51-year-old gentleman with a history of's psychiatric illness ? Schizoaffective disorder and bipolar disorder. History of COPD recent episode of pneumonia and COPD exacerbation continued smoking on multiple antipsychotics and benzodiazepines lives in a alf was brought to the emergency room because of hypoxia patient appears to be obtunded in the emergency room given Narcan which did not improve his mentation but given flumazenil and patient was able to respond to verbal commands. His PCO2 in the emergency room showed more than 100 and patient was put on BiPAP for COPD exacerbation and possible drug-induced hypercapnia. Patient will be admitted to the ICU for hypercapnic respiratory failure acute encephalopathy This afternoon patient continued having worsening hypercapnic respiratory failure even after BiPAP and ABG showing progressive worsening of PCO2 patient remained obtunded and started having aspiration. Patient unable to maintain the airway needing immediate intubation. On-call anesthesiologist called and underwent rapid sequence intubation with propofol and rocuronium. Patient maintaining oxygenation postintubation order chest x-ray ABG and will start him on propofol for sedation and fentanyl for analgesia as needed. Hypercapnic respiratory failure needing mechanical ventilation Possible medication induced and COPD exacerbation Continue monitoring oxygenation and end-tidal CO2 chest x-ray and ABG as needed Continue Zosyn Continue IV fluids Sputum gram stain culture ordered Continue Solu-Medrol 09/07 Patient maintaining oxygenation on 45% FiO2 ABG showing significant improvement his PCO2 improved patient has chronic hypercapnia with a renal compensation. We turned off the sedation and patient was alert oriented following commands had good respiratory effort and patient was extubated successfully and needing 1 to 2 L of nasal cannula oxygen able to follow commands Immediately after extubation patient started asking about clonazepam Seroquel Suboxone. He discontinued clonazepam at this might be mostly contributing to his obtundation along with the Zyprexa and other antipsychotics. Educated the patient's about the importance of judicious medication use. Constitutional Vitals: Vital Signs Temp Pulse Resp BP Pulse Ox 98.2 F 86 18 126/68 94 09/07/21 19:01 09/07/21 19:16 09/07/21 19:16 09/07/21 20:01 09/07/21 20:01 Period Temp Pulse Resp BP Sys/Banks Pulse Ox Last 24 Hr 97.4 F-98.2 F 42-89 12- 97-139/58-79 88-100 Intake and Output 09/07/21 09/07/21 09/07/21 05:59 13:59 21:59 Intake Total 935 129 5394 Output Total 670 1091 320 Balance -386 -144 1490 Weight 221 lb 6 oz Patient Weight 09/08/21 05:59 Weight 221 lb 6 oz Intake & Output: Intake & Output 09/07/21 09/07/21 09/07/21 05:59 13:59 21:59 Intake Total 207 190 6229 Output Total 670 1091 320 Balance -386 -144 1490 Weight 221 lb 6 oz Intake: IV 284 227 50 Zosyn 3.375 gm In Dextrose 5% 50 50 50 in Water 50 ml @ 100 mls/hr IV Q8H [facility] Rx#:[id number] Diprivan 1,000 mg In Premix 1 185 140 Bag @ 5 MCG/KG/MIN 3.538 mls/hr IV .Q24H [facility] Rx#:[id number] fentaNYL 2,500 MCG In Sodium 49 37 Chloride 0.9% 200 ml @ 25 MCG/ HR 2.5 mls/hr IV Q24H [facility] Rx#: [id number] Oral 720 1760 Output: Gastric Drainage 600 NG/OG 600 Urine Catheter Amount 670 371 Void Amount 120 320 Other: Meal Dinner Percent of Meal Consumed 100% Urine Appearance Clear Clear Clear Uretheral ([place]) Clear Urine Color Tea Colored Dark Yellow Dark Yellow Uretheral ([place]) Dark Yellow Urine Odor Normal # Bowel Movements 1 General appearance: cooperative and no acute distress Head Head exam: Present atraumatic, normal inspection and normocephalic Eye Eye exam: Present EOMI; Absent periorbital swelling or scleral icterus ENT ENT exam: Present mucous membranes moist Neck Neck exam: Present full ROM and normal inspection; Absent tenderness Respiratory Respiratory exam: Present rales and wheezes; Absent accessory muscle use Cardiovascular Cardiovascular exam: Absent bradycardia, gallop or RRR GI/Abdominal GI/Abdominal exam: Present normal bowel sounds and soft; Absent distended, guarding or hypoactive bowel sounds Neurological Exam Neurological exam: Present alert, oriented X3 and reflexes normal; Absent motor sensory deficit Psychiatric Psychiatric exam: Present anxious OBJ DATA Labs CBC & Chem 7: 09/07/21 09:55 09/07/21 09:55 Labs: Abnormal Lab Results 09/07/21 09/07/21 09/07/21 09:55 09:55 08:02 RBC 4.48 L RDW 14.6 H Neut % (Auto) 88.9 H Lymph % (Auto) 6.0 L Lymph # (Auto) 0.50 L [place] # (Auto) POC pH 7.49 H POC pCO2 55.4 H* POC pO2 67 L POC HCO3 42.5 H POC Total CO2 44.0 H* POC ABG Base Excess 19.0 H Hgb O2 Saturation Sodium Chloride 91 L Carbon Dioxide 37 H Anion Gap 6.0 L Creatinine 0.6 L Glucose 131 H POC Arterial Lactate Calcium Alkaline Phosphatase 34 L NT-Pro-B Natriuret Pep Total Protein 5.5 L Albumin 3.1 L U Benzodiazepines Scrn U Marijuana (THC) Screen 09/06/21 09/06/21 09/06/21 21:49 17:16 16:20 RBC RDW Neut % (Auto) Lymph % (Auto) Lymph # (Auto) [place] # (Auto) POC pH POC pCO2 67.3 H* 77.7 H* POC pO2 102 H 42 L* POC HCO3 42.9 H 45.3 H POC Total CO2 45.0 H* 48.0 H* POC ABG Base Excess 18.0 H 20.0 H Hgb O2 Saturation 98.0 H 73.0 L Sodium Chloride Carbon Dioxide Anion Gap Creatinine Glucose POC Arterial Lactate Calcium Alkaline Phosphatase NT-Pro-B Natriuret Pep Total Protein Albumin U Benzodiazepines Scrn Suspect positive A U Marijuana (THC) Screen Suspect positive A 09/06/21 09/06/21 09/06/21 15:26 13:10 10:45 RBC RDW Neut % (Auto) Lymph % (Auto) Lymph # (Auto) [place] # (Auto) POC pH 7.26 L 7.16 L* 7.23 L POC pCO2 101.9 H* 125.9 H* 107.6 H* POC pO2 344 H 65 L POC HCO3 45.4 H 45.4 H 44.9 H POC Total CO2 48.0 H* 49.0 H* 48.0 H* POC ABG Base Excess 18.0 H 17.0 H 17.0 H Hgb O2 Saturation 100.0 H 93.0 L 85.0 L Sodium Chloride Carbon Dioxide Anion Gap Creatinine Glucose POC Arterial Lactate 0.4 L < 0.3 L 0.3 L Calcium Alkaline Phosphatase NT-Pro-B Natriuret Pep Total Protein Albumin U Benzodiazepines Scrn U Marijuana (THC) Screen 09/06/21 09/06/21 09/05/21 07:47 07:09 22:39 RBC RDW Neut % (Auto) Lymph % (Auto) Lymph # (Auto) [place] # (Auto) POC pH 7.24 L POC pCO2 103.2 H* POC pO2 138 H POC HCO3 44.1 H POC Total CO2 47.0 H* POC ABG Base Excess 17.0 H Hgb O2 Saturation 98.0 H Sodium 131 L 131 L Chloride 88 L 90 L Carbon Dioxide 37 H 35 H Anion Gap 6.0 L 6.0 L Creatinine Glucose 117 H POC Arterial Lactate 0.3 L Calcium 8.4 L 8.3 L Alkaline Phosphatase NT-Pro-B Natriuret Pep 1389.0 H Total Protein 5.8 L Albumin U Benzodiazepines Scrn U Marijuana (THC) Screen 09/05/21 22:39 RBC RDW 15.1 H Neut % (Auto) Lymph % (Auto) Lymph # (Auto) [place] # (Auto) 1.03 H POC pH POC pCO2 POC pO2 POC HCO3 POC Total CO2 POC ABG Base Excess Hgb O2 Saturation Sodium Chloride Carbon Dioxide Anion Gap Creatinine Glucose POC Arterial Lactate Calcium Alkaline Phosphatase NT-Pro-B Natriuret Pep Total Protein Albumin U Benzodiazepines Scrn U Marijuana (THC) Screen Meds: Medications Acetaminophen (Acetaminophen 325 Mg Tablet) 650 mg PO Q4-6HP PRN; Protocol PRN Reason: Per Pain Protocol/Fever > 101 Acetaminophen (Acetaminophen 650 Mg Supp.Rect) 650 mg RI Q4-6HP PRN; Protocol PRN Reason: Per Pain Protocol/Fever > 101 Al Hydrox/Mg Hydrox/Simethicone (Mag Hydrox/Al Hydrox/Simeth 30 Ml Oral.Susp) 30 ml PO Q4-6HP PRN PRN Reason: Dyspepsia Albuterol/Ipratropium (Ipratropium/Albuterol 3 Ml Ampul.Neb) 3 ml NEB Q4HRT [facility] Last Admin: 09/07/21 18:45 Dose: 3 ml Documented by: Bupropion HCl (Bupropion 150 Mg Tab.Sr.12h) 150 mg PO QDAY [facility] Chlorhexidine Gluconate (Chlorhexidine Gluconate 1 Ml Oral.Erika) 15 ml SWABMOUTH BID [facility] Last Admin: 09/07/21 20:56 Dose: Not Given Documented by: Citalopram Hydrobromide (Citalopram 20 Mg Tablet) 20 mg PO QDAY [facility] Divalproex Sodium (Divalproex Sodium 250 Mg Tablet) 2,000 mg PO HS [facility] Last Admin: 09/07/21 20:48 Dose: 2,000 mg Documented by: Enoxaparin Sodium (Enoxaparin 40 Mg/0.4 Ml Syringe) 40 mg SQ DAILY [facility] Last Admin: 09/07/21 08:19 Dose: 40 mg Documented by: Gabapentin (Gabapentin 300 Mg Capsule) 600 mg PO TID [facility] Last Admin: 09/07/21 20:48 Dose: 600 mg Documented by: Piperacillin Sod/Tazobactam (Sod 3.375 gm/ Dextrose) 50 mls @ 100 mls/hr IV Q8H [facility]; Protocol Last Admin: 09/07/21 21:20 Dose: 100 mls/hr Documented by: Methylprednisolone Sodium Succinate (Methylprednisolone Sod Succ 125 Mg/2 Ml Vial) 62.5 mg IV Q6 [facility] Last Admin: 09/07/21 18:00 Dose: 62.5 mg Documented by: Nicotine (Nicotine 21 Mg Patch) 21 mg TOPICAL DAILY@1000 [facility] Olanzapine (Olanzapine 5 Mg Tablet) 5 mg PO QHS PRN PRN Reason: insomnia Ondansetron HCl (Ondansetron 4 Mg/2 Ml Vial) 4 mg IV Q4-6HP PRN; Protocol PRN Reason: Nausea And Vomiting Pantoprazole Sodium (Pantoprazole 40 Mg Tablet) 40 mg PO QAMAC [facility] Last Admin: 09/07/21 07:02 Dose: Not Given Documented by: Pantoprazole Sodium (Pantoprazole 40 Mg Packet) [facility] Last Admin: 09/07/21 08:20 Dose: 40 mg Documented by: Budesonide- Formoterol [ Symbicort] 80-4.5 Mcg 2 dose INH BID [facility] Last Admin: 09/07/21 20:48 Dose: 2 dose Documented by: Buprenorphine- Naloxone 2-0.5 Mg Tablet 1 dose SL BID [facility] Last Admin: 09/07/21 20:47 Dose: 1 dose Documented by: Ziprasidone Hcl 80 (Mg Capsule) 160 dose PO 1700 [facility] Last Admin: 09/07/21 17:07 Dose: 160 dose Documented by: Quetiapine Fumarate (Quetiapine 25 Mg Tablet) 50 mg PO TIDP PRN PRN Reason: Agitation Last Admin: 09/07/21 20:48 Dose: 50 mg Documented by: Sodium Chloride (0.9 % Sodium Chloride 10 Ml Syringe) 10 ml IV Q8 [facility] Last Admin: 09/07/21 21:21 Dose: 10 ml Documented by: A/P Narrative Plan of Treatment: Acute hypercapnic respiratory failure -requiring mechanical ventilation Extubated 09/07 Possible drug-induced and COPD exacerbation Patient has history of psychiatric illness on multiple anxiolytic, antipsychotic medications lives in a alf and takes lorazepam Ambien, Zyprexa, Seroquel, gabapentin clonazepam Patient obtunded in the emergency room, did not respond to Narcan but responded to flumazenil which indicated possible underlying benzodiazepine sedation During admission patient continued to be obtunded having worsening hypercapnia requiring mechanical ventilation Patient was intubated on 09/06/2021 around noon maintained on propofol and fentanyl for sedation analgesia Overnight patient's oxygenation and hypercapnia significantly improved ABG showing significant improvement and patient was extubated Continue monitoring PCO2 Continue COPD protocol Acute encephalopathy-improved Possibly drug-induced and or hypercapnia Monitor closely frequent ABG Monitor neuro status No evidence of any focal deficit COPD exacerbation Possible aspiration pneumonitis We will start the patient on COPD protocol with a medical prednisone DuoNebs every 4 hours Zosyn every 8 hourly Continued smoking history and recurrent hospital admissions Schizoaffective disorder Patient take multiple anxiolytic and antipsychotic medication and presented with obtundation and needing mechanical ventilation Will try to avoid benzodiazepines Patient already taking Zyprexa, Seroquel 3 times daily, gabapentin and Suboxone We will use IM Haldol for agitations Time Spent With Patient Time: Total time spent is greater than 50% in coordination of care (as documented) at patient's floor/unit and/or counseling patient: Critical Care Time: Yes Total Critical Care Time: 50 QUALITY VTE Deep Vein Thrombosis/Pulmonary Embolism Present on Admission: No
[2021-09-08] MEDS: IPRATROPIUM/ALBUTEROL 3 ML AMPUL.NEB NEB SCH ×3 (02:26→11:19)
[2021-09-08] MEDS: methylPREDNISolone SOD SUCC 125 MG/2 ML VIAL IV SCH ×2 (05:32→11:54)
[2021-09-08] MEDS: PIPERACILLIN SODIUM/TAZOBACTAM 3.375 GM in DEXTROSE 5% IN WATER 50 ML IV SCH (05:32)
[2021-09-08] MEDS: 0.9 % SODIUM CHLORIDE 10 ML SYRINGE IV SCH (05:33)
[2021-09-08 06:14] LABS: Basophils # (Auto) 0 K/mcL (0.00-0.30); Basophils % (Auto) 0 % (0.0-2.0); Eosinophils # (Auto) 0 K/mcL (0.00-0.70); Eosinophils % (Auto) 0 % (0.0-7.0); Hematocrit 41.7 % (40.1-51.0); Hemoglobin 14.1 g/dL (13.7-17.5); Lymphocytes # (Auto) 0.48 K/mcL (1.50-4.80); Lymphocytes % (Auto) 5.4 % (15.5-49.0); Mean Cell Volume 90.8 fL (80.0-100.0); Mean Corpuscular HGB Conc 33.8 g/dL (31.0-36.0); Mean Platelet Volume 9.1 fL (7.4-10.4); Monocytes # (Auto) 0.66 K/mcL (0.10-0.90); Monocytes % (Auto) 7.4 % (1.0-12.0); Neutrophils % (Auto) 87.2 % (38.0-78.0); Platelet Count 231 K/mcL (140-440); RBC 4.59 M/mcL (4.63-6.08); Red Cell Distribution Width 14.6 % (11.5-14.5)
[2021-09-08] MEDS: PANTOPRAZOLE 40 MG TABLET PO SCH (06:24)
[2021-09-08 06:39] LABS: ALT/SGPT 21 U/L (<40); AST/SGOT 32 U/L (<40); Albumin 3.4 gm/dL (3.2-5.2); Albumin/Globulin Ratio 1.4 (1.0-2.3); Alkaline Phosphatase 39 U/L (39-117); Bilirubin,Direct < 0.2 mg/dL (0-0.3); Bilirubin,Total 0.3 mg/dL (0.1-1.0); Blood Urea Nitrogen 14 mg/dL (6-20); Calcium 8.5 mg/dL (8.6-10.4); Carbon Dioxide 31 mmol/L (22-30); Chloride 85 mmol/L (96-108); Globulin 2.4 gm/dL (2.2-3.7); Glomerular Filtration Rate 118; Glucose 137 mg/dL (70-105); Lactate Dehydrogenase 289 U/L (135-225); Triglycerides 82 mg/dL (<150)
[2021-09-08] MEDS: BUPRENORPHINE NALOXONE SL SCH (08:20)
[2021-09-08] MEDS: ENOXAPARIN 40 MG/0.4 ML SYRINGE SQ SCH (08:20)
[2021-09-08] MEDS: CHLORHEXIDINE GLUCONATE 1 ML ORAL.SOL SWABMOUTH SCH (08:21)
[2021-09-08] MEDS: GABAPENTIN 300 MG CAPSULE PO SCH (08:21)
[2021-09-08] MEDS: BUDESONIDE FORMOTEROL INH SCH (08:21)
[2021-09-08] MEDS: QUEtiapine 25 MG TABLET PO PRN (08:27)
[2021-09-08] MEDS ORDERED: buPROPion 150 MG TAB.SR.12H PO SCH (09:00)
[2021-09-08] MEDS ORDERED: CITALOPRAM 20 MG TABLET PO SCH (09:00)
--- NOTE | 2021-09-08 09:21 | XRay Report ---
. CLINICAL INFORMATION: Follow-up infiltrates COMPARISON: 12/24/2020 and 09/07/2021 TECHNIQUE: PA and Lateral views FINDINGS: The heart size, mediastinum and pulmonary vessels are unremarkable. Endotracheal and OG tubes are now out. The right lung infiltrate has almost totally cleared with minimal basilar residual. Left lung infiltrate has essentially cleared. Mild patchy airspace disease left base represents long-standing fibrosis. Small bilateral pleural effusions persist. IMPRESSION: Near complete resolution of bilateral mid and lower lung infiltrates with minimal bibasilar residual. Interpreted and Authenticated by: Kamron Carrillo 09/08/21
[2021-09-08] MEDS ORDERED: NICOTINE 21 MG PATCH TOPICAL SCH (10:00)
--- NOTE | 2021-09-08 11:31 | Discharge Summary ---
Discharge Provider Provider IMPORTANT FOLLOW-UP INFORMATION FOR PCP: Patient information: Note initiated : 09/08/21 at 11:29 am Service Date, if different from initiated Date: [] Patient: Tae Esquivel 51 y/o M admitted on 09/06/21 for low o2 sats pt. is very drowzy. Chief Complaint: [] Date of admission: 09/06/21 08:30 Discharge date: 09/08/21 Primary care physician: Rachel Stark PA-C Consults: 09/06/21 Consult to Physician [CONS] Stat Comment: Consulting Provider: Tamika Mills Reason For Exam: Physician to Consult Consult to Physician [CONS] Stat Comment: for admission. we already spoke Consulting Provider: Tamika Mills Reason For Exam: Physician to Consult COURSE Hospital Course Hospital course: 51-year-old gentleman with a history of's psychiatric illness ? Schizoaffective disorder and bipolar disorder. History of COPD recent episode of pneumonia and COPD exacerbation continued smoking on multiple antipsychotics and benzodiazepines lives in a residential was brought to the emergency room because of hypoxia patient appears to be obtunded in the emergency room given Narcan which did not improve his mentation but given flumazenil and patient was able to respond to verbal commands. His PCO2 in the emergency room showed more than 100 and patient was put on BiPAP for COPD exacerbation and possible drug-induced hypercapnia. Patient will be admitted to the ICU for hypercapnic respiratory failure acute encephalopathy This afternoon patient continued having worsening hypercapnic respiratory failure even after BiPAP and ABG showing progressive worsening of PCO2 patient remained obtunded and started having aspiration. Patient unable to maintain the airway needing immediate intubation. On-call anesthesiologist called and underwent rapid sequence intubation with propofol and rocuronium. Patient maintaining oxygenation postintubation order chest x-ray ABG and will start him on propofol for sedation and fentanyl for analgesia as needed. Hypercapnic respiratory failure needing mechanical ventilation Possible medication induced and COPD exacerbation Continue monitoring oxygenation and end-tidal CO2 chest x-ray and ABG as needed Continue Zosyn Continue IV fluids Sputum gram stain culture ordered Continue Solu-Medrol 09/07 Patient maintaining oxygenation on 45% FiO2 ABG showing significant improvement his PCO2 improved patient has chronic hypercapnia with a renal compensation. We turned off the sedation and patient was alert oriented following commands had good respiratory effort and patient was extubated successfully and needing 1 to 2 L of nasal cannula oxygen able to follow commands Immediately after extubation patient started asking about clonazepam Seroquel Suboxone. He discontinued clonazepam at this might be mostly contributing to his obtundation along with the Zyprexa and other antipsychotics. Educated the patient's about the importance of judicious medication use. 525 Patient is feeling better He has intermittent anxiety To be discontinued the clonazepam and cyclobenzaprine and trazodone due to sedative effects and respiratory failure with someone with a chronic hypercapnia I do not recommend this patient's to continue any benzodiazepines Patient has underlying schizoaffective disorder and this needs to be evaluated and recommend MD psychiatric's evaluation Patient will be discharged home continued prednisone, Augmentin and discontinued trazodone, clonazepam and cyclobenzaprine [facility]ivel [address] [place], [place] [address]DOB: 1970 [address]Service Date:09/05/21 Admit Date: 09/06/21 [place], [place] [id number] # [id number] Tamika Mills M.D. MR #: [id number] Internal Med Progress NoteSigned SUBJECTIVE Subjective Patient information: Note initiated : 09/07/21 at 9:26 pm Service Date, if different from initiated Date: [] Patient: Tae Esquivel 51 y/o M admitted on 09/06/21 for low o2 sats pt. is very drowzy. Chief Complaint: [] Interval history: 51-year-old gentleman with a history of's psychiatric illness ? Schizoaffective disorder and bipolar disorder. History of COPD recent episode of pneumonia and COPD exacerbation continued smoking on multiple antipsychotics and benzodiazepines lives in a residential was brought to the emergency room because of hypoxia patient appears to be obtunded in the emergency room given Narcan which did not improve his mentation but given flumazenil and patient was able to respond to verbal commands. His PCO2 in the emergency room showed more than 100 and patient was put on BiPAP for COPD exacerbation and possible drug-induced hypercapnia. Patient will be admitted to the ICU for hypercapnic respiratory failure acute encephalopathy This afternoon patient continued having worsening hypercapnic respiratory failure even after BiPAP and ABG showing progressive worsening of PCO2 patient remained obtunded and started having aspiration. Patient unable to maintain the airway needing immediate intubation. On-call anesthesiologist called and underwent rapid sequence intubation with propofol and rocuronium. Patient maintaining oxygenation postintubation order chest x-ray ABG and will start him on propofol for sedation and fentanyl for analgesia as needed. Hypercapnic respiratory failure needing mechanical ventilation Possible medication induced and COPD exacerbation Continue monitoring oxygenation and end-tidal CO2 chest x-ray and ABG as needed Continue Zosyn Continue IV fluids Sputum gram stain culture ordered Continue Solu-Medrol 09/07 Patient maintaining oxygenation on 45% FiO2 ABG showing significant improvement his PCO2 improved patient has chronic hypercapnia with a renal compensation. We turned off the sedation and patient was alert oriented following commands had good respiratory effort and patient was extubated successfully and needing 1 to 2 L of nasal cannula oxygen able to follow commands Immediately after extubation patient started asking about clonazepam Seroquel Suboxone. He discontinued clonazepam at this might be mostly contributing to his obtundation along with the Zyprexa and other antipsychotics. Educated the patient's about the importance of judicious medication use. Constitutional Vitals: Vital Signs Temp Pulse Resp BP Pulse Ox 98.2 F 86 18 126/68 94 09/07/21 19:01 09/07/21 19:16 09/07/21 19:16 09/07/21 20:01 09/07/21 20:01 Period Temp Pulse Resp BP Sys/Banks Pulse Ox Last 24 Hr 97.4 F-98.2 F 42-89 12-24 97-139/58-79 88-100 Intake and Output 09/07/21 09/07/21 09/07/21 05:59 13:59 21:59 Intake Total 736 627 5044 Output Total 670 1091 320 Balance -386 -144 1490 Weight 221 lb 6 oz Patient Weight 09/08/21 05:59 Weight 221 lb 6 oz Intake & Output: Intake & Output 09/07/21 09/07/21 09/07/21 05:59 13:59 21:59 Intake Total 685 845 4308 Output Total 670 1091 320 Balance -386 -144 1490 Weight 221 lb 6 oz Intake: IV 284 227 50 Zosyn 3.375 gm In Dextrose 5% 50 50 50 in Water 50 ml @ 100 mls/hr IV Q8H [facility] Rx#:[id number] Diprivan 1,000 mg In Premix 1 185 140 Bag @ 5 MCG/KG/MIN 3.538 mls/hr IV .Q24H [facility] Rx#:[id number] fentaNYL 2,500 MCG In Sodium 49 37 Chloride 0.9% 200 ml @ 25 MCG/ HR 2.5 mls/hr IV Q24H [facility] Rx#: [id number] Oral 720 1760 Output: Gastric Drainage 600 NG/OG 600 Urine Catheter Amount 670 371 Void Amount 120 320 Other: Meal Dinner Percent of Meal Consumed 100% Urine Appearance Clear Clear Clear Uretheral (Bonilla) Clear Urine Color Tea Colored Dark Yellow Dark Yellow Uretheral (Bonilla) Dark Yellow Urine Odor Normal # Bowel Movements 1 General appearance: cooperative and no acute distress Head Head exam: Present atraumatic, normal inspection and normocephalic Eye Eye exam: Present EOMI; Absent periorbital swelling or scleral icterus ENT ENT exam: Present mucous membranes moist Neck Neck exam: Present full ROM and normal inspection; Absent tenderness Respiratory Respiratory exam: Present rales and wheezes; Absent accessory muscle use Cardiovascular Cardiovascular exam: Absent bradycardia, gallop or RRR GI/Abdominal GI/Abdominal exam: Present normal bowel sounds and soft; Absent distended, guarding or hypoactive bowel sounds Neurological Exam Neurological exam: Present alert, oriented X3 and reflexes normal; Absent motor sensory deficit Psychiatric Psychiatric exam: Present anxious OBJ DATA Labs CBC & Chem 7: 09/07/21 09:55 document embedded image 09/07/21 09:55 document embedded image Labs: Abnormal Lab Results 09/07/21 09/07/21 09/07/21 09:55 09:55 08:02 RBC 4.48 L RDW 14.6 H Neut % (Auto) 88.9 H Lymph % (Auto) 6.0 L Lymph # (Auto) 0.50 L Wharton # (Auto) POC pH 7.49 H POC pCO2 55.4 H* POC pO2 67 L POC HCO3 42.5 H POC Total CO2 44.0 H* POC ABG Base Excess 19.0 H Hgb O2 Saturation Sodium Chloride 91 L Carbon Dioxide 37 H Anion Gap 6.0 L Creatinine 0.6 L Glucose 131 H POC Arterial Lactate Calcium Alkaline Phosphatase 34 L NT-Pro-B Natriuret Pep Total Protein 5.5 L Albumin 3.1 L U Benzodiazepines Scrn U Marijuana (THC) Screen 09/06/21 09/06/21 09/06/21 21:49 17:16 16:20 RBC RDW Neut % (Auto) Lymph % (Auto) Lymph # (Auto) Wharton # (Auto) POC pH POC pCO2 67.3 H* 77.7 H* POC pO2 102 H 42 L* POC HCO3 42.9 H 45.3 H POC Total CO2 45.0 H* 48.0 H* POC ABG Base Excess 18.0 H 20.0 H Hgb O2 Saturation 98.0 H 73.0 L Sodium Chloride Carbon Dioxide Anion Gap Creatinine Glucose POC Arterial Lactate Calcium Alkaline Phosphatase NT-Pro-B Natriuret Pep Total Protein Albumin U Benzodiazepines Scrn Suspect positive A U Marijuana (THC) Screen Suspect positive A 09/06/21 09/06/21 09/06/21 15:26 13:10 10:45 RBC RDW Neut % (Auto) Lymph % (Auto) Lymph # (Auto) Wharton # (Auto) POC pH 7.26 L 7.16 L* 7.23 L POC pCO2 101.9 H* 125.9 H* 107.6 H* POC pO2 344 H 65 L POC HCO3 45.4 H 45.4 H 44.9 H POC Total CO2 48.0 H* 49.0 H* 48.0 H* POC ABG Base Excess 18.0 H 17.0 H 17.0 H Hgb O2 Saturation 100.0 H 93.0 L 85.0 L Sodium Chloride Carbon Dioxide Anion Gap Creatinine Glucose POC Arterial Lactate 0.4 L < 0.3 L 0.3 L Calcium Alkaline Phosphatase NT-Pro-B Natriuret Pep Total Protein Albumin U Benzodiazepines Scrn U Marijuana (THC) Screen 09/06/21 09/06/21 09/05/21 07:47 07:09 22:39 RBC RDW Neut % (Auto) Lymph % (Auto) Lymph # (Auto) Wharton # (Auto) POC pH 7.24 L POC pCO2 103.2 H* POC pO2 138 H POC HCO3 44.1 H POC Total CO2 47.0 H* POC ABG Base Excess 17.0 H Hgb O2 Saturation 98.0 H Sodium 131 L 131 L Chloride 88 L 90 L Carbon Dioxide 37 H 35 H Anion Gap 6.0 L 6.0 L Creatinine Glucose 117 H POC Arterial Lactate 0.3 L Calcium 8.4 L 8.3 L Alkaline Phosphatase NT-Pro-B Natriuret Pep 1389.0 H Total Protein 5.8 L Albumin U Benzodiazepines Scrn U Marijuana (THC) Screen 09/05/21 22:39 RBC RDW 15.1 H Neut % (Auto) Lymph % (Auto) Lymph # (Auto) Wharton # (Auto) 1.03 H POC pH POC pCO2 POC pO2 POC HCO3 POC Total CO2 POC ABG Base Excess Hgb O2 Saturation Sodium Chloride Carbon Dioxide Anion Gap Creatinine Glucose POC Arterial Lactate Calcium Alkaline Phosphatase NT-Pro-B Natriuret Pep Total Protein Albumin U Benzodiazepines Scrn U Marijuana (THC) Screen Meds: Medications Acetaminophen (Acetaminophen 325 Mg Tablet) 650 mg PO Q4-6HP PRN; Protocol PRN Reason: Per Pain Protocol/Fever > 101 Acetaminophen (Acetaminophen 650 Mg Supp.Rect) 650 mg MO Q4-6HP PRN; Protocol PRN Reason: Per Pain Protocol/Fever > 101 Al Hydrox/Mg Hydrox/Simethicone (Mag Hydrox/Al Hydrox/Simeth 30 Ml Oral.Susp) 30 ml PO Q4-6HP PRN PRN Reason: Dyspepsia Albuterol/Ipratropium (Ipratropium/Albuterol 3 Ml Ampul.Neb) 3 ml NEB Q4HRT [facility] Last Admin: 09/07/21 18:45 Dose: 3 ml Documented by: Bupropion HCl (Bupropion 150 Mg Tab.Sr.12h) 150 mg PO QDAY [facility] Chlorhexidine Gluconate (Chlorhexidine Gluconate 1 Ml Oral.Erika) 15 ml SWABMOUTH BID [facility] Last Admin: 09/07/21 20:56 Dose: Not Given Documented by: Citalopram Hydrobromide (Citalopram 20 Mg Tablet) 20 mg PO QDAY [facility] Divalproex Sodium (Divalproex Sodium 250 Mg Tablet) 2,000 mg PO HS [facility] Last Admin: 09/07/21 20:48 Dose: 2,000 mg Documented by: Enoxaparin Sodium (Enoxaparin 40 Mg/0.4 Ml Syringe) 40 mg SQ DAILY [facility] Last Admin: 09/07/21 08:19 Dose: 40 mg Documented by: Gabapentin (Gabapentin 300 Mg Capsule) 600 mg PO TID [facility] Last Admin: 09/07/21 20:48 Dose: 600 mg Documented by: Piperacillin Sod/Tazobactam (Sod 3.375 gm/ Dextrose) 50 mls @ 100 mls/hr IV Q8H [facility]; Protocol Last Admin: 09/07/21 21:20 Dose: 100 mls/hr Documented by: Methylprednisolone Sodium Succinate (Methylprednisolone Sod Succ 125 Mg/2 Ml Vial) 62.5 mg IV Q6 [facility] Last Admin: 09/07/21 18:00 Dose: 62.5 mg Documented by: Nicotine (Nicotine 21 Mg Patch) 21 mg TOPICAL DAILY@1000 [facility] Olanzapine (Olanzapine 5 Mg Tablet) 5 mg PO QHS PRN PRN Reason: insomnia Ondansetron HCl (Ondansetron 4 Mg/2 Ml Vial) 4 mg IV Q4-6HP PRN; Protocol PRN Reason: Nausea And Vomiting Pantoprazole Sodium (Pantoprazole 40 Mg Tablet) 40 mg PO [facility] Last Admin: 09/07/21 07:02 Dose: Not Given Documented by: Pantoprazole Sodium (Pantoprazole 40 Mg Packet) 40 mg PT [facility] Last Admin: 09/07/21 08:20 Dose: 40 mg Documented by: Budesonide- Formoterol [ Symbicort] 80-4.5 Mcg 2 dose INH BID [facility] Last Admin: 09/07/21 20:48 Dose: 2 dose Documented by: Buprenorphine- Naloxone 2-0.5 Mg Tablet 1 dose SL BID [facility] Last Admin: 09/07/21 20:47 Dose: 1 dose Documented by: Ziprasidone Hcl 80 (Mg Capsule) 160 dose PO 1700 [facility] Last Admin: 09/07/21 17:07 Dose: 160 dose Documented by: Quetiapine Fumarate (Quetiapine 25 Mg Tablet) 50 mg PO TIDP PRN PRN Reason: Agitation Last Admin: 09/07/21 20:48 Dose: 50 mg Documented by: Sodium Chloride (0.9 % Sodium Chloride 10 Ml Syringe) 10 ml IV Q8 [facility] Last Admin: 09/07/21 21:21 Dose: 10 ml Documented by: A/P Narrative Plan of Treatment: Acute hypercapnic respiratory failure -requiring mechanical ventilation Extubated 09/07 Possible drug-induced and COPD exacerbation Patient has history of psychiatric illness on multiple anxiolytic, antipsychotic medications lives in a residential and takes Ambien, Zyprexa, Seroquel, gabapentin clonazepam and trazodone Patient obtunded in the emergency room, did not respond to Narcan but responded to flumazenil which indicated possible underlying benzodiazepine sedation During admission patient continued to be obtunded having worsening hypercapnia requiring mechanical ventilation Patient was intubated on 09/06/2021 around noon maintained on propofol and fentanyl for sedation analgesia Overnight patient's oxygenation and hypercapnia significantly improved ABG showing significant improvement and patient was extubated Continue monitoring PCO2 Continue COPD protocol Post extubation patient was asking about his medications and we discontinued clonazepam trazodone and cyclobenzaprine due to sedative effects. I would not recommend continuing these medications due to chronic hypercapnia. Patient has complex psychiatric illness needs to be evaluated by an MD psychiatrist Patient will be discharged on Augmentin and prednisone Acute encephalopathy-improved Possibly drug-induced and or hypercapnia Monitor neuro status No evidence of any focal deficit COPD exacerbation Possible aspiration pneumonitis We will start the patient on COPD protocol with a medical prednisone DuoNebs every 4 hours Zosyn every 8 hourly Continued smoking history and recurrent hospital admissions Schizoaffective disorder Patient take multiple anxiolytic and antipsychotic medication and presented with obtundation and needing mechanical ventilation Will try to avoid benzodiazepines Patient already taking Zyprexa, Seroquel 3 times daily, gabapentin and Suboxone Patient need an MD psychiatrist evaluation-he has a complex psychiatric illness along with a chronic hypercapnia respiratory failure. Loading and trying different medications is not an option in this case. I would not recommend using high-dose of benzodiazepines or any medication with respiratory side effects Discharge diagnosis: Respiratory failure due to polypharmacy Time Spent with Patient Time attestation: Total time spent providing and/or coordinating discharge services: Time spent: Greater than 30 minutes EXAM Constitutional Vitals: Temp Pulse Resp BP Pulse Ox 98.8 F 80 20 127/79 91 09/08/21 10:03 09/08/21 10:03 09/08/21 08:14 09/08/21 10:03 09/08/21 10:03 General appearance: cooperative, disheveled and mild distress Head Head exam: Present atraumatic, normal inspection and normocephalic Eye Eye exam: Present PERRL; Absent conjunctival injection or nystagmus ENT ENT exam: Present mucous membranes moist and normal oropharynx Neck Neck exam: Present full ROM and normal inspection; Absent tenderness Expanded Neck Exam Neck exam: Absent anterior neck swelling, carotid bruit, tenderness or thyroid mass Respiratory Respiratory exam: Present wheezes; Absent accessory muscle use or respiratory distress Cardiovascular Cardiovascular exam: Present tachycardia; Absent bradycardia or JVD GI/Abdominal GI/Abdominal exam: Present normal bowel sounds and soft; Absent distended Neurological Exam Neurological exam: Present oriented X3 and reflexes normal; Absent abnormal gait or motor sensory deficit Psychiatric Psychiatric exam: Present anxious; Absent suicidal ideation Discharge Data Data Completed and Pending Labs on day of discharge: Labs from last 24 hours 09/08/21 09/08/21 05:10 05:10 WBC 9.0 RBC 4.59 L Hgb 14.1 Hct 41.7 MCV 90.8 MCH 30.7 MCHC 33.8 RDW 14.6 H Plt Count 231 MPV 9.1 Neut % (Auto) 87.2 H Lymph % (Auto) 5.4 L Wharton % (Auto) 7.4 Eos % (Auto) 0 Baso % (Auto) 0 Lymph # (Auto) 0.48 L Wharton # (Auto) 0.66 Eos # (Auto) 0 Baso # (Auto) 0 Absolute Neutrophils 7.82 Sodium 126 L Potassium 3.9 Chloride 85 L Carbon Dioxide 31 H Anion Gap 10.0 BUN 14 Creatinine 0.6 L GFR Calculation 118 Glucose 137 H Uric Acid 4.0 Calcium 8.5 L Phosphorus 3.0 Magnesium 1.9 Total Bilirubin 0.3 Direct Bilirubin < 0.2 GGT 9 AST 32 ALT 21 Alkaline Phosphatase 39 Lactate Dehydrogenase 289 H Total Protein 5.8 L Albumin 3.4 Globulin 2.4 Albumin/Globulin Ratio 1.4 Triglycerides 82 Preliminary micro results at discharge 09/06/21 14:37 Gram Stain - Preliminary Sputum source - Induced Sputum Culture - Preliminary Discharge Plan Patient/Caregiver Discharge Instructions Activity: increase activity as tolerated Diet: Regular Diet Instructions: How to Stop Smoking (GEN), Cigarette Smoking and Your Health (GEN), COPD (Chronic Obstructive Pulmonary Disease) (GEN), Hypoxia (GEN) Activity Restrictions/Additional Instructions: 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 to 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 Prescriptions: New amoxicillin-pot clavulanate 875-125 mg tablet 1 tab PO BID Qty: 10 0RF Continued ziprasidone HCl 80 mg Capsule 160 mg PO 1700 0RF ipratropium-albuterol 0.5 mg-3 mg(2.5 mg base)/3 mL Solution For Nebulization 3 ml INHALATION Q4H PRN (Reason: Shortness Of Breath Or Wheezing) 0RF lisinopril 20 mg Tablet 20 mg PO QDAY 0RF divalproex 500 mg Tablet Extended Release 24 Hr 2,000 mg PO HS 0RF gabapentin 300 mg Capsule 900 mg PO TID 0RF Rx Instructions: 0800, 1400, 1999 albuterol sulfate 90 mcg/actuation HFA aerosol inhaler 2 puff inhalation PRN PRN (Reason: shortness of breath or wheezing) 0RF citalopram 20 mg tablet 1 tab PO QDAY 0RF zolpidem 10 mg tablet 1 tab PO HS 0RF furosemide 40 mg tablet 1 tab PO QDAY 0RF albuterol sulfate 2.5 mg /3 mL (0.083 %) solution for nebulization 2.5 mg inhalation Q4H PRN (Reason: shortness of breath or wheezing) Qty: 75 0RF folic acid 1 mg tablet 1 tab PO QDAY 0RF epinephrine [EpiPen] 0.3 mg/0.3 mL auto-injector 0.3 ml IM PRN PRN (Reason: Allergic Reaction) 0RF nicotine 21 mg/24 hr Patch 24 Hour 21 mg topical DAILY@1000 Qty: 28 3RF cilostazol 100 mg Tablet 100 mg PO BID 0RF olanzapine 5 mg Tablet 5 mg PO QHS 0RF Spiriva with HandiHaler 18 mcg Capsule, W/Inhalation Device 1 cap INHALATION QDAY 0RF budesonide-formoterol [Symbicort] 80-4.5 mcg/actuation Hfa Aerosol Inhaler 2 puff INHALATION BID 0RF ibuprofen 800 mg Tablet 800 mg PO Q8H PRN (Reason: Pain) 0RF bupropion HCl 150 mg tablet sustained-release 12 hr 150 mg PO QDAY 0RF buprenorphine-naloxone 2-0.5 mg Tablet, Sublingual 1 tab SUBLINGUAL BID 0RF nicotine (polacrilex) 2 mg gum 2 mg PO Q4HP PRN (Reason: Withdrawal Symptoms) 0RF quetiapine 50 mg tablet 50 mg PO TIDP PRN (Reason: Agitation) 0RF prednisone 10 mg tablet See Rx Instructions .ROUTE .COMPLEX 0RF Rx Instructions: Take 40mg once daily, started 09/02 for 3 days then 20mg once daily x3 days then 10mg daily x3 days then 5mg daily x2 days then stop Discontinued cyclobenzaprine 10 mg Tablet 10 mg PO BIDP PRN (Reason: Muscle Pain) 0RF trazodone 100 mg Tablet 100 mg PO QHS 0RF clonazepam 1 mg Tablet 1 mg PO TID 0RF Rx Instructions: 0800, 1400, 1999 Follow Up Plan Follow up with: Rachel Stark PA-C [Primary Care Provider] - 09/14/21 12:30 pm Patient Disposition: Xfer Other Plan of Treatment: Acute hypercapnic respiratory failure -requiring mechanical ventilation Extubated 09/07 Possible drug-induced and COPD exacerbation Patient has history of psychiatric illness on multiple anxiolytic, antipsychotic medications lives in a residential and takes lorazepam Ambien, Zyprexa, Seroquel, gabapentin clonazepam Patient obtunded in the emergency room, did not respond to Narcan but responded to flumazenil which indicated possible underlying benzodiazepine sedation During admission patient continued to be obtunded having worsening hypercapnia requiring mechanical ventilation Patient was intubated on 09/06/2021 around noon maintained on propofol and fentanyl for sedation analgesia Overnight patient's oxygenation and hypercapnia significantly improved ABG showing significant improvement and patient was extubated Continue monitoring PCO2 Continue COPD protocol Acute encephalopathy-improved Possibly drug-induced and or hypercapnia Monitor closely frequent ABG Monitor neuro status No evidence of any focal deficit COPD exacerbation Possible aspiration pneumonitis We will start the patient on COPD protocol with a medical prednisone DuoNebs every 4 hours Zosyn every 8 hourly Continued smoking history and recurrent hospital admissions Schizoaffective disorder Patient take multiple anxiolytic and antipsychotic medication and presented with obtundation and needing mechanical ventilation Will try to avoid benzodiazepines Patient already taking Zyprexa, Seroquel 3 times daily, gabapentin and Suboxone We will use IM Haldol for agitations Prognosis: Undetermined Rehab Potential: Serious I certify that the patient requires SNF services: No Overall status at discharge: patient is progressing back to baseline Discharge Orders: Discharge Order (Routine); Ordered 09/08/21 Ordered By: Tamika GALLARDO VTE Deep Vein Thrombosis/Pulmonary Embolism Present on Admission: No
[2021-09-17 23:53] LABS: Cannabinoid Confirmation Positive
== END 2021-09-08 14:26 | disposition other institution (70) | DRG 208 ==
LOC: ED 22:01 → ICU 22:01 → OBSVTOIN 09-06 08:30 → ED 09-06 08:35
PROVIDERS: ADMIT Internal Medicine; ATTEND Internal Medicine

== ENCOUNTER 2021-09-17 16:59 | Inpatient (IN) ==
[2021-09-17] MEDS ORDERED: morphine 4 MG/ML VIAL IV ONE (17:42)
--- NOTE | 2021-09-17 17:47 | Emergency Department Note ---
HPI General Chief complaint: Extremity Problem,Nontraumatic Stated complaint: Fluid overload Time Seen by Provider: 09/17/21 17:10 Source: EMS Mode of arrival: EMS Limitations: no limitations History of Present Illness HPI Narrative: Narrative:51-year-old male history of COPD, CHF, hypertension, schizoaffective, recent hospitalization intubated due to benzodiazepine overdose. Reports had multiple recent visits in the past 2 weeks for shortness of breath, CHF, lower extremity swelling, cellulitis. He has been treated with multiple rounds of IV diuresis as well as some antibiotics and breathing treatments. He presents today with persistent progressive symptoms without improvement despite this. Currently patient reports worsening bilateral lower extremity edema erythema and pain for the past 4 days, also slightly hypoxic requiring nasal cannula and some worsening dyspnea especially with exertion. No chest pain no fevers no cough but does feel a bit wheezy and crackly he says. He says his doctor recently changed his diuretics from furosemide but is not sure to what, he believes he has compliant on his medications because he gets them from his care facility. He was just here 2 days ago for similar presentation but refused much of the work-up at that time including duplex ultrasounds, chest x-rays and demanded discharge. No other complaints Related Data Home Medications Medication Instructions Recorded Confirmed albuterol sulfate 90 mcg/actuation 2 puff INHALATION PRN PRN 01/24/21 09/06/21 aerosol inhaler divalproex 500 mg tablet,extended 2,000 mg PO HS 01/24/21 09/06/21 release 24 hr gabapentin 300 mg capsule 900 mg PO TID 01/24/21 09/06/21 ipratropium 0.5 mg-albuterol 3 mg 3 ml INHALATION Q4H PRN 01/24/21 09/06/21 (2.5 mg base)/3 mL nebulization soln lisinopril 20 mg tablet 20 mg PO QDAY 01/24/21 09/06/21 ziprasidone HCl 80 mg capsule 160 mg PO 1700 01/24/21 09/06/21 citalopram 20 mg tablet 1 tab PO QDAY 07/23/21 09/06/21 furosemide 40 mg tablet 1 tab PO QDAY 07/23/21 09/06/21 zolpidem 10 mg tablet 1 tab PO HS 07/23/21 09/06/21 epinephrine 0.3 mg/0.3 mL 0.3 ml IM PRN PRN 08/19/21 09/06/21 injection, auto-injector (EpiPen) folic acid 1 mg tablet 1 tab PO QDAY 08/19/21 09/06/21 budesonide-formoterol HFA 80 2 puff INHALATION BID 08/30/21 09/06/21 mcg-4.5 mcg/actuation aerosol inhaler (Symbicort) bupropion HCl 150 mg tablet,12 hr 150 mg PO QDAY 08/30/21 09/06/21 sustained-release cilostazol 100 mg tablet 100 mg PO BID 08/30/21 09/06/21 ibuprofen 800 mg tablet 800 mg PO Q8H PRN 08/30/21 09/06/21 tiotropium bromide 18 mcg capsule 1 cap INHALATION QDAY 08/30/21 09/06/21 with inhalation device (Spiriva with HandiHaler) buprenorphine 2 mg-naloxone 0.5 mg 1 tab SUBLINGUAL BID 08/31/21 09/06/21 sublingual tablet nicotine (polacrilex) 2 mg gum 2 mg PO Q4HP PRN 09/06/21 09/06/21 prednisone 10 mg tablet See Rx Instructions .ROUTE .COMPLEX 09/06/21 09/06/21 quetiapine 50 mg tablet 50 mg PO TIDP PRN 09/06/21 09/06/21 Previous Rx's Medication Instructions Recorded albuterol sulfate 2.5 mg (3 mL) INHALATION Q4H PRN 08/06/21 #75 ml nicotine 21 mg/24 hr daily 21 mg TOPICAL DAILY@1000 #28 ea 08/22/21 transdermal patch amoxicillin 875 mg-potassium 1 tab PO BID #10 tab 09/08/21 clavulanate 125 mg tablet olanzapine 5 mg tablet (Zyprexa) 5 mg PO BID #60 tab 09/08/21 cephalexin 500 mg capsule 500 mg PO TID #20 cap 09/15/21 Allergies Allergy/AdvReac Type Severity Reaction Status Date / Time bee venom protein (honey bee) Allergy Severe Anaphylaxis Verified 09/17/21 17:05 beeswax Allergy Severe Anaphylaxis Verified 09/17/21 17:05 vancomycin Allergy Severe Anaphylaxis Verified 09/17/21 17:05 Sulfa (Sulfonamide AdvReac Intermediate Wheezing Verified 09/17/21 17:05 Antibiotics) Review of Systems ROS ROS Narrative: Narrative: All systems ED: reviewed and negative except as stated. [facility] Narrative Patient History Narrative: Narrative: Medical/Surgical/Family History All Active Problems (Updated 09/17/21 @ 21:03 by Jeyson Amin DO) Benzodiazepine overdose (Acute) Acute exacerbation of CHF (congestive heart failure) (Acute) Acute exacerbation of chronic obstructive pulmonary disease (Acute) Bilateral leg pain (Acute) CHF (congestive heart failure) (Acute) Congestive heart failure (CHF) (Acute) Exacerbation of reactive airway disease (Acute) Acute exacerbation of CHF (congestive heart failure) (Acute) Cellulitis (Acute) Acute exacerbation of chronic obstructive pulmonary disease (Acute) COPD exacerbation (Acute) Cellulitis (Acute) Pneumonia (Acute) Acute hyponatremia (Acute) Failure of outpatient treatment (Acute) Claudication in peripheral vascular disease (Acute) Peripheral artery disease (Acute) Bilateral pneumonia (Acute) Acute hyponatremia (Acute) Acute bronchospasm (Acute) Schizoaffective disorder (Acute) Peripheral neuropathy (Acute) Acute dyspnea (Acute) Acute exacerbation of chronic obstructive pulmonary disease (Acute) Hypoxia (Acute) Pneumonia (Acute) CHF exacerbation (Acute) Hyponatremia (Acute) Current smoker (Acute) Acute and chronic respiratory failure with hypoxia (Acute) COPD exacerbation (Acute) Left leg cellulitis (Acute) Cellulitis (Acute) Laceration (Acute) Pneumonia (Acute) Social History Smoking Status: Former smoker Exam Narrative Narrative: Narrative: Constitutional: normally developed, no acute distress . Head: Normocephalic, atraumatic, Eyes: No Icterus, ENT: Moist mucus membranes, Neck: Supple, Cardiac: Normal heart sounds, palpable radial pulses he has 2+ bilateral lower extremity pitting edema Pulmonary: Normal respirations on 2 L nasal cannula he has audible basilar crackles, on auscultation he has a slight sporadic expiratory wheeze, no distress Gastrointestinal: Abdomen soft, non-distended, non-tender, Musculoskeletal: No gross deformities, well perfused Skin: warm, dry, significant erythema and some warmth to bilateral lower extremities Neuro: Alert and oriented. General Limitations: no limitations Course Vital Signs Vital signs: Vital Signs Temperature 37.1 C 09/17/21 17:02 Pulse Rate 82 09/17/21 17:02 Respiratory Rate 20 09/17/21 17:02 Blood Pressure 148/83 09/17/21 17:02 Pulse Oximetry (%) 92 09/17/21 17:02 Temperature 37.1 C 09/17/21 17:02 Pulse Rate 63 09/17/21 21:31 Respiratory Rate 16 09/17/21 19:24 Blood Pressure 122/88 09/17/21 21:31 Pulse Oximetry (%) 92 09/17/21 21:31 MDM MDM Narrative Medical decision making narrative: Narrative: Patient with a history of multiple medical comorbidities including COPD, CHF, intubated last month, he has had multiple recent visits in the last 2 weeks for the general similar complaints including worsening lower extremity edema and intermittent dyspnea/COPD and some cellulitis, currently on outpatient Lasix and antibiotics but presenting now without improvement and slow progression. He is requiring 2 L nasal cannula here but not in any severe distress. He has obvious basilar rales as well as sporadic expiratory wheeze. He does have 2+ pitting edema and some possible cellulitis to his lower extremities. Work-up is initiated Twelve-lead EKG sinus rhythm 79, HI, QRS QTC within normal, patient has a slight early repolarization pattern criteria for acute ischemia, EKG appears very similar to previous done on September 15 And on September 10. Duplex ultrasound negative bilaterally Chest x-ray shows some chronic findings as well as some increased bilateral pulmonary edema, also consideration for COVID. COVID test is negative and he has no infectious type symptoms CBC leukocytosis from 2 days ago markedly resolved, white count 7.8, hemoglobin essentially baseline 12.7 Electrolytes show a somewhat chronic hyponatremia hypochloremia sodium 128 chloride 90, he has normal renal function Troponin is negative BNP elevated although slightly downtrending 692 previous 700 Reevaluation presentation is consistent with suspected CHF exacerbation and perhaps some mild COPD in addition to the cellulitis for the legs he is already being treated for. They tried to admit him 2 days ago but he refused at that time, he has had multiple ER visits for the same complaint over the last several weeks yet he feels like his symptoms are progressing. He is also still mildly hypoxic requiring 2 L nasal cannula thus I do believe he meets criteria for admission. Is given dose of IV Lasix I have spoken with Dr Hopkins who accepts admission Lab Data Result diagrams: 09/17/21 17:36 09/17/21 17:36 Labs: Lab Results 09/17/21 09/17/21 09/17/21 Range/Units 17:29 17:36 17:36 WBC 7.8 (4.5-11.0) K/mcL RBC 4.11 L (4.63-6.08) M/mcL Hgb 12.7 L (13.7-17.5) g/dL Hct 38.7 L (40.1-51.0) % MCV 94.2 (80.0-100.0) fL MCH 30.9 (26.0-34.0) pg MCHC 32.8 (31.0-36.0) g/dL RDW 15.1 H (11.5-14.5) % Plt Count 282 (140-440) K/mcL MPV 8.7 (7.4-10.4) fL Neut % (Auto) 65.9 (38.0-78.0) % Lymph % (Auto) 19.9 (15.5-49.0) % [place] % (Auto) 13.4 H (1.0-12.0) % Eos % (Auto) 0.5 (0.0-7.0) % Baso % (Auto) 0.3 (0.0-2.0) % Lymph # (Auto) 1.56 (1.50-4.80) K/mcL [place] # (Auto) 1.05 H (0.10-0.90) K/mcL Eos # (Auto) 0.04 (0.00-0.70) K/mcL Baso # (Auto) 0.02 (0.00-0.30) K/mcL Absolute Neutrophils 5.15 (1.80-8.00) K/mcL Sodium 128 L (133-145) mmol/L Potassium 4.2 (3.3-5.1) mmol/L Chloride 90 L (96-108) mmol/L Carbon Dioxide 26 (22-30) mmol/L Anion Gap 12.0 (8.0-16.0) BUN 8 (6-20) mg/dL Creatinine 0.6 L (0.7-1.2) mg/dL GFR Calculation 118 Glucose 77 (70-105) mg/dL Calcium 8.2 L (8.6-10.4) mg/dL NT-Pro-B Natriuret Pep 692.2 H (<125.0) pg/mL POC Troponin I 0.04 (0.02-0.08) ED POC Tests ED POC Tests: TIESHA - SARS Antigen Negative Discharge Plan Patient/Caregiver Discharge Instructions Pt seen by RADIOIS[employer]OPE TECHNICIAN/PA only: No Clinical Impression: Acute exacerbation of CHF (congestive heart failure), Cellulitis, Acute exacerbation of chronic obstructive pulmonary disease Patient Disposition: Xfer As Inpt ([facility]) Condition: Fair Follow up with: Rachel Stark PA-C [Primary Care Provider] - Prescriptions: No Action ziprasidone HCl 80 mg Capsule 160 mg PO 1700 0RF ipratropium-albuterol 0.5 mg-3 mg(2.5 mg base)/3 mL Solution For Nebulization 3 ml INHALATION Q4H PRN (Reason: Shortness Of Breath Or Wheezing) 0RF lisinopril 20 mg Tablet 20 mg PO QDAY 0RF divalproex 500 mg Tablet Extended Release 24 Hr 2,000 mg PO HS 0RF gabapentin 300 mg Capsule 900 mg PO TID 0RF Rx Instructions: 0800, 1400, 2000 albuterol sulfate 90 mcg/actuation HFA aerosol inhaler 2 puff inhalation PRN PRN (Reason: shortness of breath or wheezing) 0RF citalopram 20 mg tablet 1 tab PO QDAY 0RF zolpidem 10 mg tablet 1 tab PO HS 0RF furosemide 40 mg tablet 1 tab PO QDAY 0RF albuterol sulfate 2.5 mg /3 mL (0.083 %) solution for nebulization 2.5 mg inhalation Q4H PRN (Reason: shortness of breath or wheezing) Qty: 75 0RF folic acid 1 mg tablet 1 tab PO QDAY 0RF epinephrine [EpiPen] 0.3 mg/0.3 mL auto-injector 0.3 ml IM PRN PRN (Reason: Allergic Reaction) 0RF nicotine 21 mg/24 hr Patch 24 Hour 21 mg topical DAILY@1000 Qty: 28 3RF cilostazol 100 mg Tablet 100 mg PO BID 0RF Spiriva with HandiHaler 18 mcg Capsule, W/Inhalation Device 1 cap INHALATION QDAY 0RF budesonide-formoterol [Symbicort] 80-4.5 mcg/actuation Hfa Aerosol Inhaler 2 puff INHALATION BID 0RF ibuprofen 800 mg Tablet 800 mg PO Q8H PRN (Reason: Pain) 0RF bupropion HCl 150 mg tablet sustained-release 12 hr 150 mg PO QDAY 0RF buprenorphine-naloxone 2-0.5 mg Tablet, Sublingual 1 tab SUBLINGUAL BID 0RF nicotine (polacrilex) 2 mg gum 2 mg PO Q4HP PRN (Reason: Withdrawal Symptoms) 0RF quetiapine 50 mg tablet 50 mg PO TIDP PRN (Reason: Agitation) 0RF prednisone 10 mg tablet See Rx Instructions .ROUTE .COMPLEX 0RF Rx Instructions: Take 40mg once daily, started 09/02 for 3 days then 20mg once daily x3 days then 10mg daily x3 days then 5mg daily x2 days then stop amoxicillin-pot clavulanate 875-125 mg tablet 1 tab PO BID Qty: 10 0RF olanzapine [Zyprexa] 5 mg tablet 5 mg PO BID Qty: 60 0RF cephalexin 500 mg capsule 500 mg PO TID Qty: 20 0RF
[2021-09-17] MEDS ORDERED: ACETAMINOPHEN 1,000 MG/100 ML BAG IV ONE ×2 (17:49→22:38)
[2021-09-17] MEDS ORDERED: IPRATROPIUM/ALBUTEROL 3 ML AMPUL.NEB NEB ONE ×2 (17:49→18:59)
--- NOTE | 2021-09-17 17:55 | XRay Report ---
INDICATION: SOB, h/o copd, chf TECHNIQUE: AP portable chest x-ray chest x-ray COMPARISON: Previous chest x-rays dated 09/10/2021, 09/08/2021, 09/07/2021. Previous chest CT scan dated 08/30/2021 FINDINGS: Lungs:Chronic bilateral pulmonary parenchymal infiltrates with bibasilar predominance. There are increased infiltrates bilaterally. Findings are nonspecific. Atypical pneumonia including covid could have this appearance. Findings may be due to pulmonary edema. Heart, vascular:Heart size is at the upper limits of normal, unchanged Mediastinum, eduarda:No mediastinal widening. No hilar mass Pleura:No pleural fluid. No pleural-based mass or calcification Skeletal:Negative. IMPRESSION: 1. Chronic parenchymal infiltrates, unchanged 2. Increased bilateral infiltrates may represent interstitial pulmonary edema. Atypical pneumonia including Covid are possible. Interpreted and Authenticated by: Kamron Dorado 09/17/21
[2021-09-17 18:19] LABS: Basophils # (Auto) 0.02 K/mcL (0.00-0.30); Basophils % (Auto) 0.3 % (0.0-2.0); Eosinophils # (Auto) 0.04 K/mcL (0.00-0.70); Eosinophils % (Auto) 0.5 % (0.0-7.0); Hematocrit 38.7 % (40.1-51.0); Hemoglobin 12.7 g/dL (13.7-17.5); Lymphocytes # (Auto) 1.56 K/mcL (1.50-4.80); Lymphocytes % (Auto) 19.9 % (15.5-49.0); Mean Cell Volume 94.2 fL (80.0-100.0); Mean Corpuscular HGB Conc 32.8 g/dL (31.0-36.0); Mean Platelet Volume 8.7 fL (7.4-10.4); Monocytes # (Auto) 1.05 K/mcL (0.10-0.90); Monocytes % (Auto) 13.4 % (1.0-12.0); Neutrophils % (Auto) 65.9 % (38.0-78.0); Platelet Count 282 K/mcL (140-440); RBC 4.11 M/mcL (4.63-6.08); Red Cell Distribution Width 15.1 % (11.5-14.5); WBC 7.8 K/mcL (4.5-11.0)
[2021-09-17 18:48] LABS: proBNP 692.2 pg/mL (<125.0)
[2021-09-17 18:49] LABS: Blood Urea Nitrogen 8 mg/dL (6-20); Calcium 8.2 mg/dL (8.6-10.4); Carbon Dioxide 26 mmol/L (22-30); Chloride 90 mmol/L (96-108); Glomerular Filtration Rate 118; Glucose 77 mg/dL (70-105)
--- NOTE | 2021-09-17 19:03 | Ultrasound Report ---
INDICATION: b/l leg swelling, recent ICU hospitalization COMPARISON: None. TECHNIQUE: Grayscale and color flow Doppler spectral imaging of the deep venous system in both lower extremities. FINDINGS: Negative examination. No evidence for deep venous thrombosis. Negative bilateral common femoral veins, femoral veins, popliteal veins. Posterior tibial veins and peroneal veins are negative. Greater and lesser saphenous veins are negative. IMPRESSION: Negative examination for deep venous thrombosis, bilateral lower extremities. Interpreted and Authenticated by: Kamron Dorado 09/17/21
[2021-09-17] MEDS ORDERED: FUROSEMIDE 40 MG/4 ML VIAL IV ONE (21:00)
--- NOTE | 2021-09-17 21:27 | Internal Med History&Physical ---
HPI History of Present Illness Patient information: Note initiated : 09/17/21 at 9:14 pm Service Date, if different from initiated Date: [] Patient: Tae Esquivel a 51 y/o M admitted on for Fluid overload. Chief Complaint: [] History of present illness: Mr. Esquivel is a 51 year old M Presents to the ED with leg swelling and redness and pain. He was recently seen in the ED several days ago for cellulitis started on antibiotic. His white blood cell count is returned to normal but he felt but his legs have worsened. He also has some shortness of breath and was found to be hypoxic in the mid 80's on room air. This patient has been admitted 4 times since July either for COPD exacerbation or heart failure and most recently for what is felt to be an benzodiazepine overdose recall resulting in intubation. Is been into the ER multiple times. Patient says he sees a chest clinic and they had him on Lasix possibly change the dose. Denies any headache fever chills nausea vomiting. His cough is starting to improve since he stopped smoking. He does feel wheezy though. His legs are so edematous they started weeping. Chest x-ray with interstitial edema Review of Systems: Pertinent positives above. Denies headache/fever/chills/nausea/vomiting/chest or abdominal pain/diarrhea. Remaining 10 point review of system reviewed negative PFSH PFSH All Active Problems (Updated 09/17/21 @ 21:03 by Jeyson Amin DO) Benzodiazepine overdose (Acute) Acute exacerbation of CHF (congestive heart failure) (Acute) Acute exacerbation of chronic obstructive pulmonary disease (Acute) Bilateral leg pain (Acute) CHF (congestive heart failure) (Acute) Congestive heart failure (CHF) (Acute) Exacerbation of reactive airway disease (Acute) Acute exacerbation of CHF (congestive heart failure) (Acute) Cellulitis (Acute) Acute exacerbation of chronic obstructive pulmonary disease (Acute) COPD exacerbation (Acute) Cellulitis (Acute) Pneumonia (Acute) Acute hyponatremia (Acute) Failure of outpatient treatment (Acute) Claudication in peripheral vascular disease (Acute) Peripheral artery disease (Acute) Bilateral pneumonia (Acute) Acute hyponatremia (Acute) Acute bronchospasm (Acute) Schizoaffective disorder (Acute) Peripheral neuropathy (Acute) Acute dyspnea (Acute) Acute exacerbation of chronic obstructive pulmonary disease (Acute) Hypoxia (Acute) Pneumonia (Acute) CHF exacerbation (Acute) Hyponatremia (Acute) Current smoker (Acute) Acute and chronic respiratory failure with hypoxia (Acute) COPD exacerbation (Acute) Left leg cellulitis (Acute) Cellulitis (Acute) Laceration (Acute) Pneumonia (Acute) MEDS/ALLERGIES Home Medications and Allergies Home Medications Medication Instructions Recorded Confirmed Type albuterol sulfate 90 mcg/actuation 2 puff INHALATION PRN PRN 01/24/21 09/06/21 History aerosol inhaler divalproex 500 mg tablet,extended 2,000 mg PO HS 01/24/21 09/06/21 History release 24 hr gabapentin 300 mg capsule 900 mg PO TID 01/24/21 09/06/21 History ipratropium 0.5 mg-albuterol 3 mg 3 ml INHALATION Q4H PRN 01/24/21 09/06/21 History (2.5 mg base)/3 mL nebulization soln lisinopril 20 mg tablet 20 mg PO QDAY 01/24/21 09/06/21 History ziprasidone HCl 80 mg capsule 160 mg PO 1700 01/24/21 09/06/21 History citalopram 20 mg tablet 1 tab PO QDAY 07/23/21 09/06/21 History furosemide 40 mg tablet 1 tab PO QDAY 07/23/21 09/06/21 History zolpidem 10 mg tablet 1 tab PO HS 07/23/21 09/06/21 History albuterol sulfate 2.5 mg (3 mL) INHALATION Q4H PRN 08/06/21 09/06/21 Rx #75 ml epinephrine 0.3 mg/0.3 mL 0.3 ml IM PRN PRN 08/19/21 09/06/21 History injection, auto-injector (EpiPen) folic acid 1 mg tablet 1 tab PO QDAY 08/19/21 09/06/21 History nicotine 21 mg/24 hr daily 21 mg TOPICAL DAILY@1000 #28 ea 08/22/21 09/06/21 Rx transdermal patch budesonide-formoterol HFA 80 2 puff INHALATION BID 08/30/21 09/06/21 History mcg-4.5 mcg/actuation aerosol inhaler (Symbicort) bupropion HCl 150 mg tablet,12 hr 150 mg PO QDAY 08/30/21 09/06/21 History sustained-release cilostazol 100 mg tablet 100 mg PO BID 08/30/21 09/06/21 History ibuprofen 800 mg tablet 800 mg PO Q8H PRN 08/30/21 09/06/21 History tiotropium bromide 18 mcg capsule 1 cap INHALATION QDAY 08/30/21 09/06/21 History with inhalation device (Spiriva with HandiHaler) buprenorphine 2 mg-naloxone 0.5 mg 1 tab SUBLINGUAL BID 08/31/21 09/06/21 History sublingual tablet nicotine (polacrilex) 2 mg gum 2 mg PO Q4HP PRN 09/06/21 09/06/21 History prednisone 10 mg tablet See Rx Instructions .ROUTE .COMPLEX 09/06/21 09/06/21 History quetiapine 50 mg tablet 50 mg PO TIDP PRN 09/06/21 09/06/21 History amoxicillin 875 mg-potassium 1 tab PO BID #10 tab 09/08/21 Rx clavulanate 125 mg tablet olanzapine 5 mg tablet (Zyprexa) 5 mg PO BID #60 tab 09/08/21 Rx cephalexin 500 mg capsule 500 mg PO TID #20 cap 09/15/21 Rx Allergies Allergy/AdvReac Type Severity Reaction Status Date / Time bee venom protein (honey bee) Allergy Severe Anaphylaxis Verified 09/17/21 17:05 beeswax Allergy Severe Anaphylaxis Verified 09/17/21 17:05 vancomycin Allergy Severe Anaphylaxis Verified 09/17/21 17:05 Sulfa (Sulfonamide AdvReac Intermediate Wheezing Verified 09/17/21 17:05 Antibiotics) EXAM Constitutional Vitals: Temp Pulse Resp BP Pulse Ox 98.7 F 70 16 126/76 96 09/17/21 17:02 09/17/21 21:06 09/17/21 19:24 09/17/21 21:01 09/17/21 21:06 Exam: General: Alert, Awake, No acute Distress, obese Eyes/N/T: EOMI, PERRL, HJR Head/Neck: neck supple, normocephalic atraumatic CV: RRR, No murmurs, normal s1/s2 Pulm: Bibasilar rales, wheezing b/l Abd: soft, nontender, +BS x4 Ext: no clubbing/cyanosis, b/l LE 3+ edema with erythema of the entire scherer area and edema, tender to touch Neuro: Alert, no focal deficits, moves all extremities, CN 2-12 grossly intact, symmetrical strength b/l upper/lower, sensations intact b/l upper/lower Skin: warm/dry DATA Data Completed and Pending Labs: Labs from last 24 hours 09/17/21 09/17/21 09/17/21 17:36 17:36 17:29 WBC 7.8 RBC 4.11 L Hgb 12.7 L Hct 38.7 L MCV 94.2 MCH 30.9 MCHC 32.8 RDW 15.1 H Plt Count 282 MPV 8.7 Neut % (Auto) 65.9 Lymph % (Auto) 19.9 [place] % (Auto) 13.4 H Eos % (Auto) 0.5 Baso % (Auto) 0.3 Lymph # (Auto) 1.56 [place] # (Auto) 1.05 H Eos # (Auto) 0.04 Baso # (Auto) 0.02 Absolute Neutrophils 5.15 Sodium 128 L Potassium 4.2 Chloride 90 L Carbon Dioxide 26 Anion Gap 12.0 BUN 8 Creatinine 0.6 L GFR Calculation 118 Glucose 77 Calcium 8.2 L NT-Pro-B Natriuret Pep 692.2 H POC Troponin I 0.04 A/P Narrative A/P Narrative: A: *Acute on diastolic chronic CHF with pulmonary edema/peripheral edema: *Acute hypoxic respiratory failure: 2/2 above *Cellulitis LE's: recently started on keflex *Hyponatremia, chronic: 2/2 above. *COPD (not previously on home O2): -quit smoking several weeks ago *Schizoaffective d/o: *HTN: *Peripheral artery disease: *Depression/anxiety: *obese: bmi 32 P: -IV lasix -monitor i/o, uop -O2 supp, wean as able -cont abx, mrsa screen -elevate legs -per nebs, home IH's -cont ACEI -cont psych meds -cont outpt Follow-up with pulmonology -f/u with cardio outpt -Home med reconciliation -ppx: lovenox Time Spent With Patient Time: Total time spent is greater than 50% in coordination of care (as documented) at patient's floor/unit and/or counseling patient: Total time spent with greater than 50% in coordination of care (as documented) at patient's floor/unit and/or counseling patient:: 50 - 70 minutes
[2021-09-17] MEDS ORDERED: ONDANSETRON 4 MG/2 ML VIAL IV PRN (22:48)
[2021-09-17] MEDS ORDERED: POTASSIUM CHLORIDE 20 MEQ TABLET PO PRN ×2 (22:48)
[2021-09-17] MEDS ORDERED: ACETAMINOPHEN 325 MG TABLET PO PRN (22:48)
[2021-09-17] MEDS ORDERED: POTASSIUM CHLORIDE 40 MEQ in DEXTROSE 5% IN WATER 500 ML IV PRN (22:48)
[2021-09-17] MEDS ORDERED: POLYETHYLENE GLYCOL 3350 17 GM PACKET PO PRN (22:48)
[2021-09-17] MEDS ORDERED: MAGNESIUM SULFATE 2 GM/50 ML BAG IV PRN (22:48)
[2021-09-17] MEDS ORDERED: SENNOSIDES 1 TABLET PO PRN (22:48)
[2021-09-17] MEDS ORDERED: morphine 2 MG/ML VIAL ONE (23:05)
[2021-09-17] MEDS ORDERED: cefTRIAXone 2 GM VIAL ONE (23:10)
[2021-09-17] MEDS: morphine 4 MG/ML VIAL IV PRN (23:50)
[2021-09-17] MEDS: cefTRIAXone 2 GM in DEXTROSE 5% IN WATER 50 ML IV SCH (23:51)
[2021-09-17] MEDS: 0.9 % SODIUM CHLORIDE 10 ML SYRINGE IV SCH (23:51)
[2021-09-18] MEDS: HYDROcodone/APAP 5/325MG TABLET PO PRN ×3 (01:43→19:27)
[2021-09-18] MEDS: morphine 4 MG/ML VIAL IV PRN ×5 (01:43→22:55)
[2021-09-18] MEDS ORDERED: HYDROcodone/APAP 5/325MG TABLET PO ONE (01:48)
[2021-09-18] MEDS ORDERED: morphine 2 MG/ML VIAL ONE ×2 (01:49→04:39)
[2021-09-18] MEDS: IPRATROPIUM/ALBUTEROL 3 ML AMPUL.NEB NEB PRN ×4 (04:21→20:38)
[2021-09-18] MEDS ORDERED: IPRATROPIUM/ALBUTEROL 3 ML AMPUL.NEB NEB ONE (04:29)
[2021-09-18] MEDS: 0.9 % SODIUM CHLORIDE 10 ML SYRINGE IV SCH ×3 (05:46→22:55)
[2021-09-18 06:40] LABS: Basophils # (Auto) 0.02 K/mcL (0.00-0.30); Basophils % (Auto) 0.4 % (0.0-2.0); Eosinophils # (Auto) 0.01 K/mcL (0.00-0.70); Eosinophils % (Auto) 0.2 % (0.0-7.0); Hematocrit 38.5 % (40.1-51.0); Hemoglobin 12.5 g/dL (13.7-17.5); Lymphocytes # (Auto) 1.22 K/mcL (1.50-4.80); Lymphocytes % (Auto) 25.6 % (15.5-49.0); Mean Cell Volume 93.4 fL (80.0-100.0); Mean Corpuscular HGB Conc 32.5 g/dL (31.0-36.0); Mean Platelet Volume 8.8 fL (7.4-10.4); Monocytes # (Auto) 0.62 K/mcL (0.10-0.90); Neutrophils % (Auto) 60.8 % (38.0-78.0); Platelet Count 251 K/mcL (140-440); RBC 4.12 M/mcL (4.63-6.08); WBC 4.8 K/mcL (4.5-11.0)
[2021-09-18 07:08] LABS: ALT/SGPT 22 U/L (<40); AST/SGOT 21 U/L (<40); Albumin/Globulin Ratio 1.4 (1.0-2.3); Alkaline Phosphatase 40 U/L (39-117); Bilirubin,Direct < 0.2 mg/dL (0-0.3); Bilirubin,Total 0.3 mg/dL (0.1-1.0); Blood Urea Nitrogen 6 mg/dL (6-20); Calcium 7.9 mg/dL (8.6-10.4); Carbon Dioxide 28 mmol/L (22-30); Chloride 92 mmol/L (96-108); Globulin 2.2 gm/dL (2.2-3.7); Glomerular Filtration Rate 118; Glucose 91 mg/dL (70-105); Lactate Dehydrogenase 204 U/L (135-225); Phosphorous 4.8 mg/dL (2.5-4.5); Triglycerides 63 mg/dL (<150)
[2021-09-18 07:31] LABS: Amphetamine Screen,Urine None detected; Barbiturate Screen,Urine None detected; Benzodiazepines Screen,Urine None detected; Cannabinoid Screen,Urine Suspect Positive; Cocaine Screen,Urine None detected; Opiate Screen,Urine Suspect Positive; Oxycodone, Urine Screen None detected; Phencyclidine Screen,Urine None detected
--- NOTE | 2021-09-18 07:42 | Internal Med Progress Note ---
SUBJECTIVE Subjective Patient information: Note initiated : 09/18/21 at 7:39 am Service Date, if different from initiated Date: [] Patient: Tae Esquivel a 51 y/o M admitted on 09/17/21 for Fluid overload. Chief Complaint: [] Interval history: History of present illness: Mr. Esquivel is a 51 year old M Presents to the ED with leg swelling and redness and pain. He was recently seen in the ED several days ago for cellulitis started on antibiotic. His white blood cell count is returned to normal but he felt but his legs have worsened. He also has some shortness of breath and was found to be hypoxic in the mid 's on room air. This patient has been admitted 4 times since July either for COPD exacerbation or heart failure and most recently for what is felt to be an benzodiazepine overdose recall resulting in intubation. Is been into the ER multiple times. Patient says he sees a chest clinic and they had him on Lasix possibly change the dose. Denies any headache fever chills nausea vomiting. His cough is starting to improve since he stopped smoking. He does feel wheezy though. His legs are so edematous they started weeping. Chest x-ray with interstitial edema 6/4 Coughing shortness of breath present but improving. Leg still edematous red and painful. Hyponatremia hypochloremia anemia, mildly elevated Phos Review of Systems: denies headache/fever/chills/nausea/vomiting/chest or abdominal pain/diarrhea. Otherwise see above. Constitutional Vitals: Vital Signs Temp Pulse Resp BP Pulse Ox 97.1 F 64 11 L 119/69 94 09/18/21 00:01 09/18/21 02:01 09/18/21 02:01 09/18/21 02:01 09/18/21 02:01 Period Temp Pulse Resp BP Sys/Banks Pulse Ox Last 24 Hr 97.1 F-98.7 F 37-85 9-20 111-148/64-93 85-98 Intake and Output 09/17/21 09/18/21 09/18/21 21:59 05:59 13:59 Intake Total 350 320 Output Total 1200 425 Balance -850 -105 Weight 104.326 kg 103.011 kg Intake & Output: Intake & Output 09/17/21 09/18/21 09/18/21 21:59 05:59 13:59 Intake Total 350 320 Output Total 1200 425 Balance -850 -105 Weight 104.326 kg 103.011 kg Intake: IV 100 Oral 250 320 Output: Void Amount 1200 425 Other: Urine Appearance Clear Urine Color Light Belinda Exam: General: Alert, Awake, No acute Distress, obese Eyes/N/T: EOMI, Head/Neck: neck supple, CV: RRR, No murmurs, Pulm: mild Bibasilar rales, minimal wheezing b/l Abd: soft, nontender, +BS x4 Ext: no clubbing/cyanosis, b/l LE 3+ edema with erythema of the entire scherer area and edema, tender to touch Neuro: Alert, no focal deficits, moves all extremities, Skin: warm/dry OBJ DATA Labs CBC & Chem 7: 09/18/21 05:52 09/18/21 05:52 Labs: Abnormal Lab Results 09/18/21 09/18/21 09/18/21 05:52 05:52 05:52 RBC 4.12 L Hgb 12.5 L Hct 38.5 L RDW 15.0 H [place] % (Auto) 13.0 H Lymph # (Auto) 1.22 L [place] # (Auto) Sodium 128 L Chloride 92 L Creatinine 0.6 L Calcium 7.9 L Phosphorus 4.8 H NT-Pro-B Natriuret Pep Total Protein 5.2 L Albumin 3.0 L Procalcitonin 0.19 H Urine Opiates Screen U Marijuana (THC) Screen 09/18/21 09/17/21 09/17/21 05:50 17:36 17:36 RBC 4.11 L Hgb 12.7 L Hct 38.7 L RDW 15.1 H [place] % (Auto) 13.4 H Lymph # (Auto) [place] # (Auto) 1.05 H Sodium 128 L Chloride 90 L Creatinine 0.6 L Calcium 8.2 L Phosphorus NT-Pro-B Natriuret Pep 692.2 H Total Protein Albumin Procalcitonin Urine Opiates Screen Suspect positive A U Marijuana (THC) Screen Suspect positive A Meds: Medications Acetaminophen (Acetaminophen 325 Mg Tablet) 650 mg PO Q6HP PRN; Protocol PRN Reason: Per Pain Protocol/Fever > 101 Hydrocodone Bitart/Acetaminophen (Hydrocodone/Apap 5/325mg Tablet) 1 tab PO Q4HP PRN PRN Reason: PAIN LEVEL 3-6 Last Admin: 09/18/21 01:43 Dose: 1 tab Documented by: Albuterol/Ipratropium (Ipratropium/Albuterol 3 Ml Ampul.Neb) 3 ml NEB Q4HP PRN PRN Reason: Shortness Of Breath Last Admin: 09/18/21 04:21 Dose: 3 ml Documented by: Docusate Sodium (Docusate Sodium 100 Mg Capsule) 100 mg PO BID [facility] Enoxaparin Sodium (Enoxaparin 40 Mg/0.4 Ml Syringe) 40 mg SQ DAILY [facility] Furosemide (Furosemide 40 Mg/4 Ml Vial) 40 mg IV Q8 [facility] Potassium Chloride 40 meq/ (Dextrose) 520 mls @ 130 mls/hr IV UD PRN PRN Reason: Potassium < 3 Magnesium Sulfate (Magnesium Sulfate) 2 gm in 50 mls @ 50 mls/hr IV UD PRN PRN Reason: Magnesium </= 1.6 Ceftriaxone Sodium 2 gm/ (Dextrose) 50 mls @ 100 mls/hr IV Q24H [facility]; Protocol Last Admin: 09/17/21 23:51 Dose: 100 mls/hr Documented by: Morphine Sulfate (Morphine 4 Mg/Ml Vial) 0 mg IV Q3HP PRN PRN Reason: Pain Last Admin: 09/18/21 04:40 Dose: 2 mg Documented by: Ondansetron HCl (Ondansetron 4 Mg/2 Ml Vial) 4 mg IV Q4HP PRN PRN Reason: Nausea And Vomiting Polyethylene Glycol (Polyethylene Glycol 3350 17 Gm Packet) 17 gm PO DAILYP PRN PRN Reason: Constipation Potassium Chloride (Potassium Chloride 20 Meq Tablet) 40 meq PO UD PRN PRN Reason: Potssium is 3-3.5 Potassium Chloride (Potassium Chloride 20 Meq Tablet) 40 meq PO UD PRN PRN Reason: Potassium < 3 Senna (Sennosides 1 Tablet) 2 tab PO DAILYP PRN PRN Reason: Constipation Sodium Chloride (0.9 % Sodium Chloride 10 Ml Syringe) 10 ml IV Q8 [facility] Last Admin: 09/18/21 05:46 Dose: 10 ml Documented by: A/P Narrative A/P Narrative: A: *Acute on chronic diastolic CHF with pulmonary edema/severe peripheral edema: *Acute hypoxic respiratory failure: 2/2 above -on 1L NC *Cellulitis LE's: recently started on keflex *Hyponatremia, chronic: 2/2 above. *COPD (not previously on home O2): -quit smoking several weeks ago *Schizoaffective d/o: *HTN: *Peripheral artery disease: *Depression/anxiety: *obese: bmi 32 P: -IV lasix -monitor i/o, uop -O2 supp, wean as able -cont abx, mrsa screen neg -elevate legs, -per nebs, home IH's -cont ACEI -cont psych meds -cont outpt Follow-up with pulmonology -f/u with cardio outpt -Home med reconciliation -ppx: lovenox Time Spent With Patient Time: Total time spent is greater than 50% in coordination of care (as documented) at patient's floor/unit and/or counseling patient: Total time spent with greater than 50% in coordination of care (as documented) at patient's floor/unit and/or counseling patient:: 25 - 35 minutes QUALITY VTE Deep Vein Thrombosis/Pulmonary Embolism Present on Admission: No
[2021-09-18] MEDS: FUROSEMIDE 40 MG/4 ML VIAL IV SCH ×3 (08:04→22:55)
[2021-09-18] MEDS: ENOXAPARIN 40 MG/0.4 ML SYRINGE SQ SCH (08:21)
[2021-09-18] MEDS: DOCUSATE SODIUM 100 MG CAPSULE PO SCH ×2 (08:22→19:48)
--- NOTE | 2021-09-18 09:01 | EKG ---
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 Measurements Intervals [place] Rate: 79 P: 88 CO: 122 QRS: 78 QRSD: 86 T: 48 QT: 376 QTc: 432 Interpretive Statements [address]US ARRHY[address] ST elev, probable normal early repol pattern Electronically Signed On 09-18-2021 9:01:33 PDT by Analisa Romero D.O. /store/[email or web address]/[id number]
[2021-09-18] MEDS ORDERED: AUTO INJECTOR IM PRN (13:01)
[2021-09-18] MEDS ORDERED: EPINEPHRINE 0.3 MG/0.3 ML IM PRN (13:01)
[2021-09-18] MEDS ORDERED: ALBUTEROL SULFATE 2.5 MG/3 ML NEBULIZER INH PRN (13:01)
[2021-09-18] MEDS ORDERED: [UNRECOGNIZED DRUG - OTHER] IM PRN (13:01)
[2021-09-18] MEDS ORDERED: QUETIAPINE 50 MG PO PRN (13:01)
[2021-09-18] MEDS ORDERED: QUEtiapine 25 MG TABLET PO PRN (13:15)
[2021-09-18] MEDS ORDERED: ALBUMIN HUMAN 12.5 GM/50 ML BAG IV ONE (14:00)
[2021-09-18] MEDS: GABAPENTIN 300 MG CAPSULE PO SCH ×2 (14:17→20:29)
[2021-09-18] MEDS: NICOTINE POLACRILEX 2 MG GUM BC PRN (14:18)
[2021-09-18] MEDS: cefTRIAXone 2 GM in DEXTROSE 5% IN WATER 50 ML IV SCH (15:43)
[2021-09-18] MEDS ORDERED: ZIPRASIDONE HCL 80 MG PO SCH (17:00)
[2021-09-18] MEDS: NICOTINE 14 MG PATCH TOPICAL SCH (18:34)
[2021-09-18] MEDS: ZOLPIDEM 5 MG TABLET PO PRN (20:30)
[2021-09-18] MEDS: OLANZapine 5 MG TABLET PO SCH (20:30)
[2021-09-18] MEDS: DIVALPROEX SODIUM 250 MG TABLET PO SCH (20:30)
[2021-09-18] MEDS: BUPRENORPHINE NALOXONE SL SCH (20:35)
[2021-09-18] MEDS: BUDESONIDE FORMOTEROL INH SCH (20:35)
[2021-09-18] MEDS ORDERED: BUPRENORPHINE NALOXONE SUBLINGUAL SCH (21:00)
[2021-09-18] MEDS ORDERED: [UNRECOGNIZED DRUG - OTHER] SUBLINGUAL SCH (21:00)
[2021-09-18] MEDS ORDERED: BUPRENORPHINE NALOXONE SL SCH (21:00)
[2021-09-18] MEDS ORDERED: [UNRECOGNIZED DRUG - OTHER] INHALATION SCH (21:00)
[2021-09-18] MEDS ORDERED: DIVALPROEX 500 MG PO SCH (21:00)
[2021-09-19] MEDS: IPRATROPIUM/ALBUTEROL 3 ML AMPUL.NEB NEB PRN ×4 (00:01→15:22)
[2021-09-19] MEDS: morphine 4 MG/ML VIAL IV PRN ×6 (03:48→23:24)
[2021-09-19] MEDS: NICOTINE POLACRILEX 2 MG GUM BC PRN ×5 (03:52→22:42)
[2021-09-19] MEDS: FUROSEMIDE 40 MG/4 ML VIAL IV SCH ×3 (05:07→22:24)
[2021-09-19] MEDS: HYDROcodone/APAP 5/325MG TABLET PO PRN ×2 (05:17→09:49)
[2021-09-19] MEDS: 0.9 % SODIUM CHLORIDE 10 ML SYRINGE IV SCH ×3 (05:20→22:24)
[2021-09-19 06:47] LABS: ALT/SGPT 20 U/L (<40); AST/SGOT 18 U/L (<40); Albumin 3.3 gm/dL (3.2-5.2); Albumin/Globulin Ratio 1.3 (1.0-2.3); Alkaline Phosphatase 41 U/L (39-117); Bilirubin,Direct < 0.2 mg/dL (0-0.3); Bilirubin,Total 0.3 mg/dL (0.1-1.0); Blood Urea Nitrogen 9 mg/dL (6-20); Calcium 8.3 mg/dL (8.6-10.4); Carbon Dioxide 34 mmol/L (22-30); Chloride 94 mmol/L (96-108); Globulin 2.6 gm/dL (2.2-3.7); Glomerular Filtration Rate 118; Glucose 92 mg/dL (70-105); Lactate Dehydrogenase 202 U/L (135-225); Triglycerides 83 mg/dL (<150)
--- NOTE | 2021-09-19 07:57 | Internal Med Progress Note ---
SUBJECTIVE Subjective Patient information: Note initiated : 09/19/21 at 7:54 am Service Date, if different from initiated Date: [] Patient: Tae Esquivel a 51 y/o M admitted on 09/17/21 for Fluid overload. Chief Complaint: [] Interval history: History of present illness: Mr. Esquivel is a 51 year old M Presents to the ED with leg swelling and redness and pain. He was recently seen in the ED several days ago for cellulitis started on antibiotic. His white blood cell count is returned to normal but he felt but his legs have worsened. He also has some shortness of breath and was found to be hypoxic in the mid 's on room air. This patient has been admitted 4 times since July either for COPD exacerbation or heart failure and most recently for what is felt to be an benzodiazepine overdose recall resulting in intubation. Is been into the ER multiple times. Patient says he sees a chest clinic and they had him on Lasix possibly change the dose. Denies any headache fever chills nausea vomiting. His cough is starting to improve since he stopped smoking. He does feel wheezy though. His legs are so edematous they started weeping. Chest x-ray with interstitial edema 6/4 Coughing shortness of breath present but improving. Leg still edematous red and painful. Hyponatremia hypochloremia anemia, mildly elevated Phos 6/5 Patient feeling little bit better. Titrating down oxygen. Leg still significantly edematous but gradually improving. Leg redness improving. Sodium better. Review of Systems: denies headache/fever/chills/nausea/vomiting/chest or abdominal pain/diarrhea. Otherwise see above. Constitutional Vitals: Vital Signs Temp Pulse Resp BP Pulse Ox 98.9 F 66 11 L 133/62 93 09/19/21 04:01 09/19/21 04:01 09/19/21 04:01 09/19/21 04:01 09/19/21 04:01 Period Temp Pulse Resp BP Sys/Banks Pulse Ox Last 24 Hr 96.9 F-98.9 F 32-152 11-19 105-133/57-73 91-96 Intake and Output 09/18/21 09/19/21 09/19/21 21:59 05:59 13:59 Intake Total 400 Output Total 1150 1650 900 Balance -750 -1650 -900 Weight 102.784 kg Intake & Output: Intake & Output 09/18/21 09/19/21 09/19/21 21:59 05:59 13:59 Intake Total 400 Output Total 1150 1650 900 Balance -750 -1649 -900 Weight 102.784 kg Intake: IV 100 Rocephin 2 gm In Dextrose 5% in 50 Water 50 ml @ 100 mls/hr IV Q24H [facility] Rx#:[id number] Oral 300 Output: Urine Catheter Amount 900 Void Amount 1150 1650 Other: Percent of Meal Consumed 50% Feeding Ability Independent Urine Appearance Clear Clear Clear Urine Color Bright Yellow Bright Yellow Bright Yellow Urine Odor Normal Normal Exam: General: Alert, Awake, No acute Distress, obese Eyes/N/T: EOMI, Head/Neck: neck supple, CV: RRR, No murmurs, Pulm: mild Bibasilar rales, minimal wheezing b/l Abd: soft, nontender, +BS x4 Ext: no clubbing/cyanosis, b/l LE 3+ edema with erythema of the entire scherer area and edema, tender to touch - slowly improving Neuro: Alert, no focal deficits, moves all extremities, Skin: warm/dry OBJ DATA Labs CBC & Chem 7: 09/18/21 05:52 09/19/21 05:38 Labs: Abnormal Lab Results 09/19/21 09/18/21 09/18/21 05:38 05:52 05:52 RBC Hgb Hct RDW [place] % (Auto) Lymph # (Auto) [place] # (Auto) Sodium 128 L Chloride 94 L 92 L Carbon Dioxide 34 H Anion Gap 5.0 L Creatinine 0.6 L 0.6 L Calcium 8.3 L 7.9 L Phosphorus 4.8 H NT-Pro-B Natriuret Pep Total Protein 5.2 L Albumin 3.0 L Procalcitonin 0.19 H Urine Opiates Screen U Marijuana (THC) Screen 09/18/21 09/18/21 09/17/21 05:52 05:50 17:36 RBC 4.12 L Hgb 12.5 L Hct 38.5 L RDW 15.0 H [place] % (Auto) 13.0 H Lymph # (Auto) 1.22 L [place] # (Auto) Sodium 128 L Chloride 90 L Carbon Dioxide Anion Gap Creatinine 0.6 L Calcium 8.2 L Phosphorus NT-Pro-B Natriuret Pep 692.2 H Total Protein Albumin Procalcitonin Urine Opiates Screen Suspect positive A U Marijuana (THC) Screen Suspect positive A 09/17/21 17:36 RBC 4.11 L Hgb 12.7 L Hct 38.7 L RDW 15.1 H [place] % (Auto) 13.4 H Lymph # (Auto) [place] # (Auto) 1.05 H Sodium Chloride Carbon Dioxide Anion Gap Creatinine Calcium Phosphorus NT-Pro-B Natriuret Pep Total Protein Albumin Procalcitonin Urine Opiates Screen U Marijuana (THC) Screen Meds: Medications Acetaminophen (Acetaminophen 325 Mg Tablet) 650 mg PO Q6HP PRN; Protocol PRN Reason: Per Pain Protocol/Fever > 101 Hydrocodone Bitart/Acetaminophen (Hydrocodone/Apap 5/325mg Tablet) 1 - 2 tab PO Q4HP PRN PRN Reason: PAIN LEVEL 3-6 Last Admin: 09/19/21 05:17 Dose: 1 tab Documented by: Albuterol Sulfate (Albuterol Sulfate 2.5 Mg/3 Ml Nebulizer) 2.5 mg INH Q4HP PRN PRN Reason: shortness of breath or wheezing Albuterol/Ipratropium (Ipratropium/Albuterol 3 Ml Ampul.Neb) 3 ml NEB Q4HP PRN PRN Reason: Shortness Of Breath Last Admin: 09/19/21 05:17 Dose: 3 ml Documented by: Bupropion HCl (Bupropion 150 Mg Tab.Sr.12h) 150 mg PO DAILY [facility] Citalopram Hydrobromide (Citalopram 20 Mg Tablet) 20 mg PO DAILY [facility] Divalproex Sodium (Divalproex Sodium 250 Mg Tablet) 2,000 mg PO [facility] Last Admin: 09/18/21 20:30 Dose: 2,000 mg Documented by: Docusate Sodium (Docusate Sodium 100 Mg Capsule) 100 mg PO BID [facility] Last Admin: 09/18/21 19:48 Dose: Not Given Documented by: Enoxaparin Sodium (Enoxaparin 40 Mg/0.4 Ml Syringe) 40 mg SQ DAILY [facility] Last Admin: 09/18/21 08:21 Dose: 40 mg Documented by: Folic Acid (Folic Acid 1 Mg Tablet) 1 mg PO DAILY [facility] Furosemide (Furosemide 40 Mg/4 Ml Vial) 40 mg IV Q8 [facility] Last Admin: 09/19/21 05:07 Dose: 40 mg Documented by: Gabapentin (Gabapentin 300 Mg Capsule) 600 mg PO TID [facility] Last Admin: 09/18/21 20:29 Dose: 600 mg Documented by: Potassium Chloride 40 meq/ (Dextrose) 520 mls @ 130 mls/hr IV UD PRN PRN Reason: Potassium < 3 Magnesium Sulfate (Magnesium Sulfate) 2 gm in 50 mls @ 50 mls/hr IV UD PRN PRN Reason: Magnesium </= 1.6 Ceftriaxone Sodium 2 gm/ (Dextrose) 50 mls @ 100 mls/hr IV Q24H [facility]; Protocol Last Infusion: 09/18/21 16:24 Dose: Infused Documented by: Lisinopril (Lisinopril 20 Mg Tablet) 20 mg PO QDAY [facility] Morphine Sulfate (Morphine 4 Mg/Ml Vial) 0 mg IV Q3HP PRN PRN Reason: Pain Last Admin: 09/19/21 07:41 Dose: 2 mg Documented by: Nicotine (Nicotine 14 Mg Patch) 14 mg TOPICAL DAILY@1000 [facility] Last Admin: 09/18/21 18:34 Dose: 14 mg Documented by: Nicotine Polacrilex (Nicotine Polacrilex 2 Mg Gum) 2 mg BC Q4HP PRN PRN Reason: Withdrawal Symptoms Last Admin: 09/19/21 03:52 Dose: 2 mg Documented by: Olanzapine (Olanzapine 5 Mg Tablet) 5 mg PO BID [facility] Last Admin: 09/18/21 20:30 Dose: 5 mg Documented by: Ondansetron HCl (Ondansetron 4 Mg/2 Ml Vial) 4 mg IV Q4HP PRN PRN Reason: Nausea And Vomiting Empagliflozin [ Jardiance] 10 Mg Tablet 1 dose PO DAILY [facility] Budesonide- Formoterol [ Symbicort] 80-4.5 Mcg 2 dose INH BID [facility] Last Admin: 09/18/21 20:35 Dose: Not Given Documented by: Ziprasidone Hcl 80 (Mg Capsule) 1 dose PO DAILY@1700 [facility] Last Admin: 09/18/21 18:34 Dose: Not Given Documented by: Buprenorphine- Naloxone 2-0.5 Mg Tablet 1 dose SL BID [facility] Last Admin: 09/18/21 20:35 Dose: Not Given Documented by: Polyethylene Glycol (Polyethylene Glycol 3350 17 Gm Packet) 17 gm PO DAILYP PRN PRN Reason: Constipation Potassium Chloride (Potassium Chloride 20 Meq Tablet) 40 meq PO UD PRN PRN Reason: Potssium is 3-3.5 Potassium Chloride (Potassium Chloride 20 Meq Tablet) 40 meq PO UD PRN PRN Reason: Potassium < 3 Quetiapine Fumarate (Quetiapine 25 Mg Tablet) 50 mg PO TIDP PRN PRN Reason: Agitation Senna (Sennosides 1 Tablet) 2 tab PO DAILYP PRN PRN Reason: Constipation Sodium Chloride (0.9 % Sodium Chloride 10 Ml Syringe) 10 ml IV Q8 [facility] Last Admin: 09/19/21 05:20 Dose: 10 ml Documented by: Tiotropium [place] (Tiotropium [place] 18 Mcg Inhalant) 18 mcg INH QDAY [facility] Zolpidem Tartrate (Zolpidem 5 Mg Tablet) 10 mg PO HSP PRN PRN Reason: Insomnia Last Admin: 09/18/21 20:30 Dose: 10 mg Documented by: A/P Narrative A/P Narrative: A: *Acute on chronic diastolic CHF with pulmonary edema/severe peripheral edema: -good diuresis, still quite edematous *Acute hypoxic respiratory failure: 2/2 above -on 1L NC *Cellulitis LE's: recently started on keflex *Hyponatremia, chronic: 2/2 above. improved *COPD (not previously on home O2): -quit smoking several weeks ago *Schizoaffective d/o: *HTN: *Peripheral artery disease: *Depression/anxiety: *obese: bmi 32 P: -IV lasix tid -monitor i/o, uop -O2 supp, wean as able -cont abx, mrsa screen neg -elevate legs, LANI wraps -per nebs, home IH's -cont ACEI -cont psych meds -f/u with cardio outpt -ppx: lovenox Time Spent With Patient Time: Total time spent is greater than 50% in coordination of care (as documented) at patient's floor/unit and/or counseling patient: QUALITY VTE Deep Vein Thrombosis/Pulmonary Embolism Present on Admission: No
[2021-09-19] MEDS ORDERED: HYDROCHLOROTHIAZIDE 12.5 MG CAPSULE PO ONE (08:30)
[2021-09-19] MEDS: ENOXAPARIN 40 MG/0.4 ML SYRINGE SQ SCH (09:39)
[2021-09-19] MEDS: NICOTINE 14 MG PATCH TOPICAL SCH (09:39)
[2021-09-19] MEDS: LISINOPRIL 20 MG TABLET PO SCH (09:40)
[2021-09-19] MEDS: CITALOPRAM 20 MG TABLET PO SCH (09:40)
[2021-09-19] MEDS: FOLIC ACID 1 MG TABLET PO SCH (09:40)
[2021-09-19] MEDS: OLANZapine 5 MG TABLET PO SCH ×2 (09:40→20:36)
[2021-09-19] MEDS: DOCUSATE SODIUM 100 MG CAPSULE PO SCH ×2 (09:40→20:37)
[2021-09-19] MEDS: GABAPENTIN 300 MG CAPSULE PO SCH ×3 (09:40→20:37)
[2021-09-19] MEDS: BUDESONIDE FORMOTEROL INH SCH ×2 (09:43→20:41)
[2021-09-19] MEDS: buPROPion 150 MG TAB.SR.12H PO SCH (09:43)
[2021-09-19] MEDS: TIOTROPIUM BROMIDE 18 MCG INHALANT INH SCH (09:43)
[2021-09-19] MEDS ORDERED: NICOTINE 14 MG PATCH TOPICAL SCH (10:00)
[2021-09-19] MEDS: BUPRENORPHINE NALOXONE SL SCH ×2 (11:34→20:41)
[2021-09-19] MEDS: cefTRIAXone 2 GM in DEXTROSE 5% IN WATER 50 ML IV SCH (14:33)
[2021-09-19] MEDS: ZOLPIDEM 5 MG TABLET PO PRN (20:36)
[2021-09-19] MEDS: DIVALPROEX SODIUM 250 MG TABLET PO SCH (20:36)
[2021-09-19] MEDS ORDERED: NON FORMULARY MEDICATION 1 DOSE MISCELL (Divalproex 500 mg tablet,delayed release (DR/EC)) PO SCH (21:00)
[2021-09-20] MEDS: HYDROcodone/APAP 5/325MG TABLET PO PRN (01:10)
[2021-09-20] MEDS: IPRATROPIUM/ALBUTEROL 3 ML AMPUL.NEB NEB PRN ×3 (01:40→11:15)
[2021-09-20] MEDS: morphine 4 MG/ML VIAL IV PRN ×3 (03:48→10:10)
[2021-09-20] MEDS: NICOTINE POLACRILEX 2 MG GUM BC PRN ×2 (03:52→08:15)
[2021-09-20] MEDS: 0.9 % SODIUM CHLORIDE 10 ML SYRINGE IV SCH (05:18)
[2021-09-20] MEDS: FUROSEMIDE 40 MG/4 ML VIAL IV SCH (05:18)
[2021-09-20 06:47] LABS: ALT/SGPT 17 U/L (<40); AST/SGOT 18 U/L (<40); Albumin 3.5 gm/dL (3.2-5.2); Albumin/Globulin Ratio 1.3 (1.0-2.3); Alkaline Phosphatase 41 U/L (39-117); Bilirubin,Direct < 0.2 mg/dL (0-0.3); Bilirubin,Total 0.4 mg/dL (0.1-1.0); Blood Urea Nitrogen 10 mg/dL (6-20); Calcium 8.3 mg/dL (8.6-10.4); Carbon Dioxide 31 mmol/L (22-30); Chloride 92 mmol/L (96-108); Globulin 2.6 gm/dL (2.2-3.7); Glomerular Filtration Rate 111; Glucose 81 mg/dL (70-105); Lactate Dehydrogenase 203 U/L (135-225); Phosphorous 4.1 mg/dL (2.5-4.5); Triglycerides 92 mg/dL (<150); Uric Acid 5.9 mg/dL (2.5-8.0)
[2021-09-20] MEDS: ENOXAPARIN 40 MG/0.4 ML SYRINGE SQ SCH (08:35)
[2021-09-20] MEDS: buPROPion 150 MG TAB.SR.12H PO SCH (08:36)
[2021-09-20] MEDS: DOCUSATE SODIUM 100 MG CAPSULE PO SCH (08:36)
[2021-09-20] MEDS: GABAPENTIN 300 MG CAPSULE PO SCH (08:36)
[2021-09-20] MEDS: CITALOPRAM 20 MG TABLET PO SCH (08:36)
[2021-09-20] MEDS: LISINOPRIL 20 MG TABLET PO SCH (08:36)
[2021-09-20] MEDS: NICOTINE 14 MG PATCH TOPICAL SCH (08:36)
[2021-09-20] MEDS: FOLIC ACID 1 MG TABLET PO SCH (08:37)
[2021-09-20] MEDS: OLANZapine 5 MG TABLET PO SCH (08:37)
[2021-09-20] MEDS: BUDESONIDE FORMOTEROL INH SCH (10:10)
[2021-09-20] MEDS: BUPRENORPHINE NALOXONE SL SCH (10:11)
[2021-09-20] MEDS: TIOTROPIUM BROMIDE 18 MCG INHALANT INH SCH (10:11)
--- NOTE | 2021-09-20 10:18 | Discharge Summary ---
Discharge Provider Provider IMPORTANT FOLLOW-UP INFORMATION FOR PCP: Cardiology follow up, outpatient TTE Patient information: Note initiated : 09/20/21 at 10:17 am Service Date, if different from initiated Date: [] Patient: Tae Esquivel 51 y/o M admitted on 09/17/21 for Fluid overload. Chief Complaint: [] Date of admission: 09/17/21 22:47 Discharge date: 09/20/21 Primary care physician: Rachel Stark PA-C Consults: 09/17/21 Consult to Physician [CONS] Stat Comment: Consulting Provider: Nadir Hopkins Reason For Exam: Physician to Consult Discharging clinician: Santhosh MARIE Hospital Course Hospital course: Mr. Esquivel is a 51 year old M Presents to the ED with leg swelling and redness and pain. He was recently seen in the ED several days ago for cellulitis started on antibiotic. His white blood cell count is returned to normal but he felt but his legs have worsened. He also has some shortness of breath and was found to be hypoxic in the mid 80's on room air. This patient has been admitted 4 times since July either for COPD exacerbation or heart failure and most recently for what is felt to be an benzodiazepine ov erdose recall resulting in intubation. Is been into the ER multiple times. Patient says he sees a chest clinic and they had him on Lasix possibly change the dose. Denies any headache fever chills nausea vomiting. His cough is starting to improve since he stopped smoking. He does feel wheezy though. His legs are so edematous they started weeping. Chest x-ray with interstitial edema /4 Coughing shortness of breath present but improving. Leg still edematous red and painful. Hyponatremia hypochloremia anemia, mildly elevated Phos 6/5 Patient feeling little bit better. Titrating down oxygen. Leg still significantly edematous but gradually improving. Leg redness improving. Sodium better. 09/20: The patient will need a close cardiology follow-up in outpatient setting with a TTE as well. He will be discharged on Lasix 40 mg p.o. twice daily. It is recommended he be maintained on a low-sodium diet and have a BMP checked within 1 week. He would benefit from data driven therapy once his TTE is complete including beta-benny, lisinopril and Aldactone if need be. Of note, he has been weaned off supplemental O2. The patient does not need antibiotics as this was not cellulitis and instead it was erythema from his pedal edema. The patient remains afebrile with a normal white blood cell count. Discharge diagnosis: Acute on chronic congestive heart failure, COPD exacerbation Time Spent with Patient Time attestation: Total time spent providing and/or coordinating discharge services: Time spent: Greater than 30 minutes EXAM Constitutional Vitals: Temp Pulse Resp BP Pulse Ox 98.4 F 54 L 20 108/73 93 09/20/21 08:08 09/20/21 06:23 09/20/21 08:08 09/20/21 08:08 09/20/21 08:08 General appearance: average body habitus Head Head exam: Present atraumatic, normal inspection and normocephalic Eye Eye exam: Present EOMI, normal appearance and PERRL; Absent conjunctival injection ENT ENT exam: Present normal exam; Absent mucous membranes dry Neck Neck exam: Present full ROM; Absent lymphadenopathy Respiratory Respiratory exam: Present normal respiratory exam, CTAB, rhonchi and wheezes; Absent decreased breath sounds or respiratory distress Cardiovascular Cardiovascular exam: Present normal rate and rhythm and RRR; Absent JVD GI/Abdominal GI/Abdominal exam: Present normal bowel sounds and soft; Absent diminished bowel sounds, distended, guarding, mass, rebound or tenderness Extremities Exam Extremities exam: Present pedal edema Neurological Exam Neurological exam: Present alert, CN II-XII intact and oriented X3 Psychiatric Psychiatric exam: Present normal affect and normal mood Skin Skin exam: Present intact and warm; Absent erythema, pallor, petechiae or rash Discharge Data Data Completed and Pending Labs on day of discharge: Labs from last 24 hours 09/20/21 05:39 Sodium 130 L Potassium 4.4 Chloride 92 L Carbon Dioxide 31 H Anion Gap 7.0 L BUN 10 Creatinine 0.7 GFR Calculation 111 Glucose 81 Uric Acid 5.9 Calcium 8.3 L Phosphorus 4.1 Magnesium 1.9 Total Bilirubin 0.4 Direct Bilirubin < 0.2 GGT 12 AST 18 ALT 17 Alkaline Phosphatase 41 Lactate Dehydrogenase 203 Total Protein 6.1 Albumin 3.5 Globulin 2.6 Albumin/Globulin Ratio 1.3 Triglycerides 92 Preliminary micro results at discharge 09/17/21 18:10 Blood Culture - Preliminary Blood 09/17/21 18:05 Blood Culture - Preliminary Blood Discharge Plan Patient/Caregiver Discharge Instructions Activity: as per physical therapy Diet: Low Sodium (2gm) Instructions: Heart Failure (DC) Prescriptions: New furosemide [Lasix] 40 mg tablet 40 mg PO BID Qty: 60 0RF Continued ziprasidone HCl 80 mg Capsule 160 mg PO 1700 0RF ipratropium-albuterol 0.5 mg-3 mg(2.5 mg base)/3 mL Solution For Nebulization 3 ml INHALATION Q4H PRN (Reason: Shortness Of Breath Or Wheezing) 0RF lisinopril 20 mg Tablet 20 mg PO QDAY 0RF gabapentin 300 mg Capsule 600 mg PO TID 0RF Rx Instructions: 0800, 1400, 2000 albuterol sulfate 90 mcg/actuation HFA aerosol inhaler 2 puff inhalation PRN PRN (Reason: shortness of breath or wheezing) 0RF Rx Instructions: 2 puffs every 4-6 hours as needed citalopram 20 mg tablet 1 tab PO QDAY 0RF zolpidem 10 mg tablet 1 tab PO HS 0RF albuterol sulfate 2.5 mg /3 mL (0.083 %) solution for nebulization 2.5 mg inhalation Q4H PRN (Reason: shortness of breath or wheezing) Qty: 75 0RF folic acid 1 mg tablet 1 tab PO QDAY 0RF epinephrine [EpiPen] 0.3 mg/0.3 mL auto-injector 0.3 ml IM PRN PRN (Reason: Allergic Reaction) 0RF cilostazol 100 mg Tablet 100 mg PO BID 0RF Spiriva with HandiHaler 18 mcg Capsule, W/Inhalation Device 1 cap INHALATION QDAY 0RF budesonide-formoterol [Symbicort] 80-4.5 mcg/actuation Hfa Aerosol Inhaler 2 puff INHALATION BID 0RF ibuprofen 800 mg Tablet 800 mg PO Q8H PRN (Reason: Pain) 0RF bupropion HCl 150 mg tablet sustained-release 12 hr 150 mg PO QDAY 0RF buprenorphine-naloxone 2-0.5 mg Tablet, Sublingual 1 tab SUBLINGUAL BID 0RF nicotine (polacrilex) 2 mg gum 2 mg PO Q4HP PRN (Reason: Withdrawal Symptoms) 0RF quetiapine 50 mg tablet 50 mg PO TIDP PRN (Reason: Agitation) 0RF olanzapine [Zyprexa] 5 mg tablet 5 mg PO BID Qty: 60 0RF clonazepam 0.5 mg tablet 1 tab PO TIDP PRN (Reason: Anxiety) 0RF Jardiance 10 mg tablet 1 tab PO QDAY 0RF nicotine 21 mg/24 hr patch 24 hour 14 mg topical DAILY@1000 0RF divalproex 500 mg tablet,delayed release (DR/EC) 2,000 mg PO HS 0RF Discontinued cephalexin 500 mg capsule 500 mg PO TID Qty: 20 0RF Follow Up Plan Follow up with: Rachel Stark PA-C [Primary Care Provider] - Santhosh Jeong MD [Physician] - Patient Disposition: Home, Self-Care Health Concerns: Low sodium diet, smoking cessation, cardiology follow up Plan of Treatment: Close cardiology follow up Prognosis: Fair Rehab Potential: Fair I certify that the patient requires SNF services: No Overall status at discharge: patient is progressing back to baseline Discharge Orders: Discharge Order (Routine); Ordered 09/20/21 Ordered By: Santhosh Jeong QUALITY VTE Deep Vein Thrombosis/Pulmonary Embolism Present on Admission: No
== END 2021-09-20 12:00 | disposition home or self-care (01) | DRG 291 ==
LOC: ED 16:59 → ICU 22:47
PROVIDERS: ADMIT Internal Medicine; ATTEND Student in an Organized Health Care Education/Training Program